=== PATIENT | female | born 1940 | race American Indian/Alaskan Native ===

== ENCOUNTER 2018-03-29 11:04 | Emergency (ER) | payer OTHER, MEDICARE ==
--- OUTSIDE RECORDS SUMMARY | 2018-03-29 11:06 | XMS REPORT | Clinical Summary ---
:1940 Author Organization [facility] Address [address] [place] [address] Care Team Providers Name Role Phone Bret Blackwell MD Primary Care Provider Allergies Active Allergy Reactions Severity Noted Date Comments Penicillins Rash Low 08/14/2016 Current Medications Prescription Sig. Disp. Refills Start Date End Date Status ascorbate Vitamin C Active Dx-erlhgjcz-ffy (VITAMIN C) 1,000 mg powder effervescent in packet VIT B COMPLEX 100 vitamin B Active NO.2/HERBS (VITAMIN complex B COMPLEX 100 2-HERBS ORAL) ahrrqep-xacloxyzx-d Take 1 tablet Active inc tablet by mouth. pantoprazole Take 40 mg by 10/26/2017 Active (PROTONIX) 40 MG EC mouth daily. tablet levothyroxine Take 50 mcg by Active (SYNTHROID, mouth every LEVOXYL) 50 mcg morning. tablet losartan (COZAAR) Take 100 mg by Active 100 MG tablet mouth nightly. metFORMIN Take 1,000 mg Active (GLUCOPHAGE) 1,000 by mouth 2 mg tablet (two) times a day with meals. aspirin (ECOTRIN) Take 81 mg by Active 81 MG enteric mouth daily. coated tablet clopidogrel Take 75 mg by Active (PLAVIX) 75 mg mouth daily. tablet carvedilol (COREG) Take 12.5 mg by Active 12.5 MG tablet mouth 2 (two) times a day with meals. amLODIPine Take 5 mg by Active (NORVASC) 5 mg mouth 2 (two) tablet times a day. atorvastatin Take 40 mg by Active (LIPITOR) 40 MG mouth daily. tablet coenzyme Q10 10 mg Take 10 mg by Active capsule mouth daily. docusate sodium Take 100 mg by Active (COLACE) 100 MG mouth 2 (two) capsule times a day. cyanocobalamin, Place 2,500 mcg Active vitamin B-12, 5,000 under the mcg tablet, tongue daily. sublingual folic acid 0.8 mg Take 0.8 mg by Active capsule mouth daily. omega-3 fatty Take by mouth Active acids-fish oil daily. (FISH OIL) 340-1,000 mg capsule memantine (NAMENDA Take by mouth Active XR) 28 mg daily. capsule,sprinkle,ER 24hr galantamine Take 12 mg by Active (RAZADYNE) 12 MG mouth 2 (two) tablet times a day. insulin GLARGINE Inject 20-25 Active (LANTUS) 100 Units under the unit/mL injection skin nightly. (vial) insulin lispro Inject 2-15 Active (HumaLOG) 100 Units under the unit/mL injection skin 3 (three) times a day before meals. nitrofurantoin Take 100 mg by Active (MACRODANTIN) 100 mouth daily. MG capsule brinzolamide-brimon Apply 1 drop to Active idine (SIMBRINZA) eye 2 (two) 1-0.2 % times a day. drops,suspension propylene glycol Apply 1 drop to Active (SYSTANE BALANCE) eye 3 (three) 0.6 % drops times a day. carvedilol (COREG) Take 1 tablet 180 tablet 3 09/19/2016 12.5 MG (12.5 mg total) 7 tabletIndications: by mouth 2 Essential (two) times a hypertension day. amLODIPine Take 1 tab by 180 tablet 3 11/28/2016 Discontinued (NORVASC) 5 mg mouth twice 8 tabletIndications: daily. Essential hypertension metFORMIN 12/29/2016 Discontinued (GLUCOPHAGE) 1,000 8 mg tablet NAMENDA XR 28 mg 01/19/2017 Discontinued capsule,sprinkle,ER 8 24hr levothyroxine 12/08/2016 Discontinued (SYNTHROID, 8 LEVOXYL) 50 mcg tablet clopidogrel 01/25/2017 Discontinued (PLAVIX) 75 mg 8 tablet atorvastatin 12/15/2016 Discontinued (LIPITOR) 40 MG 8 tablet LANTUS SOLOSTAR 100 01/24/2017 Discontinued unit/mL injection 8 (pen) irbesartan (AVAPRO) 11/15/2016 Discontinued 300 MG tablet 7 repaglinide 12/15/2016 Discontinued (PRANDIN) 0.5 MG 8 tablet losartan (COZAAR) 12/15/2016 Discontinued 100 MG tablet 8 carvedilol (COREG) carvedilol 12.5 Discontinued 12.5 MG tablet mg tablet 7 coenzyme Q10 10 mg Take 10 mg by Discontinued capsule mouth. 8 b complex vitamins Take by mouth. Discontinued capsule 8 niacin 500 MG Take by mouth. Discontinued tablet 7 folic acid Take 400 mcg by Discontinued (FOLVITE) 400 MCG mouth. 8 tablet aspirin (ECOTRIN) Take 81 mg by Discontinued 81 MG enteric mouth daily. 8 coated tablet carvedilol (COREG) carvedilol 12.5 Discontinued 12.5 MG tablet mg tablet 8 docosahexanoic Fish Oil Discontinued acid/epa (FISH OIL 8 ORAL) galantamine 11/30/2017 Discontinued (RAZADYNE) 12 MG 8 tablet galantamine Take 12 mg by Discontinued (RAZADYNE) 4 MG mouth 2 (two) 8 tablet times a day. Active Problems Problem Noted Date Coronary artery disease involving [place] heart with angina pectoris 03/25/2018 Chest pain 02/02/2018 History of coronary artery bypass graft 02/02/2018 Coronary artery disease of [place] artery of [place] heart with stable 2016 angina pectoris Syncope 02/27/2017 Carotid artery disease 02/03/2017 Coronary artery disease with angina pectoris 02/03/2017 Stenosis of carotid artery 07/18/2016 Chronic coronary artery disease 07/18/2016 Essential hypertension 07/18/2016 Hyperlipidemia 07/18/2016 Temporary cerebral vascular dysfunction 07/18/2016 Transient ischemia 07/18/2016 Encounters Date Type Specialty Care Team Description 03/26/2018 Procedure Pass Procedural Cardiology 03/26/2018 Surgery Procedural [facility] PCI STENT [[id number] Cardiology MD Jorge L (CPT)] 03/25/2018 - Hospital Cardiology Wil Luis Coronary artery disease involving [place] coronary artery of [place] heart with angina pectoris (Primary Dx); 03/27/2018 Encounter MD Jorge L Coronary artery disease involving [place] heart with angina pectoris, unspecified vessel or lesion type 03/25/2018 Procedure Pass Procedural Cardiology 03/25/2018 Surgery Procedural Wil Luis Cv left internal Cardiology MD Jorge L mammary graft 03/15/2018 Lab Lab Wil Luis Atherosclerosis of MD Jorge L [place] coronary artery with angina pectoris, unspecified whether [place] or transplanted heart (Primary Dx) 03/11/2018 Orders Only Cardiology Radha, Coronary artery disease DEVIKA Johnson involving [place] heart with angina pectoris, unspecified vessel or lesion type (Primary Dx) 02/26/2018 Hospital Procedural Wil Luis Coronary artery disease Encounter Cardiology MD Jorge L involving [place] coronary artery of [place] heart without angina pectoris 02/19/2018 Telephone Cardiology Zachary Cruz MA Scheduling (cta coronary) 02/19/2018 Orders Only Cardiology Zachary Cruz MA Coronary artery disease involving [place] coronary artery of [place] heart without angina pectoris (Primary Dx) 02/02/2018 Office Visit Cardiology Wil Luis Chest pain, unspecified type (Primary Dx); MD Jorge L Coronary artery disease of [place] artery of [place] heart with stable angina pectoris; Bilateral carotid artery disease; History of coronary artery bypass graft 08/04/2017 Office Visit Cardiology Wil Luis CAD in [place] artery ( Primary Dx); MD Jorge L Bilateral carotid artery disease 04/03/2017 Office Visit Cardiology Wil Luis Essential hypertension ( Primary Dx); MD Jorge L Syncope, unspecified syncope type; Stenosis of carotid artery, unspecified laterality; Chronic coronary artery disease after 03/28/2017 Social History Tobacco Use Types Packs/Day Years Used Date Never Smoker Smokeless Tobacco: Never Used Sex Assigned at Date Recorded Not on file Last Filed Vital Signs Vital Sign Reading Time Taken Blood Pressure 105/55 03/27/2018 8:26 AM CDT Pulse 64 03/27/2018 8:26 AM CDT Temperature 37.3 C (99.1 F) 03/27/2018 8:26 AM CDT Respiratory Rate 16 03/27/2018 8:26 AM CDT Oxygen Saturation 92% 03/27/2018 8:26 AM CDT Inhaled Oxygen Concentration - - Weight 78.2 kg (172 lb 8 oz) 03/26/2018 4:39 AM CDT Height 160 cm (5' 3") 03/25/2018 7:22 AM CDT Body Mass Index 30.56 03/26/2018 4:39 AM CDT Plan of Treatment Date Type Specialty Care Team Description 04/13/2018 Office Visit Cardiology Wil Luis MD [address] [place] [address] [phone] 08/03/2018 Office Visit Cardiology Wil Luis MD [address] [place], [place] [id number] Health Maintenance Due Date Last Done Comments SHINGRIX VACCINE (#1) 1991 ZOSTER VACCINE 2001 PNEUMOCOCCAL POLYSACCHARIDE VACCINE AGE 65 AND OVER 2006 PNEUMOCOCCAL-13 2006 INFLUENZA VACCINE 05/12/2018 Implants Implanted Type Area Bilingual Administrative Assistant Device Expiration Model / Identifier Date Serial / Lot Catheter Cardiac 7f Mach 1 Fr4 Sh - [id number] Cardiovascular N/A: [facility] [id number] / Implanted: 03/26/2018 (Quantity not on file) Implants N/A INTERVENTIONAL / CARDIOLOGY Microcatheter Miley Corsair 6f X 135 Cm - [id number] Cardiovascular N/A: [facility] [id number] / Implanted: 03/26/2018 (Quantity not on file) Implants N/A / Stent Cornorary Syst Synergy (Mr) 2.50mm X 20mm - [id number] Coronary Stents N/A: [facility] 11/16/2018 [id number] / Implanted: 03/25/2018 (Quantity not on file) N/A INTERVENTIONAL / CARDIOLOGY [id number] Stent Cornorary Syst Synergy (Mr) 2.50mm X 16mm - [id number] Coronary Stents N/A: [facility] 12/29/2018 [id number] / Implanted: 03/26/2018 (Quantity not on file) N/A INTERVENTIONAL / CARDIOLOGY [id number] System Clsr Sut Meditd 6fr Perclose Proglide - [id number] Surgical N/A: [facility] 01/10/2020 [id number] / Implanted: 03/25/2018 (Quantity not on file) Implants; N/A DEVICES / Expanders; [id number] Extenders; Surgical Wires System Clsr Sut Meditd 6fr Perclose Proglide - [id number] Surgical N/A: [facility] 01/10/2020 [id number] / Implanted: 03/26/2018 (Quantity not on file) Implants; N/A DEVICES / Expanders; [id number] Extenders; Surgical Wires Procedures Procedure Name Priority Date/Time Associated Diagnosis Comments POC GLUCOSE Routine 03/27/2018 12:34 Results for this PM CDT procedure are in the results section. POC GLUCOSE Routine 03/27/2018 9:42 Results for this AM CDT procedure are in the results section. ESTIMATED GFR Routine 03/27/2018 4:30 Results for this AM CDT procedure are in the results section. LIPID PANEL Routine 03/27/2018 4:30 Results for this AM CDT procedure are in the results section. HC COMPLETE BLD COUNT Routine 03/27/2018 4:30 Results for this W/AUTO DIFF AM CDT procedure are in the results section. BASIC METABOLIC PANEL Routine 03/27/2018 4:30 Results for this AM CDT procedure are in the results section. POC GLUCOSE Routine 03/26/2018 9:07 Results for this PM CDT procedure are in the results section. ECG PRE/POST OP STAT 03/26/2018 7:40 Results for this PM CDT procedure are in the results section. POC GLUCOSE Routine 03/26/2018 5:40 Results for this PM CDT procedure are in the results section. CV INTRACORONARY Routine 03/26/2018 3:23 Results for this STENT PLACEMENT W PM CDT procedure are in ANGIOPLASTY SINGLE the results MAJOR ARTERY OR section. BRANCH ACTIVATED CLOTTING Routine 03/26/2018 3:14 Results for this TIME PM CDT procedure are in the results section. ACTIVATED CLOTTING Routine 03/26/2018 2:35 Results for this TIME PM CDT procedure are in the results section. ACTIVATED CLOTTING Routine 03/26/2018 2:25 Results for this TIME PM CDT procedure are in the results section. ACTIVATED CLOTTING Routine 03/26/2018 1:56 Results for this TIME PM CDT procedure are in the results section. POC GLUCOSE Routine 03/26/2018 12:22 Results for this PM CDT procedure are in the results section. POC GLUCOSE Routine 03/26/2018 7:18 Results for this AM CDT procedure are in the results section. ESTIMATED GFR Routine 03/26/2018 4:45 Results for this AM CDT procedure are in the results section. PHOSPHORUS LEVEL Routine 03/26/2018 4:45 Results for this AM CDT procedure are in the results section. MAGNESIUM LEVEL Routine 03/26/2018 4:45 Results for this AM CDT procedure are in the results section. HC COMPLETE BLD COUNT Routine 03/26/2018 4:45 Results for this W/AUTO DIFF AM CDT procedure are in the results section. BASIC METABOLIC PANEL Routine 03/26/2018 4:45 Results for this AM CDT procedure are in the results section. POC GLUCOSE Routine 03/25/2018 9:56 Results for this PM CDT procedure are in the results section. POC GLUCOSE Routine 03/25/2018 5:26 Results for this PM CDT procedure are in the results section. ECG PRE/POST OP Routine 03/25/2018 1:27 Results for this PM CDT procedure are in the results section. POC GLUCOSE Routine 03/25/2018 1:15 Results for this PM CDT procedure are in the results section. ECG PRE/POST OP Routine 03/25/2018 11:38 Results for this AM CDT procedure are in the results section. CONSULT CARDIAC REHAB Routine 03/25/2018 11:27 PHASE 1 AM CDT POC GLUCOSE Routine 03/25/2018 11:05 Results for this AM CDT procedure are in the results section. CV PCI Routine 03/25/2018 10:43 Results for this AM CDT procedure are in the results section. CV LEFT INTERNAL Routine 03/25/2018 10:43 Results for this MAMMARY GRAFT AM CDT procedure are in the results section. CV SELECTIVE CORONARY Routine 03/25/2018 10:43 Results for this ANGIOGRAPHY AM CDT procedure are in the results section. ACTIVATED CLOTTING Routine 03/25/2018 10:10 Results for this TIME AM CDT procedure are in the results section. ECG 12-LEAD STAT 03/25/2018 7:16 Results for this AM CDT procedure are in the results section. POC GLUCOSE Routine 03/25/2018 7:07 Results for this AM CDT procedure are in the results section. PROTHROMBIN TIME WITH Routine 03/15/2018 10:49 Atherosclerosis of Results for this INR AM CDT [place] coronary artery procedure are in with angina pectoris, the results unspecified whether section. [place] or transplanted heart ESTIMATED GFR Routine 03/15/2018 10:30 Results for this AM CDT procedure are in the results section. HC COMPLETE BLD COUNT Routine 03/15/2018 10:30 Atherosclerosis of Results for this W/AUTO DIFF AM CDT [place] coronary artery procedure are in with angina pectoris, the results unspecified whether section. [place] or transplanted heart COMPREHENSIVE Routine 03/15/2018 10:30 Atherosclerosis of Results for this METABOLIC PANEL AM CDT [place] coronary artery procedure are in with angina pectoris, the results unspecified whether section. [place] or transplanted heart CV CTA CORONARY Routine 02/26/2018 2:51 Coronary artery Results for this ARTERIES W CONTRAST PM CDT disease involving procedure are in [place] coronary artery the results of [place] heart section. without angina pectoris ESTIMATED GFR Routine 02/26/2018 1:22 Results for this PM CDT procedure are in the results section. POC CREATININE Routine 02/26/2018 1:22 Results for this PM CDT procedure are in the results section. XR CHEST 2 VW Routine 02/02/2018 12:15 Chest pain, Results for this PM CDT unspecified type procedure are in Coronary artery the results disease of [place] section. artery of [place] heart with stable angina pectoris Bilateral carotid artery disease US CAROTID DUPLEX Routine 01/28/2018 11:52 CAD in [place] artery Results for this BILATERAL AM CDT Bilateral carotid procedure are in artery disease the results section. US CAROTID DUPLEX Routine 07/21/2017 10:13 Carotid artery Results for this BILATERAL AM CDT disease, unspecified procedure are in laterality the results Coronary artery section. disease with angina pectoris, unspecified vessel or lesion type, unspecified whether [place] or transplanted heart Essential hypertension SOB (shortness of breath) ECG 12-LEAD Routine 04/03/2017 8:13 Essential hypertension Results for this AM CDT Syncope, unspecified procedure are in syncope type the results section. after 03/28/2017 Results POC glucose (03/27/2018 12:34 PM)Only the most recent of11 resultswithin the time period is included. POC glucose 308 (H) 65 - 99 mg/dL [facility] DEPARTMENT OF PATHOLOGY Comment: AND GENOMIC MEDICINE No Action Needed [facility] Notified RN Meter ID: [id number] Client Support Manager: Darron Irwin Performing Organization Address City/State/Zipcode Phone Number [facility] DEPARTMENT OF PATHOLOGY AND [address] [place] [address] GENOMIC MEDICINE Estimated GFR (03/27/2018 4:30 AM)Only the most recent of3 resultswithin the time period is included. GFR Non Af Amer 61 mL/min/1.73 m2 [facility] DEPARTMENT OF PATHOLOGY AND GENOMIC MEDICINE GFR Af Amer 74 mL/min/1.73 m2 [facility] DEPARTMENT OF Comment: PATHOLOGY AND GENOMIC Chronic kidney disease: <60 mL/min/1.73m2 MEDICINE Kidney failure: <15 mL/min/1.73m2 The estimated GFR is calculated from the IDMS-traceable Modification of Diet in Renal Disease Equation. The accuracy of the calculation is poor when the creatinine is normal. Calculated values >90 mL/min/1.73m2 are not reported. This equation has not been validated in children (<18 years), women, the elderly (>70 years), or ethnic groups other than Caucasians and Americans. Specimen Plasma specimen Performing Organization Address City/State/Zipcode Phone Number [facility] DEPARTMENT OF PATHOLOGY AND [address] [place] [address] [facility] CBC with platelet and differential (03/27/2018 4:30 AM)Only the most recent of3 resultswithin the time period is included. WBC 10.02 4.50 - 11.00 k/uL [facility] DEPARTMENT OF PATHOLOGY AND GENOMIC MEDICINE RBC 3.52 (L) 4.20 - 5.50 m/uL [facility] DEPARTMENT OF PATHOLOGY AND GENOMIC MEDICINE HGB 10.0 (L) 12.0 - 16.0 g/dL [facility] DEPARTMENT OF PATHOLOGY AND GENOMIC MEDICINE HCT 30.6 (L) 37.0 - 47.0 % [facility] DEPARTMENT OF PATHOLOGY AND GENOMIC MEDICINE MCV 86.9 82.0 - 100.0 fL [facility] DEPARTMENT OF PATHOLOGY AND GENOMIC MEDICINE MCH 28.4 27.0 - 34.0 pg [facility] DEPARTMENT OF PATHOLOGY AND GENOMIC MEDICINE MCHC 32.7 31.0 - 37.0 g/dL [facility] DEPARTMENT OF PATHOLOGY AND GENOMIC MEDICINE RDW - SD 49.2 37.0 - 55.0 fL [facility] DEPARTMENT OF PATHOLOGY AND GENOMIC MEDICINE MPV 12.7 8.8 - 13.2 fL [facility] DEPARTMENT OF PATHOLOGY AND GENOMIC MEDICINE Platelet count 206 150 - 400 k/uL [facility] DEPARTMENT OF PATHOLOGY AND GENOMIC MEDICINE Nucleated RBC 0.20 /100 WBC [facility] DEPARTMENT OF PATHOLOGY AND GENOMIC MEDICINE Neutrophils 66.2 39.0 - 69.0 % [facility] DEPARTMENT OF PATHOLOGY AND GENOMIC MEDICINE Lymphocytes 19.6 (L) 25.0 - 45.0 % [facility] DEPARTMENT OF PATHOLOGY AND GENOMIC MEDICINE Monocytes 12.7 (H) 0.0 - 10.0 % [facility] DEPARTMENT OF PATHOLOGY AND GENOMIC MEDICINE Eosinophils 1.0 0.0 - 5.0 % [facility] DEPARTMENT OF PATHOLOGY AND GENOMIC MEDICINE Basophils 0.3 0.0 - 1.0 % [facility] DEPARTMENT OF PATHOLOGY AND GENOMIC MEDICINE Immature granulocytes 0.2Comment: 0.0 - 1.0 % [facility] DEPARTMENT OF "Immature PATHOLOGY AND GENOMIC granulocytes" MEDICINE (promyelocytes, myelocytes, metamyelocytes) Specimen Blood Performing Organization Address City/[facility] Phone Number [facility] DEPARTMENT OF PATHOLOGY AND [address] [place] [phone] GENOMIC MEDICINE Lipid panel (03/27/2018 4:30 AM) Cholesterol 104 <200 mg/dL [facility] DEPARTMENT OF PATHOLOGY AND GENOMIC MEDICINE Triglycerides 80 <150 mg/dL [facility] DEPARTMENT OF PATHOLOGY AND GENOMIC MEDICINE HDL cholesterol 42 >40 mg/dL [facility] DEPARTMENT OF PATHOLOGY AND GENOMIC MEDICINE LDL cholesterol 54Comment: Result <100 mg/dL [facility] DEPARTMENT obtained by direct LDL PATHOLOGY AND GENOMIC measurement MEDICINE Lipid panel interpretation SeeBelow [facility] DEPARTMENT OF Comment: PATHOLOGY AND GENOMIC Total Cholesterol (mg/dL) MEDICINE <200 Desirable 288-644Crtdqnpvbe-egno >=240High Triglycerides (mg/dL) <150 Normal 485-175Jkvxydqxfl-sbfh 200-499High >=500Very high HDL Cholesterol (mg/dL) <40Low (male) <40Low (female) LDL Cholesterol (mg/dL) <100 Optimal 100-129Near or above optimal 179-077Qatwzwcpid-gokt 160-189High >=190Very high Risk Catergories that modify LDL goals. Risk CatergoriesLDL goal (mg/dL) CHD and CHD risk equivalent<100 (10-year risk >20%) Multiple (2+) risk factors <130 (10-year risk=<20%) 0-1 risk factors <160 (<10-year risk) Defining levels of lipids in metabolic syndrome Triglycerides>=150 mg/dL HDL Cholesterol Men<40 mg/dL Women<40 mg/dL Non-HDL cholesterol is a second target for therapy in persons with high triglycerides (>=200 mg/dL) Specimen Plasma specimen Performing Organization Address City/State/[facility] Phone Number [facility] DEPARTMENT OF PATHOLOGY AND [address] [place] [address] [facility] MEDICINE Basic metabolic panel (03/27/2018 4:30 AM)Only the most recent of2 resultswithin the time period is included. Sodium 136 135 - 148 mEq/L [facility] DEPARTMENT OF PATHOLOGY AND GENOMIC MEDICINE Potassium 4.2 3.5 - 5.0 mEq/L [facility] DEPARTMENT OF PATHOLOGY AND GENOMIC MEDICINE Chloride 99 98 - 112 mEq/L [facility] DEPARTMENT OF PATHOLOGY AND GENOMIC MEDICINE CO2 23 (L) 24 - 31 mEq/L [facility] DEPARTMENT OF PATHOLOGY AND GENOMIC MEDICINE Anion gap 14@ANIO 7 - 15 mEq/L [facility] DEPARTMENT OF PATHOLOGY AND GENOMIC MEDICINE BUN 20 8 - 23 mg/dL [facility] DEPARTMENT OF PATHOLOGY AND GENOMIC MEDICINE Creatinine 0.9 0.5 - 0.9 mg/dL [facility] DEPARTMENT OF PATHOLOGY AND GENOMIC MEDICINE Glucose 277 (H) 65 - 99 mg/dL [facility] DEPARTMENT OF PATHOLOGY AND GENOMIC MEDICINE Calcium 9.2 8.8 - 10.2 mg/dL [facility] DEPARTMENT OF PATHOLOGY AND GENOMIC MEDICINE Specimen Plasma specimen Performing Organization Address [facility] Phone Number [facility] DEPARTMENT PATHOLOGY AND [address] [place] [address] [facility] ECG Pre/Post Op (STAT) (03/26/2018 7:40 PM)Only the most recent of3 resultswithin the time period is included. Ventricular rate 84 HM MUSE Atrial rate 84 [facility] MUSE AK interval 242 HM MUSE QRSD interval 114 HM MUSE QT interval 416 HM MUSE QTC interval 491 [facility] MUSE P axis 1 74 HM MUSE QRS axis 1 -18 HM MUSE T wave axis 122 [facility] MUSE EKG impression Sinus rhythm with 1st degree AV block-Incomplete left bundle branch block-ST elevation, consider inferior injury or acute infarct-Prolonged QT-^^ ^^ ACUTE [place] / STEMI ^^ ^^-Consider right ventricular inv [facility] MUSE olvement in acute inferior infarct-Abnormal ECG-In automated comparison with ECG of 25-MAR-2018 13:27,-AK interval has increased -T wave inversion more evident in Lateral leads- Performing Organization Address City/[facility]/Zipcode Phone Number [facility] MUSE [address] [place] [phone] Cv laborer powerhouse procedure (03/26/2018 3:23 PM) Narrative Performed At PCI of proximal RCA with 2.5 x 16 mm BRENTON KETTY Performing Organization Address [facility] Phone Number [facility] [address] [place] [address] Activated clotting time (03/26/2018 3:14 PM)Only the most recent of5 resultswithin the time period is included. Activated clotting time 217 (H) 96 - 152 sec [facility] DEPARTMENT OF Comment: PATHOLOGY AND GENOMIC Meter ID: [id number] MEDICINE Client Support Manager: Peyton Mena Performing Organization Address [facility] Phone Number [facility] DEPARTMENT OF PATHOLOGY AND [address] [place] [address] GENOMIC [facility] Phosphorus level (03/26/2018 4:45 AM) Phosphorus 3.6 2.4 - 4.5 mg/dL [facility] DEPARTMENT OF PATHOLOGY AND GENOMIC MEDICINE Specimen Plasma specimen Performing Organization Address [facility] Phone Number [facility] DEPARTMENT OF PATHOLOGY AND [address] [place] [address] Magnesium level (03/26/2018 4:45 AM) Magnesium 1.8 1.6 - 2.4 mg/dL [facility] DEPARTMENT OF PATHOLOGY AND GENOMIC MEDICINE Specimen Plasma specimen Performing Organization Address [facility] Phone Number [facility] DEPARTMENT OF PATHOLOGY AND [address] [place] [address] GENOMIC [facility] Cv laborer powerhouse procedure (03/25/2018 10:43 AM) Narrative Performed At Please refer to the OpNote dictated by Surgeon(s) and Role: CUPID * Wil Luis MD - Primary * Daniel Aaron MD - Fellow * Hipolito Diaz MD - Fellow [id number] Performing Organization Address [facility] Phone Number [facility] [address] [place] [address] ECG 12 lead (03/25/2018 7:16 AM)Only the most recent of2 resultswithin the time period is included. Ventricular rate 77 [facility] Atrial rate 77 [facility] AK interval 174 [facility] QRSD interval 104 [facility] QT interval 416 [facility] QTC interval 470 [facility] P axis 1 38 [facility] QRS axis 1 -20 [facility] MUSE T wave axis 71 [facility] MUSE EKG impression Sinus rhythm with sinus arrhythmia with occasional premature ventricular complexes-Nonspecific ST and T wave abnormality-Left axis deviation- Abnormal ECG-In automated comparison with ECG of 03-APR-2017 08:13,-premature ventricular complexes are now [facility] MUSE present- : 19 PM Performing Organization Address City/[facility] Phone Number [facility] MUSE [address] [place] [address] Prothrombin time with INR (03/15/2018 10:49 AM) Prothrombin time 14.0 12.0 - 15.0 sec [facility] DEPARTMENT OF PATHOLOGY AND GENOMIC MEDICINE INR 1.1 [facility] DEPARTMENT OF Comment: PATHOLOGY AND GENOMIC The International Normalized Ratio (INR) is a therapeutic MEDICINE monitoring tool for patients who are stable on oral anticoagulant therapy. An INR of 2.0-3.0 is suggested for deep vein thrombosis/pulmonary embolism. Specimen Blood Performing Organization Address [facility] Phone Number [facility] DEPARTMENT OF PATHOLOGY AND [address] [place] [address] [employer] MEDICINE Comprehensive metabolic panel (03/15/2018 10:30 AM) Sodium 138 135 - 148 mEq/L [facility] DEPARTMENT OF PATHOLOGY AND GENOMIC MEDICINE Potassium 4.6 3.5 - 5.0 mEq/L [facility] DEPARTMENT OF PATHOLOGY AND GENOMIC MEDICINE Chloride 98 98 - 112 mEq/L [facility] DEPARTMENT OF PATHOLOGY AND GENOMIC MEDICINE CO2 26 24 - 31 mEq/L [facility] DEPARTMENT OF PATHOLOGY AND GENOMIC MEDICINE Anion gap 14@ANIO 7 - 15 mEq/L [facility] DEPARTMENT OF PATHOLOGY AND GENOMIC MEDICINE BUN 19 8 - 23 mg/dL [facility] DEPARTMENT OF PATHOLOGY AND GENOMIC MEDICINE Creatinine 0.9 0.5 - 0.9 mg/dL [facility] DEPARTMENT OF PATHOLOGY AND GENOMIC MEDICINE Glucose 87 65 - 99 mg/dL [facility] DEPARTMENT OF PATHOLOGY AND GENOMIC MEDICINE Calcium 9.8 8.8 - 10.2 mg/dL [facility] DEPARTMENT OF PATHOLOGY AND GENOMIC MEDICINE Protein 8.2 6.3 - 8.3 g/dL [facility] DEPARTMENT OF Comment: PATHOLOGY AND GENOMIC 4.6-7.0 g/dL MEDICINE 1 week 4.4-7.6 g/dL 7 months-1year5.1-7.3 g/dL 1-2 years5.6-7.5 g/dL >3 years6.0-8.0 g/dL 18-150 6.3-8.3 g/dL Albumin 3.9 3.5 - 5.0 g/dL [facility] DEPARTMENT OF PATHOLOGY AND GENOMIC MEDICINE A/G ratio 0.9 0.7 - 3.8 [facility] DEPARTMENT OF PATHOLOGY AND GENOMIC MEDICINE Alkaline phosphatase 52 35 - 104 U/L [facility] DEPARTMENT OF PATHOLOGY AND GENOMIC MEDICINE AST 22 10 - 35 U/L [facility] DEPARTMENT OF PATHOLOGY AND GENOMIC MEDICINE ALT 16 5 - 50 U/L [facility] DEPARTMENT OF PATHOLOGY AND GENOMIC MEDICINE Total bilirubin <0.2 0.0 - 1.2 mg/dL [facility] DEPARTMENT OF PATHOLOGY AND GENOMIC MEDICINE Specimen Plasma specimen Performing Organization Address City/State/Zipcode Phone Number [facility] DEPARTMENT OF PATHOLOGY AND [address] [place] [address] Cv cta coronary arteries w contrast (02/26/2018 2:51 PM) Narrative Performed At [facility] Nuclear Cardiology and Cardiac CT [address] [place] [address] CTA Coronary Arteries Report Pat.Name:DARRIN DUMONT Pat.ID:[id number] .Date: 02/26/2018 Refer.MD:WIL LUIS MD Exam Time: 1:34:00 PMStudy Type:CTA Coronary Arteries Height:63inWeight: 177lb BSA: 1.84 m2 DOBAge:1940,77Y Sex: FEMALEBP:145/67 HR:60 bpm Nuclear Tech:RT Bryan([place])(CT), [facility] Pat. Stat.:Outpatient CPT - 4: CCTA w Thoracic Aorta (NonCongenital) [id number] Nuclear Event ID:[id number] Order ID:[id number] Reason for Study:CAD, prior CABG Procedures:CTA Coronary Arteries SUMMARY: Technique: IV contrast was administered and sequential 0.[address] cuts were obtained through the chest using the Siemens Somatom Force CT scanner. Post-processing and 3D reconstruction were done using the [employer] workstation. Interactive image viewing and volumetric display and analysis were also performed. CTA RESULTS Left Main: A normal sized 3.5 artery which arises normally from the left sinus of Valsalva and divides into the left anterior descending, circumflex, and ramus coronary arteries. Moderate distal focal predominantly calcified atherosclerotic plaque is present with possibly 50% distal stenosis. Calcification prevents a more accurate assessment. Left anterior descending (LAD): A normal sized 3.0mm artery which wraps around the apex and gives off one diagonal branch. Moderatepredominantly calcified atherosclerotic plaque is present in the proximal segment but without significant stenosis.The mid segment cannot be assessed due to motion artifact and beam hardening/blooming artifacts from surgical clips. The first diagonal is a 1.5 mm artery which has mild predominantly calcified atherosclerotic plaque present but with no significant stenosis. Left circumflex: A normal sized 1.8 mm non-dominant artery which arises normally from the left main and gives off two major obtuse marginal arteries before terminating in the AV groove. Mild calcified and non-calcified atherosclerotic plaque is present in the proximal segment with but without significant stenosis. The first obtuse marginal is a 1.5 mm artery which has no significant atherosclerotic plaque present. The second obtuse marginal is a 1.4 mm artery which has moderate predominantly calcified atherosclerotic plaque present but no significant stenosis. Right coronary artery: A normal sized 2.7 mm dominant artery which arises normally from the right sinus of Valsalva and gives off several right ventricular branches, the posterior descending artery and the posterolateral artery. Severe calcified and non-calcified atherosclerotic plaque is present in the proximal, mid and distal segments with subtotal vs. total occlusion in the mid to distal segment. The posterior descending is a 1.6 mm artery which has no significant atherosclerotic plaquepresent but is incompletely visualized due to blooming artifacts from metallic surgical clips along the diaphragmatic surface. The posterolateral is a 1.7 mm artery which has moderate calcified and non-calcified atherosclerotic plaque present but with probably no significant stenosis. The proximal segment cannot be accurately assessed due to beam hardening artifacts. Ramus: A 2.3 mm bifurcating artery which has mild predominantly calcified atherosclerotic plaque present but with no significant stenosis. Stents: None. Bypass Grafts: Patent left internal mammary graft to the distal left anterior descending coronary artery which has a widely patent anastomosis and no significant stenosis beyond the graft insertion. Although there is probably no significant graft stenosis, multiple surgical clips prevent assessment ofseveral short segments. Occluded saphenous vein graft to probably the right coronary artery. Occluded saphenous vein to probably the first obuse marginal artery. Pulmonary Arteries: The main pulmonary artery is mildly dilated at 3.0cm but withno proximal thrombus identified. Left Atrial and Pulmonary Vein Dimensions: Left atrial size (A-P diameter) 3.9 cm. Variant PV anatomy Left superior PV11 mm. Left middle PV 6 mm. Left inferior PV11 mm. Right superior PV14 mm. Right middle PV 6 mm. Right inferior PV13 mm. There is no evidence of the left atrial appendage clot. Left Ventricular Valve Morphology/Function: Aortic valve is tri-leaflet and there is no evidence of stenosis. Mitral valve is normal without evidence of significant regurgitation. Thoracic Aortic Dimensions: No aortic aneurysm or dissection is seen. Aortic root3.3 cm. Sinotubular junction 2.6 cm. Mid ascending aorta 3.2 cm. Distal ascending aorta 2.7 cm. Aortic arch 2.2 cm.There is normal takeoff of the great vessels and no significant stenosis in the proximal visualized segments. Aortic Isthmus 1.9 cm. Descending thoracic aorta 1.9 cm. Pericardium: No pericardial effusion or pericardial thickening. Non-Cardiac Findings: Small to moderate hiatal hernia. There appears to be a port-a-cath in the superior vena cava. Multiple surgical clips which are numerous along the diaphragmatic surface of the heart and limiting assessment of the right coronary artery. CONCLUSION The coronary artery calcium score indicates a severe extent of coronary atherosclerosis. Coronary CTA shows possible significant stenosis of the distal left main and subtotal vs. total occlusion of the right coronary artery. Patent left internal mammary graft to the distal left anterior descending coronary artery which has a widely patent anastomosis and no significant stenosis beyond the graft insertion. Although there is probably no significant graft stenosis, multiple surgical clips prevent assessment ofseveral short segments. Occluded saphenous vein graft to probably the right coronary artery. Occluded saphenous vein to probably the first obuse marginal artery. VariantPV anatomy. There is no evidence of the left atrial appendage clot. STUDY QUALITY The study quality is fair due to motion artifacts and artifacts from numerous surgical clips. COMMENTS None. The above report was based on a dedicated Cardiovascular CTA Protocol and interpreted by a Substance Abuse Rn.Should a more comprehensive assessment of non-cardiovascular findings be desired, please consult a radiologist.These images are available in the [facility] [employer] PACS system. Signed 03/04/2018 01:59 PM Hipolito Nieves MD Procedure Note Interface, Radiology Results In - 03/04/2018 3:44 PM CDT Nuclear Cardiology and Cardiac CT [address] [place] [address] CTA Coronary Arteries Report Pat.Name: DARRIN DUMONT Pat.ID: [id number] .Date: 02/26/2018 Refer.MD: WLI LUIS MD Exam Time: 1:34:00 PM Study Type:CTA Coronary Arteries Height: 63in Weight: 177lb BSA: 1.84 m2 Age: 13 1940,77Y Sex: FEMALE BP: 145/67 HR: 60 bpm Nuclear Tech:Zane Redmond RT([place])(CT), [facility] Pat. Stat.:Outpatient CPT - 4: CCTA w Thoracic Aorta (NonCongenital) [id number] Nuclear Event ID:[id number] Order ID: [id number] Reason for Study:CAD, prior CABG Procedures:CTA Coronary Arteries SUMMARY: Technique: IV contrast was administered and sequential 0.[address] cuts were obtained through the chest using the Siemens Somatom Force CT scanner. Post-processing and 3D reconstruction were done using the [employer] workstation. Interactive image viewing and volumetric display and analysis were also performed. CTA RESULTS Left Main: A normal sized 3.5 artery which arises normally from the left sinus of Valsalva and divides into the left anterior descending, circumflex, and ramus coronary arteries. Moderate distal focal predominantly calcified atherosclerotic plaque is present with possibly 50% distal stenosis. Calcification prevents a more accurate assessment. Left anterior descending (LAD): A normal sized 3.0mm artery which wraps around the apex and gives off one diagonal branch. Moderate predominantly calcified atherosclerotic plaque is present in the proximal segment but without significant stenosis. The mid segment cannot be assessed due to motion artifact and beam hardening/blooming artifacts from surgical clips. The first diagonal is a 1.5 mm artery which has mild predominantly calcified atherosclerotic plaque present but with no significant stenosis. Left circumflex: A normal sized 1.8 mm non-dominant artery which arises normally from the left main and gives off two major obtuse marginal arteries before terminating in the AV groove. Mild calcified and non-calcified atherosclerotic plaque is present in the proximal segment with but without significant stenosis. The first obtuse marginal is a 1.5 mm artery which has no significant atherosclerotic plaque present. The second obtuse marginal is a 1.4 mm artery which has moderate predominantly calcified atherosclerotic plaque present but no significant stenosis. Right coronary artery: A normal sized 2.7 mm dominant artery which arises normally from the right sinus of Valsalva and gives off several right ventricular branches, the posterior descending artery and the posterolateral artery. Severe calcified and non-calcified atherosclerotic plaque is present in the proximal, mid and distal segments with subtotal vs. total occlusion in the mid to distal segment. The posterior descending is a 1.6 mm artery which has no significant atherosclerotic plaque present but is incompletely visualized due to blooming artifacts from metallic surgical clips along the diaphragmatic surface. The posterolateral is a 1.7 mm artery which has moderate calcified and non-calcified atherosclerotic plaque present but with probably no significant stenosis. The proximal segment cannot be accurately assessed due to beam hardening artifacts. Ramus: A 2.3 mm bifurcating artery which has mild predominantly calcified atherosclerotic plaque present but with no significant stenosis. Stents: None. Bypass Grafts: Patent left internal mammary graft to the distal left anterior descending coronary artery which has a widely patent anastomosis and no significant stenosis beyond the graft insertion. Although there is probably no significant graft stenosis, multiple surgical clips prevent assessment of several short segments. Occluded saphenous vein graft to probably the right coronary artery. Occluded saphenous vein to probably the first obuse marginal artery. Pulmonary Arteries: The main pulmonary artery is mildly dilated at 3.0cm but with no proximal thrombus identified. Left Atrial and Pulmonary Vein Dimensions: Left atrial size (A-P diameter) 3.9 cm. Variant PV anatomy Left superior PV11 mm. Left middle PV 6 mm. Left inferior PV11 mm. Right superior PV14 mm. Right middle PV 6 mm. Right inferior PV13 mm. There is no evidence of the left atrial appendage clot. Left Ventricular Valve Morphology/Function: Aortic valve is tri-leaflet and there is no evidence of stenosis. Mitral valve is normal without evidence of significant regurgitation. Thoracic Aortic Dimensions: No aortic aneurysm or dissection is seen. Aortic root 3.3 cm. Sinotubular junction 2.6 cm. Mid ascending aorta 3.2 cm. Distal ascending aorta 2.7 cm. Aortic arch 2.2 cm. There is normal takeoff of the great vessels and no significant stenosis in the proximal visualized segments. Aortic Isthmus 1.9 cm. Descending thoracic aorta 1.9 cm. Pericardium: No pericardial effusion or pericardial thickening. Non-Cardiac Findings: Small to moderate hiatal hernia. There appears to be a port-a-cath in the superior vena cava. Multiple surgical clips which are numerous along the diaphragmatic surface of the heart and limiting assessment of the right coronary artery. CONCLUSION The coronary artery calcium score indicates a severe extent of coronary atherosclerosis. Coronary CTA shows possible significant stenosis of the distal left main and subtotal vs. total occlusion of the right coronary artery. Patent left internal mammary graft to the distal left anterior descending coronary artery which has a widely patent anastomosis and no significant stenosis beyond the graft insertion. Although there is probably no significant graft stenosis, multiple surgical clips prevent assessment of several short segments. Occluded saphenous vein graft to probably the right coronary artery. Occluded saphenous vein to probably the first obuse marginal artery. Variant PV anatomy. There is no evidence of the left atrial appendage clot. STUDY QUALITY The study quality is fair due to motion artifacts and artifacts from numerous surgical clips. COMMENTS None. The above report was based on a dedicated Cardiovascular CTA Protocol and interpreted by a Substance Abuse Rn. Should a more comprehensive assessment of non-cardiovascular findings be desired, please consult a radiologist. These images are available in the [facility] [employer] PACS system. Signed 03/04/2018 01:59 PM Hipolito Nieves MD Performing Organization Address City/State/Zipcode Phone Number [facility] [address] [place] [address] Estimated GFR (02/26/2018 1:22 PM) GFR Non Af Amer 61 mL/min/1.73 m2 [facility] DEPARTMENT OF PATHOLOGY AND GENOMIC MEDICINE GFR Af Amer 74 mL/min/1.73 m2 [facility] DEPARTMENT OF Comment: PATHOLOGY AND GENOMIC Chronic kidney disease: <60 mL/min/1.73m2 MEDICINE Kidney failure: <15 mL/min/1.73m2 The estimated GFR is calculated from the IDMS-traceable Modification of Diet in Renal Disease Equation. The accuracy of the calculation is poor when the creatinine is normal. Calculated values >90 mL/min/1.73m2 are not reported. This equation has not been validated in children (<18 years), women, the elderly (>70 years), or ethnic groups other than Caucasians and Americans. Specimen Blood Performing Organization Address City/[facility]/Zipcode Phone Number [facility] DEPARTMENT OF PATHOLOGY AND [address] [place] [address] GENOMIC MEDICINE POC creatinine (02/26/2018 1:22 PM) POC creatinine 0.9 0.5 - 0.9 mg/dl [facility] DEPARTMENT OF PATHOLOGY Comment: AND GENOMIC MEDICINE Meter ID: [id number] Client Support Manager: Raman Pinon Specimen Blood Performing Organization Address [facility] Phone Number [facility] DEPARTMENT OF PATHOLOGY AND [address] [place] [address] [facility] MEDICINE XR Chest 2 Vw (02/02/2018 12:15 PM) Narrative Performed At EXAMINATION:XR CHEST 2 VW RADIANT CLINICAL HISTORY:R07.9 Chest painunspecified, I25.118 Atherosclerotic heart disease of [place] coronary artery with other forms of angina pectoris, Chest Pain, chest pain IMPRESSION: Status post sternotomy. 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 Heart size is normal. Lungs are clear. There are surgical clips in the upper abdomen. No change from October 11, 2014. [facility]-[id number] Procedure Note Hm Interface, Radiology Results Incoming - 02/02/2018 1:29 PM CDT EXAMINATION: XR CHEST 2 VW CLINICAL HISTORY: R07.9 Chest pain unspecified, I25.118 Atherosclerotic heart disease of [place] coronary artery with other forms of angina pectoris, Chest Pain, chest pain IMPRESSION: Status post sternotomy. 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 Heart size is normal. Lungs are clear. There are surgical clips in the upper abdomen. No change from October 11, 2014. [facility]-[id number] Performing Organization Address [facility]/Zipcode Phone Number [facility] [address] [place] [address] Pv carotid duplex (01/28/2018 11:52 AM)Only the most recent of2 resultswithin the time period is included. Narrative Performed At [facility] Carotid Artery Ultrasound Report Pat.Name:DARRIN DUMONT Pat.ID:[id number] .Date: 01/28/2018 Refer.MD:WIL LUIS MD Exam Time: 12:01:00 PM Study Type:Carotid Height:157cm DOBAge:1940,77Y Sex: FEMALE Sonogrphr: Livier Valdes, HOMER, RDCS, RVT Pat. Stat.:OutpatientRoom:[facility] 4: [id number] Echo Event ID:[id number] Order ID:[id number] Reason for Study:Bilateral carotid artery disease History / Clinical:Known carotid stenosis based on prior test Race:O SUMMARY: CAROTID ARTERY SCAN RIGHT:There is smooth intimal lining in the common carotid artery. There is hard plaque noted in the bulb extending into the proximal internal and external carotid artery.Colorflow is disturbed. LEFT: There is smooth intimal lining in the common carotid artery. There is hard and calcified plaque noted in the bulb extending into the proximal internal carotid artery.The external carotid artery is clear. PHYSICIAN INTERPRETATION 1. Atherosclerotic plaque is present in the bulb and proximal internal carotid artery bilaterally. 2.60-70% stenosis in the bulb and right internal carotid artery. 3.Mild <30% stenosis in the bulb and left internal carotid artery. Carotid Findings:RightLeft Verteb.Flw AntegradeAntegrade Subclavian TriphasicTriphasic MEASUREMENTS: DOPPLER Right SCA Prox SCA Prox PSV 126 cm/s Right CCA Dist CCA Dist PSV52 cm/sCCA Dist EDV8.11 cm/s Right CCA Mid CCA Mid PSV 53.8 cm/sCCA Mid EDV 7.18 cm/s Right CCA Prox CCA Prox PSV52.5 cm/sCCA Prox EDV7.18 cm/s Right Bulb Bulb PSV68.8 cm/sBulb EDV8.11 cm/s Right ECA Prox ECA Prox PSV 100 cm/sECA Prox EDV7.57 cm/s Right ICA Dist ICA Dist PSV 120 cm/[place] Dist EDV13.3 cm/s Right ICA Mid ICA Mid NJK547 cm/[place] Mid EDV 30 cm/s Right ICA Prox ICA Prox PSV 190 cm/[place] Prox EDV22.9 cm/s Right Vertebral Vertebral PSV 35.4 cm/sVertebral EDV 6.63 cm/s Left SCA Prox SCA Prox PSV 117 cm/s Left Subclavian Subclavian PSV 125 cm/s Left CCA Dist CCA Dist PSV63.7 cm/sCCA Dist EDV5.03 cm/s Left CCA Mid CCA Mid PSV 67.8 cm/sCCA Mid EDV 1.88 cm/s Left CCA Prox CCA Prox PSV75.2 cm/sCCA Prox EDV 4.7 cm/s Left Bulb Bulb PSV64.6 cm/sBulb EDV 3 cm/s Left ECA Prox ECA Prox PSV79.7 cm/sECA Prox EDV 0 cm/s Left ICA Dist ICA Dist PSV61 cm/[place] Dist EDV 8.4 cm/s Left ICA Mid ICA Mid PSV 62.5 cm/[place] Mid EDV 5.52 cm/s Left ICA Prox ICA Prox PSV64.3 cm/[place] Prox EDV10.5 cm/s Left Vertebral Vertebral PSV 55 cm/sVertebral EDV 5.68 cm/s Right ICA/CCA Ratio ICA/CCA PSV 3.53 Left ICA/CCA Ratio ICA/CCA PSV0.948 Signed 01/30/2018 05:19 PM Wil Luis MD Procedure Note Interface, Radiology Results In - 01/30/2018 5:19 PM CDT [facility] Carotid Artery Ultrasound Report Pat.Name: DARRIN DUMONT [place] Pat.ID: [id number] .Date: 01/28/2018 Refer.MD: WIL LUIS MD Exam Time: 12:01:00 PM Study Type:Carotid Height: 157cm Age: 13 1940,77Y Sex: FEMALE Sonogrphr: Livier Valdes RDMS, RDCS, RVT Pat. Stat.:Outpatient Room: [facility] 4: [id number] Echo Event ID:[id number] Order ID: [id number] Reason for Study:Bilateral carotid artery disease History / Clinical:Known carotid stenosis based on prior test Race: O SUMMARY: CAROTID ARTERY SCAN RIGHT: There is smooth intimal lining in the common carotid artery. There is hard plaque noted in the bulb extending into the proximal internal and external carotid artery. Colorflow is disturbed. LEFT: There is smooth intimal lining in the common carotid artery. There is hard and calcified plaque noted in the bulb extending into the proximal internal carotid artery. The external carotid artery is clear. PHYSICIAN INTERPRETATION 1. Atherosclerotic plaque is present in the bulb and proximal internal carotid artery bilaterally. 2. 60-70% stenosis in the bulb and right internal carotid artery. 3. Mild <30% stenosis in the bulb and left internal carotid artery. Carotid Findings: Right Left Verteb.Flw Antegrade Antegrade Subclavian Triphasic Triphasic MEASUREMENTS: DOPPLER Right SCA Prox SCA Prox PSV 126 cm/s Right CCA Dist CCA Dist PSV 52 cm/s CCA Dist EDV 8.11 cm/s Right CCA Mid CCA Mid PSV 53.8 cm/s CCA Mid EDV 7.18 cm/s Right CCA Prox CCA Prox PSV 52.5 cm/s CCA Prox EDV 7.18 cm/s Right Bulb Bulb PSV 68.8 cm/s Bulb EDV 8.11 cm/s Right ECA Prox ECA Prox PSV 100 cm/s ECA Prox EDV 7.57 cm/s Right ICA Dist ICA Dist PSV 120 cm/s ICA Dist EDV 13.3 cm/s Right ICA Mid ICA Mid PSV 209 cm/s ICA Mid EDV 30 cm/s Right ICA Prox ICA Prox PSV 190 cm/s ICA Prox EDV 22.9 cm/s Right Vertebral Vertebral PSV 35.4 cm/s Vertebral EDV 6.63 cm/s Left SCA Prox SCA Prox PSV 117 cm/s Left Subclavian Subclavian PSV 125 cm/s Left CCA Dist CCA Dist PSV 63.7 cm/s CCA Dist EDV 5.03 cm/s Left CCA Mid CCA Mid PSV 67.8 cm/s CCA Mid EDV 1.88 cm/s Left CCA Prox CCA Prox PSV 75.2 cm/s CCA Prox EDV 4.7 cm/s Left Bulb Bulb PSV 64.6 cm/s Bulb EDV 3 cm/s Left ECA Prox ECA Prox PSV 79.7 cm/s ECA Prox EDV 0 cm/s Left ICA Dist ICA Dist PSV 61 cm/s ICA Dist EDV 8.4 cm/s Left ICA Mid ICA Mid PSV 62.5 cm/s ICA Mid EDV 5.52 cm/s Left ICA Prox ICA Prox PSV 64.3 cm/s ICA Prox EDV 10.5 cm/s Left Vertebral Vertebral PSV 55 cm/s Vertebral EDV 5.68 cm/s Right ICA/CCA Ratio ICA/CCA PSV 3.53 Left ICA/CCA Ratio ICA/CCA PSV 0.948 Signed 01/30/2018 05:19 PM Wil Luis MD Performing Organization Address City/State/Zipcotn Phone Number [address] [phone] [place] [address] after 03/28/2017 Insurance Payer Benefit Plan / Group Subscriber ID Type Phone Address MEDICARE MEDICARE PART A AND B xxxxxxxxxx Medicare [place] AARP AARP SUPPLEMENT xxxxxxxxxxx Commercial
--- OUTSIDE RECORDS SUMMARY | 2018-03-29 11:07 | XMS REPORT ---
:1940 [facility] Address [address] [place] [address] [address] [place] [address] Care Team Providers Name Role Phone EVERARDO SINGH Unavailable Unavailable Problems This patient has no known problems. Allergies, Adverse Reactions, Alerts This patient has no known allergies or adverse reactions. Medications This patient has no known medications. Results Test Description Test Time Test Comments Text Results Atomic Results Result Comments POCT-GLUCOSE METER 2017-06-12 16:12:00 Test Item Value Reference Range Comments POC-GLUCOSE METER (BEAKER) (test 212 mg/dL 70-110 TESTED AT [address] dkmi=1943) [place] [id number] POCT-GLUCOSE [id number] 12:56:00 Test Item Value Reference Range Comments POC-GLUCOSE METER (BEAKER) 272 mg/dL 70-110 TESTED AT [address] (test mlgk=7615) [place] [address] HEMOGLOBIN [id number] 08:28:00 Test Item Value Reference Range Comments HEMOGLOBIN A1C (BEAKER) (test slbk=146) 8.0 % 4.3-6.1 POCT-GLUCOSE [id number] 07:33:00 Test Item Value Reference Range Comments POC-GLUCOSE METER (BEAKER) 199 mg/dL 70-110 TESTED AT [address] (test engf=6207) [place] [address] CBC W/PLT COUNT & AUTO [id number] 06:29:00 Test Item Value Reference Range Comments WHITE BLOOD CELL COUNT (BEAKER) (test yuws=744) 15.0 K/ L 3.5-10.5 RED BLOOD CELL COUNT (BEAKER) (test fzew=504) 3.88 M/ L 3.93-5.22 HEMOGLOBIN (BEAKER) (test ueun=471) 11.1 GM/DL 11.2-15.7 HEMATOCRIT (BEAKER) (test trvm=511) 34.1 % 34.1-44.9 MEAN CORPUSCULAR VOLUME (BEAKER) (test ygfx=649) 87.9 fL 79.4-94.8 MEAN CORPUSCULAR HEMOGLOBIN (BEAKER) (test 28.6 pg 25.6-32.2 vcie=903) MEAN CORPUSCULAR HEMOGLOBIN CONC (BEAKER) (test 32.6 GM/DL 32.2-35.5 vcxw=724) RED CELL DISTRIBUTION WIDTH (BEAKER) (test 15.2 % 11.7-14.4 aqwd=420) PLATELET COUNT (BEAKER) (test mdqo=881) 255 K/CU MM 150-450 MEAN PLATELET VOLUME (BEAKER) (test ltwz=112) 12.6 fL 9.4-12.3 NUCLEATED RED BLOOD CELLS (BEAKER) (test 0 /100 WBC 0-0 mbpk=545) NEUTROPHILS RELATIVE PERCENT (BEAKER) (test 68 % onzr=775) LYMPHOCYTES RELATIVE PERCENT (BEAKER) (test 19 % ythi=831) MONOCYTES RELATIVE PERCENT (BEAKER) (test 9 % tbyd=829) EOSINOPHILS RELATIVE PERCENT (BEAKER) (test 3 % gwtv=072) BASOPHILS RELATIVE PERCENT (BEAKER) (test 0 % xrua=591) NEUTROPHILS ABSOLUTE COUNT (BEAKER) (test 10.21 K/ L 1.56-6.13 yxnp=200) LYMPHOCYTES ABSOLUTE COUNT (BEAKER) (test 2.82 K/ L 1.18-3.74 auzb=109) MONOCYTES ABSOLUTE COUNT (BEAKER) (test 1.30 K/ L 0.24-0.36 fcrw=656) EOSINOPHILS ABSOLUTE COUNT (BEAKER) (test 0.47 K/ L 0.04-0.36 iqcj=211) BASOPHILS ABSOLUTE COUNT (BEAKER) (test 0.05 K/ L 0.01-0.08 cqkw=757) IMMATURE GRANULOCYTES-RELATIVE PERCENT (BEAKER) 1 % 0-1 (test ucyc=9842) COMPREHENSIVE METABOLIC [id number] 06:04:00 Test Item Value Reference Range Comments TOTAL PROTEIN (BEAKER) 6.0 gm/dL 6.0-8.3 (test pjig=603) ALBUMIN (BEAKER) (test 2.9 g/dL 3.5-5.0 rtjt=8102) ALKALINE PHOSPHATASE 42 U/L 40-150 (BEAKER) (test utxu=312) BILIRUBIN TOTAL (BEAKER) 0.3 mg/dL 0.2-1.2 (test wcdh=615) SODIUM (BEAKER) (test 142 meq/L 136-145 njmk=033) POTASSIUM (BEAKER) (test 3.8 meq/L 3.5-5.1 hsfe=929) CHLORIDE (BEAKER) (test 109 meq/L 98-107 phge=676) CO2 (BEAKER) (test 25 meq/L 22-29 qoal=384) BLOOD UREA NITROGEN 27 mg/dL 7-21 (BEAKER) (test yjra=598) CREATININE (BEAKER) (test 0.86 mg/dL 0.57-1.25 fmko=104) GLUCOSE RANDOM (BEAKER) 159 mg/dL 70-105 (test cmbl=064) CALCIUM (BEAKER) (test 8.5 mg/dL 8.4-10.2 qtaw=246) AST (SGOT) (BEAKER) (test 26 U/L 5-34 wwjn=555) ALT (SGPT) (BEAKER) (test 44 U/L 6-55 ewsg=325) EGFR (BEAKER) (test 64 mL/min/1.73 sq m ESTIMATED GFR IS NOT wson=2850) ACCURATE CREATININE CLEARANCE IN PREDICTING GLOMERULAR FILTRATION RATE. ESTIMATED GFR IS NOT APPLICABLE FOR DIALYSIS PATIENTS. POCT-GLUCOSE [id number] 21:22:00 Test Item Value Reference Range Comments POC-GLUCOSE METER (BEAKER) 152 mg/dL 70-[address] [facility] [address] [facility] (test hyle=4688) [facility] [address] POCT-GLUCOSE [id number] 18:12:00 Test Item Value Reference Range Comments POC-GLUCOSE METER (BEAKER) 202 mg/dL 70-[address] [facility] [address] [facility] (test pvik=2043) [facility] [address] HEMOGLOBIN AND [id number] 18:02:00 Test Item Value Reference Range Comments HEMOGLOBIN (BEAKER) (test rvmn=557) 11.1 GM/DL 11.2-15.7 HEMATOCRIT (BEAKER) (test uiao=200) 35.6 % 34.1-44.9 TISSUE [id number] 17:12:00Surgical Pathology Report Case: [id number] Authorizing Provider: Jian Cabrera MD Collected: 06/11/2017 0839 Ordering Location: [address] Received: 06/11/2017 1126 Service Pathologist: Juany Ochoa MD Specimen: Stomach, random stomach biopsy A. STOMACH, RANDOM, BIOPSIES: - FRAGMENTS OF ANTRAL MUCOSA WITH CHRONIC INACTIVE GASTRITIS (SEE MICROSCOPIC DESCRIPTION) - FRAGMENTS OF OXYNTIC MUCOSA WITH NO SIGNIFICANT DIAGNOSTIC ALTERATION - WARTHIN-STARRY STAIN NEGATIVE FOR HELICOBACTER PYLORI ORGANISMS - NO EVIDENCE OF INTESTINAL METAPLASIA OR DYSPLASIA OR MALIGNANCY IDENTIFIED Signing Pathologist Direct Phone Line: [phone] signed by Juany Ochoa MD on 06/11/2017 at 5:12 [id number] bleedRandom stomach biopsyThe specimen is received in a formalin-filled container and labeled with the patient's information and labeled "randomstomach biopsy" and consists of five fragments of palomino tissue ranging from 0.1 to 0.3 cm, Submitted A1. CG/pl Section shows antral, junctional and oxyntic mucosa. The antral mucosa shows mild increase in the lymphoplasmacytic infiltrate and mild edema in the lamina propria with capillary congestion. The oxyntic and junctional mucosa are largely unremarkable. No significant inflammation is noted. Warthin stain for Helicobacter pylori is negative. There is no intestinal metaplasia, dysplasia or carcinoma.HEMOGLOBIN AND [id number] 15:17:00 Test Item Value Reference Range Comments HEMOGLOBIN (BEAKER) (test gevl=497) 11.3 GM/DL 11.2-15.7 HEMATOCRIT (BEAKER) (test fvza=111) 34.1 % 34.1-44.9 POCT-GLUCOSE [id number] 13:13:00 Test Item Value Reference Range Comments POC-GLUCOSE METER (BEAKER) 229 mg/dL 70-[address] [facility] [address] [facility] (test xawz=3956) [facility] [address] HEMOGLOBIN AND [id number] 11:52:00 Test Item Value Reference Range Comments HEMOGLOBIN (BEAKER) (test bxpj=710) 11.8 GM/DL 11.2-15.7 HEMATOCRIT (BEAKER) (test ywfm=250) 37.0 % 34.1-44.9 URINE [id number] 10:51:00 Test Item Value Reference Range Comments CULTURE (BEAKER) (test aywv=1492) No growth [id number] 08:11:00 Test Item Value Reference Range Comments PROTIME (BEAKER) (test zggu=360) 15.1 seconds 11.7-14.7 INR (BEAKER) (test rgci=178) 1.2 <=5.9 PARTIAL THROMBOPLASTIN TIME (BEAKER) (test 29.8 seconds 22.5-36.0 igox=604) RECOMMENDED COUMADIN/WARFARIN INR THERAPY RANGESSTANDARD DOSE: 2.0 - 3.0 Includes: PROPHYLAXIS forvenous thrombosis, systemic embolization; TREATMENT for venous thrombosis and/or pulmonary embolus.HIGH RISK: Target INR is 2.5-3.5 for patients with mechanical heart valves.POCT-GLUCOSE [id number] 07:13:00 Test Item Value Reference Range Comments POC-GLUCOSE METER (BEAKER) 126 mg/dL 70-110 TESTED AT [address] (test eqzz=2226) [place] [address] BLOOD [id number] 06:00:00 Test Item Value Reference Range Comments CULTURE (BEAKER) (test vjao=5350) No growth in 5 days BLOOD [id number] 06:00:00 Test Item Value Reference Range Comments CULTURE (BEAKER) (test gobw=2920) No growth in 5 days HEMOGLOBIN AND [id number] 05:48:00 Test Item Value Reference Range Comments HEMOGLOBIN (BEAKER) (test wbuo=812) 10.9 GM/DL 11.2-15.7 HEMATOCRIT (BEAKER) (test durp=975) 32.8 % 34.1-44.9 POCT-GLUCOSE [id number] 22:12:00 Test Item Value Reference Range Comments POC-GLUCOSE METER (BEAKER) 279 mg/dL 70-110 TESTED AT [address] (test codf=7197) [place] [address] POCT-GLUCOSE [id number] 20:16:00 Test Item Value Reference Range Comments POC-GLUCOSE METER (BEAKER) 283 mg/dL 70-110 TESTED AT [address] (test zasf=2601) [place] [address] HEMOGLOBIN AND [id number] 17:41:00 Test Item Value Reference Range Comments HEMOGLOBIN (BEAKER) (test kapw=021) 8.2 GM/DL 11.2-15.7 HEMATOCRIT (BEAKER) (test efcr=988) 24.3 % 34.1-44.9 POCT-GLUCOSE [id number] 17:34:00 Test Item Value Reference Range Comments POC-GLUCOSE METER (BEAKER) 327 mg/dL 70-110 TESTED AT [address] (test crku=4394) [facility] [address] POCT-GLUCOSE [id number] 15:48:00 Test Item Value Reference Range Comments POC-GLUCOSE METER (BEAKER) 401 mg/dL 70-110 TESTED AT [address] (test riet=6938) [place] [id number] POCT-GLUCOSE [id number] 13:29:00 Test Item Value Reference Range Comments POC-GLUCOSE METER (BEAKER) 429 mg/dL 70-110 TESTED AT [address] (test dxio=5688) [facility] [address] HEMOGLOBIN AND [id number] 09:34:00 Test Item Value Reference Range Comments HEMOGLOBIN (BEAKER) (test bxpl=286) 9.7 GM/DL 11.2-15.7 HEMATOCRIT (BEAKER) (test lugb=519) 28.9 % 34.1-44.9 POCT-GLUCOSE [id number] 07:33:00 Test Item Value Reference Range Comments POC-GLUCOSE METER (BEAKER) 396 mg/dL 70-110 TESTED AT [address] (test omip=3421) [facility] [address] CBC W/PLT COUNT & AUTO [id number] 03:48:00 Test Item Value Reference Range Comments WHITE BLOOD CELL COUNT (BEAKER) (test lbuo=937) 13.9 K/ L 3.5-10.5 RED BLOOD CELL COUNT (BEAKER) (test ivly=191) 3.50 M/ L 3.93-5.22 HEMOGLOBIN (BEAKER) (test cala=578) 10.4 GM/DL 11.2-15.7 HEMATOCRIT (BEAKER) (test hqru=982) 30.9 % 34.1-44.9 MEAN CORPUSCULAR VOLUME (BEAKER) (test xbed=710) 88.3 fL 79.4-94.8 MEAN CORPUSCULAR HEMOGLOBIN (BEAKER) (test 29.7 pg 25.6-32.2 ssbt=602) MEAN CORPUSCULAR HEMOGLOBIN CONC (BEAKER) (test 33.7 GM/DL 32.2-35.5 xanu=586) RED CELL DISTRIBUTION WIDTH (BEAKER) (test 13.9 % 11.7-14.4 rogs=260) PLATELET COUNT (BEAKER) (test ebzg=279) 253 K/CU MM 150-450 MEAN PLATELET VOLUME (BEAKER) (test moxe=425) 12.1 fL 9.4-12.3 NUCLEATED RED BLOOD CELLS (BEAKER) (test 0 /100 WBC 0-0 enfs=439) NEUTROPHILS RELATIVE PERCENT (BEAKER) (test 73 % hzeu=400) LYMPHOCYTES RELATIVE PERCENT (BEAKER) (test 16 % fuhg=184) MONOCYTES RELATIVE PERCENT (BEAKER) (test 9 % kuff=077) EOSINOPHILS RELATIVE PERCENT (BEAKER) (test 1 % ozui=783) BASOPHILS RELATIVE PERCENT (BEAKER) (test 0 % qjpw=955) NEUTROPHILS ABSOLUTE COUNT (BEAKER) (test 10.11 K/ L 1.56-6.13 bhbh=682) LYMPHOCYTES ABSOLUTE COUNT (BEAKER) (test 2.21 K/ L 1.18-3.74 cqyx=687) MONOCYTES ABSOLUTE COUNT (BEAKER) (test 1.29 K/ L 0.24-0.36 vmvj=545) EOSINOPHILS ABSOLUTE COUNT (BEAKER) (test 0.15 K/ L 0.04-0.36 wala=684) BASOPHILS ABSOLUTE COUNT (BEAKER) (test 0.06 K/ L 0.01-0.08 qwul=109) IMMATURE GRANULOCYTES-RELATIVE PERCENT (BEAKER) 1 % 0-1 (test cesf=7506) BASIC METABOLIC [id number] 03:41:00 Test Item Value Reference Range Comments SODIUM (BEAKER) (test 135 meq/L 136-145 khnw=653) POTASSIUM (BEAKER) (test 4.4 meq/L 3.5-5.1 myrh=400) CHLORIDE (BEAKER) (test 104 meq/L 98-107 eipn=668) CO2 (BEAKER) (test 22 meq/L 22-29 flzz=481) BLOOD UREA NITROGEN 52 mg/dL 7-21 (BEAKER) (test uyhx=404) CREATININE (BEAKER) (test 1.04 mg/dL 0.57-1.25 appn=801) GLUCOSE RANDOM (BEAKER) 354 mg/dL 70-105 (test cmdy=058) CALCIUM (BEAKER) (test 8.7 mg/dL 8.4-10.2 pekl=194) EGFR (BEAKER) (test 52 mL/min/1.73 sq m ESTIMATED GFR IS NOT zbpd=2212) ACCURATE CREATININE CLEARANCE IN PREDICTING GLOMERULAR FILTRATION RATE. ESTIMATED GFR IS NOT APPLICABLE FOR DIALYSIS PATIENTS. POCT-GLUCOSE [id number] 22:56:00 Test Item Value Reference Range Comments POC-GLUCOSE METER (BEAKER) 275 mg/dL 70-[address] [facility] [address] [facility] (test uatk=4667) [facility] [address] URINE [id number] 18:15:00 Test Item Value Reference Range Comments CULTURE (BEAKER) (test fttl=6177) <10,000 col/mL skin abdon URINALYSIS W/ [id number] 15:32:00 Test Item Value Reference Range Comments COLOR (BEAKER) (test yjkk=134) Yellow CLARITY (BEAKER) (test hbks=694) Clear SPECIFIC GRAVITY UA (BEAKER) (test 1.011 1.001-1.035 luqc=298) PH UA (BEAKER) (test pvrs=807) 6.5 5.0-8.0 PROTEIN UA (BEAKER) (test lxzf=273) 20 mg/dL Negative GLUCOSE UA (BEAKER) (test sled=435) >1000 mg/dL Negative KETONES UA (BEAKER) (test rvzs=207) Negative Negative BILIRUBIN UA (BEAKER) (test Negative Negative nnwa=946) BLOOD UA (BEAKER) (test vnke=727) Negative Negative NITRITE UA (BEAKER) (test hxbd=426) Negative Negative LEUKOCYTE ESTERASE UA (BEAKER) Negative Negative (test ndna=709) UROBILINOGEN UA (BEAKER) (test 0.2 mg/dL 0.2-1.0 orig=231) RBC UA (BEAKER) (test wnhl=151) < /HPF WBC UA (BEAKER) (test tnme=992) 2 /HPF SOURCE(BEAKER) (test hgrs=9438) Urine, Straight Catheter POCT-GLUCOSE [id number] 11:43:00 Test Item Value Reference Range Comments POC-GLUCOSE METER (BEAKER) 340 mg/dL 70-110 TESTED AT [address] (test cmpu=8659) [facility] [address] POCT-GLUCOSE [id number] 07:26:00 Test Item Value Reference Range Comments POC-GLUCOSE METER (BEAKER) 178 mg/dL 70-110 TESTED AT [address] (test lvbm=2172) [facility] [address] POCT-GLUCOSE [id number] 23:39:00 Test Item Value Reference Range Comments POC-GLUCOSE METER (BEAKER) 183 mg/dL 70-110 TESTED AT [address] (test lsbp=7749) [place] [id number] POCT-GLUCOSE [id number] 22:25:00 Test Item Value Reference Range Comments POC-GLUCOSE METER (BEAKER) 208 mg/dL 70-110 TESTED AT [address] (test uyjs=3956) [place] [id number] POCT-GLUCOSE [id number] 20:12:00 Test Item Value Reference Range Comments POC-GLUCOSE METER (BEAKER) 194 mg/dL 70-110 TESTED AT [address] (test aeto=6039) [facility] [address] POCT-GLUCOSE [id number] 16:11:00 Test Item Value Reference Range Comments POC-GLUCOSE METER (BEAKER) 266 mg/dL 70-110 TESTED AT [address] (test rrot=9455) [facility] [address] POCT-GLUCOSE [id number] 11:17:00 Test Item Value Reference Range Comments POC-GLUCOSE METER (BEAKER) 288 mg/dL 70-110 TESTED AT [address] (test muhf=1907) [facility] [address] POCT-GLUCOSE [id number] 08:57:00 Test Item Value Reference Range Comments POC-GLUCOSE METER (BEAKER) 202 mg/dL 70-110 TESTED AT [address] (test rspe=8070) [facility] [address] BASIC METABOLIC [id number] 07:38:00 Test Item Value Reference Range Comments SODIUM (BEAKER) (test 137 meq/L 136-145 kajw=807) POTASSIUM (BEAKER) (test 3.7 meq/L 3.5-5.1 jppq=646) CHLORIDE (BEAKER) (test 103 meq/L 98-107 xvyh=874) CO2 (BEAKER) (test 25 meq/L 22-29 aehj=024) BLOOD UREA NITROGEN 28 mg/dL 7-21 (BEAKER) (test ghvo=162) CREATININE (BEAKER) (test 1.13 mg/dL 0.57-1.25 mvym=804) GLUCOSE RANDOM (BEAKER) 194 mg/dL 70-105 (test ldmc=942) CALCIUM (BEAKER) (test 9.0 mg/dL 8.4-10.2 xaat=985) EGFR (BEAKER) (test 47 mL/min/1.73 sq m ESTIMATED GFR IS NOT hvol=6449) ACCURATE CREATININE CLEARANCE IN PREDICTING GLOMERULAR FILTRATION RATE. ESTIMATED GFR IS NOT APPLICABLE FOR DIALYSIS PATIENTS. CBC W/PLT COUNT & AUTO [id number] 05:53:00 Test Item Value Reference Range Comments WHITE BLOOD CELL COUNT (BEAKER) (test spqo=597) 11.7 K/ L 3.5-10.5 RED BLOOD CELL COUNT (BEAKER) (test xmlv=282) 4.34 M/ L 3.93-5.22 HEMOGLOBIN (BEAKER) (test vtke=232) 12.6 GM/DL 11.2-15.7 HEMATOCRIT (BEAKER) (test rhnr=158) 38.1 % 34.1-44.9 MEAN CORPUSCULAR VOLUME (BEAKER) (test uvjz=416) 87.8 fL 79.4-94.8 MEAN CORPUSCULAR HEMOGLOBIN (BEAKER) (test 29.0 pg 25.6-32.2 vopv=980) MEAN CORPUSCULAR HEMOGLOBIN CONC (BEAKER) (test 33.1 GM/DL 32.2-35.5 mbcn=531) RED CELL DISTRIBUTION WIDTH (BEAKER) (test 14.0 % 11.7-14.4 oyrg=177) PLATELET COUNT (BEAKER) (test lepp=289) 201 K/CU MM 150-450 MEAN PLATELET VOLUME (BEAKER) (test bbqt=736) 12.4 fL 9.4-12.3 NUCLEATED RED BLOOD CELLS (BEAKER) (test 0 /100 WBC 0-0 dgpn=961) NEUTROPHILS RELATIVE PERCENT (BEAKER) (test 64 % umay=675) LYMPHOCYTES RELATIVE PERCENT (BEAKER) (test 17 % vzwy=319) MONOCYTES RELATIVE PERCENT (BEAKER) (test 15 % jdoi=030) EOSINOPHILS RELATIVE PERCENT (BEAKER) (test 2 % novj=976) BASOPHILS RELATIVE PERCENT (BEAKER) (test 1 % gjgm=769) NEUTROPHILS ABSOLUTE COUNT (BEAKER) (test 7.52 K/ L 1.56-6.13 xgaf=157) LYMPHOCYTES ABSOLUTE COUNT (BEAKER) (test 1.98 K/ L 1.18-3.74 njnh=688) MONOCYTES ABSOLUTE COUNT (BEAKER) (test 1.78 K/ L 0.24-0.36 jzlj=429) EOSINOPHILS ABSOLUTE COUNT (BEAKER) (test 0.27 K/ L 0.04-0.36 zooa=643) BASOPHILS ABSOLUTE COUNT (BEAKER) (test 0.07 K/ L 0.01-0.08 mfri=316) IMMATURE GRANULOCYTES-RELATIVE PERCENT (BEAKER) 0 % 0-1 (test cbpr=3400) POCT-GLUCOSE [id number] 20:12:00 Test Item Value Reference Range Comments POC-GLUCOSE METER (BEAKER) 333 mg/dL 70-110 TESTED AT [address] (test uhzn=5552) [place] [id number] POCT-GLUCOSE [id number] 11:45:00 Test Item Value Reference Range Comments POC-GLUCOSE METER (BEAKER) 355 mg/dL 70-110 TESTED AT [address] (test cajh=4864) [facility] [address] POCT-GLUCOSE [id number] 08:17:00 Test Item Value Reference Range Comments POC-GLUCOSE METER (BEAKER) 303 mg/dL 70-110 TESTED AT [address] (test nfod=9642) [facility] [address] POCT-GLUCOSE [id number] 00:00:00 Test Item Value Reference Range Comments POC-GLUCOSE METER (BEAKER) 340 mg/dL 70-110 TESTED AT [address] (test zyyi=0857) [facility] [address] POCT-GLUCOSE [id number] 20:42:00 Test Item Value Reference Range Comments POC-GLUCOSE METER (BEAKER) 309 mg/dL 70-110 TESTED AT [address] (test icbc=9125) [place] [address] POCT-GLUCOSE [id number] 17:09:00 Test Item Value Reference Range Comments POC-GLUCOSE METER (BEAKER) 351 mg/dL 70-[address] [facility] [address] [facility] (test ckov=6848) [facility] [address] POCT-GLUCOSE [id number] 11:28:00 Test Item Value Reference Range Comments POC-GLUCOSE METER (BEAKER) 327 mg/dL 70-110 TESTED AT [address] (test wivi=3878) [facility] [address] POCT-GLUCOSE [id number] 07:37:00 Test Item Value Reference Range Comments POC-GLUCOSE METER (BEAKER) 247 mg/dL 70-110 TESTED AT [address] (test sbqj=0480) [facility] [address] BASIC METABOLIC [id number] 03:12:00 Test Item Value Reference Range Comments SODIUM (BEAKER) (test 130 meq/L 136-145 lfcs=907) POTASSIUM (BEAKER) (test 4.6 meq/L 3.5-5.1 huhz=094) CHLORIDE (BEAKER) (test 101 meq/L 98-107 kikz=852) CO2 (BEAKER) (test 19 meq/L 22-29 gmtn=331) BLOOD UREA NITROGEN 41 mg/dL 7-21 (BEAKER) (test eiyq=310) CREATININE (BEAKER) (test 1.89 mg/dL 0.57-1.25 axdi=392) GLUCOSE RANDOM (BEAKER) 277 mg/dL 70-105 (test twex=710) CALCIUM (BEAKER) (test 8.3 mg/dL 8.4-10.2 lghy=613) EGFR (BEAKER) (test 26 mL/min/1.73 sq m ESTIMATED GFR IS NOT sbif=6537) ACCURATE CREATININE CLEARANCE IN PREDICTING GLOMERULAR FILTRATION RATE. ESTIMATED GFR IS NOT APPLICABLE FOR DIALYSIS PATIENTS. CBC W/PLT COUNT & AUTO [id number] 03:01:00 Test Item Value Reference Range Comments WHITE BLOOD CELL COUNT (BEAKER) (test tovt=377) 17.2 K/ L 3.5-10.5 RED BLOOD CELL COUNT (BEAKER) (test htmh=222) 3.90 M/ L 3.93-5.22 HEMOGLOBIN (BEAKER) (test cejj=510) 11.7 GM/DL 11.2-15.7 HEMATOCRIT (BEAKER) (test pkni=440) 36.3 % 34.1-44.9 MEAN CORPUSCULAR VOLUME (BEAKER) (test fdoq=953) 93.1 fL 79.4-94.8 MEAN CORPUSCULAR HEMOGLOBIN (BEAKER) (test 30.0 pg 25.6-32.2 jups=047) MEAN CORPUSCULAR HEMOGLOBIN CONC (BEAKER) (test 32.2 GM/DL 32.2-35.5 umvi=116) RED CELL DISTRIBUTION WIDTH (BEAKER) (test 14.4 % 11.7-14.4 lcri=330) PLATELET COUNT (BEAKER) (test klbp=816) 153 K/CU MM 150-450 MEAN PLATELET VOLUME (BEAKER) (test mlzr=199) 12.5 fL 9.4-12.3 NUCLEATED RED BLOOD CELLS (BEAKER) (test 0 /100 WBC 0-0 ngti=940) NEUTROPHILS RELATIVE PERCENT (BEAKER) (test 76 % xusg=253) LYMPHOCYTES RELATIVE PERCENT (BEAKER) (test 13 % qosj=691) MONOCYTES RELATIVE PERCENT (BEAKER) (test 10 % wdip=939) EOSINOPHILS RELATIVE PERCENT (BEAKER) (test 0 % cilb=074) BASOPHILS RELATIVE PERCENT (BEAKER) (test 0 % xbmc=968) NEUTROPHILS ABSOLUTE COUNT (BEAKER) (test 13.01 K/ L 1.56-6.13 zcvz=537) LYMPHOCYTES ABSOLUTE COUNT (BEAKER) (test 2.28 K/ L 1.18-3.74 jqei=996) MONOCYTES ABSOLUTE COUNT (BEAKER) (test 1.74 K/ L 0.24-0.36 ufum=005) EOSINOPHILS ABSOLUTE COUNT (BEAKER) (test 0.00 K/ L 0.04-0.36 kvfi=787) BASOPHILS ABSOLUTE COUNT (BEAKER) (test 0.04 K/ L 0.01-0.08 pcxd=232) IMMATURE GRANULOCYTES-RELATIVE PERCENT (BEAKER) 1 % 0-1 (test cfit=0085)
--- OUTSIDE RECORDS SUMMARY | 2018-03-29 11:07 | XMS REPORT | Clinical Summary ---
:1940 Author Organization [facility] Address [address] [place] [address] Phone Care Team Providers Name Role Phone Unavailable Primary Care Provider Unavailable Allergies Active Allergy Reactions Severity Noted Date Comments Penicillins Rash Medium 06/06/2017 Current Medications Prescription Sig. Disp. Refills Start End Date Status Date repaglinide Take 2 mg by mouth Active (PRANDIN) 2 MG 3 (three) times tabletIndications: daily before type 2 diabetes meals. mellitus levothyroxine Take 50 mcg by Active (SYNTHROID, mouth Every LEVOTHROID) 50 MCG morning on an tabletIndications: empty stomach. hypothyroidism irbesartan (AVAPRO) Take 300 mg by Active 300 MG mouth nightly. 7 tabletIndications: hypertension metFORMIN Take 1,000 mg by Active (GLUCOPHAGE) 1000 mouth 2 (two) MG times daily with tabletIndications: breakfast and type 2 diabetes dinner. mellitus aspirin 81 MG EC Take 81 mg by Active tablet mouth daily. carvedilol (COREG) Take 12.5 mg by Active 12.5 MG tablet mouth 2 (two) times daily with breakfast and dinner. amLODIPine Take 5 mg by mouth Active (NORVASC) 5 MG 2 (two) times 7 tabletIndications: daily. hypertension atorvastatin Take 40 mg by Active (LIPITOR) 40 MG mouth daily. tablet galantamine Take 12 mg by Active (RAZADYNE) 12 MG mouth 2 (two) tablet times daily. coenzyme Q10 100 mg Take 100 mg by Active capsule mouth daily. docusate sodium Take 100 mg by Active (COLACE) 100 MG mouth 2 (two) capsule times daily. cyanocobalamin Take 1,000 mcg by Active (VITAMIN B-12) 1000 mouth daily. MCG tablet ascorbic acid, Take 1,000 mg by Active vitamin C, (VITAMIN mouth daily. C) 1000 MG tablet folic acid Take 800 mcg by Active (FOLVITE) 800 MCG mouth daily. tablet b complex vitamins Take 1 capsule by Active capsule mouth daily. memantine (NAMENDA Take 28 mg by Active XR) 28 mg CSpX mouth daily. insulin lispro Inject 12 Units 10 mL 0 06/12/20 Active (HUMALOG) 100 subcutaneously 3 7 18 unit/mL injection (three) times daily before meals. aspirin 81 MG EC Take 1 tablet (81 30 tablet 0 06/16/20 Active tablet mg total) by mouth 7 18 daily. clopidogrel Take 75 mg by 06/12/20 Discontinued (PLAVIX) 75 mg mouth daily. 17 tablet niacin 500 MG Take 500 mg by 06/12/20 Discontinued tablet mouth daily with 17 breakfast. memantine (NAMENDA) Take 10 mg by 06/12/20 Discontinued 10 MG tablet mouth 2 (two) 17 times daily. pantoprazole Take 1 tablet (40 60 tablet 0 07/12/20 (PROTONIX) 40 MG mg total) by mouth 7 17 tablet 2 (two) times daily with breakfast and dinner for 30 days. insulin detemir Inject 15 Units 9 mL 0 07/12/20 (LEVEMIR) 100 subcutaneously 2 7 17 unit/mL injection (two) times daily for 30 days. clopidogrel Take 1 tablet (75 30 tablet 0 07/16/20 (PLAVIX) 75 mg mg total) by mouth 7 17 tablet daily for 30 days. Active Problems Problem Noted Date Acute upper GI bleed 06/11/2017 Acute blood loss anemia 06/11/2017 Urinary tract infection 06/06/2017 Encounters Date Type Specialty Care Team Description 06/11/2017 Anesthesia Event Gastroenterology Juan M Solorzano MD 06/11/2017 Procedure Pass Gastroenterology 06/11/2017 Surgery Gastroenterology GOOD Cabrera MD ENDOSCOPY,BIOPSY 06/05/2017 [facility] Internal Anurag, Urinary tract - Encounter Medicine MD [place] infection without 06/12/2017 Darnell Anthony, hematuria, site MD unspecified (Primary Delores, Dx);Acute cystitis Mansi Palomino MD without hematuria;Physical deconditioning;Essen tial hypertension;Hyperli pidemia, unspecified hyperlipidemia type;Hypoxemia;Melan otic stools;Acute upper GI bleed;Acute blood loss anemia;Type 2 diabetes mellitus with insulin therapy (HCC) after 03/28/2017 Family History Medical History Relation Name Comments Diabetes Brother Diabetes Father Diabetes Mother Diabetes Son Relation Name Status Comments Brother Father Mother Son Social History Tobacco Use Types Packs/Day Years Used Date Never Smoker Smokeless Tobacco: Never Used Alcohol Use Drinks/Week oz/Week Comments No Sex Assigned at Date Recorded Not on file Last Filed Vital Signs Vital Sign Reading Time Taken Blood Pressure 124/61 06/12/2017 3:17 PM CDT Pulse 81 06/12/2017 3:17 PM CDT Temperature 36.1 C (96.9 F) 06/12/2017 3:17 PM CDT Respiratory Rate 18 06/12/2017 3:17 PM CDT Oxygen Saturation 95% 06/12/2017 3:17 PM CDT Inhaled Oxygen Concentration - - Weight 78.3 kg (172 lb 9.6 oz) 06/06/2017 12:00 AM CDT Height 162.6 cm (5' 4") 06/06/2017 9:00 AM CDT Body Mass Index 29.63 06/06/2017 12:00 AM CDT Plan of Treatment Not on file Procedures Procedure Name Priority Date/Time Associated Diagnosis Comments UPPER ENDOSCOPY,BIOPSY 06/11/2017 8:00 AM CDT GI BLEED after 03/28/2017 Results TRANSFUSION SERVICE REPORT - SCAN (06/13/2017 5:42 PM)Only the most recent of3 resultswithin the time period is included.Prepare Leuko-Red RBC (06/12/2017 11: 54 PM) Component Value Ref Range CROSSMATCH COMPATIBLE Unit ABO B Pos UNIT NUMBER [id number] Status TRANSFUSED Blood Bank Product RED BLOOD CELLS PRODUCT CODE J7215I27 CROSSMATCH COMPATIBLE Unit ABO B Pos UNIT NUMBER [id number] Status TRANSFUSED Blood Bank Product RED BLOOD CELLS PRODUCT CODE [id number] Specimen Performing Laboratory Other [place] POC-Glucose meter (06/12/2017 4:06 PM)Only the most recent of30 resultswithin the time period is included. Component Value Ref Range POC-Glucose Meter 212 (H)Comment: TESTED AT [address] 70 - 110 mg/[place] [address] Specimen Performing Laboratory Blood [address] [address] CBC with platelet count + automated diff (06/12/2017 4:15 AM)Only the most recent of4 resultswithin the time period is included. Component Value Ref Range WBC 15.0 (H) 3.5 - 10.5 K/L RBC 3.88 (L) 3.93 - 5.22 M/L Hemoglobin 11.1 (L) 11.2 - 15.7 GM/DL Hematocrit 34.1 34.1 - 44.9 % MCV 87.9 79.4 - 94.8 fL MCH 28.6 25.6 - 32.2 pg MCHC 32.6 32.2 - 35.5 GM/DL RDW 15.2 (H) 11.7 - 14.4 % Platelets 255 150 - 450 K/CU MM MPV 12.6 (H) 9.4 - 12.3 fL nRBC 0 0 - 0 /100 WBC % Neutros 68 % % Lymphs 19 % % Monos 9 % % Eos 3 % % Baso 0 % # Neutros 10.21 (H) 1.56 - 6.13 K/L # Lymphs 2.82 1.18 - 3.74 K/L # Monos 1.30 (H) 0.24 - 0.36 K/L # Eos 0.47 (H) 0.04 - 0.36 K/L # Baso 0.05 0.01 - 0.08 K/L Immature Granulocytes-Relative 1 0 - 1 % Specimen Performing Laboratory Blood - Arm, Right [address] [address] CBC with platelet count + automated diff (06/12/2017 4:15 AM)Only the most recent of4 resultswithin the time period is included. Specimen Performing Laboratory Blood Narrative The following orders were created for panel order CBC with platelet count + automated diff. Procedure Abnormality Status --------- ------ CBC with platelet count ...[[id number]]AbnormalFinal result Please view results for these tests on the individual orders. Comprehensive metabolic panel (06/12/2017 4:15 AM) Component Value Ref Range Protein, Total 6.0 6.0 - 8.3 gm/dL Albumin 2.9 (L) 3.5 - 5.0 g/dL Alkaline Phosphatase 42 40 - 150 U/L Total Bilirubin 0.3 0.2 - 1.2 mg/dL Sodium 142 136 - 145 meq/L Potassium 3.8 3.5 - 5.1 meq/L Chloride 109 (H) 98 - 107 meq/L CO2 25 22 - 29 meq/L BUN 27 (H) 7 - 21 mg/dL Creatinine 0.86 0.57 - 1.25 mg/dL Glucose 159 (H) 70 - 105 mg/dL Calcium 8.5 8.4 - 10.2 mg/dL AST 26 5 - 34 U/L ALT 44 6 - 55 U/L EGFR 64Comment: ESTIMATED GFR IS NOT ACCURATE mL/min/1.73 sq m CREATININE CLEARANCE IN PREDICTING GLOMERULAR FILTRATION RATE. ESTIMATED GFR IS NOT APPLICABLE FOR DIALYSIS PATIENTS. Specimen Performing Laboratory Blood - Arm, [address] [address] Hemoglobin and hematocrit (06/11/2017 5:53 PM)Only the most recent of6 resultswithin the time period is included. Component Value Ref Range Hemoglobin 11.1 (L) 11.2 - 15.7 GM/DL Hematocrit 35.6 34.1 - 44.9 % Specimen Performing Laboratory Blood [address] [address] Hemoglobin A1c (06/11/2017 3:05 PM) Component Value Ref Range Hemoglobin A1C 8.0 (H) 4.3 - 6.1 % Specimen Performing Laboratory [address] [address] REPORT OF PROCEDURE - ENDOSCOPY URL (06/11/2017 8:45 AM)Tissue Exam (2016 8:39 AM) Component Value Ref Range Case Report Surgical Pathology Report Case: [id number] Authorizing Provider:Jian Cabrera MD Collected: 06/11/2017 0839 Ordering Location: [address] Received: 06/11/2017 1126 Service Pathologist: Juany Ochoa MD Specimen:Stomach, random stomach biopsy DIAGNOSIS A. STOMACH, RANDOM, BIOPSIES: - FRAGMENTS OF ANTRAL MUCOSA WITH CHRONIC INACTIVE GASTRITIS (SEE MICROSCOPIC DESCRIPTION) - FRAGMENTS OF OXYNTIC MUCOSA WITH NO SIGNIFICANT DIAGNOSTIC ALTERATION - WARTHIN-STARRY STAIN NEGATIVE FOR HELICOBACTER PYLORI ORGANISMS - NO EVIDENCE OF INTESTINAL METAPLASIA OR DYSPLASIA OR MALIGNANCY IDENTIFIED Signing Pathologist Direct Phone Line: [phone] CPT Code(s) 08187 [id number] CLINICAL HISTORY GI bleed SPECIMEN SOURCE Random stomach biopsy GROSS DESCRIPTION The specimen is received in a formalin-filled container and labeled with the patient's information and labeled "random stomach biopsy" and consists of five fragments of palomino tissue ranging from 0.1 to 0.3 cm, Submitted A1. CG/pl MICROSCOPIC DESCRIPTION Section shows antral, junctional and oxyntic mucosa. The antral mucosa shows mild increase in the lymphoplasmacytic infiltrate and mild edema in the lamina propria with capillary congestion. The oxyntic and junctional mucosa are largely unremarkable. No significant inflammation is noted. Warthin stain for Helicobacter pylori is negative. There is no intestinal metaplasia, dysplasia or carcinoma. Specimen Performing Laboratory Tissue - Stomach [address] [address] PT/aPTT (06/11/2017 7:45 AM) Component Value Ref Range Protime 15.1 (H) 11.7 - 14.7 seconds INR 1.2 <=5.9 PTT 29.8 22.5 - 36.0 seconds Specimen Performing Laboratory Blood [address] [address] Narrative RECOMMENDED COUMADIN/WARFARIN INR THERAPY RANGES STANDARD DOSE: 2.0 - 3.0 Includes: PROPHYLAXIS for venous thrombosis, systemic embolization; TREATMENT for venous thrombosis and/or pulmonary embolus. HIGH RISK: Target INR is 2.5-3.5 for patients with mechanical heart valves. Transfuse Leuko-Red RBC (06/11/2017 3:03 AM)Only the most recent of3 resultswithin the time period is included.Type and screen, automated (2016 9:27 AM) Component Value Ref Range ABO/RH AUTOMATED (BEAKER) B POSITIVE Ab Scrn NEGATIVE Specimen Performing Laboratory Blood [address] [address] Basic Metabolic Panel (06/10/2017 3:14 AM)Only the most recent of3 resultswithin the time period is included. Component Value Ref Range Sodium 135 (L) 136 - 145 meq/L Potassium 4.4 3.5 - 5.1 meq/L Chloride 104 98 - 107 meq/L CO2 22 22 - 29 meq/L BUN 52 (H) 7 - 21 mg/dL Creatinine 1.04 0.57 - 1.25 mg/dL Glucose 354 (H) 70 - 105 mg/dL Calcium 8.7 8.4 - 10.2 mg/dL EGFR 52Comment: ESTIMATED GFR IS NOT ACCURATE mL/min/1.73 sq m CREATININE CLEARANCE IN PREDICTING GLOMERULAR FILTRATION RATE. ESTIMATED GFR IS NOT APPLICABLE FOR DIALYSIS PATIENTS. Specimen Performing Laboratory Blood - Arm, Right [address] [address] Urinalysis w/Microscopic (06/09/2017 2:55 PM) Component Value Ref Range Color, UA Yellow Clarity, UA Clear Specific [place], UA 1.011 1.001 - 1.035 pH, UA 6.5 5.0 - 8.0 Protein, UA 20 mg/dL (A) Negative Glucose, UA >1000 mg/dL (A) Negative Ketones, UA Negative Negative Bilirubin, UA Negative Negative Blood, UA Negative Negative Nitrite, UA Negative Negative Leukocytes, UA Negative Negative Urobilinogen, UA 0.2 0.2 - 1.0 mg/dL RBC, UA <1 /HPF WBC, UA 2 /HPF Specimen Source Urine, Straight Catheter Specimen Performing Laboratory Urine - Urine, Straight Catheter [address] [address] Urine culture (06/09/2017 2:55 PM)Only the most recent of2 resultswithin the time period is included. Component Value Ref Range Result No growth Specimen Performing Laboratory Urine - Urine, Straight Catheter [address] [address] XR chest 1 view portable / bedside (06/08/2017 9:29 AM) Specimen Performing Laboratory GE RIS Narrative FINAL REPORT TECHNIQUE: Frontal view of the chest. INDICATION: 76-year-old woman with atelectasis. COMPARISON: None. FINDINGS: LINES/TUBES: None. LUNGS: Low lung volumes, which accentuate the pulmonary vasculature and cardiomediastinal silhouette. No evidence of pneumonia or pulmonary edema. PLEURA: No pneumothorax or significant pleural effusion. HEART AND MEDIASTINUM: The cardiomediastinal silhouette appears mildly enlarged. Prior coronary artery bypass. Atherosclerotic calcifications in the thoracic aorta. SOFT TISSUES AND BONES: Intact median sternotomy wires. Multiple clips project over the lower thorax/upper abdomen. IMPRESSION: No acute cardiopulmonary abnormalities. Signed: Dm Davis MD Report Verified Date/Time:06/08/2017 09:55:48 Reading Location: [facility] Mammo Reading Room Procedure Note Interface, External Ris In - 06/08/2017 10:01 AM CDT FINAL REPORT TECHNIQUE: Frontal view of the chest. INDICATION: 76-year-old woman with atelectasis. COMPARISON: None. FINDINGS: LINES/TUBES: None. LUNGS: Low lung volumes, which accentuate the pulmonary vasculature and cardiomediastinal silhouette. No evidence of pneumonia or pulmonary edema. PLEURA: No pneumothorax or significant pleural effusion. HEART AND MEDIASTINUM: The cardiomediastinal silhouette appears mildly enlarged. Prior coronary artery bypass. Atherosclerotic calcifications in the thoracic aorta. SOFT TISSUES AND BONES: Intact median sternotomy wires. Multiple clips project over the lower thorax/upper abdomen. IMPRESSION: No acute cardiopulmonary abnormalities. Signed: Dm Davis MD Report Verified Date/Time: 06/08/2017 09:55:48 Reading Location: [facility] Mammo Reading Room Blood culture (06/06/2017 2:41 AM)Only the most recent of2 resultswithin the time period is included. Component Value Ref Range Result No growth in 5 days Specimen Performing Laboratory Blood - Arm, Right [address] [address] after 03/28/2017
[2018-03-29] MEDS ORDERED: ATROPINE SULF 1 MG/10 ML SYR IV ONE ×2 (11:23→11:35)
[2018-03-29] MEDS ORDERED: HEPARIN/D5W 25,000 UNIT/500 ML BAG IV ONE (11:25)
[2018-03-29] MEDS ORDERED: HEPARIN 5000 UNIT/ML 1 ML VIAL ONE (11:25)
[2018-03-29] MEDS ORDERED: NA CHLORIDE 0.9% 1,000 ML ONE (11:26)
[2018-03-29] MEDS ORDERED: DOPAMINE/D5W 400 MG/250 ML BAG IV ONE ×2 (11:28→11:29)
[2018-03-29 11:34] LABS: Arterial Blood Carboxyhemoglob 0.7 % (0-1.5); Blood Gas Oxyhemoglobin 95.8 % (94-97); Blood O2 Saturation 98.6 % (92-98.5)
[2018-03-29] MEDS ORDERED: ONDANSETRON 4 MG/2 ML VIAL ONE ×2 (11:45→12:09)
[2018-03-29 11:49] LABS: Absolute Lymphocytes (CBC) 2.3 K/uL (0.7-4.9); Absolute Monocytes 1.6 K/uL (0.1-1.3); Absolute Neutrophil 8.6 K/uL (1.8-8.0); Basophils % 0.6 % (0-1.3); Eosinophils % 1.8 % (0-4.4); Hematocrit 30.2 % (36.0-45.0); Lymphocytes % 17.8 % (15.3-44.8); MCH 28.7 pg (27.0-35.0); MCV 85.9 fL (80-100); Monocytes % 12.8 % (3.3-12.3); RBC Red Blood Cell Count 3.52 M/uL (3.86-4.86)
[2018-03-29 11:53] LABS: Protime INR 1.23
--- NOTE | 2018-03-29 12:05 | EDPHYS ---
Physician Documentation [facility] Name: Ace Almendarez Age: 77 yrs Sex: Female : 1940 Arrival Date: 03/29/2018 Time: 11:07 Bed 4 Private MD: ED Physician Rangel Baig HPI: 03/29 11:58 This 77 yrs old Other Female presents to ER via EMS with complaints of Chest Pain. usman 11:58 The patient or guardian reports chest pain that is located primarily in the substernal usman area. Onset: just prior to arrival, this morning. The pain does not radiate. Associated signs and symptoms: Pertinent positives: dizziness, lightheadedness, nausea, near-syncope, palpitations. The chest pain is described as causing indigestion, a pressure. Modifying factors: The symptoms are alleviated by nothing. the symptoms are aggravated by activity, cough, deep breath, exertion, movement, walking. Severity of pain: At its worst the pain was mild. The patient has not experienced similar symptoms in the past. Historical: - Allergies: 11:10 PENICILLINS; aa5 - PMHx: 11:10 chronic uti; Dementia; Diabetes - NIDDM; Hyperlipidemia; Hypertension; Hypothyroidism; aa5 - PSHx: 11:10 cardiac bypass; Hysterectomy; Heart stents; aa5 - Immunization history:: Adult Immunizations unknown. - Social history:: Smoking status: unknown. - Family history:: not pertinent. - Ebola Screening: : No symptoms or risks identified at this time. ROS: 11:58 Constitutional: Negative for fever, chills, and weight loss, Eyes: Negative for injury, usman pain, redness, and discharge, ENT: Negative for injury, pain, and discharge, Neck: Negative for injury, pain, and swelling, Respiratory: Negative for shortness of breath, cough, wheezing, and pleuritic chest pain, Back: Negative for injury and pain, : Negative for injury, bleeding, discharge, and swelling, MS/Extremity: Negative for injury and deformity, Skin: Negative for injury, rash, and discoloration, Psych: Negative for depression, anxiety, suicide ideation, homicidal ideation, and hallucinations, Allergy/Immunology: Negative for hives, rash, and allergies, Endocrine: Negative for neck swelling, polydipsia, polyuria, polyphagia, and marked weight changes. 11:58 Cardiovascular: Positive for chest pain, palpitations. 11:58 Respiratory: Positive for dyspnea on exertion, shortness of breath. 11:58 Back: Negative for injury or acute deformity, decreased range of motion. 11:58 MS/extremity: Negative for acute changes. Exam: 11:58 Head/Face: Normocephalic, atraumatic. Eyes: Pupils equal round and reactive to light, usman extra-ocular motions intact. Lids and lashes normal. Conjunctiva and sclera are non-icteric and not injected. Cornea within normal limits. Periorbital areas with no swelling, redness, or edema. ENT: Nares patent. No nasal discharge, no septal abnormalities noted. Tympanic membranes are normal and external auditory canals are clear. Oropharynx with no redness, swelling, or masses, exudates, or evidence of obstruction, uvula midline. Mucous membranes moist. Neck: Trachea midline, no thyromegaly or masses palpated, and no cervical lymphadenopathy. Supple, full range of motion without nuchal rigidity, or vertebral point tenderness. No Meningismus. Chest/axilla: Normal chest wall appearance and motion. Nontender with no deformity. No lesions are appreciated. Abdomen/GI: Soft, non-tender, with normal bowel sounds. No distension or tympany. No guarding or rebound. No evidence of tenderness throughout. Back: No spinal tenderness. No costovertebral tenderness. Full range of motion. Psych: Awake, alert, with orientation to person, place and time. Behavior, mood, and affect are within normal limits. 11:58 Cardiovascular: Rate: bradycardic, actual rate is 30 bpm, Rhythm: irregularly irregular, Pulses: Pulses are 2+ in bilateral radial, brachial, femoral, popliteal, posterior tibial and and dorsalis pedis arteries.. Heart sounds: normal, Edema: is not appreciated, JVD: is not appreciated. 11:58 Neuro: Orientation: appropriate for stated age, no acute changes, Mentation: slow to respond, Motor: moves all fours, Sensation: no obvious gross deficits, appropriate no acute changes, Gait: not tested. Babinski testing is normal, seizure activity, is not displayed by the patient. Vital Signs: 11:10 BP 112 / 47; Pulse 36; Resp 17 S; Pulse Ox 100% on 100% Non-rebreather mask; aa5 11:10 Temp 98.5(TE); aa5 11:15 BP 106 / 40; Pulse 35; Resp 18 S; Pulse Ox 100% on 100% Non-rebreather mask; aa5 11:20 Weight 80 kg (R); aa5 11:20 BP 102 / 44; Pulse 50; Resp 16 S; Pulse Ox 100% on 100% Non-rebreather mask; aa5 11:35 BP 91 / 36; Pulse 43; Resp 20 S; Pulse Ox 100% on 100% Non-rebreather mask; aa5 11:40 BP 122 / 40; Pulse 32; Resp 16 S; Pulse Ox 100% on 100% Non-rebreather mask; aa5 11:45 BP 108 / 67; Pulse 43; Resp 16 S; Pulse Ox 100% on 100% Non-rebreather mask; aa5 11:50 BP 117 / 52; Pulse 47; Resp 16 S; Pulse Ox 100% on 100% Non-rebreather mask; aa5 11:55 BP 122 / 51; Pulse 37; Resp 16 S; Pulse Ox 100% on 100% Non-rebreather mask; aa5 12:05 BP 145 / 42; Pulse 46; Resp 20 S; Pulse Ox 100% on 100% Non-rebreather mask; aa5 12:15 BP 134 / 76; Pulse 45; Resp 16 S; Pulse Ox 99% on 100% Non-rebreather mask; aa5 12:25 BP 114 / 70; Pulse 48; Resp 18 S; Pulse Ox 100% on 100% Non-rebreather mask; aa5 Procedures: 12:10 Central Line: the site was prepped with Betadine, in sterile fashion, a triple lumen usman catheter was inserted, in the right femoral vein, in 2 attempts. placement was verified, by blood return, the site was dressed with using sterile technique, the patient tolerated the procedure, well. MDM: 11:09 Patient medically screened. [facility] 11:58 Data reviewed: vital signs, nurses notes, lab test result(s), EKG, radiologic studies, usman plain films. 03/29 11:08 Order name: Basic Metabolic Panel; Complete Time: 12:30 iw 03/29 11:08 Order name: BNP; Complete Time: 12:30 03/29 11:08 Order name: CBC with Diff; Complete Time: 12:30 03/29 11:08 Order name: Ckmb; Complete Time: 12:30 03/29 11:08 Order name: CPK; Complete Time: 12:30 03/29 11:08 Order name: LFT's; Complete Time: 12:30 03/29 11:08 Order name: Magnesium; Complete Time: 12:30 03/29 11:08 Order name: PT-INR; Complete Time: 12:43 03/29 11:08 Order name: Ptt, Activated; Complete Time: 12:43 03/29 11:08 Order name: Troponin (emerg Dept Use Only); Complete Time: 12:30 03/29 11:11 Order name: Lipase [facility] 03/29 11:11 Order name: TSH [facility] 03/29 11:11 Order name: ABG; Complete Time: 11:56 [facility] 03/29 11:11 Order name: Type And Screen [facility] 03/29 11:08 Order name: XRAY Chest (1 view); Complete Time: 12:30 03/29 11:08 Order name: EKG; Complete Time: 11:08 03/29 11:47 Order name: EKG Electrocardiogram; Complete Time: 12:02 [facility] 03/29 12:37 Order name: Urine Dipstick--Ancillary (enter results) 03/29 11:08 Order name: Cardiac monitoring; Complete Time: 12:03 03/29 11:08 Order name: EKG - Nurse/Tech; Complete Time: 12:03 03/29 11:08 Order name: IV Saline Lock; Complete Time: 12:03 03/29 11:08 Order name: Labs collected and sent; Complete Time: 12:03 03/29 11:08 Order name: O2 Per Protocol; Complete Time: 12:03 03/29 11:08 Order name: O2 Sat Monitoring; Complete Time: 12:03 03/29 11:08 Order name: Urine Dipstick-Ancillary (obtain specimen); Complete Time: 12:03 03/29 11:11 Order name: IV Saline Lock - Large Bore; Complete Time: 12:02 [facility] 03/29 11:11 Order name: Karimi; Complete Time: 12:02 [facility] 03/29 11:13 Order name: Blood Glucose Level; Complete Time: 11:15 [facility] 03/29 11:47 Order name: EKG Electrocardiogram; Complete Time: 12:02 [facility] 03/29 11:47 Order name: EKG Electrocardiogram; Complete Time: 12:02 [facility] 03/29 11:47 Order name: EKG Electrocardiogram; Complete Time: 12: [facility] 03/29 11:55 Order name: Central Line Kit; Complete Time: 11:57 usman Administered Medications: 11:24 Drug: Atropine 1 mg Route: IVP; Site: left antecubital; iw 11:28 Follow up: Response: No adverse reaction aa5 11:25 Drug: Heparin (IL-Bolus No thrombolytic) - HEParin 60 units/kg {Co-Signature: jl7 aa5 (Gaetano Harris RN).} Route: IVP; Site: left antecubital; 11:28 Follow up: Response: No adverse reaction aa5 11:25 Drug: Heparin ([place] Drip) 12 units/kg/hr - (HEParin 59068 units, D5W 500 ml) aa5 {Co-Signature: jl7 (Gaetano Harris RN).} Route: IV; Rate: calculated rate; Site: left antecubital; 11:28 Follow up: Infusion paused for Dopamine to infuse aa5 11:50 Follow up: Infusion continued to right femoral aa5 12:35 Follow up: Response: No adverse reaction; IV Status: Infusion continued upon transfer aa5 11:28 Drug: Dopamine drip 5 mcg/kg/min - (DOPamine 400 mg, D5W 250 ml) Route: IV; Rate: aa5 calculated rate; Site: left antecubital; 11:33 Follow up: Infusion increased to 10mcg/kg/min per Dr. Baig aa5 11:50 Follow up: Infusion continued to right femoral aa5 12:35 Follow up: IV Status: Infusion continued upon transfer aa5 11:41 Drug: Zofran 4 mg Route: IVP; Site: left antecubital; aa5 11:50 Follow up: Response: No adverse reaction; Nausea is decreased aa5 11:50 Drug: NS 0.9% 1000 ml Route: IV; Rate: 125 ml/hr; Site: right femoral; aa5 12:02 CANCELLED (Physician Discretion): Aspirin Chewable Tablet 162 mg PO once aa5 12:08 Drug: Zofran 4 mg Route: IVP; Site: left antecubital; aa5 12:15 Follow up: Response: No adverse reaction; Nausea is decreased aa5 12:10 Drug: Reglan 10 mg Route: IVP; Site: left antecubital; aa5 12:15 Follow up: Response: No adverse reaction; Nausea is decreased aa5 12:13 Drug: NS 0.9% 500 ml Route: IV; Rate: bolus; Site: right femoral; aa5 12:35 Follow up: IV Status: Completed infusion aa5 12:13 CANCELLED (Duplicate Order): NS 0.9% 1000 ml IV at 125 ml/hr continuous aa5 Point of Care Testing: Blood Glucose: 11:17 Blood Glucose: 258 mg/dL; Ranges: Critical Glucose Levels:Adult <50 mg/dl or >400 mg/dl <40 mg/dl or >180 mg/dl Disposition: 03/29/18 12:05 Transfer ordered to [facility]. 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 - Reason for transfer: Higher level of care. - Accepting physician is to cath at [facility]. - Condition is Critical. - Problem is new. - Symptoms have improved. Signatures: Dispatcher [employer] [facility] Rangel Baig MD MD cha Williams, Irene, RN RN Maryann Weiss, RN RN aa5 Gaetano Harris RN jl7 Corrections: (The following items were deleted from the chart) 11:45 11:11 EC Echo Doppler W/Color Flow+ECHO.RAD.BRZ ordered. [facility] 12:02 11:11 Aspirin Chewable Tablet 162 mg PO once ordered. [facility] aa5 12:13 12:08 NS 0.9% 1000 ml IV at 125 ml/hr continuous ordered. usman aa5 12:18 12:05 03/29/2018 12:05 Transfer ordered to [facility]. 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 Reason for transfer: Higher level of care. Accepting physician is to cath at [facility]. Condition is Critical. Problem is new. Symptoms have improved. usman 12:46 12:18 03/29/2018 12:05 Transfer ordered to [facility]. 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 Reason for transfer: Higher level of care. Accepting physician is to cath at [facility]. Condition is Critical. Problem is new. Symptoms have improved. usman
--- NOTE | 2018-03-29 12:05 | ER ---
Nurse's Notes [facility] Name: Ace Almendarez Age: 77 yrs Sex: Female : 1940 Arrival Date: 03/29/2018 Time: 11:07 Bed 4 Private MD: Diagnosis: Other specified heart block-3rd degree;Chest pain, unspecified;Bradycardia, unspecified-3rd block;Type 2 diabetes mellitus;Unspecified kidney failure Presentation: 03/29 11:07 Presenting complaint: EMS states: chest pain today. Pt had heart stents placed aa5 approximately 3-4 days ago. EMS reports pt vomited upon scene arrival. 11:07 Transition of care: patient was not received from another setting of care. Onset of aa5 symptoms was March 29, 2018. Risk Assessment: Do you want to hurt yourself or someone else? Other: unable to assess. Care prior to arrival: Pacing at 70 bpm Medication(s) given: ASA, 81 mg, x 4, zofran 4 mg, Versed 2.5 mg IV initiated. 20 GA, in the left antecubital area, Glucose check: 322 Oxygen administered. via a non-rebreather mask. 11:07 Method Of Arrival: EMS: [facility] aa5 11:07 Acuity: PARVIN 1 aa5 11:10 Initial Sepsis Screen: Does the patient meet any 2 criteria? No. Patient's initial aa5 sepsis screen is negative. Does the patient have a suspected source of infection? No. Patient's initial sepsis screen is negative. Historical: - Allergies: 11:10 PENICILLINS; aa5 - PMHx: 11:10 chronic uti; Dementia; Diabetes - NIDDM; Hyperlipidemia; Hypertension; Hypothyroidism; aa5 - PSHx: 11:10 cardiac bypass; Hysterectomy; Heart stents; aa5 - Immunization history:: Adult Immunizations unknown. - Social history:: Smoking status: unknown. - Family history:: not pertinent. - Ebola Screening: : No symptoms or risks identified at this time. Screenin:58 Abuse screen: Denies threats or abuse. Denies injuries from another. Nutritional iw screening: No deficits noted. Tuberculosis screening: No symptoms or risk factors identified. Fall Risk IV access (20 points). Assessment: 11:07 Reassessment: Transcutaneous pacing stopped per Dr. Baig . aa5 11:10 General: Appears uncomfortable, Behavior is cooperative. Pain: Denies pain. Neuro: aa5 Level of Consciousness is awake, alert, obeys commands, Oriented to person, place, time, situation, Golf Teacher are weak bilaterally Moves all extremities. Speech is normal, Facial symmetry appears normal, Pupils are PERRLA. Cardiovascular: Heart tones S1 S2 present Pulses are 2+ in right radial artery and left radial artery Edema is absent. Rhythm is 3 rd degree block. Respiratory: Airway is patent Respiratory effort is even, unlabored, Respiratory pattern is regular, symmetrical, Breath sounds are clear bilaterally. GI: Abdomen is round non-distended, Bowel sounds present X 4 quads. Abd is non tender X 4 quads Reports nausea, vomiting. : No signs and/or symptoms were reported regarding the genitourinary system. EENT: No signs and/or symptoms were reported regarding the EENT system. Derm: Skin is dry, Skin is pale, Skin temperature is warm. Musculoskeletal: Range of motion: intact in all extremities. 11:41 Reassessment: Pt c/o nausea, Zofran administered (see MAR). aa5 11:46 Reassessment: Pt reports nausea has improved. Dr. Baig at bedside attempting aa5 central line. Pt A \T\ O X 4, skin is normal/warm/dry. Respirations even and unlabored. . 11:56 Reassessment: Reassessment: central line placement complete, at bedside, iw updated on POC, pt will be transferred to [facility] via [facility]. 12:08 Reassessment: Pt vomiting, Dr. Baig notified . aa5 12:15 Reassessment: Pt denies chest pain, reports nausea has improved. A\T\O x 4, skin is aa5 normal/warm/dry. . 12:15 Respiratory: Airway is patent Respiratory effort is even, unlabored, Respiratory aa5 pattern is regular, symmetrical. Vital Signs: 11:10 BP 112 / 47; Pulse 36; Resp 17 S; Pulse Ox 100% on 100% Non-rebreather mask; aa5 11:10 Temp 98.5(TE); aa5 11:15 BP 106 / 40; Pulse 35; Resp 18 S; Pulse Ox 100% on 100% Non-rebreather mask; aa5 11:20 Weight 80 kg (R); aa5 11:20 BP 102 / 44; Pulse 50; Resp 16 S; Pulse Ox 100% on 100% Non-rebreather mask; aa5 11:35 BP 91 / 36; Pulse 43; Resp 20 S; Pulse Ox 100% on 100% Non-rebreather mask; aa5 11:40 BP 122 / 40; Pulse 32; Resp 16 S; Pulse Ox 100% on 100% Non-rebreather mask; aa5 11:45 BP 108 / 67; Pulse 43; Resp 16 S; Pulse Ox 100% on 100% Non-rebreather mask; aa5 11:50 BP 117 / 52; Pulse 47; Resp 16 S; Pulse Ox 100% on 100% Non-rebreather mask; aa5 11:55 BP 122 / 51; Pulse 37; Resp 16 S; Pulse Ox 100% on 100% Non-rebreather mask; aa5 12:05 BP 145 / 42; Pulse 46; Resp 20 S; Pulse Ox 100% on 100% Non-rebreather mask; aa5 12:15 BP 134 / 76; Pulse 45; Resp 16 S; Pulse Ox 99% on 100% Non-rebreather mask; aa5 12:25 BP 114 / 70; Pulse 48; Resp 18 S; Pulse Ox 100% on 100% Non-rebreather mask; aa5 ED Course: 11:07 Patient arrived in ED. aa5 11:07 Arm band placed on. aa5 11:07 Patient has correct armband on for positive identification. Placed in gown. Bed in low aa5 position. Call light in reach. Side rails up X2. 11:07 groundwater monitoring technician on. Pulse ox on. NIBP on. aa5 11:09 Rangel Baig MD is Attending Physician. usman 11:10 Maintain EMS IV. Dressing intact. Good blood return noted. Site clean \T\ dry. Gauge \T\ iw site: 20 LAC. 11:10 Oxygen administration via non-rebreather mask \T\ 15L/min. aa5 11:13 Triage completed. aa5 11:14 Maryann Andersen, SOCORRO is Primary Nurse. aa5 11:20 Missed attempt(s): 20 gauge in right hand. jl7 11:41 EKG done, by cutter grind tool technician. reviewed by Rangel Baig MD times 5. at1 11:50 Assisted provider with central line placement. Set up central line tray. Triple lumen aa5 line placed in right femoral. Line placed by Rangel Baig MD Placement verified by blood return, Dressed with Tape, Tegaderm, Patient tolerated poorly. Central line placement started at 1125 and completed at 1150 During the procedure, did the Practitioner(s) maintain a sterile field? Yes. Was blood aspirated from each lumen? Yes. After the procedure, did the Practitioner(s) clean the site and apply a sterile dressing? Yes. 11:55 Karimi cath inserted, using sterile technique, 16 Fr., by hi, balloon inflated, to aa5 gravity drainage, urine specimen collected. returned damaris urine. Patient tolerated well. 12:17 X-ray completed. Portable x-ray completed in exam room. Patient tolerated procedure mh1 well. 12:18 XRAY Chest (1 view) In Process Unspecified. EDMS 12:18 Notified ED physician of a critical lab result(s). Trop=7.54. iw 12:35 Patient transferred, IV remains in place. aa5 Administered Medications: 11:24 Drug: Atropine 1 mg Route: IVP; Site: left antecubital; iw 11:28 Follow up: Response: No adverse reaction aa5 11:25 Drug: Heparin (SD-Bolus No thrombolytic) - HEParin 60 units/kg {Co-Signature: jl7 saad (Gaetano Harris RN).} Route: IVP; Site: left antecubital; 28 Follow up: Response: No adverse reaction aa5 11:25 Drug: Heparin (SD Drip) 12 units/kg/hr - (HEParin 39814 units, D5W 500 ml) aa5 {Co-Signature: jl7 (Gaetano Harris RN).} Route: IV; Rate: calculated rate; Site: left antecubital; :28 Follow up: Infusion paused for Dopamine to infuse aa5 11:50 Follow up: Infusion continued to right femoral aa5 12:35 Follow up: Response: No adverse reaction; IV Status: Infusion continued upon transfer aa5 11:28 Drug: Dopamine drip 5 mcg/kg/min - (DOPamine 400 mg, D5W 250 ml) Route: IV; Rate: aa5 calculated rate; Site: left antecubital; 11:33 Follow up: Infusion increased to 10mcg/kg/min per Dr. Baig aa5 11:50 Follow up: Infusion continued to right femoral aa5 12:35 Follow up: IV Status: Infusion continued upon transfer aa5 11:41 Drug: Zofran 4 mg Route: IVP; Site: left antecubital; aa5 11:50 Follow up: Response: No adverse reaction; Nausea is decreased aa5 11:50 Drug: NS 0.9% 1000 ml Route: IV; Rate: 125 ml/hr; Site: right femoral; aa5 12:02 CANCELLED (Physician Discretion): Aspirin Chewable Tablet 162 mg PO once aa5 12:08 Drug: Zofran 4 mg Route: IVP; Site: left antecubital; aa5 12:15 Follow up: Response: No adverse reaction; Nausea is decreased aa5 12:10 Drug: Reglan 10 mg Route: IVP; Site: left antecubital; aa5 12:15 Follow up: Response: No adverse reaction; Nausea is decreased aa5 12:13 Drug: NS 0.9% 500 ml Route: IV; Rate: bolus; Site: right femoral; aa5 12:35 Follow up: IV Status: Completed infusion aa5 12:13 CANCELLED (Duplicate Order): NS 0.9% 1000 ml IV at 125 ml/hr continuous aa5 Point of Care Testing: Blood Glucose: 11:17 Blood Glucose: 258 mg/dL; iw Ranges: Intake: Outcome: 12:05 ER care complete, transfer ordered by . usman 12:35 Transferred by helicopter to [facility], Transfer form completed. X-rays aa5 sent w/ patient. Note: Report given to [facility] Nurse 12:35 Condition: stable 12:35 Discharge instructions given to patient, family, Instructed on the need for transfer, Demonstrated understanding of instructions. 12:46 Patient left the ED. aa5 Signatures: Dispatcher [employer] EDRangel Rae MD MD cha Harvey, Martha mh1 Anne Woodruff RN RN iw Maryann Andersen RN RN aa5 Enriqueta hernández, logger driving horses EKG [facility] Gaetano Harris RN RN jl7 Gaetano Harris RN jl7 Corrections: (The following items were deleted from the chart) 11:58 11:56 Reassessment: iw iw
[2018-03-29] MEDS ORDERED: METOCLOPRAMIDE 10 MG/2mL INJ ONE (12:09)
--- NOTE | 2018-03-29 12:09 | EKG ---
Test Date: 2018-03-29 Test Time: 11:19:00 House Principal: KAYLI MEASUREMENT RESULTS: Intervals: Rate: 86 MT: QRSD: 52 QT: 240 QTc: 287 [place]: P: MT: QRS: 45 T: 254 INTERPRETIVE STATEMENTS: sinus rhythm with complete heart block, junctional escape rhythm Right bundle branch block Abnormal ECG Compared to ECG 03/29/2018 11:15:17 no significant change from previous ECG although the junctional rate has decreased Electronically Signed On 03-29-18 12:09:20 CDT by Ayaz Patel
--- NOTE | 2018-03-29 12:11 | EKG ---
Test Date: 2018-03-29 Test Time: 11:15:17 Chute Greaser: KAYLI MEASUREMENT RESULTS: Intervals: Rate: 32 MA: QRSD: 118 QT: 566 QTc: 413 [place]: P: 61 MA: QRS: 1 T: 31 INTERPRETIVE STATEMENTS: sinus rhythm with complete heart block, junctional escape rhythm Right bundle branch block Abnormal ECG Compared to ECG 03/29/2018 11:06:07 no significant change from previous ECG Electronically Signed On 03-29-18 12:10:31 CDT by Ayaz Patel
--- NOTE | 2018-03-29 12:12 | EKG ---
Test Date: 2018-03-29 Test Time: 11:06:07 Radio Communications Mechanician: KAYLI MEASUREMENT RESULTS: Intervals: Rate: 33 NM: 464 QRSD: 94 QT: 528 QTc: 390 [place]: P: 61 NM: 464 QRS: -31 T: 60 INTERPRETIVE STATEMENTS: Sinus rhythm with complete heart block and juncitonal escape rhythm Inferior ischemia Abnormal ECG Compared to ECG 03/29/2018 11:04:44 no significant change from previous ECG Electronically Signed On 03-29-18 12:11:52 CDT by Ayaz Patel
--- NOTE | 2018-03-29 12:14 | EKG ---
Test Date: 2018-03-29 Test Time: 11:04:44 Liquified Natural Gas Specialist: KAYLI MEASUREMENT RESULTS: Intervals: Rate: 39 [place]: 520 QRSD: 118 QT: 528 QTc: 425 [place]: P: 57 [place]: 520 QRS: -24 T: 76 INTERPRETIVE STATEMENTS: Sinus rhythm with complete heart block, junctional escape rhyrhm ST and T abnormality inferior ischemia Abnormal ECG Compared to ECG 03/29/2018 11:04:19 no significant change from previous ECG Electronically Signed On 03-29-18 12:13:37 CDT by Ayaz Patel
--- NOTE | 2018-03-29 12:15 | EKG ---
Test Date: 2018-03-29 Test Time: 11:04:19 Automation Qa Tester: KAYLI MEASUREMENT RESULTS: Intervals: Rate: 33 AL: QRSD: 116 QT: 552 QTc: 408 [place]: P: 57 AL: QRS: -25 T: 40 INTERPRETIVE STATEMENTS: Sinus rhythm with complete heart block and junctional escape rhythm ST and T wave abnormality, consider inferior ischemia Abnormal ECG Compared to ECG 06/04/2017 22:54:55 T-wave abnormality now present complete heart block is now present Electronically Signed On 03-29-18 12:14:55 CDT by Ayaz Patel
[2018-03-29 12:16] LABS: Albumin 3.6 g/dL (3.2-5.5); Bilirubin Direct 0.1 mg/dL (0-0.2); Bilirubin Total 0.6 mg/dL (0.3-1.2); Magnesium 1.9 mg/dL (1.8-2.5)
[2018-03-29 12:18] LABS: CKMB Creatine Kinase MB 7.8 ng/ml (0.3-4.0)
--- NOTE | 2018-03-29 12:25 | RAD REPORT ---
EXAM DESCRIPTION: RAD - Chest Single View - 03/29/2018 12:20 pm CLINICAL HISTORY: Coronary artery disease Chest pain. COMPARISON: Chest Single View dated 06/04/2017; Chest Single View dated 04/24/2017; Chest Single View dated 04/23/2017; Chest Single View dated 02/17/2017 FINDINGS: Portable technique limits examination quality. Mild interstitial pulmonary edema suspected. Postsurgical changes of a CABG noted. No displaced fract ures. IMPRESSION: Mild interstitial pulmonary edema.
[2018-03-29 12:47] LABS: Thyroid Stimulating Hormone 2.77 uIU/mL (0.34-5.60)
[2018-03-29 13:00] VITALS: TEMP 98.5
[2018-03-29 13:12] VITALS: BP 134/76; O2SAT 99
[2018-03-29 13:35] LABS: Urine Blood NEGATIVE (NEG); Urine Glucose NEGATIVE (NEG); Urine Protein 2+ (NEG); Urine Specific Gravity 1.025 (1.005-1.030); Urine pH 5.5 (5.0-7.0)
--- NOTE | 2018-03-29 20:38 | EKG ---
Test Date: 2018-03-29 Test Time: 12:01:54 [employer]: KAYLI MEASUREMENT RESULTS: Intervals: Rate: 36 MO: QRSD: 140 QT: 548 QTc: 423 Dixon: P: MO: QRS: -56 T: -11 INTERPRETIVE STATEMENTS: sinus rhythm with complete heart block Junctional escape rhythm Left axis deviation Nonspecific intraventricular block Inferior injury Abnormal ECG Compared to ECG 03/29/2018 11:19:00 Inferior injury is now present Electronically Signed On 03-29-18 20:37:54 CDT by Ayaz Patel
== END 2018-03-29 12:46 | disposition short-term general hospital (02) ==
LOC: ER 11:04
PROC: 06HM33Z Insertion of Infusion Device into Right Femoral Vein, Percutaneous Approach (ICD-10-PCS; principal; 2018-03-29)
DX: I45.5 Other specified heart block (principal); R00.1 Bradycardia, unspecified; E11.9 Type 2 diabetes mellitus without complications; N19 Unspecified kidney failure; Z88.0 Allergy status to penicillin; Z95.818 Presence of other cardiac implants and grafts
CPT/HCPCS: 36415; 36556; 51702; 71045; 80048; 80076; 81003; 82550; 82553; 82805; 83690; 83735; 83880; 84443; 84484; 85025; 85610; 85730; 86850; 86900; 86901; 93005 ×6; 96365; 96375; 99291; J1265; J1644; J2405 ×2; J2765; J7030; 82962; 96361

== ENCOUNTER 2019-01-24 21:17 | Emergency (ER) | payer OTHER, MEDICARE ==
--- OUTSIDE RECORDS SUMMARY | 2019-01-24 21:20 | XMS REPORT | Clinical Summary ---
:1940 Author Organization [facility] Address [address] [place] [address] Care Team Providers Name Role Phone Bret Blackwell MD Primary Care Provider Allergies Active Allergy Reactions Severity Noted Date Comments Penicillins Rash Low 08/14/2016 Medications Medication Sig Dispensed Refills Start End Status Date Date ascorbate Vitamin C 0 Active Sq-abrmusma-pms (VITAMIN C) 1,000 mg powder effervescent in packet VIT B COMPLEX 100 vitamin B 0 Active NO.2/HERBS (VITAMIN B complex COMPLEX 100 2-HERBS ORAL) rgravpo-lndikxfgh-kycj Take 1 tablet 0 Active tablet by mouth. pantoprazole (PROTONIX) Take 40 mg by 0 Active 40 MG EC tablet mouth daily. 8 levothyroxine Take 50 mcg by 0 Active (SYNTHROID, LEVOXYL) 50 mouth every mcg tablet morning. losartan (COZAAR) 100 Take 100 mg by 0 Active MG tablet mouth nightly. metFORMIN (GLUCOPHAGE) Take 1,000 mg 0 Active 1,000 mg tablet by mouth 2 (two) times a day with meals. aspirin (ECOTRIN) 81 MG Take 81 mg by 0 Active enteric coated tablet mouth daily. clopidogrel (PLAVIX) 75 Take 75 mg by 0 Active mg tablet mouth daily. amLODIPine (NORVASC) 5 Take 5 mg by 0 Active mg tablet mouth 2 (two) times a day. atorvastatin (LIPITOR) Take 40 mg by 0 Active 40 MG tablet mouth daily. coenzyme Q10 10 mg Take 10 mg by 0 Active capsule mouth daily. docusate sodium Take 100 mg by 0 Active (COLACE) 100 MG capsule mouth 2 (two) times a day. cyanocobalamin, vitamin Place 2,500 0 Active B-12, 5,000 mcg tablet, mcg under the sublingual tongue daily. folic acid 0.8 mg Take 0.8 mg by 0 Active capsule mouth daily. omega-3 fatty Take by mouth 0 Active acids-fish oil (FISH daily. OIL) 340-1,000 mg capsule memantine (NAMENDA XR) Take by mouth 0 Active 28 mg daily. capsule,sprinkle,ER 24hr galantamine (RAZADYNE) Take 12 mg by 0 Active 12 MG tablet mouth 2 (two) times a day. insulin GLARGINE Inject 20-25 0 Active (LANTUS) 100 unit/mL Units under injection (vial) the skin nightly. insulin lispro Inject 2-15 0 Active (HumaLOG) 100 unit/mL Units under injection the skin 3 (three) times a day before meals. nitrofurantoin Take 100 mg by 0 Active (MACRODANTIN) 100 MG mouth daily. capsule brinzolamide-brimonidin Apply 1 drop 0 Active e (SIMBRINZA) 1-0.2 % to eye 2 (two) drops,suspension times a day. propylene glycol Apply 1 drop 0 Active (SYSTANE BALANCE) 0.6 % to eye 3 drops (three) times a day. hydroCHLOROthiazide Take 1 capsule 90 capsule 3 Active (MICROZIDE) 12.5 mg (12.5 mg 8 019 capsule total) by mouth daily. diclofenac (CATAFLAM) Take 50 mg by 0 Active 50 MG tablet mouth. 8 carvedilol (COREG) 25 Take 1 tablet 180 tablet 0 Active MG tablet (25 mg total) 9 by mouth 2 (two) times a day with meals. amLODIPine (NORVASC) 5 Take 1 tab by 180 tablet 3 Discontinued mg tabletIndications: mouth twice 7 018 Essential hypertension daily. metFORMIN (GLUCOPHAGE) 0 Discontinued 1,000 mg tablet 7 018 NAMENDA XR 28 mg 0 Discontinued capsule,sprinkle,ER 7 018 24hr levothyroxine 0 Discontinued (SYNTHROID, LEVOXYL) 50 7 018 mcg tablet clopidogrel (PLAVIX) 75 0 Discontinued mg tablet 7 018 atorvastatin (LIPITOR) 0 Discontinued 40 MG tablet 7 018 LANTUS SOLOSTAR 100 0 Discontinued unit/mL injection (pen) 7 018 repaglinide (PRANDIN) 0 Discontinued 0.5 MG tablet 7 018 losartan (COZAAR) 100 0 Discontinued MG tablet 7 018 coenzyme Q10 10 mg Take 10 mg by 0 Discontinued capsule mouth. 018 b complex vitamins Take by mouth. 0 Discontinued capsule 018 folic acid (FOLVITE) Take 400 mcg 0 Discontinued 400 MCG tablet by mouth. 018 aspirin (ECOTRIN) 81 MG Take 81 mg by 0 Discontinued enteric coated tablet mouth daily. 018 carvedilol (COREG) 12.5 carvedilol 0 Discontinued MG tablet 12.5 mg tablet 018 docosahexanoic acid/epa Fish Oil 0 Discontinued (FISH OIL ORAL) 018 galantamine (RAZADYNE) 0 Discontinued 12 MG tablet 8 018 carvedilol (COREG) 12.5 Take 12.5 mg 0 Discontinued MG tablet by mouth 2 018 (two) times a day with meals. galantamine (RAZADYNE) Take 12 mg by 0 Discontinued 4 MG tablet mouth 2 (two) 018 times a day. carvedilol (COREG) 25 Take 1 tablet 60 tablet 0 Discontinued MG tablet (25 mg total) 8 018 by mouth 2 (two) times a day with meals. carvedilol (COREG) 25 TAKE 1 TABLET 60 tablet 0 Discontinued MG tablet BY MOUTH TWICE 8 018 DAILY WITH MEALS carvedilol (COREG) 25 TAKE 1 TABLET 60 tablet 0 Discontinued MG tablet BY MOUTH TWICE 8 018 DAILY WITH MEALS carvedilol (COREG) 25 TAKE 1 TABLET 180 tablet 0 Discontinued MG tablet BY MOUTH TWICE 8 019 DAILY WITH MEALS Active Problems Problem Noted Date History of cardiac pacemaker in situ 06/22/2018 Fluid overload 03/31/2018 Coronary artery disease 03/29/2018 Coronary artery disease involving [place] heart with angina pectoris 03/25/2018 Chest pain 02/02/2018 History of coronary artery bypass graft 02/02/2018 CAD in [place] artery 08/04/2017 Syncope 02/27/2017 Carotid artery disease 02/03/2017 Coronary artery disease with angina pectoris 02/03/2017 Stenosis of carotid artery 07/18/2016 Chronic coronary artery disease 07/18/2016 Essential hypertension 07/18/2016 Hyperlipidemia 07/18/2016 Temporary cerebral vascular dysfunction 07/18/2016 Transient ischemia 07/18/2016 Encounters Date Type Specialty Care Team Description 11/26/2018 Refill Cardiology Radha Med Refill DEVIKA Johnson 11/01/2018 Office Visit Cardiology Wil Luis Chest pain, unspecified type (Primary Dx); MD Jorge L History of cardiac pacemaker in situ; History of coronary artery bypass graft 10/26/2018 Lab Lab Schrex, Other chest pain (Primary Dx); Adan Elizabeth Palpitations 10/26/2018 Office Visit Cardiology Jessica, Palpitations (Primary Adan Elizabeth Dx) 10/26/2018 Orders Only Cardiology Florentino, Other chest pain (Primary Dx); SHANEL Kimball Palpitations II 09/11/2018 Refill Cardiology Wil Luis Med Refill R.MD 08/08/2018 Refill Cardiology Wil Luis Med Refill R.MD 07/10/2018 Refill Cardiology Wil Luis Med Refill R.MD 07/05/2018 Telephone Cardiology Manuel Joseph, Results DEVIKA 07/01/2018 Telephone Cardiology Henny Ricardo (carotid Marcelle, MA doppler ) 06/28/2018 Hospital Procedural Jessica, AV block, 3rd degree Encounter Cardiology Adan Elizabeth MD 06/22/2018 Office Visit Cardiology Wil Luis Bilateral carotid artery disease (Primary Dx); MD Jorge L CAD in [place] artery; Bilateral carotid bruits; History of coronary artery bypass graft; History of cardiac pacemaker in situ 05/26/2018 Orders Only Cardiology Zachary Cruz MA 05/26/2018 Telephone Cardiology Zachary Cruz MA patient concerns (hypertension) 05/11/2018 Refill Cardiology Radha Med Refill DEVIKA Johnson 05/10/2018 Refill Cardiology Fish Seymour Refill SOCORRO Del Rio 04/20/2018 Office Visit Cardiology Jessica Coronary artery disease Adan Elizabeth, involving [place] MD coronary artery of [place] heart without angina pectoris (Primary Dx) 04/20/2018 Orders Only Cardiology Adan Lopez MD 04/13/2018 Office Visit Cardiology Wil Luis Coronary artery disease involving [place] coronary artery of [place] heart without angina pectoris ( Primary Dx); MD Jorge L Stenosis of left carotid artery 04/08/2018 Office Visit Cardiology Syncope, unspecified syncope type (Primary Dx) 04/08/2018 Orders Only Cardiology Adan Lopez MD 03/29/2018 - Hospital Cardiology Wil Luis Coronary artery 04/02/2018 Encounter RMD Finn disease, angina presence unspecified, unspecified vessel or lesion type, unspecified whether [place] or transplanted heart 03/29/2018 Emergency Emergency Medicine 03/29/2018 Surgery Procedural Wil Luis Cv selective coronary Cardiology MD Jorge L angiography [[id number] (CPT)] 03/29/2018 Orders Only Cardiology Wil Luis MD 03/29/2018 Hospital Cardiology Wil Luis Encounter MD Jorge L 03/26/2018 Surgery Procedural Wil Luis PCI STENT [[id number] Cardiology MD Jorge L (CPT)] 03/25/2018 Surgery Procedural Wil Luis Cv left internal Cardiology MD Jorge L mammary graft 03/25/2018 - [facility] Cardiology Wil Luis Coronary artery disease involving [place] coronary artery of [place] heart with angina pectoris (Primary Dx); 03/27/2018 Encounter MD Jorge L Coronary artery disease involving [place] heart with angina pectoris, unspecified vessel or lesion type 03/15/2018 Lab Lab Wil Luis Atherosclerosis of MD Jorge L [place] coronary artery with angina pectoris, unspecified whether [place] or transplanted heart (Primary Dx) 03/11/2018 Orders Only Cardiology Radha, Coronary artery disease DEVIKA Johnson involving [place] heart with angina pectoris, unspecified vessel or lesion type (Primary Dx) 02/26/2018 Hospital Procedural Wil Luis Coronary artery disease Encounter Cardiology MD Jorge L involving [place] coronary artery of [place] heart without angina pectoris 02/19/2018 Telephone Cardiology Zachary Cruz MA Scheduling (cta coronary) 02/19/2018 Orders Only Cardiology Zachary Cruz MA Coronary artery disease involving [place] coronary artery of [place] heart without angina pectoris (Primary Dx) 02/02/2018 Office Visit Cardiology Wil Luis Chest pain, unspecified type (Primary Dx); MD Jorge L Coronary artery disease of [place] artery of [place] heart with stable angina pectoris; Bilateral carotid artery disease; History of coronary artery bypass graft after 01/23/2018 Immunizations Name Dates Previously Given Next Due Pneumococcal Conjugate 13-Valent 03/31/2018 Social History Tobacco Use Types Packs/Day Years Used Date Never Smoker Smokeless Tobacco: Never Used Sex Assigned at Date Recorded Not on file Job Start Date Occupation Industry Not on file Not on file Not on file Travel History Travel Start Travel End No recent travel history available. Last Filed Vital Signs Vital Sign Reading Time Taken Blood Pressure 135/64 11/01/2018 3:59 PM [employer] Pulse 85 11/01/2018 3:59 PM [employer] Temperature 36.3 C (97.4 F) 04/02/2018 3:33 PM CDT Respiratory Rate 18 04/02/2018 5:01 AM CDT Oxygen Saturation 93% 04/02/2018 3:33 PM CDT Inhaled Oxygen Concentration - - Weight 75.8 kg (167 lb) 11/01/2018 3:59 PM [employer] Height 167.6 cm (5' 6") 11/01/2018 3:59 PM [employer] Body Mass Index 26.95 11/01/2018 3:59 PM [employer] Plan of Treatment Date Type Specialty Care Team Description 01/25/2019 Office Visit Cardiology Adan Lopez MD [address] [facility] [address] [place] [address] [phone] 05/03/2019 Office Visit Cardiology Wil Luis MD [address] [phone] Health Maintenance Due Date Last Done Comments SHINGLES VACCINES (#1) 1991 PNEUMOCOCCAL POLYSACCHARIDE VACCINE AGE 65 AND OVER 2006 65+ PNEUMOCOCCAL VACCINE (2 of 2 - PPSV23) 03/31/2019 03/31/2018 INFLUENZA VACCINE 05/12/2019 Implants Implanted Type Area Field Cashier Device Shelf Model / Identifier Expiration Serial / Date Lot Hemanta Quad Crtp Mri - [id number] Cardiac N/A: [employer] CRM [id number] / Implanted: Qty: 1 on 03/29/2018 by Wil Luis MD Pacemaker N/A [employer] / Generators Lead, Pacemaker Bipolar Fix Forming Atrial And Ventricular Steroid Eluting 52 Centimeter Capsure Fix Novus - [id number] - [id number] Cardiac Pacing N/A: [employer] [facility] 01/16/2020 [id number] / Implanted: Qty: 1 on 03/29/2018 by Wil Luis MD Leads or N/A [employer] [id number] / Electrodes or [id number] Accessories Lead [id number] Attain Performa - [id number] - [id number] Cardiac Pacing N/A: [facility] 01/29/2020 [id number] / Implanted: Qty: 1 on 03/29/2018 by Wil Luis MD Leads or N/A [employer] [id number] / Electrodes or [id number] Accessories Lead, Bipolar Active Fixation Atrial Steroid Eluting 45 Cm Capsure Fix Novus System - [id number] - [id number] Cardiac Pacing N/A: [facility] 2019 [id number] 45 / Implanted: Qty: 1 on 03/29/2018 by Wil Luis MD Leads or N/[employer] [id number] / Electrodes or [id number] Accessories Catheter Cardiac 7f Mach 1 Fr4 Sh - [id number] Cardiovascular N/A: [facility] [id number] / Implanted: 03/26/2018 (Quantity not on file) Implants N/A INTERVENTIONAL / CARDIOLOGY Microcatheter Miley Corsair 6f X 135 Cm - [id number] Cardiovascular N/A: [facility] [id number] / Implanted: 03/26/2018 (Quantity not on file) Implants N/A / Stent Cornorary Syst Synergy (Mr) 2.50mm X 20mm - [id number] Coronary Stents N/A: [facility] 11/16/2018 [id number] / Implanted: Qty: 1 on 03/25/2018 by Wil Luis MD N/A INTERVENTIONAL / CARDIOLOGY [id number] Stent Cornorary Syst Synergy (Mr) 2.50mm X 16mm - [id number] Coronary Stents N/A: [facility] 12/29/2018 [id number] / Implanted: Qty: 1 on 03/26/2018 by Wil Luis MD N/A INTERVENTIONAL / CARDIOLOGY [id number] System Clsr Sut Meditd 6fr Perclose Proglide - [id number] Surgical N/A: [facility] 01/10/2020 [id number] / Implanted: 03/25/2018 (Quantity not on file) Implants; N/A DEVICES / Expanders; [id number] Extenders; Surgical Wires System Clsr Sut Meditd 6fr Perclose Proglide - [id number] Surgical N/A: [facility] 01/10/2020 [id number] / Implanted: 03/26/2018 (Quantity not on file) Implants; N/A DEVICES / Expanders; [id number] Extenders; Surgical Wires Procedures Procedure Name Priority Date/Time Associated Diagnosis Comments US CAROTID DUPLEX Routine 12/21/2018 12:00 Stenosis of carotid Results for this BILATERAL PM CDT artery, unspecified procedure are in laterality the results section. ECG 12-LEAD Routine 11/01/2018 3:54 Chest pain, Results for this PM [employer] unspecified type procedure are in the results section. ESTIMATED GFR Routine 10/26/2018 12:12 Results for this PM [employer] procedure are in the results section. TROPONIN Routine 10/26/2018 12:12 Other chest pain Results for this PM [employer] Palpitations procedure are in the results section. BASIC METABOLIC PANEL Routine 10/26/2018 12:12 Other chest pain Results for this PM [employer] Palpitations procedure are in the results section. B NATRIURETIC PEPTIDE Routine 10/26/2018 12:12 Other chest pain Results for this PM [employer] Palpitations procedure are in the results section. HC COMPLETE BLD COUNT Routine 10/26/2018 12:12 Other chest pain Results for this W/AUTO DIFF PM [employer] Palpitations procedure are in the results section. ECG 12-LEAD Routine 10/26/2018 10:56 Palpitations Results for this AM [employer] procedure are in the results section. CV PACEMAKER DEFIB ILR Routine 10/26/2018 INTERROGATION CV PACEMAKER DEFIB Routine 08/09/2018 11:06 AV block, 3rd degree REMOTE TECH SERVICE AM CDT [facility] US CAROTID DUPLEX Routine 06/22/2018 12:56 CAD in [place] artery Results for this BILATERAL PM CDT Bilateral carotid procedure are in bruits the results Bilateral carotid section. artery disease ECG 12-LEAD Routine 04/20/2018 11:29 Coronary artery Results for this AM CDT disease involving procedure are in [place] coronary artery the results of [place] heart section. without angina pectoris CV PACEMAKER DEFIB ILR Routine 04/20/2018 INTERROGATION ECG 12-LEAD Routine 04/08/2018 10:48 Syncope, unspecified Results for this AM CDT syncope type procedure are in the results section. CV PACEMAKER DEFIB ILR Routine 04/08/2018 INTERROGATION POC GLUCOSE Routine 04/02/2018 11:41 Results for this AM CDT procedure are in the results section. POC GLUCOSE Routine 04/02/2018 7:21 Results for this AM CDT procedure are in the results section. HC COMPLETE BLD COUNT Routine 04/02/2018 4:46 Results for this W/AUTO DIFF AM CDT procedure are in the results section. ZZESTIMATED GFR Routine 04/02/2018 4:00 Results for this AM CDT procedure are in the results section. BASIC METABOLIC PANEL Routine 04/02/2018 4:00 Results for this AM CDT procedure are in the results section. POC GLUCOSE Routine 04/01/2018 9:17 Results for this PM CDT procedure are in the results section. POC GLUCOSE Routine 04/01/2018 4:52 Results for this PM CDT procedure are in the results section. POC GLUCOSE Routine 04/01/2018 11:39 Results for this AM CDT procedure are in the results section. POC GLUCOSE Routine 04/01/2018 7:31 Results for this AM CDT procedure are in the results section. POC GLUCOSE Routine 03/31/2018 9:25 Results for this PM CDT procedure are in the results section. POC GLUCOSE Routine 03/31/2018 4:52 Results for this PM CDT procedure are in the results section. POC GLUCOSE Routine 03/31/2018 12:13 Results for this PM CDT procedure are in the results section. TROPONIN STAT 03/31/2018 11:06 Results for this AM CDT procedure are in the results section. ECG 12-LEAD Routine 03/31/2018 10:22 Results for this AM CDT procedure are in the results section. POC GLUCOSE Routine 03/31/2018 7:38 Results for this AM CDT procedure are in the results section. ZZESTIMATED GFR Routine 03/31/2018 3:50 Results for this AM CDT procedure are in the results section. BASIC METABOLIC PANEL Routine 03/31/2018 3:50 Results for this AM CDT procedure are in the results section. HC COMPLETE BLD COUNT Routine 03/31/2018 3:50 Results for this W/AUTO DIFF AM CDT procedure are in the results section. POC GLUCOSE Routine 03/30/2018 9:44 Results for this PM CDT procedure are in the results section. POC GLUCOSE Routine 03/30/2018 5:53 Results for this PM CDT procedure are in the results section. POC GLUCOSE Routine 03/30/2018 11:34 Results for this AM CDT procedure are in the results section. POC GLUCOSE Routine 03/30/2018 7:56 Results for this AM CDT procedure are in the results section. ZZESTIMATED GFR Routine 03/30/2018 4:30 Results for this AM CDT procedure are in the results section. BASIC METABOLIC PANEL Routine 03/30/2018 4:30 Results for this AM CDT procedure are in the results section. HC COMPLETE BLD COUNT Routine 03/30/2018 4:30 Results for this W/AUTO DIFF AM CDT procedure are in the results section. PROTHROMBIN TIME WITH Routine 03/30/2018 4:30 Results for this INR AM CDT procedure are in the results section. XR CHEST 1 VW PORTABLE Routine 03/30/2018 1:04 Results for this AM CDT procedure are in the results section. POC GLUCOSE Routine 03/29/2018 9:09 Results for this PM CDT procedure are in the results section. TROPONIN STAT 03/29/2018 5:43 Results for this PM CDT procedure are in the results section. POC GLUCOSE Routine 03/29/2018 5:34 Results for this PM CDT procedure are in the results section. CV SELECTIVE CORONARY Routine 03/29/2018 4:51 Coronary artery Results for this ANGIOGRAPHY PM CDT disease, angina procedure are in presence unspecified, the results unspecified vessel or section. lesion type, unspecified whether [place] or transplanted heart CV LEFT HEART CATH LV Routine 03/29/2018 4:51 Coronary artery Results for this GRAM WITH CORS PM CDT disease, angina procedure are in presence unspecified, the results unspecified vessel or section. lesion type, unspecified whether [place] or transplanted heart EP INSERTION PACEMAKER Routine 03/29/2018 4:51 Coronary artery Results for this PULSE GENERATOR PM CDT disease, angina procedure are in presence unspecified, the results unspecified vessel or section. lesion type, unspecified whether [place] or transplanted heart ECHOCARDIOGRAM 2D Routine 03/29/2018 2:32 Results for this LIMITED PM CDT procedure are in the results section. ACTIVATED CLOTTING Routine 03/29/2018 2:16 Results for this TIME PM CDT procedure are in the results section. POC GLUCOSE Routine 03/27/2018 12:34 Results for this PM CDT procedure are in the results section. POC GLUCOSE Routine 03/27/2018 9:42 Results for this AM CDT procedure are in the results section. ZZESTIMATED GFR Routine 03/27/2018 4:30 Results for this [...] are in the results section. CV PCI STENT Routine 03/26/2018 3:23 Results for this PM CDT procedure are in the results section. ACTIVATED CLOTTING Routine 03/26/2018 3:14 Results for [...] CDT procedure are in the results section. ZZESTIMATED GFR Routine 03/26/2018 4:45 Results for this [...] are in the results section. CV PCI PERCUTANEOUS Routine 03/25/2018 10:43 Results for this CARDIAC ANGIOPLASTY AM CDT procedure are in the results [...] of Results for this INR AM CDT [place] coronary artery procedure are in with angina pectoris, the results unspecified whether section. [place] or transplanted heart ZZESTIMATED GFR Routine 03/15/2018 10:30 Results for this AM CDT procedure are in the results section. HC COMPLETE BLD COUNT Routine 03/15/2018 10:30 Atherosclerosis of Results for this W/AUTO DIFF AM CDT [place] coronary artery procedure are in with angina pectoris, the results unspecified whether section. [place] or transplanted heart COMPREHENSIVE Routine 03/15/2018 10:30 Atherosclerosis of Results for this METABOLIC PANEL AM CDT [place] coronary artery procedure are in with angina pectoris, the results unspecified whether section. [place] or transplanted heart CTA CORONARY ARTERIES Routine 02/26/2018 2:51 Coronary artery Results for this W CONTRAST PM CDT disease involving procedure are in [place] coronary artery the results of [place] heart section. without angina pectoris ESTIMATED GFR Routine 02/26/2018 1:22 Results for this PM CDT procedure are in the results section. POC CREATININE Routine 02/26/2018 1:22 Results for this PM CDT procedure are in the results section. XR CHEST 2 VW Routine 02/02/2018 12:15 Chest pain, Results for this PM CDT unspecified type procedure are in Coronary artery the results disease of [place] section. artery of [place] heart with stable angina pectoris Bilateral carotid artery disease US CAROTID DUPLEX Routine 01/28/2018 11:52 CAD in [place] artery Results for this BILATERAL AM CDT Bilateral carotid procedure are in artery disease the results section. after 01/23/2018 Results Us carotid duplex (12/21/2018 12:00 PM CDT)Only the most recent of3 resultswithin the time period is included. Narrative Performed At [facility] Carotid Artery Ultrasound Report Pat.Name:DARRIN ALMENDAREZ Pat.ID:[id number] St.Date: 12/21/2018 Refer.MD:WIL LUIS MD Exam Time: 11:14:00 AM Study Type:Carotid Height:157cm DOBAge:1940,78Y Sex: FEMALESonogrphr: Aidee Isaac RVT Pat. Stat.:OutpatientRoom:Niota TapeVol: SD, CPT - 4: 09067 Echo Event ID:[id number] Order ID:[id number] Reason for Study:Follow up study, Known right carotid artery moderate stenosis. History / Clinical:Known carotid stenosis based on prior test Procedures:Colorflow, Grayscale/2D, Pulsed wave Doppler Race:Other SUMMARY: PHYSICAL ASSESSMENT BloodPulsesCarotid Pressure Carotid TemporalBruit Right 130/62 ++0 Left 136/66 ++0 CAROTID ARTERY SCAN RIGHT:There is smooth intimal lining in the common carotid artery. There is hard and softplaque noted in the bulb extending into the internal and external carotid artery. Color flow is disturbed with elevated velocities noted in the internal carotid artery.There is antegrade flow in the vertebral artery. There is calcified plaque at the origin of the subclavian artery. LEFT: There is smooth intimal lining in the common carotid artery. There is hard and calcified plaque noted in the bulb extending into the proximal internal carotid artery.The external carotid artery is clear. Colorflow is normal. There is antegrade flow in the vertebral artery. PRELIMINARY FINDINGS 1. 60-70% stenosis in the right bulb/internal carotid artery(no change from previous study done on 06/22/18). 2. <50% stenosis in the left bulb/internal carotid artery. 3. There is antegrade flow in the vertebral artery, bilaterally. 4. 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 PHYSICIAN INTERPRETATION Bilateral carotid duplex exam demonstrates atherosclerotic soft and hard plaque in the right internal carotid artery with 60-70% stenosis. There is hard and calcified plaque in the left bulb/internal carotid artery with <50% stenosis. 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 There is antegrade flow in the vertebral artery, bilaterally. Carotid Findings:RightLeft Flw AntegradeAntegrade Subclavian TriphasicTriphasic MEASUREMENTS: DOPPLER Right CCA Dist CCA Dist PSV55.8 cm/sCCA Dist EDV5.47 cm/s Right CCA Mid CCA Mid PSV 53.6 cm/sCCA Mid EDV 7.66 cm/s Right CCA Prox CCA Prox PSV67.8 cm/sCCA Prox EDV4.37 cm/s Right Bulb Bulb PSV55.8 cm/sBulb EDV8.75 cm/s Right ECA Prox ECA Prox PSV 161 cm/sECA Prox EDV 0 cm/s Right ECA ECA NDQ294 cm/sECA EDV0 cm/s Right ICA Dist ICA Dist PSV74.6 cm/Salena Dist EDV13.1 cm/s Right ICA Mid ICA Mid PKD347 cm/Salena Mid EDV 26.3 cm/s Right ICA Prox ICA Prox PSV 232 cm/Salena Prox EDV31.1 cm/s Right Vertebral Vertebral PSV 39.4 cm/sVertebral EDV 8.75 cm/s Left CCA Dist CCA Dist PSV74.3 cm/sCCA Dist EDV9.28 cm/s Left CCA Mid CCA Mid PSV 65 cm/sCCA Mid EDV 11.1 cm/s Left CCA Prox CCA Prox PSV75.2 cm/sCCA Prox EDV 4.8 cm/s Left Bulb Bulb PSV69.6 cm/sBulb EDV9.28 cm/s Left ECA Prox ECA Prox PSV91.3 cm/sECA Prox EDV 0 cm/s Left ICA Dist ICA Dist PSV81 cm/Salena Dist EDV16.4 cm/s Left ICA Mid ICA Mid PSV 84.4 cm/Salena Mid EDV 12.4 cm/s Left ICA Prox ICA Prox PSV99 cm/Salena Prox EDV15.5 cm/s Left Vertebral Vertebral PSV 65 cm/sVertebral EDV 13.9 cm/s Left SCA Prox SCA Prox PSV 182 cm/sSCA Prox EDV 0 cm/s Right ICA/CCA Ratio ICA/CCA PSV 4.33 Left ICA/CCA Ratio ICA/CCA PSV 1.52 Right SCA Prox SCA Prox PSV 237 cm/s Signed 12/24/2018 07:21 PM Wil Luis MD Procedure Note Interface, Radiology Results In - 12/24/2018 7:22 PM CDT [facility] Carotid Artery Ultrasound Report Pat.Name: DARRIN ALMENDAREZ Pat.ID: [id number] St.Date: 12/21/2018 Refer.MD: LUIS, WIL, MD Exam Time: 11:14:00 AM Study Type:Carotid Height: 157cm Age: 12 1940,78Y Sex: FEMALE Sonogrphr: JAYCE Eldridge. Stat.:Outpatient Room: [facility] Vol: SD, CPT - 4: 06155 Echo Event ID:[id number] Order ID: [id number] Reason for Study:Follow up study, Known right carotid artery moderate stenosis. History / Clinical:Known carotid stenosis based on prior test Procedures:Colorflow, Grayscale/2D, Pulsed wave Doppler Race: Other SUMMARY: PHYSICAL ASSESSMENT Blood Pulses Carotid Pressure Carotid Temporal Bruit Right 130/62 + + 0 Left 136/66 + + 0 CAROTID ARTERY SCAN RIGHT: There is smooth intimal lining in the common carotid artery. There is hard and softplaque noted in the bulb extending into the internal and external carotid artery. Color flow is disturbed with elevated velocities noted in the internal carotid artery. There is antegrade flow in the vertebral artery. There is calcified plaque at the origin of the subclavian artery. LEFT: There is smooth intimal lining in the common carotid artery. There is hard and calcified plaque noted in the bulb extending into the proximal internal carotid artery.The external carotid artery is clear. Colorflow is normal. There is antegrade flow in the vertebral artery. PRELIMINARY FINDINGS 1. 60-70% stenosis in the right bulb/internal carotid artery(no change from previous study done on 06/22/18). 2. <50% stenosis in the left bulb/internal carotid artery. 3. There is antegrade flow in the vertebral artery, bilaterally. 4. 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 PHYSICIAN INTERPRETATION Bilateral carotid duplex exam demonstrates atherosclerotic soft and hard plaque in the right internal carotid artery with 60-70% stenosis. There is hard and calcified plaque in the left bulb/internal carotid artery with <50% stenosis. 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 There is antegrade flow in the vertebral artery, bilaterally. Carotid Findings: Right Left Verteb.Flw Antegrade Antegrade Subclavian Triphasic Triphasic MEASUREMENTS: DOPPLER Right CCA Dist CCA Dist PSV 55.8 cm/s CCA Dist EDV 5.47 cm/s Right CCA Mid CCA Mid PSV 53.6 cm/s CCA Mid EDV 7.66 cm/s Right CCA Prox CCA Prox PSV 67.8 cm/s CCA Prox EDV 4.37 cm/s Right Bulb Bulb PSV 55.8 cm/s Bulb EDV 8.75 cm/s Right ECA Prox ECA Prox PSV 161 cm/s ECA Prox EDV 0 cm/s Right ECA ECA PSV 157 cm/s ECA EDV 0 cm/s Right ICA Dist ICA Dist PSV 74.6 cm/s ICA Dist EDV 13.1 cm/s Right ICA Mid ICA Mid PSV 225 cm/s ICA Mid EDV 26.3 cm/s Right ICA Prox ICA Prox PSV 232 cm/s ICA Prox EDV 31.1 cm/s Right Vertebral Vertebral PSV 39.4 cm/s Vertebral EDV 8.75 cm/s Left CCA Dist CCA Dist PSV 74.3 cm/s CCA Dist EDV 9.28 cm/s Left CCA Mid CCA Mid PSV 65 cm/s CCA Mid EDV 11.1 cm/s Left CCA Prox CCA Prox PSV 75.2 cm/s CCA Prox EDV 4.8 cm/s Left Bulb Bulb PSV 69.6 cm/s Bulb EDV 9.28 cm/s Left ECA Prox ECA Prox PSV 91.3 cm/s ECA Prox EDV 0 cm/s Left ICA Dist ICA Dist PSV 81 cm/s ICA Dist EDV 16.4 cm/s Left ICA Mid ICA Mid PSV 84.4 cm/s ICA Mid EDV 12.4 cm/s Left ICA Prox ICA Prox PSV 99 cm/s ICA Prox EDV 15.5 cm/s Left Vertebral Vertebral PSV 65 cm/s Vertebral EDV 13.9 cm/s Left SCA Prox SCA Prox PSV 182 cm/s SCA Prox EDV 0 cm/s Right ICA/CCA Ratio ICA/CCA PSV 4.33 Left ICA/CCA Ratio ICA/CCA PSV 1.52 Right SCA Prox SCA Prox PSV 237 cm/s Signed 12/24/2018 07:21 PM Wil Luis MD Performing Organization Address [facility]/Zipcode Phone Number [facility] [address] [place] [address] ECG 12 lead (11/01/2018 3:54 PM TICKET SALES SUPERVISOR)Only the most recent of6 resultswithin the time period is included. Ventricular rate 72 [facility]USE Atrial rate 72 [facility] MUSE SD interval 184 [facility] QRSD interval 106 [facility] QT interval 428 [facility] QTC interval 468 [facility] MUSE P axis 1 62 [facility] MUSE QRS axis 1 -33 [facility] MUSE T wave axis -88 [facility] MUSE EKG impression ^^^ Poor data quality, interpretation may be adversely affected -In automated comparison with ECG of 26-OCT-2018 10:56,-Poor data quality in current ECG precludes serial comparison-Recommend repeat ECG;- [facility] MUSE Narrative Performed At Performing Organization Address [facility] Phone Number [facility] MUSE [address] [place] [address] Estimated GFR (10/26/2018 12:12 PM TICKET SALES SUPERVISOR)Only the most recent of2 resultswithin the time period is included. Estimated GFR 46 (A) mL/min/1.73 m2 [facility] Comment: HOSPITAL CatergoryUnitsInterpretation G1 >=90 Normal or high G2 60-89Mildly decreased [id number] to moderately decreased [id number] to severely decreased G4 15-29Severely decreased G5 <15Kidney failure The eGFR was calculated using the Chronic Kidney Disease Epidemiology Collaboration (CKD-EPI) equation. Interpretation is based on recommendations of the National Kidney Foundation-Kidney Disease Outcomes Quality Initiative (NKF-KDOQI) published in 2014. Specimen Plasma specimen Performing Organization Address [facility] Phone Number [facility] DEPARTMENT OF PATHOLOGY AND [address] [place] [address] [facility] [address] [place] [address] Troponin (10/26/2018 12:12 PM TICKET SALES SUPERVISOR)Only the most recent of3 resultswithin the time period is included. Troponin <0.30 0.00 - 0.30 ng/mL [facility] Comment: 0.30 - 1.49 ng/mlMay indicate increased risk of acute coronary syndrome. >=1.5 ng/mlConsistent with acute myocardial infarction. The diagnostic value of a single normal or non-diagnostic result is questionable.Serial samples at 2-6 hour intervals are required to rule out acute myocardial injury. Specimen Plasma specimen Performing Organization Address City/State/Zipcode Phone Number [facility] DEPARTMENT OF PATHOLOGY AND [address] [place] [address] CBC with platelet and differential (10/26/2018 12:12 PM TICKET SALES SUPERVISOR)Only the most recent of7 resultswithin the time period is included. WBC 11.86 (H) 4.50 - 11.00 k/uL [facility] RBC 3.88 (L) 4.20 - 5.50 m/uL [facility] HGB 10.0 (L) 12.0 - 16.0 g/dL [facility] HCT 31.7 (L) 37.0 - 47.0 % [facility] MCV 81.7 (L) 82.0 - 100.0 fL [facility] MCH 25.8 (L) 27.0 - 34.0 pg [facility] MCHC 31.5 31.0 - 37.0 g/dL [facility] RDW - SD 49.4 37.0 - 55.0 fL [facility] MPV 11.5 8.8 - 13.2 fL [facility] Platelet count 279 150 - 400 k/uL [facility] Nucleated RBC 0.00 /100 WBC [facility] Neutrophils 68.0 39.0 - 69.0 % [facility] Lymphocytes 20.6 (L) 25.0 - 45.0 % [facility] Monocytes 8.9 0.0 - 10.0 % [facility] Eosinophils 1.7 0.0 - 5.0 % [facility] Basophils 0.5 0.0 - 1.0 % [facility] Immature granulocytes 0.3Comment: "Immature 0.0 - 1.0 % [facility] granulocytes" [facility] (promyelocytes, myelocytes, metamyelocytes) Specimen Blood Performing Organization Address City/[facility]/Zipcode Phone Number [facility] DEPARTMENT OF PATHOLOGY AND [address] [place] [address] [address] B natriuretic peptide (10/26/2018 12:12 PM TICKET SALES SUPERVISOR) BNP 120 (H) 0 - 100 pg/mL [facility] Specimen Blood Performing Organization Address [facility] Phone Number [facility] DEPARTMENT OF PATHOLOGY AND [address] [place] [address] [place] [phone] Basic metabolic panel (10/26/2018 12:12 PM TICKET SALES SUPERVISOR)Only the most recent of6 resultswithin the time period is included. Sodium 131 (L) 135 - 148 mEq/L [facility] Potassium 4.3 3.5 - 5.0 mEq/L [facility] Chloride 93 (L) 98 - 112 mEq/L [facility] CO2 27 24 - 31 mEq/L [facility] Anion gap 11@ANIO 7 - 15 mEq/L [facility] BUN 23 8 - 23 mg/dL [facility] Creatinine 1.14 (H) 0.50 - 0.90 mg/dL [facility] Glucose 136 (H) 65 - 99 mg/dL [facility] Calcium 9.9 8.8 - 10.2 mg/dL [facility] Specimen Plasma specimen Performing Organization Address City/[facility] Phone Number [facility] DEPARTMENT OF PATHOLOGY AND [address] [place] [address] [address] CV pacemaker defib or ilr interrogation (10/26/2018) Narrative Performed At Cv pacemaker defib or ilr interrogation (08/09/2018 11:06 AM CDT) Narrative Performed At Performing Organization Address City/[facility]/Zipcode Phone Number [facility] [address] [place] [address] CV pacemaker defib or ilr interrogation (04/20/2018) Narrative Performed At CV pacemaker defib or ilr interrogation (04/08/2018) Narrative Performed At POC glucose (04/02/2018 11:41 AM CDT)Only the most recent of27 resultswithin the time period is included. POC glucose 226 (H) 65 - 99 mg/dL [facility] DEPARTMENT OF PATHOLOGY AND Comment: GENOMIC MEDICINE [facility] Notified RN Meter ID: [id number] [employer] Train Operator: De Lopez Performing Organization Address City/[facility]ode Phone Number [facility] DEPARTMENT OF PATHOLOGY AND [address] [place], [place] [id number] [facility] Estimated GFR (04/02/2018 4:00 AM CDT)Only the most recent of6 resultswithin the time period is included. GFR Non Af Amer 48 (A) mL/min/1.73 m2 [facility] DEPARTMENT OF PATHOLOGY AND GENOMIC MEDICINE GFR Af Amer 58 (A) mL/min/1.73 m2 [facility] DEPARTMENT OF Comment: PATHOLOGY AND GENOMIC Chronic [...] specimen Performing Organization Address City/State/Zipcode Phone Number [facility] DEPARTMENT OF PATHOLOGY AND [address] [place] [phone] [facility] Prothrombin time with INR (03/30/2018 4:30 AM CDT)Only the most recent of2 resultswithin the time period is included. Prothrombin time 15.6 (H) 12.0 - 15.0 sec [facility] DEPARTMENT OF PATHOLOGY AND GENOMIC MEDICINE INR 1.2 [facility] DEPARTMENT OF Comment: PATHOLOGY AND GENOMIC The International Normalized Ratio (INR) is a therapeutic MEDICINE monitoring tool for patients who are stable on oral anticoagulant therapy. An INR of 2.0-3.0 is suggested for deep vein thrombosis/pulmonary embolism. Specimen Blood Performing Organization Address City/[facility]/Zipcode Phone Number [facility] DEPARTMENT OF PATHOLOGY AND [address] [place] [address] GENOMIC MEDICINE XR Chest 1 Vw Portable (03/30/2018 1:04 AM CDT) Narrative Performed At XR CHEST 1 VW PORTABLE RADIANT CLINICAL INDICATION:Pneumothorax COMPARISON:02/02/2018. IMPRESSION: There are median sternotomy wires, mediastinal surgical clips, and a left-sided cardiac device. The cardiac silhouette is large, similar compared to the prior exam. There is pulmonary vascular congestion and mild interstitial edema. There is no pleural effusion or pneumothorax. There are no acute osseous abnormalities. [facility]-[id number] Procedure Note Interface, Radiology Results Incoming - 03/30/2018 1:11 AM CDT XR CHEST 1 VW PORTABLE CLINICAL INDICATION: Pneumothorax COMPARISON: 02/02/2018. IMPRESSION: There are median sternotomy wires, mediastinal surgical clips, and a left- sided cardiac device. The cardiac silhouette is large, similar compared to the prior exam. There is pulmonary vascular congestion and mild interstitial edema. There is no pleural effusion or pneumothorax. There are no acute osseous abnormalities. [facility]-[id number] Performing Organization Address City/[facility]/Zipcode Phone Number [facility] [address] [place] [address] Cv electrophysiology procedure (03/29/2018 4:51 PM CDT) Narrative Performed At ELECTROPHYSIOLOGY SERVICE OPERATIVE REPORT CUPID PROCEDURE: OPERATION PERFORMED: Implantation LUMBER STICKER-P Patient had moderate sedation administered in the form of Versed and Fentanyl. I was present during the induction and completion of anesthesia. A total of 90 minutes of sedation time ATTENDING SURGEON: Adan Lopez MD CCEP FELLOW: None ANESTHESIA: Versed, lidocaine and fentanyl ESTIMATED BLOOD LOSS: < 20 cc COMPLICATIONS: None. TIME OUT: Time out was completed with verification of the correct patient identity, procedure to be performed, procedure site and implanted equipment. INDICATION FOR PROCEDURE:Briefly, the patient is a 77 year old female with CAD s/p PCI who presented in [facility], CHF exacerbation NYHA class III low normal LV function ( LVEF 50 -55%) without any reversible etiology.The patient was seen and examined by an electrophysiology staff physician and deemed appropriate for implantation of a permanent pacemaker. Due to symptoms of HF, 100% likely of RV pacing and mild depress LV function it was felt best candidate for LUMBER STICKER PROCEDURE AND FINDINGS:The patient was brought to the electrophysiology laboratory at the [facility].Informed consent was given by the patient prior to the procedure and confirmed.Intravenous prophylactic antibiotics were administered prior to the procedure.After the site of implantation was prepped and drapped in the usual sterile fashion and after adequate anesthesia was given, the skin was infiltrated with 1% lidocaine and 1% bupivicaine 50/50 mixture.The skin was incised with a #10 scalpel.Blunt and electrosurgical dissection was carried out to the level of the prepectoral fascia with careful attention paid to hemostasis.A pocket to house the pulse generator was formed between the prepectoral fascia and subcutaneous fat with blunt and electrosurgical dissection.The pocket was copiously irrigated with antibiotic containing normal saline and subsequently observed.Once adequate hemostasis was confirmed within the pocket, venous access was obtained.The Axilary vein was accessed via seldinger technique.J tip 0.035 inch guide wires were introduced and their course throught the venous system was confirmed by their presence under fluoroscopy in the inferior vena. RIGHT VENTRICULAR LEAD: A7 Guyanese peel away sheath was brought to the field and placed into the venous system via over the wire technique.The right ventricular lead was placed via this sheath into the right ventricular apical location. Adequate sensing and threshold parameters were obtained.The lead was attached via active fixation.There was no evidence of diaphragmatic stimulation at 10 V output.The peel away sheath was removed and the lead collar was advanced to the pectoral muscle and sutured with ethabond suture.Tug testing of this lead confirmed stability of the lead and the length of the lead's slack was assesed as optimal with fluoroscopy. RIGHT ATRIAL LEAD: A 7 Guyanese peel away sheath was brought to the field and placed into the venous system via over the wire technique.The right atrial lead was placed via this sheath into the right atrial lateral location.Adequate sensing and threshold parameters were obtained.The lead was attached via activation fixation.There was no evidence of diaphragmatic stimulation at 10 V output.The peel away sheath was removed and the lead collar was advanced to the pectoral muscle and sutured with ethabond suture.Tug testing of this lead confirmed stability of the lead and the length of the lead's slack was assesed as optimal with fluoroscopy. LV LEAD: A 9 Guyanese peel away sheath was brought to the field and placed into the venous system via over the wire technique.Next the coronary sinus was cannulated with CS cannulation technique.Coronary venous angiography performed CS identified the PLtarget branch vein.This target vein was cannulated via seldinger technique.The left ventricular lead was placed to the target vein.Adequate sensing and threshold parameters were obtained.There was no evidence of diaphragmatic stimulation at 10 V output.The peel away sheath was removed and the lead collar was advanced to the pectoral muscle and sutured with ethabond suture.Tug testing of this lead confirmed stability of the lead and the length of the lead's slack was assesed as optimal with fluoroscopy. The lead tips for all leads were cleaned and dried thoroughly.The leads were attached to the appropriate ports on the pulse generator.Tug testing was perfomed on all connections.The device and leads were placed within the pocket such that the coiled redundant leads were posterior to the pulse generator. The pulse generator was then sutured to the fascia in a medial location within the pocket using Vycril suture.The pocket was closed with 3 layers of continuous suture using 2 Vicryl, 3 Vicryl and Dermabond. Sterile dressing were applied to the wound followed by a pressure dressing. Implant Name Type Inv. Item Serial No. Field Cashier Lot No. LRB No. Used Action LEAD, PACEMAKER BIPOLAR FIX FORMING ATRIAL AND VENTRICULAR STEROID ELUTING 52 [employer]ENT[employer] CAPSURE FIX NOVUS - [id number] Cardiac Pacing Leads or Electrodes or Accessories LEAD, PACEMAKER BIPOLAR FIX FORMING ATRIAL AND VENTRICULAR STEROID ELUTING 52 CENTIMETER CAPSURE FIX NOVUS [id number] [employer] [id number] N/A 1 Implanted LEAD [id number] ATTAIN PERFORMA - [id number] Cardiac Pacing Leads or Electrodes or Accessories LEAD [id number] ATTAIN PERFORMA [id number] [employer] [id number] N/A 1 Implanted LEAD, BIPOLAR ACTIVE FIXATION ATRIAL STEROID ELUTING 45 CM CAPSURE FIX NOVUS SYSTEM - [id number] Cardiac Pacing Leads or Electrodes or Accessories LEAD, BIPOLAR ACTIVE FIXATION ATRIAL STEROID ELUTING 45 CM CAPSURE FIX NOVUS SYSTEM [id number] [employer] [id number] N/A 1 Implanted MEASURED DEVICE DATA: Atrial lead sensin mV impedance: 623 Ohms Threshold: 1 Volts at 0.4 ms RV lead sensin mV pacing impedance:558 Ohms Threshold: 0.5 Volts at 0.4 ms LV lead sensin mV impedance: 556 Ohms Threshold: 0.5 Volts at 0.4 ms PROGRAMMED PARAMETERS: Mode:DDDR CONCLUSION:Succesful implantation of permanent pacemaker system. RECOMMENDATION: 1. CXR 2. ANTIBIOTICS 3. Wound Check in one week at the [facility]. 4. Compression bandage to be removed in AM by our service.Patient to be instructed not to touch the wound or get wound wet for the period of one week.Patient instructed not to flex, extend, or abduct the shoulder joint ipsilateral to implantation more than 90 degrees for a period of 6 weeks.Movement of the shoulder below this threshold is encouraged. Performing Organization Address City/State/[facility] Phone Number [facility] [address] [place] [address] Cv phlebotomy lab assistant procedure (03/29/2018 4:51 PM CDT) Narrative Performed At ELECTROPHYSIOLOGY SERVICE OPERATIVE REPORT [facility] PROCEDURE: OPERATION PERFORMED: Implantation LUMBER STICKER-P Patient had moderate sedation administered in the form of Versed and Fentanyl. I was present during the induction and completion of anesthesia. A total of 90 minutes of sedation time ATTENDING SURGEON: Adan Lopez MD CCEP FELLOW: None ANESTHESIA: Versed, lidocaine and fentanyl ESTIMATED BLOOD LOSS: < 20 cc COMPLICATIONS: None. TIME OUT: Time out was completed with verification of the correct patient identity, procedure to be performed, procedure site and implanted equipment. INDICATION FOR PROCEDURE:Briefly, the patient is a 77 year old female with CAD s/p PCI who presented in [facility], CHF exacerbation NYHA class III low normal LV function ( LVEF 50 -55%) without any reversible etiology.The patient was seen and examined by an electrophysiology staff physician and deemed appropriate for implantation of a permanent pacemaker. Due to symptoms of HF, 100% likely of RV pacing and mild depress LV function it was felt best candidate for LUMBER STICKER PROCEDURE AND FINDINGS:The patient was brought to the electrophysiology laboratory at the [facility].Informed consent was given by the patient prior to the procedure and confirmed.Intravenous prophylactic antibiotics were administered prior to the procedure.After the site of implantation was prepped and drapped in the usual sterile fashion and after adequate anesthesia was given, the skin was infiltrated with 1% lidocaine and 1% bupivicaine 50/50 mixture.The skin was incised with a #10 scalpel.Blunt and electrosurgical dissection was carried out to the level of the prepectoral fascia with careful attention paid to hemostasis.A pocket to house the pulse generator was formed between the prepectoral fascia and subcutaneous fat with blunt and electrosurgical dissection.The pocket was copiously irrigated with antibiotic containing normal saline and subsequently observed.Once adequate hemostasis was confirmed within the pocket, venous access was obtained.The Axilary vein was accessed via seldinger technique.J tip 0.035 inch guide wires were introduced and their course throught the venous system was confirmed by their presence under fluoroscopy in the inferior vena. RIGHT VENTRICULAR LEAD: A7 Guyanese peel away sheath was brought to the field and placed into the venous system via over the wire technique.The right ventricular lead was placed via this sheath into the right ventricular apical location. Adequate sensing and threshold parameters were obtained.The lead was attached via active fixation.There was no evidence of diaphragmatic stimulation at 10 V output.The peel away sheath was removed and the lead collar was advanced to the pectoral muscle and sutured with ethabond suture.Tug testing of this lead confirmed stability of the lead and the length of the lead's slack was assesed as optimal with fluoroscopy. RIGHT ATRIAL LEAD: A 7 Guyanese peel away sheath was brought to the field and placed into the venous system via over the wire technique.The right atrial lead was placed via this sheath into the right atrial lateral location.Adequate sensing and threshold parameters were obtained.The lead was attached via activation fixation.There was no evidence of diaphragmatic stimulation at 10 V output.The peel away sheath was removed and the lead collar was advanced to the pectoral muscle and sutured with ethabond suture.Tug testing of this lead confirmed stability of the lead and the length of the lead's slack was assesed as optimal with fluoroscopy. LV LEAD: A 9 Guyanese peel away sheath was brought to the field and placed into the venous system via over the wire technique.Next the coronary sinus was cannulated with CS cannulation technique.Coronary venous angiography performed CS identified the PLtarget branch vein.This target vein was cannulated via seldinger technique.The left ventricular lead was placed to the target vein.Adequate sensing and threshold parameters were obtained.There was no evidence of diaphragmatic stimulation at 10 V output.The peel away sheath was removed and the lead collar was advanced to the pectoral muscle and sutured with ethabond suture.Tug testing of this lead confirmed stability of the lead and the length of the lead's slack was assesed as optimal with fluoroscopy. The lead tips for all leads were cleaned and dried thoroughly.The leads were attached to the appropriate ports on the pulse generator.Tug testing was perfomed on all connections.The device and leads were placed within the pocket such that the coiled redundant leads were posterior to the pulse generator. The pulse generator was then sutured to the fascia in a medial location within the pocket using Vycril suture.The pocket was closed with 3 layers of continuous suture using 2 Vicryl, 3 Vicryl and Dermabond. Sterile dressing were applied to the wound followed by a pressure dressing. Implant Name Type Inv. Item Serial No. Field Cashier Lot No. LRB No. Used Action LEAD, PACEMAKER BIPOLAR FIX FORMING ATRIAL AND VENTRICULAR STEROID ELUTING 52 CENTIMETER CAPSURE FIX NOVUS - [id number] Cardiac Pacing Leads or Electrodes or Accessories LEAD, PACEMAKER BIPOLAR FIX FORMING ATRIAL AND VENTRICULAR STEROID ELUTING 52 CENTIMETER CAPSURE FIX NOVUS [id number] [employer] [id number] N/A 1 Implanted LEAD [id number] ATTAIN PERFORMA - [id number] Cardiac Pacing Leads or Electrodes or Accessories LEAD [id number] ATTAIN PERFORMA [id number] [employer] [id number] N/A 1 Implanted LEAD, BIPOLAR ACTIVE FIXATION ATRIAL STEROID ELUTING 45 CM CAPSURE FIX NOVUS SYSTEM - [id number] Cardiac Pacing Leads or Electrodes or Accessories LEAD, BIPOLAR ACTIVE FIXATION ATRIAL STEROID ELUTING 45 CM CAPSURE FIX NOVUS SYSTEM [id number] [employer] [id number] N/A 1 Implanted MEASURED DEVICE DATA: Atrial lead sensin mV impedance: 623 Ohms Threshold: 1 Volts at 0.4 ms RV lead sensin mV pacing impedance:558 Ohms Threshold: 0.5 Volts at 0.4 ms LV lead sensin mV impedance: 556 Ohms Threshold: 0.5 Volts at 0.4 ms PROGRAMMED PARAMETERS: Mode:DDDR CONCLUSION:Succesful implantation of permanent pacemaker system. RECOMMENDATION: 1. CXR 2. ANTIBIOTICS 3. Wound Check in one week at the [facility]. 4. Compression bandage to be removed in AM by our service.Patient to be instructed not to touch the wound or get wound wet for the period of one week.Patient instructed not to flex, extend, or abduct the shoulder joint ipsilateral to implantation more than 90 degrees for a period of 6 weeks.Movement of the shoulder below this threshold is encouraged. Performing Organization Address City/State/Zipcode Phone Number [facility] [address] [place] [address] Echocardiogram 2d limited (03/29/2018 2:32 PM CDT) Narrative Performed At [facility] Echocardiography Report [address] [address] Pat.Name:DARRIN ALMENDAREZ Pat.ID:[id number] .Date: 03/29/2018 Refer.MD:WIL LUIS MD Exam Time: 1:54:00 PMStudy Type:Routine Echo Height:63inWeight: 172lb BSA: 1.82 m2 DOBAge:1940,77Y Sex: FEMALEBP:140/62 HR:80 bpmSonogrphr: ALLEN Beltran Pat. Stat.:Inpatient Room:Cathlab room 3 Study Status:Final Echo Event ID:[id number] Order ID:[id number] Reason for Study:Chest pain, suspected cardiac etiology, Pericardial conditions, suspected Procedures:2D Echo,Colorflow Doppler Limited Race:O SUMMARY: No pericardial effusion. FINDINGS: LV: LV size is normal. Concentric left ventricular remodeling. LVEF is normal. Difficult to assess regional wall motion; howeverit appears grossly normal. Estimated EF is 55-59%. RV: RV size is normal. RV systolic function is normal. LA: LA volume is normal. RA: RA volume is normal. AO: Aortic root diameter is not well visualized. BALDEV: No pericardial effusion. AV: No structural AV abnormalities noted. MV: Mild mitral annular calcification. PV: Pulmonic valve not well seen. TV: Tricuspid valve not well seen. MEASUREMENTS: 2D Parasternal Long Robert Lee LVIDd4.2 cmIndex2.3 cm/m LA Ds3.3 cm LVIDs2.6 cmAo Rtd 2.5 cm Index1.4 cm/m LV%fs 38.1 % LV Jtmv562 g(87-129) IVSd 1 cmLVM Index 80.8 g/m2 LVPWd1.1 cmRWT0.5 LA Sng Plane LA Area 16.5 cm2(8.8-23.4) LA Vol44.8 ml Index24.6 ml/m LA LngAx 5.1 cm RA Sng Plane RA Area 11.4 cm2(8.3-19.5) RA Vol22 ml Index12.1 ml/m RA LngAx 4.8 cm Signed 03/30/2018 11:00 AM Ross Fisher M.D. Procedure Note Interface, Radiology Results In - 03/30/2018 11:00 AM CDT Echocardiography Report [address] [place] [address] Pat.Name: DARRIN ALMENDAREZ Pat.ID: [id number] .Date: 03/29/2018 Refer.MD: WIL LUIS MD Exam Time: 1:54:00 PM Study Type:Routine Echo Height: 63in Weight: 172lb BSA: 1.82 m2 Age: 13 1940,77Y Sex: FEMALE BP: 140/62 HR: 80 bpm Sonogrphr: ALLEN Beltran Pat. Stat.:Inpatient Room: Cathlab room 3 Study Status:Final Echo Event ID:[id number] Order ID: [id number] Reason for Study:Chest pain, suspected cardiac etiology, Pericardial conditions, suspected Procedures:2D Echo,Colorflow Doppler Limited Race: O SUMMARY: No pericardial effusion. FINDINGS: LV: LV size is normal. Concentric left ventricular remodeling. LV EF is normal. Difficult to assess regional wall motion; however it appears grossly normal. Estimated EF is 55-59%. RV: RV size is normal. RV systolic function is normal. LA: LA volume is normal. RA: RA volume is normal. AO: Aortic root diameter is not well visualized. BALDEV: No pericardial effusion. AV: No structural AV abnormalities noted. MV: Mild mitral annular calcification. PV: Pulmonic valve not well seen. TV: Tricuspid valve not well seen. MEASUREMENTS: 2D Parasternal Long Robert Lee LVIDd 4.2 cm Index 2.3 cm/m LA Ds 3.3 cm LVIDs 2.6 cm Ao Rtd 2.5 cm Index 1.4 cm/m LV%fs 38.1 % LV Mass 147 g (87-129) IVSd 1 cm LVM Index 80.8 g/m2 LVPWd 1.1 cm RWT 0.5 LA Sng Plane LA Area 16.5 cm2 (8.8-23.4) LA Vol 44.8 ml Index 24.6 ml/m LA LngAx 5.1 cm RA Sng Plane RA Area 11.4 cm2 (8.3-19.5) RA Vol 22 ml Index 12.1 ml/m RA LngAx 4.8 cm Signed 03/30/2018 11:00 AM Ross Fisher M.D. Performing Organization Address City/[facility]/Zipcode Phone Number [facility] [address] [place] [address] Activated clotting time (03/29/2018 2:16 PM CDT)Only the most recent of6 resultswithin the time period is included. Activated clotting time 132 96 - 152 sec [facility] DEPARTMENT OF Comment: PATHOLOGY AND GENOMIC Meter ID: [id number] MEDICINE Light Rail Train Operator: Sanna Mulligan Performing Organization Address [facility]/Zipcode Phone Number [facility] DEPARTMENT OF PATHOLOGY AND [address] [place] [address] GENOMIC MEDICINE Lipid panel (03/27/2018 4:30 AM CDT) Cholesterol 104 <200 mg/dL [facility] DEPARTMENT OF PATHOLOGY AND GENOMIC MEDICINE Triglycerides 80 <150 mg/dL [facility] DEPARTMENT OF PATHOLOGY AND GENOMIC MEDICINE HDL cholesterol 42 >40 mg/dL [facility] DEPARTMENT OF PATHOLOGY AND GENOMIC MEDICINE LDL cholesterol 54Comment: Result <100 mg/dL [facility] DEPARTMENT OF obtained by direct LDL PATHOLOGY AND GENOMIC measurement MEDICINE Lipid panel interpretation SeeBelow [facility] DEPARTMENT OF Comment: PATHOLOGY AND GENOMIC Total Cholesterol (mg/dL) MEDICINE <200 Desirable 381-492Qbeahatjly-vwwp >=240High Triglycerides (mg/dL) <150 Normal 749-067Wxdcxymbbd-znnm 200-499High >=500Very high HDL Cholesterol (mg/dL) <40Low (male) <40Low (female) LDL Cholesterol (mg/dL) <100 Optimal 100-129Near or above optimal [phone]-bjxh 160-189High >=190Very high Risk Catergories that modify [...] mg/dL) Specimen Plasma specimen Performing Organization Address [facility] Phone Number [facility] DEPARTMENT OF PATHOLOGY AND [address] [place] [id number] GENOMIC MEDICINE ECG Pre/Post Op (STAT) (03/26/2018 7:40 PM CDT)Only the most recent of3 resultswithin the time period is included. Ventricular rate 84 [facility] MUSE Atrial rate 84 [facility] MUSE SD interval 242 [facility] MUSE QRSD interval 114 H MUSE QT interval 416 [facility] MUSE QTC interval 491 [facility] MUSE P axis 1 74 [facility] MUSE QRS axis 1 -18 [facility] MUSE T wave axis 122 [facility] MUSE EKG impression Sinus rhythm with 1st degree AV block-Incomplete left bundle branch block-ST elevation, consider inferior injury or acute infarct-Prolonged QT-^^ ^^ ACUTE TX / STEMI ^^ ^^-Consider right ventricular inv [facility] MUSE olvement in acute inferior infarct-Abnormal ECG-In automated comparison with ECG of 25-MAR-2018 13:27,-SD interval has increased -T wave inversion more evident in Lateral leads- Performing Organization Address [facility] Centercode Phone Number [facility] MUSE [address] [place] [address] Cv phlebotomy lab assistant procedure (03/26/2018 3:23 PM CDT) Narrative Performed At PCI of proximal RCA with 2.5 x 16 mm [facility] Performing Organization Address [facility] Phone Number [facility] [address] [place] [address] Phosphorus level (03/26/2018 4:45 AM CDT) Phosphorus 3.6 2.4 - 4.5 mg/dL [facility] DEPARTMENT OF PATHOLOGY AND GENOMIC MEDICINE Specimen Plasma specimen Performing Organization Address [facility] Centercode Phone Number [facility] DEPARTMENT OF PATHOLOGY AND [address] [place] [address] GENOMIC MEDICINE Magnesium level (03/26/2018 4:45 AM CDT) Magnesium 1.8 1.6 - 2.4 mg/dL [facility] DEPARTMENT OF PATHOLOGY AND GENOMIC MEDICINE Specimen Plasma specimen Performing Organization Address [facility]/State/Zipcode Phone Number [facility] DEPARTMENT OF PATHOLOGY AND [address] [place] [address] [facility] Cv phlebotomy lab assistant procedure (03/25/2018 10:43 AM CDT) Narrative Performed At Please refer to the OpNote dictated by Surgeon(s) and Role: CUPID * Wil Luis MD - Primary * Daniel Aaron MD - Fellow * Hipolito Diaz MD - Fellow [id number] Performing Organization Address City/[facility]/Zipcode Phone Number [facility] [address] [place] [address] Comprehensive metabolic panel (03/15/2018 10:30 AM CDT) Sodium 138 135 - 148 mEq/L [facility] DEPARTMENT OF PATHOLOGY AND GENOMIC MEDICINE Potassium 4.6 3.5 - 5.0 mEq/L [facility] DEPARTMENT OF PATHOLOGY AND GENOMIC MEDICINE Chloride 98 98 - 112 mEq/L [facility] DEPARTMENT OF PATHOLOGY AND GENOMIC MEDICINE CO2 26 24 - 31 mEq/L [facility] DEPARTMENT OF PATHOLOGY AND GENOMIC MEDICINE Anion gap 14@ANIO 7 - 15 mEq/L [facility] DEPARTMENT OF PATHOLOGY AND GENOMIC MEDICINE BUN 19 8 - 23 mg/dL [facility] DEPARTMENT OF PATHOLOGY AND GENOMIC MEDICINE Creatinine 0.9 0.5 - 0.9 mg/dL [facility] DEPARTMENT OF PATHOLOGY AND GENOMIC MEDICINE Glucose 87 65 - 99 mg/dL [facility] DEPARTMENT OF PATHOLOGY AND GENOMIC MEDICINE Calcium 9.8 8.8 - 10.2 mg/dL [facility] DEPARTMENT OF PATHOLOGY AND GENOMIC MEDICINE Protein 8.2 6.3 - 8.3 g/dL [facility] DEPARTMENT OF Comment: PATHOLOGY AND GENOMIC 4.6-7.0 g/dL MEDICINE 1 week 4.4-7.6 g/dL 7 months-1year5.1-7.3 g/dL 1-2 years5.6-7.5 g/dL >3 years6.0-8.0 g/dL 18-150 6.3-8.3 g/dL Albumin 3.9 3.5 - 5.0 g/dL [facility] DEPARTMENT OF PATHOLOGY AND GENOMIC MEDICINE A/G ratio 0.9 0.7 - 3.8 [facility] DEPARTMENT OF PATHOLOGY AND GENOMIC MEDICINE Alkaline phosphatase 52 35 - 104 U/L [facility] DEPARTMENT OF PATHOLOGY AND GENOMIC MEDICINE AST 22 10 - 35 U/L [facility] DEPARTMENT OF PATHOLOGY AND GENOMIC MEDICINE ALT 16 5 - 50 U/L [facility] DEPARTMENT OF PATHOLOGY AND GENOMIC MEDICINE Total bilirubin <0.2 0.0 - 1.2 mg/dL [facility] DEPARTMENT OF PATHOLOGY AND GENOMIC MEDICINE Specimen Plasma specimen Performing Organization Address City/State/Zipcode Phone Number [facility] DEPARTMENT OF PATHOLOGY AND [address] [place] [address] [employer] MEDICINE Cv cta coronary arteries w contrast (02/26/2018 2:51 PM CDT) Narrative Performed At [facility] Nuclear Cardiology and Cardiac CT [address] [place] [address] CTA Coronary Arteries Report Pat.Name:DARRIN ALMENDAREZ Pat.ID:[id number] St.Date: 02/26/2018 Refer.MD:WIL LUIS MD Exam Time: 1:34:00 PMStudy Type:CTA Coronary Arteries Height:63inWeight: 177lb BSA: 1.84 m2 DOBAge:1940,77Y Sex: FEMALEBP:145/67 HR:60 bpm Nuclear Tech:Zane Redmond, RT([place])(CT), [facility] Pat. Stat.:Outpatient CPT - 4: CCTA w Thoracic Aorta (NonCongenital) [id number] Nuclear Event ID:[id number] Order ID:[id number] Reason for Study:CAD, prior CABG Procedures:CTA Coronary Arteries SUMMARY: Technique: IV contrast was administered and sequential 0.[address] cuts were obtained through the chest using the Siemens Somatom Force CT scanner. Post-processing and 3D reconstruction were done using the Sionex workstation. Interactive image viewing and volumetric display [...] Cardiovascular CTA Protocol and interpreted by a Pre Fabricator.Should a more comprehensive assessment of non-cardiovascular findings be desired, please consult a radiologist.These images are available in the [facility] [employer] PACS system. Signed 03/04/2018 01:59 PM Hipolito Nieves MD Procedure Note Interface, Radiology Results In - 03/04/2018 3:44 PM CDT Nuclear Cardiology and Cardiac CT [address] [place] [address] CTA Coronary Arteries Report Pat.Name: HI ALMENDAREZBLAYNE Rose Pat.ID: [id number] .Date: 02/26/2018 Refer.MD: WIL LUIS MD Exam Time: 1:34:00 PM Study Type:CTA Coronary Arteries Height: 63in Weight: 177lb BSA: 1.84 m2 Age: 13 1940,77Y Sex: FEMALE BP: 145/67 HR: 60 bpm Nuclear Tech:Zane Redmond RT([place])(CT), [facility] Pat. Stat.:Outpatient CPT - 4: CCTA w Thoracic Aorta (NonCongenital) [id number] Nuclear Event ID:[id number] Order ID: [id number] Reason for Study:CAD, prior CABG Procedures:CTA Coronary Arteries SUMMARY: Technique: IV contrast was administered and sequential 0.[address] cuts were obtained through the chest using the Siemens [employer] CT scanner. Post-processing and 3D reconstruction were done using the S[employer] workstation. Interactive image viewing and volumetric display [...] Cardiovascular CTA Protocol and interpreted by a Pre Fabricator. Should a more comprehensive assessment of non-cardiovascular findings be desired, please consult a radiologist. These images are available in the [facility] [employer] PACS system. Signed 03/04/2018 01:59 PM Hipolito Nieves MD Performing Organization Address City/[facility]/Zipcode Phone Number [facility] [address] [place] [address] POC creatinine (02/26/2018 1:22 PM CDT) POC creatinine 0.9 0.5 - 0.9 mg/dl [facility] DEPARTMENT OF PATHOLOGY Comment: AND GENOMIC MEDICINE Meter ID: [id number] Light Rail Train Operator: Raman Pinon Specimen Blood Performing Organization Address City/[facility]/Zipcode Phone Number [facility] DEPARTMENT OF PATHOLOGY AND [address] [place] [address] GENOMIC MEDICINE XR Chest 2 Vw (02/02/2018 12:15 PM CDT) Narrative Performed At EXAMINATION:XR CHEST 2 VW [facility] CLINICAL HISTORY:R07.9 Chest painunspecified, 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 Heart size is normal. Lungs are clear. There are surgical clips in the upper abdomen. No change from October 11, 2014. 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 Heart size is normal. Lungs are clear. There are surgical clips in the upper abdomen. No change from October 11, 2014. [facility]-[id number] Performing Organization Address City/State/Zipcode Phone Number [facility] [address] [place] [address] after 01/23/2018 Insurance Payer Benefit Plan / Group Subscriber ID Type Phone Address MEDICARE MEDICARE PART A AND B xxxxxxxxxxx Medicare [place], [place] A[place] AARP SUPPLEMENT xxxxxxxxxxx Commercial MEET[place] ([place]) [address] [address] Advance Directives Patient has advance care planning documents on file. For more information, please contact:[place] [id number] [place] [address]
--- OUTSIDE RECORDS SUMMARY | 2019-01-24 21:21 | XMS REPORT ---
:1940 [facility] Address [address] [place] [address] [address]. [address] [place] [address] Care Team Providers Name Role Phone EVERARDO [...] (BEAKER) (test 212 mg/dL 70-110 TESTED AT [address] nvlu=2492) [place] [address] POCT-GLUCOSE [id number] 12:56:00 Test Item Value Reference Range Comments POC-GLUCOSE METER (BEAKER) 272 mg/dL 70-110 TESTED AT [address] (test zegv=7121) [place] [address] HEMOGLOBIN [id number] 08:28:00 Test Item Value Reference Range Comments HEMOGLOBIN A1C (BEAKER) (test xdyn=886) 8.0 % 4.3-6.1 POCT-GLUCOSE [id number] 07:33:00 Test Item Value Reference Range Comments POC-GLUCOSE METER (BEAKER) 199 mg/dL 70-110 TESTED AT [address] (test bpnt=4433) [place] [address] CBC W/PLT COUNT & AUTO [id number] 06:29:00 Test Item Value Reference Range Comments WHITE BLOOD CELL COUNT (BEAKER) (test xwoj=023) 15.0 K/ L 3.5-10.5 RED BLOOD CELL COUNT (BEAKER) (test ywkr=967) 3.88 M/ L 3.93-5.22 HEMOGLOBIN (BEAKER) (test lxqb=990) 11.1 GM/DL 11.2-15.7 HEMATOCRIT (BEAKER) (test rtoc=547) 34.1 % 34.1-44.9 MEAN CORPUSCULAR VOLUME (BEAKER) (test bgbu=671) 87.9 fL 79.4-94.8 MEAN CORPUSCULAR HEMOGLOBIN (BEAKER) (test 28.6 pg 25.6-32.2 jubp=522) MEAN CORPUSCULAR HEMOGLOBIN CONC (BEAKER) (test 32.6 GM/DL 32.2-35.5 gxej=993) RED CELL DISTRIBUTION WIDTH (BEAKER) (test 15.2 % 11.7-14.4 sxyz=487) PLATELET COUNT (BEAKER) (test mclx=899) 255 K/CU MM 150-450 MEAN PLATELET VOLUME (BEAKER) (test vxew=798) 12.6 fL 9.4-12.3 NUCLEATED RED BLOOD CELLS (BEAKER) (test 0 /100 WBC 0-0 hzfa=238) NEUTROPHILS RELATIVE PERCENT (BEAKER) (test 68 % evat=513) LYMPHOCYTES RELATIVE PERCENT (BEAKER) (test 19 % zylq=738) MONOCYTES RELATIVE PERCENT (BEAKER) (test 9 % pdae=951) EOSINOPHILS RELATIVE PERCENT (BEAKER) (test 3 % unpr=365) BASOPHILS RELATIVE PERCENT (BEAKER) (test 0 % cjip=024) NEUTROPHILS ABSOLUTE COUNT (BEAKER) (test 10.21 K/ L 1.56-6.13 jhkx=712) LYMPHOCYTES ABSOLUTE COUNT (BEAKER) (test 2.82 K/ L 1.18-3.74 xxxy=585) MONOCYTES ABSOLUTE COUNT (BEAKER) (test 1.30 K/ L 0.24-0.36 njmb=230) EOSINOPHILS ABSOLUTE COUNT (BEAKER) (test 0.47 K/ L 0.04-0.36 vgcv=517) BASOPHILS ABSOLUTE COUNT (BEAKER) (test 0.05 K/ L 0.01-0.08 uuga=419) IMMATURE GRANULOCYTES-RELATIVE PERCENT (BEAKER) 1 % 0-1 (test sikw=6552) COMPREHENSIVE METABOLIC [id number] 06:04:00 Test Item Value Reference Range Comments TOTAL PROTEIN (BEAKER) 6.0 gm/dL 6.0-8.3 (test qgbv=704) ALBUMIN (BEAKER) (test 2.9 g/dL 3.5-5.0 nfzg=5147) ALKALINE PHOSPHATASE 42 U/L 40-150 (BEAKER) (test sizp=753) BILIRUBIN TOTAL (BEAKER) 0.3 mg/dL 0.2-1.2 (test nuhc=161) SODIUM (BEAKER) (test 142 meq/L 136-145 dyye=399) POTASSIUM (BEAKER) (test 3.8 meq/L 3.5-5.1 mhjh=325) CHLORIDE (BEAKER) (test 109 meq/L 98-107 qnqv=689) CO2 (BEAKER) (test 25 meq/L 22-29 ipnm=087) BLOOD UREA NITROGEN 27 mg/dL 7-21 (BEAKER) (test kzav=762) CREATININE (BEAKER) (test 0.86 mg/dL 0.57-1.25 pskv=609) GLUCOSE RANDOM (BEAKER) 159 mg/dL 70-105 (test owxf=426) CALCIUM (BEAKER) (test 8.5 mg/dL 8.4-10.2 rllm=622) AST (SGOT) (BEAKER) (test 26 U/L 5-34 oxvv=282) ALT (SGPT) (BEAKER) (test 44 U/L 6-55 zdzo=570) EGFR (BEAKER) (test 64 mL/min/1.73 sq m ESTIMATED GFR IS NOT ttuf=1095) ACCURATE CREATININE CLEARANCE IN PREDICTING GLOMERULAR FILTRATION RATE. ESTIMATED GFR IS NOT APPLICABLE FOR DIALYSIS PATIENTS. POCT-GLUCOSE [id number] 21:22:00 Test Item Value Reference Range Comments POC-GLUCOSE METER (BEAKER) 152 mg/dL 70-110 TESTED AT [facility] [address] (test evmr=7643) [facility] [address] POCT-GLUCOSE [id number] 18:12:00 Test Item Value Reference Range Comments POC-GLUCOSE METER (BEAKER) 202 mg/dL 70-110 TESTED AT [facility] [address] (test scua=1785) [facility] [address] HEMOGLOBIN AND [id number] 18:02:00 Test Item Value Reference Range Comments HEMOGLOBIN (BEAKER) (test escq=877) 11.1 GM/DL 11.2-15.7 HEMATOCRIT (BEAKER) (test qzen=237) 35.6 % 34.1-44.9 TISSUE [id number] 17:12:00Surgical Pathology Report Case: [id number] Authorizing Provider: Jian Cabrera MD Collected: 06/11/2017 0839 Ordering Location: [address] Received: 06/11/2017 1126 Service Pathologist: Juany [...] MALIGNANCY IDENTIFIED Signing Pathologist Direct Phone Line: [phone] signed by Juany Ochoa MD on 06/11/2017 at 5:12 [id number] bleedRandom stomach biopsyThe specimen is received in [...] no intestinal metaplasia, dysplasia or carcinoma.HEMOGLOBIN AND [id number] 15:17:00 Test Item Value Reference Range Comments HEMOGLOBIN (BEAKER) (test hptg=028) 11.3 GM/DL 11.2-15.7 HEMATOCRIT (BEAKER) (test kxjn=018) 34.1 % 34.1-44.9 POCT-GLUCOSE [id number] 13:13:00 Test Item Value Reference Range Comments POC-GLUCOSE METER (BEAKER) 229 mg/dL 70-110 TESTED AT [facility] [address] (test kruh=9565) [facility] [address] HEMOGLOBIN AND [id number] 11:52:00 Test Item Value Reference Range Comments HEMOGLOBIN (BEAKER) (test lgpp=665) 11.8 GM/DL 11.2-15.7 HEMATOCRIT (BEAKER) (test tgbc=295) 37.0 % 34.1-44.9 URINE [id number] 10:51:00 Test Item Value Reference Range Comments CULTURE (BEAKER) (test xoau=4282) No growth [id number] 08:11:00 Test Item Value Reference Range Comments PROTIME (BEAKER) (test izrt=408) 15.1 seconds 11.7-14.7 INR (BEAKER) (test rojy=574) 1.2 <=5.9 PARTIAL THROMBOPLASTIN TIME (BEAKER) (test 29.8 seconds 22.5-36.0 ppdj=036) RECOMMENDED COUMADIN/WARFARIN INR THERAPY RANGESSTANDARD DOSE: 2.0 - 3.0 Includes: PROPHYLAXIS forvenous thrombosis, systemic embolization; TREATMENT for venous thrombosis and/or pulmonary embolus.HIGH RISK: Target INR is 2.5-3.5 for patients with mechanical heart valves.POCT-GLUCOSE [id number] 07:13:00 Test Item Value Reference Range Comments POC-GLUCOSE METER (BEAKER) 126 mg/dL 70-110 TESTED AT [address] (test kqva=2496) [place] [address] BLOOD [id number] 06:00:00 Test Item Value Reference Range Comments CULTURE (BEAKER) (test hduo=9527) No growth in 5 days BLOOD [id number] 06:00:00 Test Item Value Reference Range Comments CULTURE (BEAKER) (test svgl=1975) No growth in 5 days HEMOGLOBIN AND [id number] 05:48:00 Test Item Value Reference Range Comments HEMOGLOBIN (BEAKER) (test fzea=246) 10.9 GM/DL 11.2-15.7 HEMATOCRIT (BEAKER) (test wamm=531) 32.8 % 34.1-44.9 POCT-GLUCOSE [id number] 22:12:00 Test Item Value Reference Range Comments POC-GLUCOSE METER (BEAKER) 279 mg/dL 70-110 TESTED AT [address] (test ohxw=5573) [place] [address] POCT-GLUCOSE [id number] 20:16:00 Test Item Value Reference Range Comments POC-GLUCOSE METER (BEAKER) 283 mg/dL 70-110 TESTED AT [address] (test tpmv=5347) [place] [address] HEMOGLOBIN AND [id number] 17:41:00 Test Item Value Reference Range Comments HEMOGLOBIN (BEAKER) (test keli=004) 8.2 GM/DL 11.2-15.7 HEMATOCRIT (BEAKER) (test kkmz=105) 24.3 % 34.1-44.9 POCT-GLUCOSE [id number] 17:34:00 Test Item Value Reference Range Comments POC-GLUCOSE METER (BEAKER) 327 mg/dL 70-110 TESTED AT [address] (test qlxd=1531) [facility] [address] POCT-GLUCOSE [id number] 15:48:00 Test Item Value Reference Range Comments POC-GLUCOSE METER (BEAKER) 401 mg/dL 70-110 TESTED AT [address] (test wzfn=0700) [facility] [address] POCT-GLUCOSE [id number] 13:29:00 Test Item Value Reference Range Comments POC-GLUCOSE METER (BEAKER) 429 mg/dL 70-110 TESTED AT [address] (test ynct=7650) [facility] [address] HEMOGLOBIN AND [id number] 09:34:00 Test Item Value Reference Range Comments HEMOGLOBIN (BEAKER) (test fvtn=338) 9.7 GM/DL 11.2-15.7 HEMATOCRIT (BEAKER) (test vsqu=377) 28.9 % 34.1-44.9 POCT-GLUCOSE [id number] 07:33:00 Test Item Value Reference Range Comments POC-GLUCOSE METER (BEAKER) 396 mg/dL 70-110 TESTED AT [address] (test roka=4748) [facility] [address] CBC W/PLT COUNT & AUTO [id number] 03:48:00 Test Item Value Reference Range Comments WHITE BLOOD CELL COUNT (BEAKER) (test aulq=789) 13.9 K/ L 3.5-10.5 RED BLOOD CELL COUNT (BEAKER) (test xdna=328) 3.50 M/ L 3.93-5.22 HEMOGLOBIN (BEAKER) (test ycvb=154) 10.4 GM/DL 11.2-15.7 HEMATOCRIT (BEAKER) (test vefu=299) 30.9 % 34.1-44.9 MEAN CORPUSCULAR VOLUME (BEAKER) (test nzls=882) 88.3 fL 79.4-94.8 MEAN CORPUSCULAR HEMOGLOBIN (BEAKER) (test 29.7 pg 25.6-32.2 cjxx=676) MEAN CORPUSCULAR HEMOGLOBIN CONC (BEAKER) (test 33.7 GM/DL 32.2-35.5 wsnq=741) RED CELL DISTRIBUTION WIDTH (BEAKER) (test 13.9 % 11.7-14.4 yach=601) PLATELET COUNT (BEAKER) (test yace=894) 253 K/CU MM 150-450 MEAN PLATELET VOLUME (BEAKER) (test ucyr=639) 12.1 fL 9.4-12.3 NUCLEATED RED BLOOD CELLS (BEAKER) (test 0 /100 WBC 0-0 blbh=123) NEUTROPHILS RELATIVE PERCENT (BEAKER) (test 73 % agvm=192) LYMPHOCYTES RELATIVE PERCENT (BEAKER) (test 16 % aocy=249) MONOCYTES RELATIVE PERCENT (BEAKER) (test 9 % nwta=784) EOSINOPHILS RELATIVE PERCENT (BEAKER) (test 1 % mbdn=175) BASOPHILS RELATIVE PERCENT (BEAKER) (test 0 % bhlx=636) NEUTROPHILS ABSOLUTE COUNT (BEAKER) (test 10.11 K/ L 1.56-6.13 dazn=407) LYMPHOCYTES ABSOLUTE COUNT (BEAKER) (test 2.21 K/ L 1.18-3.74 veez=115) MONOCYTES ABSOLUTE COUNT (BEAKER) (test 1.29 K/ L 0.24-0.36 ruho=516) EOSINOPHILS ABSOLUTE COUNT (BEAKER) (test 0.15 K/ L 0.04-0.36 ovbp=236) BASOPHILS ABSOLUTE COUNT (BEAKER) (test 0.06 K/ L 0.01-0.08 gpoz=689) IMMATURE GRANULOCYTES-RELATIVE PERCENT (BEAKER) 1 % 0-1 (test cuav=0154) BASIC METABOLIC [id number] 03:41:00 Test Item Value Reference Range Comments SODIUM (BEAKER) (test 135 meq/L 136-145 nzya=346) POTASSIUM (BEAKER) (test 4.4 meq/L 3.5-5.1 pzsb=039) CHLORIDE (BEAKER) (test 104 meq/L 98-107 hiov=786) CO2 (BEAKER) (test 22 meq/L 22-29 nwdx=093) BLOOD UREA NITROGEN 52 mg/dL 7-21 (BEAKER) (test usov=481) CREATININE (BEAKER) (test 1.04 mg/dL 0.57-1.25 njpw=775) GLUCOSE RANDOM (BEAKER) 354 mg/dL 70-105 (test epho=202) CALCIUM (BEAKER) (test 8.7 mg/dL 8.4-10.2 hopt=935) EGFR (BEAKER) (test 52 mL/min/1.73 sq m ESTIMATED GFR IS NOT xsty=2152) ACCURATE CREATININE CLEARANCE IN PREDICTING GLOMERULAR FILTRATION RATE. ESTIMATED GFR IS NOT APPLICABLE FOR DIALYSIS PATIENTS. POCT-GLUCOSE [id number] 22:56:00 Test Item Value Reference Range Comments POC-GLUCOSE METER (BEAKER) 275 mg/dL 70-110 TESTED AT [facility] [address] (test glve=9800) [facility] [address] URINE [id number] 18:15:00 Test Item Value Reference Range Comments CULTURE (BEAKER) (test uhau=5477) <10,000 col/mL skin abdon URINALYSIS W/ [id number] 15:32:00 Test Item Value Reference Range Comments COLOR (BEAKER) (test tzke=920) Yellow CLARITY (BEAKER) (test dbww=932) Clear SPECIFIC GRAVITY UA (BEAKER) (test 1.011 1.001-1.035 ygwt=153) PH UA (BEAKER) (test eags=686) 6.5 5.0-8.0 PROTEIN UA (BEAKER) (test tjuw=695) 20 mg/dL Negative GLUCOSE UA (BEAKER) (test ezsk=069) >1000 mg/dL Negative KETONES UA (BEAKER) (test jveh=603) Negative Negative BILIRUBIN UA (BEAKER) (test Negative Negative atay=457) BLOOD UA (BEAKER) (test rvwj=604) Negative Negative NITRITE UA (BEAKER) (test avya=751) Negative Negative LEUKOCYTE ESTERASE UA (BEAKER) Negative Negative (test rcgu=444) UROBILINOGEN UA (BEAKER) (test 0.2 mg/dL 0.2-1.0 eqcz=442) RBC UA (BEAKER) (test qmkk=385) < /HPF WBC UA (BEAKER) (test kygz=291) 2 /HPF SOURCE(BEAKER) (test rrvq=2864) Urine, Straight Catheter POCT-GLUCOSE [id number] 11:43:00 Test Item Value Reference Range Comments POC-GLUCOSE METER (BEAKER) 340 mg/dL 70-110 TESTED AT [address] (test yhdk=9134) [facility] [address] POCT-GLUCOSE [id number] 07:26:00 Test Item Value Reference Range Comments POC-GLUCOSE METER (BEAKER) 178 mg/dL 70-110 TESTED AT [address] (test fqkf=9866) [place] [address] POCT-GLUCOSE [id number] 23:39:00 Test Item Value Reference Range Comments POC-GLUCOSE METER (BEAKER) 183 mg/dL 70-110 TESTED AT [address] (test kthh=0952) [place] [address] POCT-GLUCOSE [id number] 22:25:00 Test Item Value Reference Range Comments POC-GLUCOSE METER (BEAKER) 208 mg/dL 70-110 TESTED AT [address] (test ypom=1782) [place] [address] POCT-GLUCOSE [id number] 20:12:00 Test Item Value Reference Range Comments POC-GLUCOSE METER (BEAKER) 194 mg/dL 70-110 TESTED AT [address] (test mcqi=6535) [place] [address] POCT-GLUCOSE [id number] 16:11:00 Test Item Value Reference Range Comments POC-GLUCOSE METER (BEAKER) 266 mg/dL 70-110 TESTED AT [address] (test zkhg=3735) [place] [address] POCT-GLUCOSE [id number] 11:17:00 Test Item Value Reference Range Comments POC-GLUCOSE METER (BEAKER) 288 mg/dL 70-110 TESTED AT [address] (test swlg=6140) [place] [address] POCT-GLUCOSE [id number] 08:57:00 Test Item Value Reference Range Comments POC-GLUCOSE METER (BEAKER) 202 mg/dL 70-110 TESTED AT [address] (test gbha=1659) [place] [address] BASIC METABOLIC [id number] 07:38:00 Test Item Value Reference Range Comments SODIUM (BEAKER) (test 137 meq/L 136-145 xbkd=354) POTASSIUM (BEAKER) (test 3.7 meq/L 3.5-5.1 ygno=049) CHLORIDE (BEAKER) (test 103 meq/L 98-107 tpyh=721) CO2 (BEAKER) (test 25 meq/L 22-29 dodb=484) BLOOD UREA NITROGEN 28 mg/dL 7-21 (BEAKER) (test uzby=505) CREATININE (BEAKER) (test 1.13 mg/dL 0.57-1.25 wgca=603) GLUCOSE RANDOM (BEAKER) 194 mg/dL 70-105 (test nkgn=151) CALCIUM (BEAKER) (test 9.0 mg/dL 8.4-10.2 crgy=011) EGFR (BEAKER) (test 47 mL/min/1.73 sq m ESTIMATED GFR IS NOT zybj=2049) ACCURATE CREATININE CLEARANCE IN PREDICTING GLOMERULAR FILTRATION RATE. ESTIMATED GFR IS NOT APPLICABLE FOR DIALYSIS PATIENTS. CBC W/PLT COUNT & AUTO [id number] 05:53:00 Test Item Value Reference Range Comments WHITE BLOOD CELL COUNT (BEAKER) (test orqe=009) 11.7 K/ L 3.5-10.5 RED BLOOD CELL COUNT (BEAKER) (test pgly=481) 4.34 M/ L 3.93-5.22 HEMOGLOBIN (BEAKER) (test juuj=839) 12.6 GM/DL 11.2-15.7 HEMATOCRIT (BEAKER) (test owve=000) 38.1 % 34.1-44.9 MEAN CORPUSCULAR VOLUME (BEAKER) (test dcyy=162) 87.8 fL 79.4-94.8 MEAN CORPUSCULAR HEMOGLOBIN (BEAKER) (test 29.0 pg 25.6-32.2 rlqy=053) MEAN CORPUSCULAR HEMOGLOBIN CONC (BEAKER) (test 33.1 GM/DL 32.2-35.5 fjek=685) RED CELL DISTRIBUTION WIDTH (BEAKER) (test 14.0 % 11.7-14.4 rrew=862) PLATELET COUNT (BEAKER) (test zfgf=193) 201 K/CU MM 150-450 MEAN PLATELET VOLUME (BEAKER) (test uukg=700) 12.4 fL 9.4-12.3 NUCLEATED RED BLOOD CELLS (BEAKER) (test 0 /100 WBC 0-0 thqz=422) NEUTROPHILS RELATIVE PERCENT (BEAKER) (test 64 % mkxc=359) LYMPHOCYTES RELATIVE PERCENT (BEAKER) (test 17 % aoev=297) MONOCYTES RELATIVE PERCENT (BEAKER) (test 15 % pshh=652) EOSINOPHILS RELATIVE PERCENT (BEAKER) (test 2 % qkvl=844) BASOPHILS RELATIVE PERCENT (BEAKER) (test 1 % fcfn=916) NEUTROPHILS ABSOLUTE COUNT (BEAKER) (test 7.52 K/ L 1.56-6.13 ujwj=816) LYMPHOCYTES ABSOLUTE COUNT (BEAKER) (test 1.98 K/ L 1.18-3.74 vswi=928) MONOCYTES ABSOLUTE COUNT (BEAKER) (test 1.78 K/ L 0.24-0.36 ezur=599) EOSINOPHILS ABSOLUTE COUNT (BEAKER) (test 0.27 K/ L 0.04-0.36 wnjc=566) BASOPHILS ABSOLUTE COUNT (BEAKER) (test 0.07 K/ L 0.01-0.08 nbcd=954) IMMATURE GRANULOCYTES-RELATIVE PERCENT (BEAKER) 0 % 0-1 (test xtre=7451) POCT-GLUCOSE [id number] 20:12:00 Test Item Value Reference Range Comments POC-GLUCOSE METER (BEAKER) 333 mg/dL 70-110 TESTED AT [address] (test pfwg=7551) [facility] [address] POCT-GLUCOSE [id number] 11:45:00 Test Item Value Reference Range Comments POC-GLUCOSE METER (BEAKER) 355 mg/dL 70-110 TESTED AT [address] (test rktd=6860) [facility] [address] POCT-GLUCOSE [id number] 08:17:00 Test Item Value Reference Range Comments POC-GLUCOSE METER (BEAKER) 303 mg/dL 70-110 TESTED AT [address] (test kziv=1315) [facility] [address] POCT-GLUCOSE [id number] 00:00:00 Test Item Value Reference Range Comments POC-GLUCOSE METER (BEAKER) 340 mg/dL 70-110 TESTED AT [address] (test ukkv=5758) [facility] [address] POCT-GLUCOSE [id number] 20:42:00 Test Item Value Reference Range Comments POC-GLUCOSE METER (BEAKER) 309 mg/dL 70-110 TESTED AT [address] (test inpl=3285) [facility] [address] POCT-GLUCOSE [id number] 17:09:00 Test Item Value Reference Range Comments POC-GLUCOSE METER (BEAKER) 351 mg/dL 70-110 TESTED AT [facility] [address] (test idzy=6747) [facility] [address] POCT-GLUCOSE [id number] 11:28:00 Test Item Value Reference Range Comments POC-GLUCOSE METER (BEAKER) 327 mg/dL 70-110 TESTED AT [address] (test zkdo=6304) [facility] [address] POCT-GLUCOSE [id number] 07:37:00 Test Item Value Reference Range Comments POC-GLUCOSE METER (BEAKER) 247 mg/dL 70-110 TESTED AT [address] (test juil=2313) [facility] [address] BASIC METABOLIC [id number] 03:12:00 Test Item Value Reference Range Comments SODIUM (BEAKER) (test 130 meq/L 136-145 ywre=770) POTASSIUM (BEAKER) (test 4.6 meq/L 3.5-5.1 psqb=645) CHLORIDE (BEAKER) (test 101 meq/L 98-107 uhfm=738) CO2 (BEAKER) (test 19 meq/L 22-29 muac=062) BLOOD UREA NITROGEN 41 mg/dL 7-21 (BEAKER) (test jfyy=917) CREATININE (BEAKER) (test 1.89 mg/dL 0.57-1.25 yeyh=745) GLUCOSE RANDOM (BEAKER) 277 mg/dL 70-105 (test crcu=042) CALCIUM (BEAKER) (test 8.3 mg/dL 8.4-10.2 eqvi=983) EGFR (BEAKER) (test 26 mL/min/1.73 sq m ESTIMATED GFR IS NOT itux=7739) ACCURATE CREATININE CLEARANCE IN PREDICTING GLOMERULAR FILTRATION RATE. ESTIMATED GFR IS NOT APPLICABLE FOR DIALYSIS PATIENTS. CBC W/PLT COUNT & AUTO [id number] 03:01:00 Test Item Value Reference Range Comments WHITE BLOOD CELL COUNT (BEAKER) (test eewu=082) 17.2 K/ L 3.5-10.5 RED BLOOD CELL COUNT (BEAKER) (test ttku=209) 3.90 M/ L 3.93-5.22 HEMOGLOBIN (BEAKER) (test mgsd=858) 11.7 GM/DL 11.2-15.7 HEMATOCRIT (BEAKER) (test vbfd=617) 36.3 % 34.1-44.9 MEAN CORPUSCULAR VOLUME (BEAKER) (test ummo=805) 93.1 fL 79.4-94.8 MEAN CORPUSCULAR HEMOGLOBIN (BEAKER) (test 30.0 pg 25.6-32.2 ounz=553) MEAN CORPUSCULAR HEMOGLOBIN CONC (BEAKER) (test 32.2 GM/DL 32.2-35.5 eqrd=851) RED CELL DISTRIBUTION WIDTH (BEAKER) (test 14.4 % 11.7-14.4 uqbc=410) PLATELET COUNT (BEAKER) (test ndqq=975) 153 K/CU MM 150-450 MEAN PLATELET VOLUME (BEAKER) (test znss=473) 12.5 fL 9.4-12.3 NUCLEATED RED BLOOD CELLS (BEAKER) (test 0 /100 WBC 0-0 crwz=839) NEUTROPHILS RELATIVE PERCENT (BEAKER) (test 76 % cvha=818) LYMPHOCYTES RELATIVE PERCENT (BEAKER) (test 13 % obax=758) MONOCYTES RELATIVE PERCENT (BEAKER) (test 10 % ebqv=365) EOSINOPHILS RELATIVE PERCENT (BEAKER) (test 0 % cylf=194) BASOPHILS RELATIVE PERCENT (BEAKER) (test 0 % qizi=517) NEUTROPHILS ABSOLUTE COUNT (BEAKER) (test 13.01 K/ L 1.56-6.13 zbkm=142) LYMPHOCYTES ABSOLUTE COUNT (BEAKER) (test 2.28 K/ L 1.18-3.74 ootb=507) MONOCYTES ABSOLUTE COUNT (BEAKER) (test 1.74 K/ L 0.24-0.36 mupc=447) EOSINOPHILS ABSOLUTE COUNT (BEAKER) (test 0.00 K/ L 0.04-0.36 xoem=343) BASOPHILS ABSOLUTE COUNT (BEAKER) (test 0.04 K/ L 0.01-0.08 gzri=983) IMMATURE GRANULOCYTES-RELATIVE PERCENT (BEAKER) 1 % 0-1 (test wlro=5733)
--- OUTSIDE RECORDS SUMMARY | 2019-01-24 21:21 | XMS REPORT | Clinical Summary ---
:1940 Author Organization [facility] Address [address] [place] [address] Care Team Providers Name Role Phone Unavailable Primary Care Provider Unavailable Allergies Active Allergy Reactions Severity Noted Date Comments Penicillins Rash Medium 06/06/2017 Medications Medication Sig Dispensed Refills Start Date End Date Status repaglinide Take 2 mg by mouth 3 0 Active (PRANDIN) 2 MG (three) times daily tabletIndications: before meals. type 2 diabetes mellitus levothyroxine Take 50 mcg by mouth 0 Active (SYNTHROID, Every morning on an LEVOTHROID) 50 MCG empty stomach. tabletIndications: hypothyroidism irbesartan (AVAPRO) Take 300 mg by mouth 0 03/01/2017 Active 300 MG nightly. tabletIndications: hypertension metFORMIN Take 1,000 mg by 0 Active (GLUCOPHAGE) 1000 MG mouth 2 (two) times tabletIndications: daily with breakfast type 2 diabetes and dinner. mellitus aspirin 81 MG EC Take 81 mg by mouth 0 Active tablet daily. carvedilol (COREG) Take 12.5 mg by 0 Active 12.5 MG tablet mouth 2 (two) times daily with breakfast and dinner. amLODIPine (NORVASC) Take 5 mg by mouth 2 0 03/20/2017 Active 5 MG (two) times daily. tabletIndications: hypertension atorvastatin Take 40 mg by mouth 0 Active (LIPITOR) 40 MG daily. tablet galantamine Take 12 mg by mouth 0 Active (RAZADYNE) 12 MG 2 (two) times daily. tablet coenzyme Q10 100 mg Take 100 mg by mouth 0 Active capsule daily. docusate sodium Take 100 mg by mouth 0 Active (COLACE) 100 MG 2 (two) times daily. capsule cyanocobalamin Take 1,000 mcg by 0 Active (VITAMIN B-12) 1000 mouth daily. MCG tablet ascorbic acid, Take 1,000 mg by 0 Active vitamin C, (VITAMIN mouth daily. C) 1000 MG tablet folic acid (FOLVITE) Take 800 mcg by 0 Active 800 MCG tablet mouth daily. b complex vitamins Take 1 capsule by 0 Active capsule mouth daily. memantine (NAMENDA Take 28 mg by mouth 0 Active XR) 28 mg CSpX daily. insulin lispro Inject 12 Units 10 mL 0 06/12/2017 (HUMALOG) 100 subcutaneously 3 8 unit/mL injection (three) times daily before meals. aspirin 81 MG EC Take 1 tablet (81 mg 30 tablet 0 06/16/2017 tablet total) by mouth 8 daily. Active Problems Problem Noted Date Acute upper GI bleed 06/11/2017 Acute blood loss anemia 06/11/2017 Urinary tract infection 06/06/2017 Family History Medical History Relation Name Comments [...] travel history available. Last Filed Vital Signs Not on file Plan of Treatment Not on file Results Not on fileafter 01/23/2018 Insurance Payer Benefit Plan / Group Subscriber ID Type Phone Address MEDICARE MEDICARE A B xxxxxxxxxx Medicare MCR SUPPLEMENT/INDIVIDUAL [employer]/[facility] xxxxxxxxxxx [facility] ([place] [place] [address] Advance Directives For more information, please contact:[address] [phone] Code Status Date Activated Date Inactivated Comments Full Code 06/06/2017 12:50 AM 06/12/2017 6:34 PM This code status was determined by: Patient
--- NOTE | 2019-01-25 00:05 | ER ---
Nurse's Notes [facility] Name: Ace Almendarez Age: 78 yrs Sex: Female : 1940 Arrival Date: 01/24/2019 Time: 21:18 Bed 18 Private MD: Diagnosis: Pain/ Tearing Left Eye. S/P Injection Left Eye Presentation: 01/24 21:44 Presenting complaint: states: Seen at Dr. Spivey's office today and given lp1 injection to left eye for retinopathy; Has been complaining of pain to left eye since, continues to have tearing up to left eye; Denies any vision disturbances. Transition of care: patient was not received from another setting of care. The patient denies any loss of vision. Risk Assessment: Do you want to hurt yourself or someone else? Patient reports no desire to harm self or others. Initial Sepsis Screen: Does the patient meet any 2 criteria? No. Patient's initial sepsis screen is negative. Does the patient have a suspected source of infection? No. Patient's initial sepsis screen is negative. Care prior to arrival: None. 21:44 Method Of Arrival: Ambulatory lp1 21:44 Acuity: PARVIN 3 lp1 Historical: - Allergies: 21:47 PENICILLINS; lp1 - Home Meds: 22:21 Synthroid 50 mcg Oral tab 1 tab once daily [Active]; losartan 100 mg oral tab 1 tab lp1 once daily [Active]; metformin 1,000 mg Oral tab 1 tab 2 times per day [Active]; aspirin 81 mg Oral TbEC 1 tab once daily [Active]; Plavix 75 mg Oral tab 1 tab once daily [Active]; carvedilol 25 mg oral tab 1 tab 2 times per day [Active]; amlodipine 5 mg tab twice a day [Active]; atorvastatin 40 mg oral tab 1 tab once daily [Active]; galantamine 12 mg oral tab 1 tab 2 times per day [Active]; coenzyme Q10 100 mg oral cap daily [Active]; docusate sodium 100 mg Oral cap 1 cap 2 times per day [Active]; hydrochlorothiazide 12.5 mg Oral cap 1 cap once daily [Active]; Namenda XR 28 mg oral CSpX 1 cap once daily [Active]; pantoprazole 40 mg oral TbEC 1 tab once daily [Active]; Lantus 100 unit/mL Sub-Q soln [Active]; Humalog 100 unit/mL Sub-Q soln [Active]; - PMHx: 21:47 chronic uti; Dementia; Diabetes - NIDDM; Hyperlipidemia; Hypertension; Hypothyroidism; lp1 - PSHx: 21:47 Pacemaker; Heart stents; Hysterectomy; lp1 - Immunization history:: Adult Immunizations up to date. - Social history:: Smoking status: Patient/guardian denies using tobacco. - Ebola Screening: : No symptoms or risks identified at this time. Screenin:45 Abuse screen: Denies threats or abuse. Denies injuries from another. Nutritional ed1 screening: No deficits noted. Tuberculosis screening: No symptoms or risk factors identified. Fall Risk None identified. Assessment: 22:45 General: Appears uncomfortable, Behavior is calm, cooperative. Pain: Complains of pain ed1 in left eye Pain currently is 8 out of 10 on a pain scale. Quality of pain is described as throbbing, Pain began 3 hours ago. Is continuous. Neuro: Level of Consciousness is awake, alert, obeys commands, Oriented to person, place, time, situation. Cardiovascular: Denies chest pain, Heart tones S1 S2 present. Respiratory: Airway is patent Respiratory effort is even, unlabored, Respiratory pattern is regular, symmetrical, Breath sounds are clear bilaterally. GI: No signs and/or symptoms were reported involving the gastrointestinal system. : No signs and/or symptoms were reported regarding the genitourinary system. EENT: Eyes are tearing on left eye Sclera/Cornea are reddened in left eye Reports pain in left eye. Derm: Skin is intact, is healthy with good turgor, Skin is dry, Skin is normal, Skin temperature is warm. Musculoskeletal: Circulation, motion, and sensation intact. Capillary refill < 3 seconds, in bilateral fingers. Range of motion: intact in all extremities. 01/25 00:23 Reassessment: Patient appears in no apparent distress at this time. Patient and/or ed1 family updated on plan of care and expected duration. Pain level reassessed. Patient is alert, oriented x 3, equal unlabored respirations, skin warm/dry/pink. Patient states feeling better. Patient states symptoms have improved. Vital Signs: 01/24 21:46 BP 117 / 54; Pulse 69; Resp 18; Temp 98.4(O); Pulse Ox 95% on R/A; Weight 83.91 kg (R); lp1 Pain 9/10; 22:45 BP 125 / 66; Pulse 71; Resp 19; Pulse Ox 98% on R/A; Pain 8/10; ed1 Visual Acuity: 23:59 Left Eye Visual acuity 20/50, ; Right Eye Visual acuity 20/50, ; Both Eyes Visual ed1 acuity 20/30; Without Lenses; ED Course: 21:18 Patient arrived in ED. ds1 21:46 Triage completed. lp1 21:46 Arm band placed on left wrist. lp1 22:45 Patient has correct armband on for positive identification. Bed in low position. Call ed1 light in reach. Adult w/ patient. 23:05 Lexie Jara, RN is Primary Nurse. ed1 23:21 Marcelo Vazquez MD is Attending Physician. pkl [id number] 00:03 Car Spivey MD is Referral Physician. pkl 00:23 No provider procedures requiring assistance completed. Patient did not have IV access ed1 during this emergency room visit. Administered Medications: 00:03 Drug: [place] (7.5 mg-325 mg) 1 tabs Route: PO; ed1 00:19 Follow up: Response: No adverse reaction; Pain is decreased ed1 00:20 Drug: [place] (7.5 mg-325 mg) 1 tabs Route: PO; ed1 00:20 Follow up: Response: Medication administered at discharge. ed1 Outcome: 00:04 Discharge ordered by . pkl 00:23 Discharged to home ambulatory, with significant other. ed1 00:23 Condition: good 00:23 Discharge instructions given to patient, significant other, Instructed on discharge instructions, follow up and referral plans. Demonstrated understanding of instructions, follow-up care. 00:25 Patient left the ED. ed1 Signatures: Marcelo Vazquez MD MD pkl Ban Wolfe ds1 Lexie Jara, SOCORRO QUINTANILLA ed1 Cecilia Barbosa RN RN lp1
--- NOTE | 2019-01-25 00:05 | EDPHYS ---
Physician Documentation [facility] Name: Ace Almendarez Age: 78 yrs Sex: Female : 1940 Arrival Date: 01/24/2019 Time: 21:18 Bed 18 Private MD: ED Physician Marcelo Vazquez HPI: 01/24 23:52 This 78 yrs old Other Female presents to ER via Ambulatory with complaints of Eye Pain, pkl Drainage From Eye. 23:52 Patient had injection in her left eye earlier today for her diabetic retinopathy at Dr. barbra Spivey office. Complained of pain and tearing left eye after the injection.. Associated signs and symptoms: Pertinent negatives: None. Historical: - Allergies: 21:47 PENICILLINS; lp1 - Home Meds: 22:21 Synthroid 50 mcg Oral tab 1 tab once daily [Active]; losartan 100 mg oral tab 1 tab lp1 once daily [Active]; metformin 1,000 mg Oral tab 1 tab 2 times per day [Active]; aspirin 81 mg Oral TbEC 1 tab once daily [Active]; Plavix 75 mg Oral tab 1 tab once daily [Active]; carvedilol 25 mg oral tab 1 tab 2 times per day [Active]; amlodipine 5 mg tab twice a day [Active]; atorvastatin 40 mg oral tab 1 tab once daily [Active]; galantamine 12 mg oral tab 1 tab 2 times per day [Active]; coenzyme Q10 100 mg oral cap daily [Active]; docusate sodium 100 mg Oral cap 1 cap 2 times per day [Active]; hydrochlorothiazide 12.5 mg Oral cap 1 cap once daily [Active]; Namenda XR 28 mg oral CSpX 1 cap once daily [Active]; pantoprazole 40 mg oral TbEC 1 tab once daily [Active]; Lantus 100 unit/mL Sub-Q soln [Active]; Humalog 100 unit/mL Sub-Q soln [Active]; - PMHx: 21:47 chronic uti; Dementia; Diabetes - NIDDM; Hyperlipidemia; Hypertension; Hypothyroidism; lp1 - PSHx: 21:47 Pacemaker; Heart stents; Hysterectomy; lp1 - Immunization history:: Adult Immunizations up to date. - Social history:: Smoking status: Patient/guardian denies using tobacco. - Ebola Screening: : No symptoms or risks identified at this time. ROS: 23:52 ENT: Negative for injury, pain, and discharge, Neck: Negative for injury, pain, and pkl swelling. 23:52 Eyes: Positive for pain, tearing left eye. 23:52 Neck: Negative for stiffness. 23:52 Cardiovascular: Negative for chest pain. 23:52 Respiratory: Negative for cough, shortness of breath. 23:52 Abdomen/GI: Negative for abdominal pain, nausea, vomiting, and diarrhea. 23:52 Back: Negative for acute changes. 23:52 : Negative for urinary symptoms. 23:52 MS/extremity: Negative for acute changes. 23:52 Skin: Negative for rash. 23:52 Neuro: Negative for altered mental status. Exam: 23:52 Visual Acuity: I have reviewed the nursing documentation. pkl 23:52 Head/Face: Normocephalic, atraumatic. 23:52 Eyes: Conjunctiva: injected, in the left eye, tearing noted, in left eye. 23:52 ENT: Exam is negative for acute changes. 23:52 Neck: Exam negative for nuchal rigidity. 23:52 Chest/axilla: Exam negative for acute changes. 23:52 Cardiovascular: Rate: normal, Rhythm: regular. 23:52 Respiratory: the patient does not display signs of respiratory distress, Respirations: normal, Breath sounds: are clear throughout. 23:52 Abdomen/GI: Bowel sounds: normal, Palpation: abdomen is soft and non-tender. 23:52 Back: Exam negative for acute changes. 23:52 : Exam negative for acute changes. 23:52 Musculoskeletal/extremity: Exam is negative for acute changes. 23:52 Skin: Exam negative for rash. 23:52 Neuro: Orientation: is normal, Mentation: is normal, Cranial nerves: grossly normal, Motor: is normal. Vital Signs: 21:46 BP 117 / 54; Pulse 69; Resp 18; Temp 98.4(O); Pulse Ox 95% on R/A; Weight 83.91 kg (R); lp1 Pain 9/10; 22:45 BP 125 / 66; Pulse 71; Resp 19; Pulse Ox 98% on R/A; Pain 8/10; ed1 Visual Acuity: 23:59 Left Eye Visual acuity 20/50, ; Right Eye Visual acuity 20/50, ; Both Eyes Visual ed1 acuity 20/30; Without Lenses; MDM: 23:22 Patient medically screened. pkl 23:52 Data reviewed: vital signs, nurses notes. ED course: Talked to Dr. Wally Spivey, will see pkl patient in his office at 10 AM in the morning.. Administered Medications: 01/25 00:03 Drug: [place] (7.5 mg-325 mg) 1 tabs Route: PO; ed1 00:19 Follow up: Response: No adverse reaction; Pain is decreased ed1 00:20 Drug: [place] (7.5 mg-325 mg) 1 tabs Route: PO; ed1 00:20 Follow up: Response: Medication administered at discharge. ed1 Disposition: 01/25/19 00:04 Discharged to Home. Impression: Pain/ Tearing Left Eye. S/P Injection Left Eye. - Condition is Stable. - Medication Reconciliation Form, Thank You Letter, Antibiotic Education, Prescription Opioid Use form. - Follow up: Car Spivey MD; When: Tomorrow; Reason: Re-evaluation by your physician. - Problem is new. - Symptoms are unchanged. Signatures: Marcelo Vazquez MD MD pkl Lexie Jara RN RN ed1 Cecilia Barbosa RN RN lp1 Corrections: (The following items were deleted from the chart) 00:25 00:04 01/25/2019 00:04 Discharged to Home. Impression: Pain/ Tearing Left Eye. S/P ed1 Injection Left Eye. Condition is Stable. Forms are Medication Reconciliation Form, Thank You Letter, Antibiotic Education, Prescription Opioid Use. Follow up: Car Spivey; When: Tomorrow; Reason: Re-evaluation by your physician. Problem is new. Symptoms are unchanged. pkl
[2019-01-25] MEDS ORDERED: HYDROCODONE/APAP 7.5/325 MG TAB ONE ×2 (00:14→00:30)
[2019-01-25 01:09] VITALS: TEMP 98.4
[2019-01-25 01:10] VITALS: BP 125/66; O2SAT 98
== END 2019-01-25 00:25 | disposition home or self-care (01) ==
LOC: ER 21:17
DX: H57.12 Ocular pain, left eye (principal); Z98.890 Other specified postprocedural states; I10 Essential (primary) hypertension; E11.9 Type 2 diabetes mellitus without complications; E03.9 Hypothyroidism, unspecified; E78.5 Hyperlipidemia, unspecified; F03.90 Unspecified dementia, unspecified severity, without behavioral disturbance, psychotic disturbance, mood disturbance, and anxiety; Z79.4 Long term (current) use of insulin; Z79.01 Long term (current) use of anticoagulants; Z79.82 Long term (current) use of aspirin; Z95.0 Presence of cardiac pacemaker; Z95.818 Presence of other cardiac implants and grafts; Z88.0 Allergy status to penicillin
CPT/HCPCS: 99283

== ENCOUNTER 2019-11-06 09:51 | Inpatient (IN) | payer OTHER, MEDICARE ==
--- OUTSIDE RECORDS SUMMARY | 2019-11-06 09:54 | XMS REPORT | Summary of Care ---
:1940 Author Organization [facility] [place] [address] Care Team Providers Name Role Phone Sunday Muñoz MD Primary Care Provider Reason for Visit Reason Comments Follow-up Visit - Diabetes Encounter Details Date Type Department Care Team Description 06/02/2019 Office Visit [facility] Donta Marcelo MD Follow-up Visit - Medicine [address] [facility] Diabetes Endocrinology [address] [facility] [place] [address] 8th Floor; [address] [phone] [place] [address] Allergies Active Allergy Reactions Severity Noted Date Comments Penicillins Rash Medium 08/14/2016 documented as of this encounter (statuses as of 06/06/2019) Medications Medication Sig Dispensed Refills Start Date End Date Status pantoprazole Take 40 mg by 0 Active (PROTONIX) 40 MG mouth two times tabletIndications: daily. Type 2 diabetes mellitus treated with insulin, Hypothyroidism, unspecified type aspirin 81 MG Take 81 mg by 0 Active tabletIndications: mouth daily. Type 2 diabetes mellitus treated with insulin, Hypothyroidism, unspecified type Memantine HCl ER Take by mouth 0 Active (NAMENDA XR) 28 MG daily. [id number]: Type 2 diabetes mellitus treated with insulin, Hypothyroidism, unspecified type amlodipine (NORVASC) Take 5 mg by 0 Active 5 MG mouth two times tabletIndications: daily. Type 2 diabetes mellitus treated with insulin, Hypothyroidism, unspecified type atorvastatin Take 40 mg by 0 Active (LIPITOR) 40 MG mouth daily. tabletIndications: Type 2 diabetes mellitus treated with insulin, Hypothyroidism, unspecified type B Complex Vitamins Take 1 capsule 0 Active CAPSIndications: by mouth daily. Type 2 diabetes mellitus treated with insulin, Hypothyroidism, unspecified type clopidogrel (PLAVIX) Take 75 mg by 0 Active 75 MG mouth daily. tabletIndications: Type 2 diabetes mellitus treated with insulin, Hypothyroidism, unspecified type Coenzyme Q10 (CO Q Take 100 mg by 0 Active 10) 100 MG mouth daily. CAPSIndications: Type 2 diabetes mellitus treated with insulin, Hypothyroidism, unspecified type docusate sodium Take 100 mg by 0 Active (COLACE) 100 MG mouth two times capsuleIndications: daily. Type 2 diabetes mellitus treated with insulin, Hypothyroidism, unspecified type folic acid 800 MCG Take 800 mcg by 0 Active TABSIndications: mouth daily. Type 2 diabetes mellitus treated with insulin, Hypothyroidism, unspecified type galantamine 12 MG Take 12 mg by 0 Active TABSIndications: mouth two times Type 2 diabetes daily. mellitus treated with insulin, Hypothyroidism, unspecified type levothyroxine Take 50 mcg by 0 Active (SYNTHROID) 50 MCG mouth every tabletIndications: morning. Type 2 diabetes mellitus treated with insulin, Hypothyroidism, unspecified type metformin Take 1,000 mg 0 Active (GLUCOPHAGE) 1000 MG by mouth 2 tabletIndications: times daily Type 2 diabetes (with meals). mellitus treated with insulin, Hypothyroidism, unspecified type Cyanocobalamin Take 1,000 mcg 0 Active (VITAMIN B-12) 1000 by mouth daily. MCG TABSIndications: Type 2 diabetes mellitus treated with insulin, Hypothyroidism, unspecified type Ascorbic Acid Take 1,000 mg 0 Active (VITAMIN C) 1000 MG by mouth daily. TABSIndications: Type 2 diabetes mellitus treated with insulin, Hypothyroidism, unspecified type Insulin Lispro Inject 10 Units 10 Pen 3 06/19/2017 Active (HUMALOG KWIKPEN) into the skin 3 100 UNIT/ML times daily SOPNIndications: (with meals). Type 2 diabetes mellitus treated with insulin, Hypothyroidism, unspecified type Blood Glucose Check glucose 4 1 Kit 0 07/15/2017 Active Monitoring Suppl times daily. Dx ([employer]) code:E11.65 W/DEVICE KIT [employer] DELICA Check glucose 4 400 Each 5 07/15/2017 Active LANCETS 33G MISC times daily. Dx code:E11.65 Alcohol Swabs Use as directed 400 Each 4 07/15/2017 Active (ALCOHOL PADS) 70 % 4 times daily PADS nitrofurantoin, Take 50 mg by 0 09/07/2017 Active macrocrystal-monohyd mouth daily. rate, (MACROBID) 100 MG capsuleIndications: Type 2 diabetes mellitus treated with insulin losartan (COZAAR) Take 100 mg by 0 08/19/2017 Active 100 MG mouth daily. tabletIndications: Type 2 diabetes mellitus treated with insulin Brinzolamide-Brimoni Apply 1 Drop to 0 Active dine 1-0.2 % eye two times ophthalmic daily. suspension carvedilol (COREG) Take 25 mg by 0 05/26/2018 Active 25 MG mouth two times tabletIndications: daily. Type 2 diabetes mellitus with complication, with long-term current use of insulin Glucose Blood Strips USE ONE STRIP 400 Strip 7 09/15/2018 Active (ONETOUCH VERIO) TO CHECK GLUCOSE 4 TIMES DAILY; Dx E11.8 Insulin Pen Needle USE DIRECTED 400 Each 3 11/10/2018 Active (BD PEN NEEDLE ZOLTAN FOUR TIMES A U/F) 32G X 4 MM MISC DAY. DX E11.9 Insulin Dependent Insulin Glargine Inject 20 Units 45 mL 3 06/02/2019 Active (BASAGLAR KWIKPEN) into the skin 100 UNIT/ML SOPN two times daily. Insulin Glargine Inject 20 Units 45 mL 1 05/24/2019 Discontinued (LANTUS SOLOSTAR) into the skin 9 100 UNIT/ML two times SOPNIndications: daily. Type 2 diabetes mellitus treated with insulin, Hypothyroidism, unspecified type documented as of this encounter (statuses as of 06/06/2019) Active Problems Problem Noted Date Type 2 diabetes mellitus treated with insulin 06/19/2017 Hypothyroidism 06/19/2017 documented as of this encounter (statuses as of 06/06/2019) Social History Tobacco Use Types Packs/Day Years Used Date Never Smoker Smokeless Tobacco: Never Used Alcohol Use Drinks/Week oz/Week Comments No Sex Assigned at Date Recorded Not on file Job Start Date Occupation Industry Not on file Not on file Not on file Travel History Travel Start Travel End No recent travel history available. documented as of this encounter Last Filed Vital Signs Vital Sign Reading Time Taken Comments Blood Pressure 126/80 06/02/2019 3:43 PM CDT Pulse 84 06/02/2019 3:43 PM CDT Temperature - - Respiratory Rate - - Oxygen Saturation - - Inhaled Oxygen Concentration - - Weight 83.5 kg (184 lb) 06/02/2019 3:43 PM CDT Height 162.6 cm (5' 4") 06/02/2019 3:43 PM CDT Body Mass Index 31.58 06/02/2019 3:43 PM CDT documented in this encounter Progress Notes Donta Marcelo MD - 06/02/2019 4:00 PM CDTTeaching Physician Attestation I was present in the room with the resident during the history and exam and I agree with the assessment and plan as document by the resident . Noah Lindquist MD - 06/02 4:00 PM CDT Patient: Ace Dumont Age: 78 y.o. Sex: female Clinic: [facility] endocrine clinic 06/02/2019 5:29 PM Chief Complaint: HPI: Ace Dumont is a 78 y.o. with past medical history of HTN, HLD, DM is here for FU: 06/12/2017 with a past medical history of HTN, HLD, DM who is been followed since been seen after inpatient stay. Pt was admitted to [facility] for treatment of UTI. She was having increased frequency of falls and fatigue. She was diagnosed with UTI, treated with iv rocephin. She was then noted to have 2 large peptic ulcers after having melanotic stools. Pt was since then followed with clinic. Previous History: 07/09/2017- Pt's contacted the clinic for elevated blood sugars warranting a quick return visit. 11/2017 - pt reports that she has been doing well. No acute issues since last visit. Pt is hoping to come off insulin 03/2018- Pt had two angiograms with 2 stent placement. Following this, pt had a syncopal episode. Cadence has a pacemaker 07/2018 - doing well overall. Had hypoglycemia the night before previous clinic visit to the 40's. Probably in the setting of having a smaller dinner. 10/2018: patient doing well, lowest BG 80s at lunch time, probably her breakfast meal was smaller than usual, otherwise most of her fasting BG levels are between 90-120 and her meal time mostly at goal,with some spikes to 200s, 300s at dinner time Interval history (since 02/2019) - History elicited by patient doing well, lowest BG 80s in the AM typically, otherwise fasting BG usually 100s-120s ; avg BG 150s-160s by glucometer; occasionally high at lunch and dinner depending on content of food and if patient forgot what she ate (may eat same thing a second time given dementia); highest BS typically at dinner time, occasionally >300 but no more than 1x/week. Pt continues to be compliant with medications with assistance of . No hypoglycemia episodes. No heat/ cold intolerance. Diabetes Per patient DM2 was diagnosed when she was 31 years old. Currently patient is on: Lantus 20 u qam, 20 qhs Humalog 8-12 units based on BG atorv 40 qhs Metformin 1000mg bid LTF4 50 daily Checks BG 3 times per day before meals; runs in 120s-140s. Lowest in 80s, No hypoglycemia episodes (though notes that she will not report these symptoms given dementia) BG log will be scanned into chart. Hypoglycemic episodes: none Neuropathy: numbness, tingling in b/l fingers/toes present Eye exam: DM retinopathy, was planned for laser surgery, saw [facility] opthalmologist 01/2019; saw retinal specialist 1 month ago, s/p laser surgery 1 month ago, will get documents faxed here Nephropathy: urine microalbumin 02/2019=0.7 HLD: atorvastatin CAD: none DM foot: no ulcers Diet: [place] citizen diet, controlled Exercise: none Review of Systems: All other 10 POINT ROS negative except as per HPI Social hx: Social History Tobacco Use Smoking status: Never Smoker Smokeless tobacco: Never Used Substance Use Topics Alcohol use: No Drug use: No Past Medical History: Past Medical History: Diagnosis Date Carotid artery disease Cataracts, bilateral Diabetes Glaucoma Heart attack High blood pressure High cholesterol History of stomach ulcers Memory loss Stroke Past Surgical History: Procedure Laterality Date HX CORONARY ARTERY BYPASS HX HYSTERECTOMY Current Medications: Current Outpatient Medications Medication Sig Dispense Refill Alcohol Swabs (ALCOHOL PADS) 70 % PADS Use as directed 4 times daily 400 Each 4 amlodipine (NORVASC) 5 MG tablet Take 5 mg by mouth two times daily. Ascorbic Acid (VITAMIN C) 1000 MG TABS Take 1,000 mg by mouth daily. aspirin 81 MG tablet Take 81 mg by mouth daily. atorvastatin (LIPITOR) 40 MG tablet Take 40 mg by mouth daily. B Complex Vitamins CAPS Take 1 capsule by mouth daily. Blood Glucose Monitoring Suppl ([employer]) W/DEVICE KIT Check glucose 4 times daily. Dx code:E11.65 1 Kit 0 Brinzolamide-Brimonidine 1-0.2 % ophthalmic suspension Apply 1 Drop to eye two times daily. carvedilol (COREG) 25 MG tablet Take 25 mg by mouth two times daily. clopidogrel (PLAVIX) 75 MG tablet Take 75 mg by mouth daily. Coenzyme Q10 (CO Q 10) 100 MG CAPS Take 100 mg by mouth daily. Cyanocobalamin (VITAMIN B-12) 1000 MCG TABS Take 1,000 mcg by mouth daily. docusate sodium (COLACE) 100 MG capsule Take 100 mg by mouth two times daily. folic acid 800 MCG TABS Take 800 mcg by mouth daily. galantamine 12 MG TABS Take 12 mg by mouth two times daily. Glucose Blood Strips ([employer]) USE ONE STRIP TO CHECK GLUCOSE 4 TIMES DAILY; Dx E11.8 400Strip 7 Insulin Glargine (BASAGLAR KWIKPEN) 100 UNIT/ML SOPN Inject 20 Units into the skin two times daily. 45 mL 3 Insulin Lispro (HUMALOG KWIKPEN) 100 UNIT/ML SOPN Inject 10 Units into the skin 3 times daily (with meals). 10 Pen 3 Insulin Pen Needle (BD PEN NEEDLE ZOLTAN U/F) 32G X 4 MM MISC USE DIRECTED FOUR TIMES A DAY. DXE11.9 Insulin Dependent 400 Each 3 levothyroxine (SYNTHROID) 50 MCG tablet Take 50 mcg by mouth every morning. losartan (COZAAR) 100 MG tablet Take 100 mg by mouth daily. Memantine HCl ER (NAMENDA XR) 28 MG CP24 Take by mouth daily. metformin (GLUCOPHAGE) 1000 MG tablet Take 1,000 mg by mouth 2 times daily ( with meals). nitrofurantoin, macrocrystal-monohydrate, (MACROBID) 100 MG capsule Take 50 mg by mouth daily. ONETOUCH DELICA LANCETS 33G MISC Check glucose 4 times daily. Dx code: E11.65 400 Each 5 pantoprazole (PROTONIX) 40 MG tablet Take 40 mg by mouth two times daily. No current facility-administered medications for this visit. Family history: Family History Problem Relation Name Age of Onset Diabetes Mother Diabetes Brother Allergies: Allergies Allergen Reactions Penicillins Rash Physical Exam: Vitals: 06/02/19 1543 BP: 126/80 BP Location: right arm Patient Position: Sitting Cuff Size: regular Pulse: 84 Weight: 184 lb (83.5 kg) Height: 5' 4" (1.626 m) Body mass index is 31.58 kg/m. Appear: Alert, elderly female Eyes: KEVIN, sclerae anicteric HEENT: OP clear, MMM Neck: no JVD, no thyromegaly, no thyroid nodules palpated, no acanthosis CVS: regular rate and rhythm, S1, S2 normal, no murmur Lungs: normal WOB on room air, fair inspiratory effort, CTAB Abdo: soft, NT/ND, +BS, no masses, no palpable organomegaly Skin: no rashes BURR FILER: follows commands, moves all extremities, no focal deficits noted Diabetic foot exam (performed today) Diabetic Foot Exam Performed Inspection Left - No ulcers or lesions noted and Right - No ulcers or lesions noted Pulses Left Normal and Right Normal Monofilament Exam limited by mental status as patient reports that she can feel when filament is nottouching foot Results for ACE DUMONT ( ) as of 11/08/2018 13:34 Ref. Range 09/15/2017 07:50 11/23/2017 10:50 10/15/2018 08:32 GLUCOSE Latest Ref Range: 70 - 99 MG/DL 159 (H) 148 (H) 201 (H) BLOOD UREA NITROGEN Latest Ref Range: 8 - 23 MG/DL 23 23 28 (H) CREATININE Latest Ref Range: 0.60 - 1.30 MG/DL 0.92 0.94 1.14 BUN/CREAT RATIO Latest Ref Range: 6 - 28 RATIO 25 24 25 SODIUM Latest Ref Range: 133 - 146 MEQ/L 140 139 138 POTASSIUM Latest Ref Range: 3.5 - 5.4 MEQ/L 4.7 4.8 4.6 CHLORIDE Latest Ref Range: 95 - 107 MEQ/L 98 99 98 CO2 Latest Ref Range: 19 - 31 MEQ/L 30 26 23 CALCIUM Latest Ref Range: 8.5 - 10.5 MG/DL 10.2 10.1 9.4 PROTEIN TOTAL Latest Ref Range: 6.1 - 8.3 G/DL 8.1 7.9 7.7 ALBUMIN Latest Ref Range: 3.5 - 5.2 G/DL 4.6 4.5 4.4 GLOBULINS, SERUM, TOTAL Latest Ref Range: 1.9 - 3.7 G/DL 3.5 3.4 3.3 A/G RATIO Latest Ref Range: 1.0 - 2.6 RATIO 1.3 1.3 1.3 BILIRUBIN TOTAL Latest Ref Range: <=1.2 MG/DL 0.3 0.4 <0.2 ALKALINE PHOSPHATASE Latest Ref Range: 40 - 142 U/L 57 53 62 AST (SGOT) Latest Ref Range: 9 - 40 U/L 18 19 19 ALT (SGPT) Latest Ref Range: 5 - 40 U/L 21 18 15 Laboratory, Radiographic, Cytopathologic Data Assessment and plan: Ace Dumont is a 78 y.o. with the following below: 1.Type 2 DM on penitentiary insulin, acceptable a1c given her age. With microvascular complications-retinopathy and nephropathy Lab Results Component Value Date HGBA1C 7.6 (H) 05/26/2019 - A1c 7.7 02/2019 -> 7.6 (05/2019) - continue glargine 20 units qam and qpm; change lantus to basaglar per ' s request - continue Humalog 8-12 units w/ meals - Will continue Metformin 1gm bid for now, however monitor GFR; currently GFR= 41 -> 38 since lastvisit - Pt will get PCP to evaluate HCTZ, given concern for renal impairment - check BG before meals and at bedtime - healthy diet and exercise - Hypoglycemia precautions and management discussed Urine microalbumin 02/2019; though with 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 On atorvastatin 40 mg by OSH cardiology On aspirin 81 mg and Losartan 100 mg 2.Hypothyroidism biochemically euthyroid - continue with current dose of LTF4 - TFTs prior to next visit Orders Placed This Encounter Procedures Hemoglobin A1c Lipid Panel Comprehensive Metabolic Panel (CMP) RTC in ~6 months documented in this encounter Plan of Treatment Name Type Priority Associated Diagnoses Order Schedule HEMOGLOBIN A1C Lab Routine Type 2 diabetes Expected: 11/02/2019, mellitus treated with Expires: 06/02/2025 insulin LIPID PANEL Lab Routine Type 2 diabetes Expected: 11/02/2019, mellitus treated with Expires: 06/02/2025 insulin COMPREHENSIVE METABOLIC Lab Routine Type 2 diabetes Expected: 11/02/2019, PANEL mellitus treated with Expires: 06/02/2025 insulin Health Maintenance Due Date Last Done Comments MEDICARE AWV 1940 TETANUS SHOT (ADULT) 1956 ANNUAL DIABETIC RETINOPATHY 1959 SCREENING BMI FOLLOW UP PLAN 1959 FALL SCREEN 2006 OSTEOPOROSIS SCREENING 2006 PNEUMOVAX >=65 (PPSV23) 2006 FLU VACCINE > 6 MONTHS 05/12/2019 A1C TESTING EVERY 6 MONTHS 11/26/2019 05/26/2019, 02/11/2019, 10/15/2018, Additional history exists ANNUAL DIABETIC FOOT EXAM 06/02/2020 06/02/2019, 06/02/2019, 02/14/2019, Additional history exists PREVNAR >=65 (PCV13) Completed 03/31/2018 documented as of this encounter Results Not on filedocumented in this encounter Visit Diagnoses Diagnosis Type 2 diabetes mellitus treated with insulin - Primary documented in this encounter Insurance Payer Benefit Plan / Subscriber ID Effective Phone Address Type Group Dates MEDICARE MEDICARE PART A xxxxxxxxxxx 1994-Pres [address] - MEDICARE ent [id number] [place] [address] UNITED AARP MEDICARE xxxxxxxxxxx 2016-Prese [address] [address] Medicare HEALTHCARE [place] [address] (Home) [address] [place] [address] documented as of this encounter
--- OUTSIDE RECORDS SUMMARY | 2019-11-06 09:54 | XMS REPORT ---
:1940 [facility] Organization [facility] Address [address] [place] [address] [address] [place] [address] Care Team Providers Name Role Phone EVERARDO [...] (BEAKER) (test 212 mg/dL 70-110 TESTED AT [address] wcmy=3013) [place] [address] POCT-GLUCOSE [id number] 12:56:00 Test Item Value Reference Range Comments POC-GLUCOSE METER (BEAKER) 272 mg/dL 70-110 TESTED AT [address] (test dccj=0019) [place] [address] HEMOGLOBIN [id number] 08:28:00 Test Item Value Reference Range Comments HEMOGLOBIN A1C (BEAKER) (test qoth=719) 8.0 % 4.3-6.1 POCT-GLUCOSE [id number] 07:33:00 Test Item Value Reference Range Comments POC-GLUCOSE METER (BEAKER) 199 mg/dL 70-110 TESTED AT [address] (test zeve=5713) [place] [address] CBC W/PLT COUNT & AUTO [id number] 06:29:00 Test Item Value Reference Range Comments WHITE BLOOD CELL COUNT (BEAKER) (test cwdc=662) 15.0 K/ L 3.5-10.5 RED BLOOD CELL COUNT (BEAKER) (test flxb=741) 3.88 M/ L 3.93-5.22 HEMOGLOBIN (BEAKER) (test spvz=536) 11.1 GM/DL 11.2-15.7 HEMATOCRIT (BEAKER) (test szid=250) 34.1 % 34.1-44.9 MEAN CORPUSCULAR VOLUME (BEAKER) (test otks=034) 87.9 fL 79.4-94.8 MEAN CORPUSCULAR HEMOGLOBIN (BEAKER) (test 28.6 pg 25.6-32.2 qdhp=928) MEAN CORPUSCULAR HEMOGLOBIN CONC (BEAKER) (test 32.6 GM/DL 32.2-35.5 rcxc=551) RED CELL DISTRIBUTION WIDTH (BEAKER) (test 15.2 % 11.7-14.4 ieav=122) PLATELET COUNT (BEAKER) (test taqw=736) 255 K/CU MM 150-450 MEAN PLATELET VOLUME (BEAKER) (test urju=636) 12.6 fL 9.4-12.3 NUCLEATED RED BLOOD CELLS (BEAKER) (test 0 /100 WBC 0-0 akte=339) NEUTROPHILS RELATIVE PERCENT (BEAKER) (test 68 % jexu=755) LYMPHOCYTES RELATIVE PERCENT (BEAKER) (test 19 % nvas=604) MONOCYTES RELATIVE PERCENT (BEAKER) (test 9 % ridc=982) EOSINOPHILS RELATIVE PERCENT (BEAKER) (test 3 % hckk=073) BASOPHILS RELATIVE PERCENT (BEAKER) (test 0 % faun=349) NEUTROPHILS ABSOLUTE COUNT (BEAKER) (test 10.21 K/ L 1.56-6.13 xbuk=575) LYMPHOCYTES ABSOLUTE COUNT (BEAKER) (test 2.82 K/ L 1.18-3.74 zsxn=962) MONOCYTES ABSOLUTE COUNT (BEAKER) (test 1.30 K/ L 0.24-0.36 wydy=077) EOSINOPHILS ABSOLUTE COUNT (BEAKER) (test 0.47 K/ L 0.04-0.36 fdkx=127) BASOPHILS ABSOLUTE COUNT (BEAKER) (test 0.05 K/ L 0.01-0.08 lfsh=000) IMMATURE GRANULOCYTES-RELATIVE PERCENT (BEAKER) 1 % 0-1 (test cdpn=2514) COMPREHENSIVE METABOLIC [id number] 06:04:00 Test Item Value Reference Range Comments TOTAL PROTEIN (BEAKER) 6.0 gm/dL 6.0-8.3 (test ietp=397) ALBUMIN (BEAKER) (test 2.9 g/dL 3.5-5.0 psvd=0191) ALKALINE PHOSPHATASE 42 U/L 40-150 (BEAKER) (test zmsz=276) BILIRUBIN TOTAL (BEAKER) 0.3 mg/dL 0.2-1.2 (test chpz=366) SODIUM (BEAKER) (test 142 meq/L 136-145 norb=039) POTASSIUM (BEAKER) (test 3.8 meq/L 3.5-5.1 wfpi=288) CHLORIDE (BEAKER) (test 109 meq/L 98-107 cshz=652) CO2 (BEAKER) (test 25 meq/L 22-29 yprl=613) BLOOD UREA NITROGEN 27 mg/dL 7-21 (BEAKER) (test kyrk=968) CREATININE (BEAKER) (test 0.86 mg/dL 0.57-1.25 cngs=171) GLUCOSE RANDOM (BEAKER) 159 mg/dL 70-105 (test ltel=762) CALCIUM (BEAKER) (test 8.5 mg/dL 8.4-10.2 pcom=274) AST (SGOT) (BEAKER) (test 26 U/L 5-34 sjan=128) ALT (SGPT) (BEAKER) (test 44 U/L 6-55 auwy=406) EGFR (BEAKER) (test 64 mL/min/1.73 sq m ESTIMATED GFR IS NOT tpfl=4923) ACCURATE CREATININE CLEARANCE IN PREDICTING GLOMERULAR FILTRATION RATE. ESTIMATED GFR IS NOT APPLICABLE FOR DIALYSIS PATIENTS. POCT-GLUCOSE [id number] 21:22:00 Test Item Value Reference Range Comments POC-GLUCOSE METER (BEAKER) 152 mg/dL 70-110 TESTED AT [facility] [address] [facility] (test cvmu=0172) [facility] [address] POCT-GLUCOSE [id number] 18:12:00 Test Item Value Reference Range Comments POC-GLUCOSE METER (BEAKER) 202 mg/dL 70-110 TESTED AT [facility] [address] [facility] (test eqmh=7853) [facility] [address] HEMOGLOBIN AND [id number] 18:02:00 Test Item Value Reference Range Comments HEMOGLOBIN (BEAKER) (test rvgv=940) 11.1 GM/DL 11.2-15.7 HEMATOCRIT (BEAKER) (test ejir=315) 35.6 % 34.1-44.9 TISSUE [id number] 17:12:00Surgical Pathology Report Case: [id number] Authorizing Provider: Jian Cabrera MD Collected: 06/11/2017 0839 Ordering Location: [address] Received: 06/11/2017 1126 Service Pathologist: Juany [...] MALIGNANCY IDENTIFIED Signing Pathologist Direct Phone Line: [phone] signed by Juany Ochoa MD on 06/11/2017 at 5:12 [id number] bleedRandom stomach biopsyThe specimen is received in [...] no intestinal metaplasia, dysplasia or carcinoma.HEMOGLOBIN AND [id number] 15:17:00 Test Item Value Reference Range Comments HEMOGLOBIN (BEAKER) (test bppr=151) 11.3 GM/DL 11.2-15.7 HEMATOCRIT (BEAKER) (test doer=019) 34.1 % 34.1-44.9 POCT-GLUCOSE [id number] 13:13:00 Test Item Value Reference Range Comments POC-GLUCOSE METER (BEAKER) 229 mg/dL 70-110 TESTED AT [facility] [address] (test upvp=3832) [facility] [address] HEMOGLOBIN AND [id number] 11:52:00 Test Item Value Reference Range Comments HEMOGLOBIN (BEAKER) (test kqtd=468) 11.8 GM/DL 11.2-15.7 HEMATOCRIT (BEAKER) (test anpt=645) 37.0 % 34.1-44.9 URINE [id number] 10:51:00 Test Item Value Reference Range Comments CULTURE (BEAKER) (test rmjf=1728) No growth [id number] 08:11:00 Test Item Value Reference Range Comments PROTIME (BEAKER) (test wlzs=330) 15.1 seconds 11.7-14.7 INR (BEAKER) (test vsky=946) 1.2 <=5.9 PARTIAL THROMBOPLASTIN TIME (BEAKER) (test 29.8 seconds 22.5-36.0 btwf=717) RECOMMENDED COUMADIN/WARFARIN INR THERAPY RANGESSTANDARD DOSE: 2.0 - 3.0 Includes: PROPHYLAXIS forvenous thrombosis, systemic embolization; TREATMENT for venous thrombosis and/or pulmonary embolus.HIGH RISK: Target INR is 2.5-3.5 for patients with mechanical heart valves.POCT-GLUCOSE [id number] 07:13:00 Test Item Value Reference Range Comments POC-GLUCOSE METER (BEAKER) 126 mg/dL 70-110 TESTED AT [address] (test fyvf=6247) [place] [address] BLOOD [id number] 06:00:00 Test Item Value Reference Range Comments CULTURE (BEAKER) (test citq=8421) No growth in 5 days BLOOD [id number] 06:00:00 Test Item Value Reference Range Comments CULTURE (BEAKER) (test hgql=4633) No growth in 5 days HEMOGLOBIN AND [id number] 05:48:00 Test Item Value Reference Range Comments HEMOGLOBIN (BEAKER) (test ghie=235) 10.9 GM/DL 11.2-15.7 HEMATOCRIT (BEAKER) (test smsl=105) 32.8 % 34.1-44.9 POCT-GLUCOSE [id number] 22:12:00 Test Item Value Reference Range Comments POC-GLUCOSE METER (BEAKER) 279 mg/dL 70-110 TESTED AT [address] (test daet=5941) [place] [id number] POCT-GLUCOSE [id number] 20:16:00 Test Item Value Reference Range Comments POC-GLUCOSE METER (BEAKER) 283 mg/dL 70-110 TESTED AT [address] (test illo=8858) [place] [address] HEMOGLOBIN AND [id number] 17:41:00 Test Item Value Reference Range Comments HEMOGLOBIN (BEAKER) (test stwe=137) 8.2 GM/DL 11.2-15.7 HEMATOCRIT (BEAKER) (test cslx=922) 24.3 % 34.1-44.9 POCT-GLUCOSE [id number] 17:34:00 Test Item Value Reference Range Comments POC-GLUCOSE METER (BEAKER) 327 mg/dL 70-110 TESTED AT [address] (test odek=5775) [facility] [address] POCT-GLUCOSE [id number] 15:48:00 Test Item Value Reference Range Comments POC-GLUCOSE METER (BEAKER) 401 mg/dL 70-110 TESTED AT [address] (test vyls=0701) [facility] [address] POCT-GLUCOSE [id number] 13:29:00 Test Item Value Reference Range Comments POC-GLUCOSE METER (BEAKER) 429 mg/dL 70-110 TESTED AT [address] (test uikp=1390) [facility] [address] HEMOGLOBIN AND [id number] 09:34:00 Test Item Value Reference Range Comments HEMOGLOBIN (BEAKER) (test lqen=478) 9.7 GM/DL 11.2-15.7 HEMATOCRIT (BEAKER) (test cbyj=392) 28.9 % 34.1-44.9 POCT-GLUCOSE [id number] 07:33:00 Test Item Value Reference Range Comments POC-GLUCOSE METER (BEAKER) 396 mg/dL 70-110 TESTED AT [address] (test sboe=7849) [facility] [address] CBC W/PLT COUNT & AUTO [id number] 03:48:00 Test Item Value Reference Range Comments WHITE BLOOD CELL COUNT (BEAKER) (test jbub=658) 13.9 K/ L 3.5-10.5 RED BLOOD CELL COUNT (BEAKER) (test ngzk=736) 3.50 M/ L 3.93-5.22 HEMOGLOBIN (BEAKER) (test npcj=689) 10.4 GM/DL 11.2-15.7 HEMATOCRIT (BEAKER) (test fsyh=315) 30.9 % 34.1-44.9 MEAN CORPUSCULAR VOLUME (BEAKER) (test xfaj=065) 88.3 fL 79.4-94.8 MEAN CORPUSCULAR HEMOGLOBIN (BEAKER) (test 29.7 pg 25.6-32.2 fzfe=359) MEAN CORPUSCULAR HEMOGLOBIN CONC (BEAKER) (test 33.7 GM/DL 32.2-35.5 hyln=140) RED CELL DISTRIBUTION WIDTH (BEAKER) (test 13.9 % 11.7-14.4 stgx=634) PLATELET COUNT (BEAKER) (test zefj=569) 253 K/CU MM 150-450 MEAN PLATELET VOLUME (BEAKER) (test tymn=972) 12.1 fL 9.4-12.3 NUCLEATED RED BLOOD CELLS (BEAKER) (test 0 /100 WBC 0-0 cqsf=068) NEUTROPHILS RELATIVE PERCENT (BEAKER) (test 73 % wdln=412) LYMPHOCYTES RELATIVE PERCENT (BEAKER) (test 16 % gwdh=100) MONOCYTES RELATIVE PERCENT (BEAKER) (test 9 % wwyj=797) EOSINOPHILS RELATIVE PERCENT (BEAKER) (test 1 % wdyo=127) BASOPHILS RELATIVE PERCENT (BEAKER) (test 0 % jwer=413) NEUTROPHILS ABSOLUTE COUNT (BEAKER) (test 10.11 K/ L 1.56-6.13 wupa=939) LYMPHOCYTES ABSOLUTE COUNT (BEAKER) (test 2.21 K/ L 1.18-3.74 bzav=242) MONOCYTES ABSOLUTE COUNT (BEAKER) (test 1.29 K/ L 0.24-0.36 ytuv=110) EOSINOPHILS ABSOLUTE COUNT (BEAKER) (test 0.15 K/ L 0.04-0.36 mwvz=848) BASOPHILS ABSOLUTE COUNT (BEAKER) (test 0.06 K/ L 0.01-0.08 yhhz=690) IMMATURE GRANULOCYTES-RELATIVE PERCENT (BEAKER) 1 % 0-1 (test xyne=5219) BASIC METABOLIC [id number] 03:41:00 Test Item Value Reference Range Comments SODIUM (BEAKER) (test 135 meq/L 136-145 cuth=971) POTASSIUM (BEAKER) (test 4.4 meq/L 3.5-5.1 nkbs=848) CHLORIDE (BEAKER) (test 104 meq/L 98-107 dqvg=127) CO2 (BEAKER) (test 22 meq/L 22-29 loty=150) BLOOD UREA NITROGEN 52 mg/dL 7-21 (BEAKER) (test trne=454) CREATININE (BEAKER) (test 1.04 mg/dL 0.57-1.25 tubb=656) GLUCOSE RANDOM (BEAKER) 354 mg/dL 70-105 (test thbk=146) CALCIUM (BEAKER) (test 8.7 mg/dL 8.4-10.2 ynyo=727) EGFR (BEAKER) (test 52 mL/min/1.73 sq m ESTIMATED GFR IS NOT bmwk=4599) ACCURATE CREATININE CLEARANCE IN PREDICTING GLOMERULAR FILTRATION RATE. ESTIMATED GFR IS NOT APPLICABLE FOR DIALYSIS PATIENTS. POCT-GLUCOSE [id number] 22:56:00 Test Item Value Reference Range Comments POC-GLUCOSE METER (BEAKER) 275 mg/dL 70-110 TESTED AT [facility] [address] [facility] (test buka=4659) [facility] [address] URINE [id number] 18:15:00 Test Item Value Reference Range Comments CULTURE (BEAKER) (test hrwk=8446) <10,000 col/mL skin abdon URINALYSIS W/ [id number] 15:32:00 Test Item Value Reference Range Comments COLOR (BEAKER) (test niyf=896) Yellow CLARITY (BEAKER) (test rdtu=784) Clear SPECIFIC GRAVITY UA (BEAKER) (test 1.011 1.001-1.035 yuza=088) PH UA (BEAKER) (test ribi=229) 6.5 5.0-8.0 PROTEIN UA (BEAKER) (test uchu=623) 20 mg/dL Negative GLUCOSE UA (BEAKER) (test fodv=827) >1000 mg/dL Negative KETONES UA (BEAKER) (test xvzh=604) Negative Negative BILIRUBIN UA (BEAKER) (test Negative Negative twpt=964) BLOOD UA (BEAKER) (test pnpu=960) Negative Negative NITRITE UA (BEAKER) (test nwgv=921) Negative Negative LEUKOCYTE ESTERASE UA (BEAKER) Negative Negative (test ndwj=660) UROBILINOGEN UA (BEAKER) (test 0.2 mg/dL 0.2-1.0 zfxf=862) RBC UA (BEAKER) (test zjma=521) < /HPF WBC UA (BEAKER) (test ryrf=031) 2 /HPF SOURCE(BEAKER) (test lehc=0984) Urine, Straight Catheter POCT-GLUCOSE [id number] 11:43:00 Test Item Value Reference Range Comments POC-GLUCOSE METER (BEAKER) 340 mg/dL 70-110 TESTED AT [address] (test iweh=9213) [facility] [address] POCT-GLUCOSE [id number] 07:26:00 Test Item Value Reference Range Comments POC-GLUCOSE METER (BEAKER) 178 mg/dL 70-110 TESTED AT [address] (test khii=3184) [place] [address] POCT-GLUCOSE [id number] 23:39:00 Test Item Value Reference Range Comments POC-GLUCOSE METER (BEAKER) 183 mg/dL 70-110 TESTED AT [address] (test gnge=4103) [place] [address] POCT-GLUCOSE [id number] 22:25:00 Test Item Value Reference Range Comments POC-GLUCOSE METER (BEAKER) 208 mg/dL 70-110 TESTED AT [address] (test ocac=7816) [place] [address] POCT-GLUCOSE [id number] 20:12:00 Test Item Value Reference Range Comments POC-GLUCOSE METER (BEAKER) 194 mg/dL 70-110 TESTED AT [address] (test xbqs=6843) [place] [address] POCT-GLUCOSE [id number] 16:11:00 Test Item Value Reference Range Comments POC-GLUCOSE METER (BEAKER) 266 mg/dL 70-110 TESTED AT [address] (test dppk=1117) [place] [address] POCT-GLUCOSE [id number] 11:17:00 Test Item Value Reference Range Comments POC-GLUCOSE METER (BEAKER) 288 mg/dL 70-110 TESTED AT [address] (test vkdb=0750) [place] [address] POCT-GLUCOSE [id number] 08:57:00 Test Item Value Reference Range Comments POC-GLUCOSE METER (BEAKER) 202 mg/dL 70-110 TESTED AT [address] (test ddzu=4351) [place] [address] BASIC METABOLIC [id number] 07:38:00 Test Item Value Reference Range Comments SODIUM (BEAKER) (test 137 meq/L 136-145 nnct=537) POTASSIUM (BEAKER) (test 3.7 meq/L 3.5-5.1 pwke=004) CHLORIDE (BEAKER) (test 103 meq/L 98-107 hpqt=591) CO2 (BEAKER) (test 25 meq/L 22-29 dvvn=001) BLOOD UREA NITROGEN 28 mg/dL 7-21 (BEAKER) (test wldw=676) CREATININE (BEAKER) (test 1.13 mg/dL 0.57-1.25 frww=062) GLUCOSE RANDOM (BEAKER) 194 mg/dL 70-105 (test ndjt=710) CALCIUM (BEAKER) (test 9.0 mg/dL 8.4-10.2 bywo=128) EGFR (BEAKER) (test 47 mL/min/1.73 sq m ESTIMATED GFR IS NOT bbyt=7013) ACCURATE CREATININE CLEARANCE IN PREDICTING GLOMERULAR FILTRATION RATE. ESTIMATED GFR IS NOT APPLICABLE FOR DIALYSIS PATIENTS. CBC W/PLT COUNT & AUTO [id number] 05:53:00 Test Item Value Reference Range Comments WHITE BLOOD CELL COUNT (BEAKER) (test oenp=650) 11.7 K/ L 3.5-10.5 RED BLOOD CELL COUNT (BEAKER) (test egbf=063) 4.34 M/ L 3.93-5.22 HEMOGLOBIN (BEAKER) (test heqo=758) 12.6 GM/DL 11.2-15.7 HEMATOCRIT (BEAKER) (test zpcw=850) 38.1 % 34.1-44.9 MEAN CORPUSCULAR VOLUME (BEAKER) (test kkqv=031) 87.8 fL 79.4-94.8 MEAN CORPUSCULAR HEMOGLOBIN (BEAKER) (test 29.0 pg 25.6-32.2 nnkt=244) MEAN CORPUSCULAR HEMOGLOBIN CONC (BEAKER) (test 33.1 GM/DL 32.2-35.5 epul=744) RED CELL DISTRIBUTION WIDTH (BEAKER) (test 14.0 % 11.7-14.4 mnus=670) PLATELET COUNT (BEAKER) (test bxnc=609) 201 K/CU MM 150-450 MEAN PLATELET VOLUME (BEAKER) (test hiyo=611) 12.4 fL 9.4-12.3 NUCLEATED RED BLOOD CELLS (BEAKER) (test 0 /100 WBC 0-0 hyxg=612) NEUTROPHILS RELATIVE PERCENT (BEAKER) (test 64 % yxum=692) LYMPHOCYTES RELATIVE PERCENT (BEAKER) (test 17 % yhiy=933) MONOCYTES RELATIVE PERCENT (BEAKER) (test 15 % qqpx=702) EOSINOPHILS RELATIVE PERCENT (BEAKER) (test 2 % ddut=797) BASOPHILS RELATIVE PERCENT (BEAKER) (test 1 % yxwg=930) NEUTROPHILS ABSOLUTE COUNT (BEAKER) (test 7.52 K/ L 1.56-6.13 dcss=489) LYMPHOCYTES ABSOLUTE COUNT (BEAKER) (test 1.98 K/ L 1.18-3.74 ytod=136) MONOCYTES ABSOLUTE COUNT (BEAKER) (test 1.78 K/ L 0.24-0.36 xoox=536) EOSINOPHILS ABSOLUTE COUNT (BEAKER) (test 0.27 K/ L 0.04-0.36 sszh=685) BASOPHILS ABSOLUTE COUNT (BEAKER) (test 0.07 K/ L 0.01-0.08 ahys=603) IMMATURE GRANULOCYTES-RELATIVE PERCENT (BEAKER) 0 % 0-1 (test vqyx=1334) POCT-GLUCOSE [id number] 20:12:00 Test Item Value Reference Range Comments POC-GLUCOSE METER (BEAKER) 333 mg/dL 70-110 TESTED AT [address] (test ryod=5092) [facility] [address] POCT-GLUCOSE [id number] 11:45:00 Test Item Value Reference Range Comments POC-GLUCOSE METER (BEAKER) 355 mg/dL 70-110 TESTED AT [address] (test bnoe=8890) [facility] [address] POCT-GLUCOSE [id number] 08:17:00 Test Item Value Reference Range Comments POC-GLUCOSE METER (BEAKER) 303 mg/dL 70-110 TESTED AT [address] (test rrfv=5807) [facility] [address] POCT-GLUCOSE [id number] 00:00:00 Test Item Value Reference Range Comments POC-GLUCOSE METER (BEAKER) 340 mg/dL 70-110 TESTED AT [address] (test hvqy=8957) [facility] [address] POCT-GLUCOSE [id number] 20:42:00 Test Item Value Reference Range Comments POC-GLUCOSE METER (BEAKER) 309 mg/dL 70-110 TESTED AT [address] (test bedy=5194) [facility] [address] POCT-GLUCOSE [id number] 17:09:00 Test Item Value Reference Range Comments POC-GLUCOSE METER (BEAKER) 351 mg/dL 70-110 TESTED AT [facility] [address] [facility] (test xubh=0237) [facility] [address] POCT-GLUCOSE [id number] 11:28:00 Test Item Value Reference Range Comments POC-GLUCOSE METER (BEAKER) 327 mg/dL 70-110 TESTED AT [address] (test ywjg=9118) [facility] [address] POCT-GLUCOSE [id number] 07:37:00 Test Item Value Reference Range Comments POC-GLUCOSE METER (BEAKER) 247 mg/dL 70-110 TESTED AT [address] (test islc=9238) [facility] [address] BASIC METABOLIC [id number] 03:12:00 Test Item Value Reference Range Comments SODIUM (BEAKER) (test 130 meq/L 136-145 jauc=671) POTASSIUM (BEAKER) (test 4.6 meq/L 3.5-5.1 qwrt=765) CHLORIDE (BEAKER) (test 101 meq/L 98-107 rczu=145) CO2 (BEAKER) (test 19 meq/L 22-29 yunu=295) BLOOD UREA NITROGEN 41 mg/dL 7-21 (BEAKER) (test nyfn=639) CREATININE (BEAKER) (test 1.89 mg/dL 0.57-1.25 kifc=779) GLUCOSE RANDOM (BEAKER) 277 mg/dL 70-105 (test jcuc=813) CALCIUM (BEAKER) (test 8.3 mg/dL 8.4-10.2 pleb=349) EGFR (BEAKER) (test 26 mL/min/1.73 sq m ESTIMATED GFR IS NOT iggv=2176) ACCURATE CREATININE CLEARANCE IN PREDICTING GLOMERULAR FILTRATION RATE. ESTIMATED GFR IS NOT APPLICABLE FOR DIALYSIS PATIENTS. CBC W/PLT COUNT & AUTO [id number] 03:01:00 Test Item Value Reference Range Comments WHITE BLOOD CELL COUNT (BEAKER) (test idjq=476) 17.2 K/ L 3.5-10.5 RED BLOOD CELL COUNT (BEAKER) (test tnam=283) 3.90 M/ L 3.93-5.22 HEMOGLOBIN (BEAKER) (test quzo=157) 11.7 GM/DL 11.2-15.7 HEMATOCRIT (BEAKER) (test bkza=925) 36.3 % 34.1-44.9 MEAN CORPUSCULAR VOLUME (BEAKER) (test caxd=679) 93.1 fL 79.4-94.8 MEAN CORPUSCULAR HEMOGLOBIN (BEAKER) (test 30.0 pg 25.6-32.2 gfah=722) MEAN CORPUSCULAR HEMOGLOBIN CONC (BEAKER) (test 32.2 GM/DL 32.2-35.5 fysi=103) RED CELL DISTRIBUTION WIDTH (BEAKER) (test 14.4 % 11.7-14.4 uzyc=073) PLATELET COUNT (BEAKER) (test rgbt=678) 153 K/CU MM 150-450 MEAN PLATELET VOLUME (BEAKER) (test vtlq=897) 12.5 fL 9.4-12.3 NUCLEATED RED BLOOD CELLS (BEAKER) (test 0 /100 WBC 0-0 tqub=788) NEUTROPHILS RELATIVE PERCENT (BEAKER) (test 76 % pgjj=618) LYMPHOCYTES RELATIVE PERCENT (BEAKER) (test 13 % tleh=193) MONOCYTES RELATIVE PERCENT (BEAKER) (test 10 % bvzc=925) EOSINOPHILS RELATIVE PERCENT (BEAKER) (test 0 % zphs=948) BASOPHILS RELATIVE PERCENT (BEAKER) (test 0 % zmuv=662) NEUTROPHILS ABSOLUTE COUNT (BEAKER) (test 13.01 K/ L 1.56-6.13 ahix=292) LYMPHOCYTES ABSOLUTE COUNT (BEAKER) (test 2.28 K/ L 1.18-3.74 cnfc=607) MONOCYTES ABSOLUTE COUNT (BEAKER) (test 1.74 K/ L 0.24-0.36 ylsx=454) EOSINOPHILS ABSOLUTE COUNT (BEAKER) (test 0.00 K/ L 0.04-0.36 lmqh=889) BASOPHILS ABSOLUTE COUNT (BEAKER) (test 0.04 K/ L 0.01-0.08 qokr=241) IMMATURE GRANULOCYTES-RELATIVE PERCENT (BEAKER) 1 % 0-1 (test xvqa=[id number])
[2019-11-06] MEDS ORDERED: IPRATROPIUM BROM 0.5MG/2.5ML ONE (10:24)
[2019-11-06] MEDS ORDERED: ALBUTEROL 2.5 MG/3 ML NEB SOL ONE (10:24)
[2019-11-06 11:01] LABS: Absolute Lymphocytes (CBC) 1.5 K/uL (0.7-4.9); Basophils % 0.4 % (0-1.3); Hematocrit 32.2 % (36.0-45.0); Lymphocytes % 19.5 % (15.3-44.8); MPV 9.8 fL (7.6-11.3); RBC Red Blood Cell Count 4.16 M/uL (3.86-4.86)
[2019-11-06 11:03] LABS: Protime INR 1.11
--- NOTE | 2019-11-06 11:13 | RAD REPORT ---
EXAM DESCRIPTION: Amy Single View11/06/2019 10:53 am CLINICAL HISTORY: Chest pain COMPARISON: 2018 FINDINGS: The lungs appear clear of acute infiltrate. The heart is mildly enlarged. Postsurgical changes involve the chest. IMPRESSION: No acute abnormalities displayed
[2019-11-06 11:21] LABS: ALT/SGPT 37 U/L (12-78); AST/SGOT 36 U/L (15-37); Albumin 3.7 g/dL (3.4-5.0); Alkaline Phosphatase 55 U/L (45-117); BUN Blood Urea Nitrogen 36 mg/dL (7-18); Bicarbonate 25 mmol/L (21-32); Bilirubin Direct 0.1 mg/dL (0-0.2); Bilirubin Total 0.3 mg/dL (0.2-1.0); Glucose Level 241 mg/dL (74-106); NT PRO-BNP 1702 pg/mL (<450); Potassium 4.5 mmol/L (3.5-5.1); Sodium Level 141 mmol/L (136-145); Troponin (Emerg Dept Use Only) < 0.02 ng/mL (0.0-0.045)
--- NOTE | 2019-11-06 12:38 | ER ---
Nurse's Notes [facility] Name: Ace Almendarez Age: 79 yrs Sex: Female : 1940 Arrival Date: 11/06/2019 Time: 10:00 Bed 17 Private MD: Diagnosis: Unspecified systolic (congestive) heart failure;Bronchitis, not specified as acute or chronic;Hypoxia;Dyspnea Presentation: 11/06 10:01 Presenting complaint: EMS states: Pt from home, c/o difficulty breathing and cough, hx ph of advanced dementia which family reports has been worsening over the last 2 weeks, has had mild cough x 2-3 days which worsened last night, SpO2 89% RA, improved to 99% on NC \T\ 6L. Transition of care: patient was not received from another setting of care. Onset of symptoms was November 06, 2019. Risk Assessment: Do you want to hurt yourself or someone else? Patient reports no desire to harm self or others. Initial Sepsis Screen: Does the patient meet any 2 criteria? RR > 20 per min. No. Patient's initial sepsis screen is negative. Does the patient have a suspected source of infection? Yes: Productive cough/pneumonia. Care prior to arrival: None. 10:01 Method Of Arrival: EMS: [facility] ph 10:01 Acuity: PARVIN 3 ph Historical: - Allergies: 10:05 PENICILLINS; ph - Home Meds: 10:15 amlodipine 5 mg tab twice a day [Active]; aspirin 81 mg Oral TbEC 1 tab once daily ph [Active]; atorvastatin 40 mg Oral tab 1 tab once daily [Active]; carvedilol 25 mg Oral tab 1 tab 2 times per day [Active]; coenzyme Q10 100 mg Oral cap daily [Active]; galantamine 12 mg Oral tab 1 tab 2 times per day [Active]; Humalog 100 unit/mL Sub-Q soln [Active]; Lantus 100 unit/mL Sub-Q soln [Active]; losartan 100 mg Oral tab 1 tab once daily [Active]; hydrochlorothiazide 12.5 mg Oral cap 1 cap once daily [Active]; Namenda XR 28 mg Oral CSpX 1 cap once daily [Active]; pantoprazole 40 mg Oral TbEC 1 tab once daily [Active]; Synthroid 50 mcg Oral tab 1 tab once daily [Active]; Plavix 75 mg Oral tab 1 tab once daily [Active]; nitrofurantoin macrocrystal 50 mg Oral cap 1 cap once daily [Active]; Estring 2 mg vaginal ring 1 vaginal ring every 90 days [Active]; - PMHx: 10:15 chronic uti; Dementia; Diabetes - NIDDM; Hyperlipidemia; Hypertension; Hypothyroidism; ph - PSHx: 10:15 Pacemaker; Heart stents; Hysterectomy; ph - Immunization history:: Adult Immunizations up to date. - Coronavirus screen:: The patient has NOT traveled to [place], [employer], or [place] in the past 14 days. The patient has NOT had contact with known/suspected case of Coronavirus?. - Social history:: Smoking status: Patient denies any tobacco usage or history of. - Ebola Screening: : No symptoms or risks identified at this time. Screenin:07 Abuse screen: Denies threats or abuse. Denies injuries from another. Nutritional ph screening: No deficits noted. Tuberculosis screening: No symptoms or risk factors identified. Fall Risk None identified. Assessment: 11:05 General: Appears in no apparent distress. uncomfortable, well groomed, Behavior is ph calm, cooperative, appropriate for age. Pain: Denies pain. Neuro: Level of Consciousness is awake, alert, obeys commands, Oriented to person, place, Moves all extremities. Cardiovascular: Rhythm is Respiratory: Airway is patent Respiratory effort is labored, Respiratory pattern is tachypnea Breath sounds are diminished bilaterally. Parent/caregiver reports the patient having shortness of breath cough that is labored breathing. GI: Abdomen is round non-distended, Patient currently denies abdominal pain, nausea, vomiting. Derm: Skin is intact, Skin is pink, warm \T\ dry. Musculoskeletal: Circulation, motion, and sensation intact. Range of motion: intact in all extremities. 12:00 Reassessment: Patient appears in no apparent distress at this time. Patient and/or ph family updated on plan of care and expected duration. Pain level reassessed. 13:00 Reassessment: Patient appears in no apparent distress at this time. Patient and/or ph family updated on plan of care and expected duration. Pain level reassessed. 14:00 Reassessment: Patient appears in no apparent distress at this time. Patient and/or ph family updated on plan of care and expected duration. Pain level reassessed. Pt sitting up in bed, eating sandwich and chips, tolerating well, SO at bedside, awaiting room assignment. 15:00 Reassessment: Patient appears in no apparent distress at this time. No changes from ph previously documented assessment. Patient and/or family updated on plan of care and expected duration. Pain level reassessed. Vital Signs: 10:04 BP 152 / 60; Pulse 76; Resp 24; Temp 99.6(O); Pulse Ox 91% on R/A; ph 11:07 BP 123 / 63; Pulse 72; Resp 22; Pulse Ox 96% on 2 lpm NC; ph 12:11 BP 125 / 57; Pulse 78; Resp 18; Pulse Ox 95% on 2 lpm NC; ph 13:30 BP 127 / 68; Pulse 76; Resp 21; Pulse Ox 96% on 2 lpm NC; ph 14:48 BP 129 / 76; Pulse 77; Resp 18; Pulse Ox 94% on R/A; ph 15:22 BP 147 / 55; Pulse 74; Resp 18; Temp 98.2(O); Pulse Ox 94% on R/A; ph ED Course: 10:00 Patient arrived in ED. rb1 10:00 Nandini Pro, SOCORRO is Primary Nurse. ph 10:03 Triage completed. ph 10:06 Peter Raza NP is PHCP. pm1 10:06 Dony Rojas MD is Attending Physician. pm1 10:07 Patient has correct armband on for positive identification. Placed in gown. Bed in low ph position. Call light in reach. Side rails up X2. quality assurance monitor body on. Pulse ox on. NIBP on. Door closed. Noise minimized. Warm blanket given. Head of bed elevated. 10:16 EKG done, by ED staff, reviewed by Dony Rojas MD. mh5 10:28 Strep Sent. mh5 10:28 Flu Sent. mh5 10:28 Flu and/or RSV swab sent to lab. Strep swab sent to lab. mh5 10:40 First set of blood cultures drawn. Missed attempt(s): 22 gauge in right forearm. ph Bleeding controlled, band aid applied, catheter tip intact. 10:45 Initial lab(s) drawn, by il, sent to lab. Second set of blood cultures drawn. Inserted ph saline lock: 22 gauge in left antecubital area, using aseptic technique. Blood collected. 10:53 XRAY Chest (1 view) In Process Unspecified. EDMS 11:07 Arm band placed on Patient placed in an exam room, on a stretcher, on oxygen, on ph teletypesetter monitor, on pulse oximetry. 11:07 No provider procedures requiring assistance completed. Patient admitted, IV remains in ph place. 12:37 Bret Blackwell MD is Hospitalizing Provider. pm1 Administered Medications: 10:35 Drug: Albuterol - atroVENT (3:1) (2.5 mg - 0.5 mg) 3 ml Route: Nebulizer; ph 14:48 Follow up: Response: No adverse reaction ph 14:35 Drug: Rocephin 1 grams Route: IV; Rate: calculated rate; Site: left antecubital; ph 14:48 Follow up: Response: No adverse reaction; IV Status: Completed infusion ph 14:38 Drug: Lasix 20 mg Route: IVP; Site: left antecubital; ph 15:30 Follow up: Response: No adverse reaction ph Outcome: 12:37 Decision to Hospitalize by Provider. pm1 16:10 Admitted to Tele accompanied by tech, family with patient, via stretcher, with oxygen, ph with chart. 16:10 Condition: stable 16:10 Instructed on the need for admit. 16:14 Patient left the ED. ph Signatures: Dispatcher [employer] EDNandini Kumar RN RN ph Barber, Rebecca, RN RN [id number] Peter Raza NP CATERING CHEF pm1 Rossy Malloy 5 Corrections: (The following items were deleted from the chart) 10:06 10:04 BP 152 / 60; Pulse 76bpm; Resp 24bpm; Pulse Ox 91% RA; Temp 98.5F Temporal; ph ph 19:29 15:22 BP 147 / 55; Pulse 74bpm; Resp 18bpm; Pulse Ox 94% RA; ph ph
--- NOTE | 2019-11-06 12:38 | EDPHYS ---
Physician Documentation [facility] Name: Ace Almendarez Age: 79 yrs Sex: Female : 1940 Arrival Date: 11/06/2019 Time: 10:00 Bed 17 Private MD: ED Physician Dony Rojas HPI: 11/06 10:15 This 79 yrs old Other Female presents to ER via EMS with complaints of Shortness Of pm1 Breath. 10:15 The patient has shortness of breath at rest. Onset: The symptoms/episode began/occurred pm1 3 day(s) ago. Duration: The symptoms are continuous, and are steadily getting worse. The patient's shortness of breath is alleviated by application of supplemental oxygen, by EMS. Patient does not use home oxygen. Associated signs and symptoms: Pertinent positives: productive cough, Pertinent negatives: chest pain, fever, vomiting. Severity of symptoms: Pain is currently a 0 / 10. Historical: - Allergies: 10:05 PENICILLINS; ph - Home Meds: 10:15 amlodipine 5 mg tab twice a day [Active]; aspirin 81 mg Oral TbEC 1 tab once daily ph [Active]; atorvastatin 40 mg Oral tab 1 tab once daily [Active]; carvedilol 25 mg Oral tab 1 tab 2 times per day [Active]; coenzyme Q10 100 mg Oral cap daily [Active]; galantamine 12 mg Oral tab 1 tab 2 times per day [Active]; Humalog 100 unit/mL Sub-Q soln [Active]; Lantus 100 unit/mL Sub-Q soln [Active]; losartan 100 mg Oral tab 1 tab once daily [Active]; hydrochlorothiazide 12.5 mg Oral cap 1 cap once daily [Active]; Namenda XR 28 mg Oral CSpX 1 cap once daily [Active]; pantoprazole 40 mg Oral TbEC 1 tab once daily [Active]; Synthroid 50 mcg Oral tab 1 tab once daily [Active]; Plavix 75 mg Oral tab 1 tab once daily [Active]; nitrofurantoin macrocrystal 50 mg Oral cap 1 cap once daily [Active]; Estring 2 mg vaginal ring 1 vaginal ring every 90 days [Active]; - PMHx: 10:15 chronic uti; Dementia; Diabetes - NIDDM; Hyperlipidemia; Hypertension; Hypothyroidism; ph - PSHx: 10:15 Pacemaker; Heart stents; Hysterectomy; ph - Immunization history:: Adult Immunizations up to date. - Coronavirus screen:: The patient has NOT traveled to [place], [place], or [place] in the past 14 days. The patient has NOT had contact with known/suspected case of Coronavirus?. - Social history:: Smoking status: Patient denies any tobacco usage or history of. - Ebola Screening: : No symptoms or risks identified at this time. ROS: 10:15 Constitutional: Negative for fever, chills, and weight loss, ENT: Negative for injury, pm1 pain, and discharge, Neck: Negative for injury, pain, and swelling, Cardiovascular: Negative for chest pain, palpitations, and edema. 10:15 Abdomen/GI: Negative for abdominal pain, nausea, vomiting, diarrhea, and constipation, Back: Negative for injury and pain, MS/Extremity: Negative for injury and deformity, Skin: Negative for injury, rash, and discoloration, Neuro: Negative for headache, weakness, numbness, tingling, and seizure. 10:15 Respiratory: Positive for cough, with yellow sputum, shortness of breath. Exam: 10:15 Head/Face: Normocephalic, atraumatic. ENT: Nares patent. No nasal discharge, no pm1 septal abnormalities noted. Tympanic membranes are normal and external auditory canals are clear. Oropharynx with no redness, swelling, or masses, exudates, or evidence of obstruction, uvula midline. Mucous membranes moist. Neck: Trachea midline, no thyromegaly or masses palpated, and no cervical lymphadenopathy. Supple, full range of motion without nuchal rigidity, or vertebral point tenderness. No Meningismus. Chest/axilla: Normal chest wall appearance and motion. Nontender with no deformity. No lesions are appreciated. Cardiovascular: Regular rate and rhythm with a normal S1 and S2. No gallops, murmurs, or rubs. Normal PMI, no JVD. No pulse deficits. 10:15 Abdomen/GI: Soft, non-tender, with normal bowel sounds. No distension or tympany. No guarding or rebound. No evidence of tenderness throughout. Back: No spinal tenderness. No costovertebral tenderness. Full range of motion. Skin: Warm, dry with normal turgor. Normal color with no rashes, no lesions, and no evidence of cellulitis. MS/ Extremity: Pulses equal, no cyanosis. Neurovascular intact. Full, normal range of motion. 10:15 Constitutional: The patient appears in no acute distress, awake, comfortable, non-diaphoretic, non-toxic, well developed, well hydrated, well groomed, well nourished. 10:15 Respiratory: the patient does not display signs of respiratory distress, Breath sounds: decreased breath sounds, are located in both bases. Vital Signs: 10:04 BP 152 / 60; Pulse 76; Resp 24; Temp 99.6(O); Pulse Ox 91% on R/A; ph 11:07 BP 123 / 63; Pulse 72; Resp 22; Pulse Ox 96% on 2 lpm NC; ph 12:11 BP 125 / 57; Pulse 78; Resp 18; Pulse Ox 95% on 2 lpm NC; ph 13:30 BP 127 / 68; Pulse 76; Resp 21; Pulse Ox 96% on 2 lpm NC; ph 14:48 BP 129 / 76; Pulse 77; Resp 18; Pulse Ox 94% on R/A; ph 15:22 BP 147 / 55; Pulse 74; Resp 18; Temp 98.2(O); Pulse Ox 94% on R/A; ph MDM: 10:13 Patient medically screened. pm1 11:55 Data reviewed: vital signs. Data interpreted: Pulse oximetry: on 2L(s) per nasal pm1 canula, is 96 %. Interpretation: normal. 12:10 Counseling: I had a detailed discussion with the patient and/or guardian regarding: the pm1 historical points, exam findings, and any diagnostic results supporting the discharge/admit diagnosis, lab results, radiology results, the need for further work-up and treatment in the hospital. 13:29 Physician consultation: Bret Blackwell MD called at 1210 LM, [phone], and 1329. pm1 14:17 Physician consultation: Bret Blackwell MD was contacted at 14:17, regarding admission, pm1 patient's condition, and will see patient Wants Rocephin 1 gm IV every 24 hours, no steroids, Lasix 20 mg IV once. 11/06 10:15 Order name: Basic Metabolic Panel; Complete Time: 11:24 pm1 11/06 10:15 Order name: CBC with Diff; Complete Time: 11:15 pm1 11/06 10:15 Order name: LFT's; Complete Time: 11:24 pm11/06 10:15 Order name: Magnesium; Complete Time: 11:24 pm11/06 10:15 Order name: NT PRO-BNP; Complete Time: 11:24 pm11/06 10:15 Order name: PT-INR; Complete Time: 11:15 pm11/06 10:15 Order name: Troponin (emerg Dept Use Only); Complete Time: 11:24 pm11/06 10:15 Order name: Sputum Culture 11/06 10:15 Order name: Blood Culture Adult (2) 11/06 10:15 Order name: Procalcitonin; Complete Time: 11:55 pm11/06 10:15 Order name: Lactate; Complete Time: 11:24 pm11/06 10:16 Order name: Flu; Complete Time: 11:15 11/06 10:16 Order name: Strep; Complete Time: 11:15 pm11/06 10:40 Order name: Throat Culture [facility] 11/06 10:15 Order name: XRAY Chest (1 view); Complete Time: 11:15 11/06 10:15 Order name: EKG; Complete Time: 10:16 11/06 10:15 Order name: Cardiac monitoring; Complete Time: 10:18 11/06 10:15 Order name: EKG - Nurse/Tech; Complete Time: 10:17 11/06 10:15 Order name: IV Saline Lock; Complete Time: 11:04 11/06 10:15 Order name: Labs collected and sent; Complete Time: 11:04 11/06 10:15 Order name: O2 Per Protocol; Complete Time: 10:18 11/06 10:15 Order name: O2 Sat Monitoring; Complete Time: 11:04 pm Administered Medications: 10:35 Drug: Albuterol - atroVENT (3:1) (2.5 mg - 0.5 mg) 3 ml Route: Nebulizer; ph 14:48 Follow up: Response: No adverse reaction ph 14:35 Drug: Rocephin 1 grams Route: IV; Rate: calculated rate; Site: left antecubital; ph 14:48 Follow up: Response: No adverse reaction; IV Status: Completed infusion ph 14:38 Drug: Lasix 20 mg Route: IVP; Site: left antecubital; ph 15:30 Follow up: Response: No adverse reaction ph Disposition: 21:27 Co-signature as Attending Physician, Dony Rojas MD I agree with the assessment and kdr plan of care. Disposition: 11/06/19 12:37 Hospitalization ordered by Bret Blackwell for Observation. Preliminary diagnosis are Bronchitis, not specified as acute or chronic, Unspecified systolic (congestive) heart failure, Hypoxia, Dyspnea. - Bed requested for Telemetry/MedSurg (observation). - Status is Observation. ph - Condition is Stable. - Problem is new. - Symptoms have improved. UTI on Admission? No Signatures: Dispatcher [employer] EDMS Dony Rojas MD MD [facility] Nandini Pro RN RN Peter Raza, [employer] INSPECTOR pm1 Masoud Rey RN RN ja1 Corrections: (The following items were deleted from the chart) 14:30 12:37 Hospitalization Ordered by Bret Blackwell MD for Inpatient Admission. Preliminary pm1 diagnosis is Unspecified systolic (congestive) heart failure; Bronchitis, not specified as acute or chronic. Bed requested for Telemetry/MedSurg (Inpatient). Status is Inpatient Admission. Condition is Stable. Problem is new. Symptoms have improved. UTI on Admission? No. pm1 14:33 14:30 11/06/2019 12:37 Hospitalization Ordered by Bret Blackwell MD for Observation. pm1 Preliminary diagnosis is Unspecified systolic (congestive) heart failure; Bronchitis, not specified as acute or chronic. Bed requested for Telemetry/MedSurg (observation). Status is Observation. Condition is Stable. Problem is new. Symptoms have improved. UTI on Admission? No. pm1 14:33 14:33 11/06/2019 12:37 Hospitalization Ordered by Bret Blackwell MD for Observation. pm1 Preliminary diagnosis is Unspecified systolic (congestive) heart failure; Bronchitis, not specified as acute or chronic; Hypoxia; Dyspnea. Bed requested for Telemetry/MedSurg (observation). Status is Observation. Condition is Stable. Problem is new. Symptoms have improved. UTI on Admission? No. pm1 15:23 14:33 11/06/2019 12:37 Hospitalization Ordered by Bret Blackwell MD for Observation. ja1 Preliminary diagnosis is Bronchitis, not specified as acute or chronicUnspecified systolic (congestive) heart failure; Hypoxia; Dyspnea. Bed requested for Telemetry/MedSurg (observation). Status is Observation. Condition is Stable. Problem is new. Symptoms have improved. UTI on Admission? No. pm1 16:14 15:23 11/06/2019 12:37 Hospitalization Ordered by Bret Blackwell MD for Observation. ph Preliminary diagnosis is Bronchitis, not specified as acute or chronicUnspecified systolic (congestive) heart failure; Hypoxia; Dyspnea. Bed requested for Telemetry/MedSurg (observation). Status is Observation. Condition is Stable. Problem is new. Symptoms have improved. UTI on Admission? No. ja1
[2019-11-06] MEDS ORDERED: FUROSEMIDE 20 MG/ 2ML VIAL ONE (14:25)
[2019-11-06] MEDS ORDERED: CEFTRIAXONE/SWI 1gm 1 GM/10 ML SYR ONE (14:26)
[2019-11-06] MEDS ORDERED: GLUCAGON 1 MG/VIAL IM PRN (15:54)
[2019-11-06] MEDS ORDERED: D50W 25 GM/50 ML SYRINGE/VIAL IV PRN (15:54)
[2019-11-06] MEDS ORDERED: IPRATROPIUM BROM 0.5MG/2.5ML NEB PRN (15:54)
[2019-11-06] MEDS ORDERED: ALBUTEROL 2.5 MG/3 ML NEB SOL NEB PRN (15:54)
[2019-11-06 16:56] VITALS: BMI 32.3
[2019-11-06] MEDS: INSULIN -REGULAR HUMAN 50 UNIT/0.5 ML ML SQ SCH ×2 (16:59→20:39)
--- NOTE | 2019-11-06 17:45 | P.HP ---
Certification for Inpatient Patient admitted to: Observation With expected LOS: <2 Midnights Practitioner: I am a practitioner with admitting privileges, knowledge of patient current condition, hospital course, and medical plan of care. Services: Services provided to patient in accordance with Admission requirements found in Title 42 Section 412.3 of the Code of Federal Regulations Patient History Date of Service: 11/06/19 Reason for admission: COUGH, RESTLESS, DYSPNEA History of Present Illness: MRS. DUMONT HAS SEVERE ALZ. DISEASE AT BASELINE AND IS TAKEN CARE BY AT HOME. SHE HAS HAD RECURRENT UTI AND GOES TO UROLOGIST WHO GIVES HER MACRODANTIN. I HAVE TOLD THE THAT MACRODANTIN CAN GIVE RISE TO SUBACUTE , IDISYNCRATIC RESPIRATORY FAILURE. THEY DECIDED TO CONTINUE. SHE CAN'T TAKE FLU VACCINE. SHE COMES WITH 3 DAYS OF COUGH AND RESTLESSNESS. DID NOT MENTION DYSPNEA BUT SHE DOES HAVE MILD RESPIRATORY DISTRESS. SHE HERSELF IS NOT ABLE TO COMPLAIN WITH SEVERE DEMENTIA. ER NPP CALLED ME AND I ADVISED ROCEPHIN BUT NOT STEROIDS AT PRESENT UNLESS SHE GETS WORSE. HER GLUCOSE IS ALREADY HIGH AT 300. HER DM IS MANAG[place] BY ENDO [place]. Allergies Penicillins Allergy (Verified 11/14/15 07:30) Hives/Rash Home Medications: Aspirin [Aspirin EC 81 MG] 81 mg PO DAILY 09/04/15 Atorvastatin Calcium 40 mg PO BEDTIME 09/04/15 Clopidogrel Bisulfate [Clopidogrel] 75 mg PO DAILY 09/04/15 Levothyroxine Sodium 50 mcg PO DAILY 09/04/15 Metformin HCl 1,000 mg PO BID 09/04/15 [place]-3 Fatty Acids [Fish Oil] 1,000 mg PO NOON 09/04/15 Insulin Glargine,Hum.rec.anlog [Lantus Solostar] 20 units SQ AC 02/17/17 Ascorbic Acid [Vitamin C*] 1,000 mg PO DAILY 04/23/17 Calcium Carb/D3/Magnesium/Zinc [Amadou Mag Zinc-D Tablet] 1 tab PO DAILY 04/23/17 Memantine HCl [Namenda Xr] 28 mg PO DAILY 04/23/17 Ubidecarenone [Coenzyme Q10] 100 mg PO DAILY 04/23/17 Vitamin B Complex [Vitamin B Complex*] 1 cap PO DAILY 04/23/17 Galantamine HBr [Galantamine ER] 24 mg PO BID 06/05/17 Amlodipine Besylate [Norvasc] 5 mg PO BID 11/06/19 Brinzolamide/Brimonidine Tart [Simbrinza 1%-0.2% Eye Drops] 1 drop OP BID Carvedilol [Coreg] 25 mg PO BID 11/06/19 Cranberry Fruit Extract [Theracran Hp For Kids] 360 mg PO NOON 11/06/19 Cyanocobalamin (Vitamin B-12) [Vitamin B-12] 5,000 mcg PO DAILY 11/06/19 Estradiol [Estring] 1 each VG 11/06/19 Insulin Glargine Human [Lantus] 25 unit SQ BEDTIME 11/06/19 Insulin Lispro [Humalog Kwikpen U-100] 10 unit SQ AC 11/06/19 Losartan Potassium 100 mg PO BEDTIME 11/06/19 Nitrofurantoin Monohyd/M-Cryst [Macrobid 100 mg Capsule] 50 mg PO BEDTIME Pantoprazole Sodium 40 mg PO DAILY 11/06/19 Propylene Glycol [Systane Balance] 1 drop OP TID 11/06/19 hydroCHLOROthiazide [Hydrochlorothiazide*] 12.5 mg PO M,W,F 11/06/19 - Past Medical/Surgical History Has patient received pneumonia vaccine in the past: Yes Diabetic: Yes -: DMI -: hypothryroidism -: HTN -: hyperlipidemia -: dementia -: chronic UTI gets daily antibiotic -: 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 moist/pink, EOMI, Sclerae nonicteric Neck: Supple, 2+ carotid pulse no bruit, No LAD, Without JVD or thyroid abnormality Respiratory: Clear to auscultation bilaterally, Normal air movement Cardiovascular: Regular rate/rhythm, Normal S1 S2 Gastrointestinal: Normal bowel sounds, No tenderness Musculoskeletal: No tenderness Integumentary: No rashes Neurological: Abnormal speech (SLOW AND NOT MUCH RESPONSE.), Dementia (SEVERE, ALMOST NON VERBAL AND HAS NO COGNITIVE CAPABILITY AT PRESENT.) Lymphatics: No axilla or inguinal lymphadenopathy - Studies Laboratory Data (last 24 hrs) 11/06/19 10:45: PT 13.0 H, INR 1.11 11/06/19 10:45: WBC 7.9, Hgb 10.4 L, Hct 32.2 L, Plt Count 201 11/06/19 10:45: Sodium 141, Potassium 4.5, BUN 36 H, Creatinine 1.50 H, Glucose 241 H, Magnesium 2.0, Total Bilirubin 0.3, AST 36, ALT 37, Alkaline Phosphatase 55 Microbiology Data (last 24 hrs): 11/06/19 10:25 Nasopharnyx Influenza Type A Antigen Screen - Final 11/06/19 10:25 Nasopharnyx Influenza Type B Antigen Screen - Final 11/06/19 10:25 Throat Group A Streptococcus Rapid Screen - Final Assessment and Plan - Problems (Diagnosis) (1) Acute respiratory disease Current Visit: Yes Status: Acute Plan: THIS SEEMS MORE RESPIRATORY IN ORIGIN WITH COUGH, ACHES, MILD DYSPNEA AND SPUTUM OF YELLOW COLOR. WILL DO CT ANGIOGRAM WHEN SHE IS ABLE TO WITH LOWER CREATININE HIGH BNP DOES NOT ALWAYS MEAN CHF. SHE DOES NOT HAVE CLINICAL SIGNS OF CHF. NO JVD, NO RALES ETC. I WILL WATCH HER LUNGS. AVOID STEROIDS FOR NOW. COULD MACRODANTIN GIVE RISE TO THIS ADMISSION. IT SEEMS MORE LIKE ACUTE REPIRATORY INFECTION THAN IDIOSYNCRATIC REACTION TO MACRDONATIN BUT IT IS ALWAYS REMOTELY POSSIBLE. I CALLED TO DISCUSS. ECHO WITH DOPPLER FOR DYSPNEA. ADD ZITHROMAX TO ATYPICAL COVERAGE. (2) Diabetes Onset Date: 04/24/17 Current Visit: No Status: Chronic Plan: CHECK A1C, LDL AND URI ANISA. AC AND HS COVERAGE Qualifiers: Diabetes mellitus type: type 2 - Advance Directives Does patient have a Living Will: Yes Does patient have a Durable POA for Healthcare: Yes
[2019-11-06] MEDS: INSULIN GLARGINE 100 UNITS/ML SQ SCH (20:39)
[2019-11-06] MEDS: AMLODIPINE 5 MG TAB PO SCH (20:40)
[2019-11-06] MEDS: LOSARTAN POTASSIUM 50 MG TABLET PO SCH (20:40)
[2019-11-06] MEDS: carvediloL 25 MG TAB PO SCH (20:41)
[2019-11-06] MEDS: METFORMIN HCL 500 MG TAB PO SCH (20:42)
[2019-11-06] MEDS: ATORVASTATIN 40 MG TAB PO SCH (20:42)
[2019-11-06] MEDS: HOME MED 1 EA UNK (Galantamine Hbr [Galantamine Er] 24 MG) PO SCH (20:47)
[2019-11-06] MEDS ORDERED: BRINZOLAMIDE OP SCH (21:00)
[2019-11-06] MEDS ORDERED: BRIMONIDINE TART OP SCH (21:00)
[2019-11-06] MEDS: POLYETHYL GLY 3350 17 GM/DOSE PO PRN (22:27)
[2019-11-07 04:53] LABS: Absolute Lymphocytes (CBC) 2.1 K/uL (0.7-4.9); Basophils % 0.4 % (0-1.3); Hematocrit 31.3 % (36.0-45.0); Lymphocytes % 21.6 % (15.3-44.8); MPV 10.1 fL (7.6-11.3); RBC Red Blood Cell Count 4.03 M/uL (3.86-4.86)
[2019-11-07] MEDS: LEVOTHYROXINE SOD 0.05 MG TABLET PO SCH (05:48)
[2019-11-07] MEDS: carvediloL 25 MG TAB PO SCH ×2 (05:48→17:17)
--- NOTE | 2019-11-07 06:58 | EKG ---
Test Date: 2019-11-06 Test Time: 10:08:25 Research Instructor: LEELA MEASUREMENT RESULTS: Intervals: Rate: 75 CA: 168 QRSD: 106 QT: 422 QTc: 471 Mustang: P: 59 CA: 168 QRS: -30 T: 75 INTERPRETIVE STATEMENTS: Normal sinus rhythm Possible Left atrial enlargement Left axis deviation Abnormal ECG Compared to ECG 03/29/2018 12:01:54 AV block, complete (third-degree) no longer present Junctional rhythm no longer present Myocardial infarct finding no longer present Electronically Signed On 11-07-19 06:58:09 HOUSE FATHER by Ayaz Patel
[2019-11-07] MEDS: INSULIN GLARGINE HUM REC ANLOG 20 UNIT SQ SCH ×3 (07:12→15:46)
[2019-11-07] MEDS: HOME MED 1 EA UNK (Galantamine Hbr [Galantamine Er] 24 MG) PO SCH ×2 (07:13→20:30)
[2019-11-07] MEDS: INSULIN -REGULAR HUMAN 50 UNIT/0.5 ML ML SQ SCH ×4 (07:30→20:30)
[2019-11-07] MEDS: ASPIRIN EC 81 MG TAB PO SCH (07:58)
[2019-11-07] MEDS: ASCORBIC ACID 500 MG TABLET PO SCH (07:58)
[2019-11-07] MEDS: METFORMIN HCL 500 MG TAB PO SCH ×2 (07:58→20:28)
[2019-11-07] MEDS: CEFTRIAXONE/SWI 1gm 1 GM/10 ML SYR IV SCH (07:59)
[2019-11-07] MEDS: CLOPIDOGREL 75 MG TABLET PO SCH (07:59)
[2019-11-07] MEDS: AMLODIPINE 5 MG TAB PO SCH ×2 (07:59→20:28)
[2019-11-07] MEDS: HOME MED 1 EA UNK (Memantine Hcl [Namenda Xr] 28 MG) PO SCH (08:00)
--- NOTE | 2019-11-07 08:06 | RAD REPORT ---
EXAM DESCRIPTION: NM - Vent Perfusion VQ Scan - 11/07/2019 6:59 am CLINICAL HISTORY: Chest pain/elevated D-dimer COMPARISON: November 06, 2019 TECHNIQUE: 13.3 Mci Xe133 was administered by inhalation. First breath, equilibrium, and washout images of the lungs obtained 7.2 millicuries Technetium-99 MAA was administered intravenously. Anterior, posterior, lateral and ob lique views of the lungs were taken. FINDINGS: The lungs demonstrate relatively homogeneous radiotracer activity on ventilation and perfu cruz sequences. No mismatched segmental or lobar perfusion defects are seen. IMPRESSION: No evidence of a pulmonary embolus
[2019-11-07] MEDS: INSULIN LISPRO 100 UNIT/1 ML SQ SCH ×3 (08:15→16:26)
[2019-11-07] MEDS ORDERED: NACHLORIDE 0.45% 1,000 ML IV SCH (09:00)
[2019-11-07] MEDS ORDERED: CYANOCOBALAMIN 5000 MCG PO SCH (09:00)
[2019-11-07] MEDS ORDERED: AZITHROMYCIN IV 500 MG in NA CHLORIDE 0.9% 250 ML IVPB SCH (09:00)
[2019-11-07 10:48] LABS: Urine Appearance CLEAR; Urine Bilirubin NEGATIVE (NEG); Urine Blood NEGATIVE (NEG); Urine Color YELLOW; Urine Glucose 1+ (NEG); Urine Protein 1+ (NEG); Urine Specific Gravity 1.015 (1.005-1.030); Urine Urobilinogen 0.2 mg/dL (0.2-1.0); Urine pH 5.5 (5.0-7.0)
[2019-11-07 10:57] LABS: Urine Microscopic Reflex ORDER UMIC
[2019-11-07 11:09] LABS: Urine Amorphous Sediment 1+ /HPF (NONE SEEN); Urine Bacteria NONE SEEN /HPF (<20); Urine Culture Reflex Order NOT NEEDED; Urine RBC <5 /HPF (NONE SEEN)
--- NOTE | 2019-11-07 11:18 | ECHO ---
HEIGHT: 5 ft 3 in WEIGHT: 182 lb 12.8 oz DATE OF STUDY: 11/07/[address]: Bret Blackwell MD 2-DIMENSIONAL: YES M.MODE: YES DOPPLER: YES COLOR FLOW: YES TDS: NO PORTABLE: NO DEFINITY: NO BUBBLE STUDY: NO DIAGNOSIS: EDEMA CARDIAC HISTORY: CATHERIZATION: NO SURGERY: NO PROSTHETIC VALVE: NO PACEMAKER: YES MEASUREMENTS (cm) DIASTOLIC (NORMALS) SYSTOLIC (NORMALS) IVSd 1.1 (0.6-1.2) LA Diam 3.3 (1.9-4.0) LVEF 62% LVIDd 3.6 (3.5-5.7) LVIDs 2.4 (2.0-3.5) %FS 32% LVPWd 1.2 (0.6-1.2) Ao Diam 2.5 (2.0-3.7) 2 DIMENSIONAL ASSESSMENT: RIGHT ATRIUM: NORMAL LEFT ATRIUM: NORMAL RIGHT VENTRICLE: PACEMAKER IN RIGHT VENTRICLE LEFT VENTRICLE: NORMAL TRICUSPID VALVE: NORMAL MITRAL VALVE: NORMAL PULMONIC VALVE: NORMAL AORTIC VALVE: NORMAL PERICARDIAL EFFUSION: NONE AORTIC ROOT: NORMAL LEFT VENTRICULAR WALL MOTION: NORMAL. DOPPLER/COLOR FLOW: NORMAL. COMMENTS: NORMAL LEFT VENTRICULAR EJECTION FRACTION. PACEMAKER IN RIGHT VENTRICLE OTHERWISE NORMAL 2D ECHO WITH DOPPLER. TECHNOLOGIST: MARCIA VILLA
[2019-11-07] MEDS ORDERED: CRANBERRY FRUIT EXTRACT PO SCH (12:00)
[2019-11-07] MEDS: ENOXAPARIN 30 MG/0.3 ML SQ SCH (16:28)
[2019-11-07] MEDS ORDERED: ENOXAPARIN 30 MG/0.3 ML SQ SCH (17:00)
[2019-11-07] MEDS: LOSARTAN POTASSIUM 50 MG TABLET PO SCH (20:27)
[2019-11-07] MEDS: ATORVASTATIN 40 MG TAB PO SCH (20:28)
[2019-11-07] MEDS: INSULIN GLARGINE 100 UNITS/ML SQ SCH (20:29)
[2019-11-07] MEDS ORDERED: RIVAROXABAN 15 MG TABLET PO SCH (22:00)
--- NOTE | 2019-11-07 23:50 | PN ---
Subjective: Ms. Almendarez is doing well. She is severely demented, and is not able to really complai n anything. Objective: Chest: Clear. Heart: Regular. Abdomen: No guarding, no rebound, no rigidity. Vital Signs: Blood pressure 127/62. Investigations: Creatinine is up to 1.74 after Lasix given by the ER PA. Echocardiogram, I asked fo r because of shortness of breath showed normal EF. Assessment And Plan: 1.Dyspnea and cough. Her chest x-ray and V/Q scan are negative. I do not see any signs of congesti ve heart failure. We will have to disregard this BNP of 1710, as I do not see any signs of congestive heart failure and with 1 dose of Lasix she became more dehydrated, so we had to give her some IV flu ids for 6-8 hours. At this point, I am going to saline lock the IV fluid and let her followup in the morning for the blood work. 2.Severe dementia. The patient's is taking care of her. He himself is not a healthy man, h e has bilateral lung transplantation. They are still not willing for long-term at this point. The patient is clinically stable, but overall care is poor prognosis and will be better off at the [facility]. RVD/MODL Voice ID: [id number] Report ID: [id number]
[2019-11-08] MEDS: carvediloL 25 MG TAB PO SCH ×2 (05:23→17:00)
[2019-11-08] MEDS: LEVOTHYROXINE SOD 0.05 MG TABLET PO SCH (05:24)
[2019-11-08] MEDS: INSULIN LISPRO 100 UNIT/1 ML SQ SCH ×3 (07:30→15:58)
[2019-11-08] MEDS: INSULIN -REGULAR HUMAN 50 UNIT/0.5 ML ML SQ SCH ×4 (07:30→20:53)
[2019-11-08] MEDS: INSULIN GLARGINE HUM REC ANLOG 20 UNIT SQ SCH ×2 (07:30→11:30)
[2019-11-08] MEDS: ASCORBIC ACID 500 MG TABLET PO SCH (08:39)
[2019-11-08] MEDS: CLOPIDOGREL 75 MG TABLET PO SCH (08:39)
[2019-11-08] MEDS: ASPIRIN EC 81 MG TAB PO SCH (08:39)
[2019-11-08] MEDS: AMLODIPINE 5 MG TAB PO SCH (08:40)
[2019-11-08] MEDS: METFORMIN HCL 500 MG TAB PO SCH (08:40)
[2019-11-08] MEDS: CEFTRIAXONE/SWI 1gm 1 GM/10 ML SYR IV SCH (08:40)
[2019-11-08] MEDS: HOME MED 1 EA UNK (Galantamine Hbr [Galantamine Er] 24 MG) PO SCH ×2 (08:40→20:04)
[2019-11-08] MEDS: HOME MED 1 EA UNK (Memantine Hcl [Namenda Xr] 28 MG) PO SCH (08:41)
[2019-11-08] MEDS: ALBUTEROL 2.5 MG/3 ML NEB SOL NEB PRN (15:20)
[2019-11-08] MEDS: IPRATROPIUM BROM 0.5MG/2.5ML NEB PRN (15:20)
[2019-11-08] MEDS: ENOXAPARIN 30 MG/0.3 ML SQ SCH (16:51)
[2019-11-08] MEDS ORDERED: METFORMIN HCL 500 MG TAB PO SCH (17:00)
[2019-11-08] MEDS ORDERED: GLUCAGON 1 MG/VIAL IM PRN (19:10)
[2019-11-08] MEDS ORDERED: D50W 25 GM/50 ML SYRINGE/VIAL IV PRN (19:10)
[2019-11-08] MEDS ORDERED: INSULIN GLARGINE 100 UNITS/ML SQ SCH (21:00)
[2019-11-08] MEDS: LOSARTAN POTASSIUM 50 MG TABLET PO SCH (21:20)
[2019-11-08] MEDS: ATORVASTATIN 40 MG TAB PO SCH (21:20)
[2019-11-08] MEDS: INSULIN GLARGINE 100 UNITS/ML SQ SCH (21:20)
--- NOTE | 2019-11-09 00:19 | PN ---
Subjective: Ms. Almendarez is clinically stable. She denies any chest pain, nausea or vomiting. She is not oriented to time, place, or person any longer. She is quite nonverbal. Physical Examination: Vital Signs: Blood pressure 110/51, pulse is 65, temperature is 97.2. HEENT/Neck: No JVD. No carotid bruits. Chest: Clear. Abdomen: Morbidly obese. Neurological: Severe dementia, total disorientation, not able to ambulate properly. She tends to fall. Laboratory Data: Tomorrow, we will be performing the lab work on her again. Assessment And Plan: 1. Severe dementia, resume meds.. 2. Hypoxia possibly from nitrofurantoin, related inflammatory disease of lung. I do not see any other reason for hypoxia. 3. Hypoglycemia. She is not eating properly, reduced insulin to avoid hypoglycemic episodes. ADIEL/MODEliana Voice ID: [id number] Report ID: [id number] MARIELLE
[2019-11-09] MEDS: LEVOTHYROXINE SOD 0.05 MG TABLET PO SCH (05:28)
[2019-11-09] MEDS: carvediloL 25 MG TAB PO SCH ×2 (05:28→18:30)
[2019-11-09 05:35] LABS: Absolute Lymphocytes (CBC) 2.5 K/uL (0.7-4.9); Basophils % 0.5 % (0-1.3); Lymphocytes % 26.8 % (15.3-44.8); MPV 9.7 fL (7.6-11.3); RBC Red Blood Cell Count 3.94 M/uL (3.86-4.86)
[2019-11-09 05:59] LABS: Potassium 3.9 mmol/L (3.5-5.1)
[2019-11-09] MEDS ORDERED: NACHLORIDE 0.45% 1,000 ML IV SCH (07:00)
[2019-11-09] MEDS: INSULIN -REGULAR HUMAN 50 UNIT/0.5 ML ML SQ SCH ×4 (07:30→20:57)
[2019-11-09] MEDS: HOME MED 1 EA UNK (Galantamine Hbr [Galantamine Er] 24 MG) PO SCH ×2 (09:00→20:52)
[2019-11-09] MEDS: HOME MED 1 EA UNK (Memantine Hcl [Namenda Xr] 28 MG) PO SCH (09:00)
[2019-11-09] MEDS: AMLODIPINE 5 MG TAB PO SCH (09:18)
[2019-11-09] MEDS: ASPIRIN EC 81 MG TAB PO SCH (09:18)
[2019-11-09] MEDS: CLOPIDOGREL 75 MG TABLET PO SCH (09:18)
[2019-11-09] MEDS: ASCORBIC ACID 500 MG TABLET PO SCH (09:24)
--- NOTE | 2019-11-09 12:33 | RAD REPORT ---
EXAM DESCRIPTION: CT - Thorax Wo Con - 11/09/2019 12:16 pm CLINICAL HISTORY: sob COMPARISON: November 06, 2019 x-ray TECHNIQUE: Computed axial tomography of the chest was obtained. Contrast was not requested. All CT scans are performed using dose optimization technique as appropriate and may include automated exposure control or mA/KV adjustment according to patient size. FINDINGS: The evaluation of mediastinum, ember and vessels is limited secondary to lack of IV contras t administration. Mild bilateral ground-glass opacities within the lungs No mediastinal or hilar lymphadenopathy is seen. A pleural effusion is not present. No pericardial effusion. Postsurgical changes involve the chest. Small hiatal hernia IMPRESSION: Mild bilateral alveolitis
[2019-11-09 14:05] LABS: Urine Protein/Creatinine Ratio 0.19 ratio (<0.15)
[2019-11-09] MEDS: ENOXAPARIN 30 MG/0.3 ML SQ SCH (18:26)
--- NOTE | 2019-11-09 19:04 | RAD REPORT ---
EXAM DESCRIPTION: US - Pelvis Complete - 11/09/2019 6:44 pm CLINICAL HISTORY: N Pelvic pain. COMPARISON: No comparisons FINDINGS: The patient is status post total hysterectomy. No pelvic mass is present. No significant pelvic ascites. IMPRESSION: Unremarkable study.
--- NOTE | 2019-11-09 19:08 | RAD REPORT ---
EXAM DESCRIPTION: US - Abdomen Exam Complete - 11/09/2019 6:44 pm CLINICAL HISTORY: Abdominal pain. renal/gyno COMPARISON: ABDOMINAL EXAM COMPLETE dated 12/13/2010; Thorax Wo Con dated 11/09/2019; Vent Perfusion VQ Scan dated 11/07/2019 FINDINGS: Liver assessment was limited by significant rib shadowing. Mildly heterogenous liver paren chymal pattern observed. The gallbladder demonstrates no gallstones, pericholecystic fluid or gallbladder wall thickening. Co mmon bile duct is normal in caliber measuring 3 mm. Both kidneys are normal in size, shape and echotexture. No hydronephrosis, focal lesion of concern or perinephric fluid. The spleen is normal in size measuring 8 centimeters. The pancreas and aorta are obscured by bowel gas. The visualized aspects of the IVC are grossly normal. IMPRESSION: Liver assessment was limited due to rib shadowing. Negative gallbladder/ biliary tree abnormality.
[2019-11-09] MEDS: ATORVASTATIN 40 MG TAB PO SCH (20:56)
[2019-11-09] MEDS: INSULIN GLARGINE 100 UNITS/ML SQ SCH (20:57)
--- NOTE | 2019-11-09 21:53 | CON ---
Date of Consultation: 11/09/2019 Reason For Consultation: Elevated BUN and creatinine. History Of The Present Illness: This is a pleasant 79-year-old female. All the information has been obtained from the as patient has advanced dementia. Patient is a 79-year-old female with si gnificant past medical history of Alzheimer; coronary artery disease, status post CABG, status post P TCA; hypothyroidism; diabetes, complicated with neuropathy and retinopathy; hyperlipidemia; congestiv e heart failure; recurrent UTI. The patient was in her regular state of health. Apparently, patient had recurrent UTI. For that reason, patient was placed on Macrobid for the last 3 years. Before at, she used to have UTI every other month. After she was placed on the Macrobid, patient had only 2 -3 episodes since then. The patient reported to Dr. Blackwell because of shortness of breath, with chest tightness and cough. Primary workup for her show interstitial infiltration of both the lungs. Macr obid (nitrofurantoin) has been discontinued, and the workup showed elevation in BUN and creatinine. For that reason, patient was admitted. According to the , the patient does not take any nonst eroidal. No recent IV contrast. Reviewing her home medication, patient apparently being on metformi n and again Macrobid. There is no mention of any MEHRAN inhibitor, but the patient placed on ARB and hy drochlorothiazide. In the last few days, patient had also poor intake. Upon presentation to the hospital, creatinine was 1.5, gradually rise to 3. Past Medical History: 1.Diabetes complicated with retinopathy and neuropathy. 2.Hypothyroidism. 3.Hypertension. 4.Dementia. 5.Recurrent UTI. 6.Coronary artery disease, status post CABG complicated with congestive heart failure, status post I CD. Past Surgical History: Include PTCA, ICD, CABG, hysterectomy. Family History: Positive for hypertension and diabetes. Social History: Denies smoking. Denies drinking. Denies drugs abuse. Home Medications: 1.Aspirin. 2.Atorvastatin. 3.Carvedilol. 4.Levothyroxine. 5.Metformin. 6.Insulin. 7.Vitamin C. 8.Calcium carbonate with magnesium. 9.Namenda. 10.B complex. 11.Amlodipine. 12.Carvedilol. 13.Losartan. 14.Cranberry extract. 15.Estradiol. 16.Nitrofurantoin. 17.Pantoprazole. 18.Hydrochlorothiazide. Review of Systems: Head and Neck: No red eye. No ear pain. GI: Decreased intake. : No polyuria. No dysuria. No hematuria or recurrent UTI. BULK FILLER: No vaginal discharge. Respiratory: Shortness of breath. Cardiovascular: Chest tightness. Endocrine: No polydipsia. Skin: No rash. Neuro: Alert, confused. Musculoskeletal: Low back pain. Physical Examination: Vital Signs: Blood pressure 126/57, pulse of 60. Chest: Faint rales. Heart: S1, S2. Systolic murmur. Abdomen: Soft, nontender. Extremities: No edema. Neuro: Alert, not oriented. No tremor. Laboratory Data: Sodium 143, potassium 3.9, bicarb 25, BUN 47, creatinine 3, GFR of 15, calcium 8.2. WBC 9.4, H and H of 10 and 31, platelets of 197. Upon admission, H and H 10.4 and . Upo n admission, eosinophil was 0, currently of 100. Her BUN is 36, creatinine 1.5. Urinalysis: Specific gravity of 1.015, PC ratio 0.1. Chest x-ray: Cardiomegaly with congestion. V/Q scan was negative. Assessment And Plan: 1.Acute kidney injury secondary to prerenal, secondary to dehydration, questionable of acute interst itial nephritis secondary to Macrobid/PPI, nonoliguric. No hyperkalemia. No acidosis. I am going t o go ahead and discontinue PPI and discontinue Macrobid. We will start the patient on gentle hydrati on, and we will send for the workup. Given the presentation of lung infiltrate, I am going to send f or serology to rule out acute interstitial nephritis, pulmonary-renal. 2.With the presence of worsening kidney function, we will discontinue metformin and losartan. 3.Hypertension, controlled. With the presence of acute kidney injury, discontinue losartan, and we will follow up the patient. 4.Chronic kidney disease secondary to diabetes nephropathy, baseline creatinine 1.3. GFR of 37 back in 2018 with acute kidney injury as above. 5.Diabetes with the presence of acute kidney injury. Discontinue metformin. 6.Interstitial lung disease. We will get CT of lung to better evaluate the fluid status. Discontin ue any diuresis. We will start the patient on gentle hydration. We will send for serology to rule o ut pulmonary-renal. We will consider pulmonary evaluation. DEVIKA/CINDY Voice ID: [id number] Report ID: [id number]
--- NOTE | 2019-11-09 23:53 | CON ---
Date of Consultation: 11/09/2019 Reason For Consultation: Possible vulvar lesion. History Of Present Illness: The patient is a 79-year-old female known to me for management of her va ginal atrophy and recurrent urinary tract infections, admitted to the hospital on November 06, for res piratory symptoms, dyspnea, and cough and she also has renal dysfunction at this time. She has been admitted on the floor on Internal Medicine service with Dr. Blackwell. For her gynecological illness, breanna lobo has been noticed to be scratching her vulvar area and the nurse taking care of her had noted the th ere was a lesion that could be consistent with an abscess. She has been getting Emmy-Care for the fl oor protocol. No other symptoms were noted. Her urinalysis was negative for any infection. She had a urinary catheter at the time that I just saw the patient. Denies any vaginal bleeding. No other vulvar symptoms. No vulvar pain. The patient mostly in the b ed. Past Medical History: Significant for diabetes, hypertension, history of coronary artery disease, an d arrhythmias now with a pacemaker, dementia, hyperlipidemia, hypothyroidism. Gynecologic History: Significant for prolapse repair, quadruple bypass. Social History: No smoking, alcohol or drug use. Family History: Mother and father with hypertension and diabetes. Allergies: TO PENICILLIN, HIVES AND RASH. Home Medications: I placed her on nitrofurantoin 50 mg daily and then estradiol Estring, which is ev rosemary 3 months for prevention of recurrent UTIs by treating the vulvovaginal atrophy. She is also on insulin, losartan, hydrochlorothiazide, pantoprazole, carvedilol, brinzolamide, amlodi pine, galantamine, Namenda, metformin, levothyroxine, clopidogrel, atorvastatin, 81 mg aspirin, and o ther supplements. Physical Examination: Vital Signs: 97.1, 126/57, pulse rate of 60, saturating 96% on room air. Review of Systems: Complaining of cough, some discomfort at the urinary area due to her Karimi catheter. Rest of the rev iew of systems negative. Does have some stool leakage, fecal incontinence. Does not complain of any urinary problems. Physical Examination: General: No acute distress. The patient awake, alert, sitting up in her bed, does have a wet cough. Head And Neck: Unremarkable. Lungs: With rhonchi and audible wheezing. Heart: Heart rhythm normal on palpation for polyps. Abdomen: Soft. No skin lesions. No masses or hepatosplenomegaly. On pelvic exam, labia, mons were all examined in medial aspect of the thighs and the perineum. No evidence of any lacerations, ulcer s, or masses. No evidence of any abscess. Urethra and periurethral glands, Bartholin's glands were all unremarkable. Genitourinary: On vaginal exam, vaginal clear discharge and vaginal ring present in its place. No e vidence of any prolapse. Extremities: No edema or calf tenderness. Her Karimi taped to her thigh and no edema in the lower ex tremities. Assessment And Plan: 1.Vulvar discomfort or vulvodynia, most likely from discomfort from the Karimi catheter. No evidence of any abscess or infection or ulcerations. Precautions for Emmy-Care were given to the nurse at th e bedside cleaning twice a day and using an emmollient for local skin care and prevention of breakdow n or ulcerations. No indication for any antibiotic ointment. If there are any new problems, to call me. 2.Karimi catheter in place. Her UA negative. The catheter then placed for monitoring her output due to her renal failure and respiratory problems. 3.Recommendation is to put her on a suppression antibiotic either trimethoprim. There is a potentia l question of relation of the respiratory problem to nitrofurantoin, very unlikely given the very sma ll dose that she has been getting. This has been effective in preventing her bladder infections, how ever, that would be discontinued at this time and recommendation for trimethoprim 100 mg daily. After communicating all the assessment and plan with Dr. Blackwell, I will sign off on this patient at th is time and will be available for consultation as needed. Her respiratory failures appears to be sta ble at this point. She was able to mentate and talk to me and her dementia appears to be stable and unchanged from the past as well. She will follow up with me in my office as per her prior appointmen t after discharge for change in her ring. No other changes are recommended at this time. JAVIER/ICNDY Voice ID: [id number] Report ID: [id number]
[2019-11-10] MEDS: NACHLORIDE 0.45% 1,000 ML IV SCH ×2 (00:10→16:28)
--- NOTE | 2019-11-10 01:27 | PN ---
Subjective: Ms. Almendarez is not really able to complain about anything because she has severe jay ia. She is totally disoriented to time, place, and person. She has a few words she can speak at thi s point. Physical Examination: Vital Signs: The patient's blood pressure is 127/73, pulse is 62, temperature 97.0. Sugar has come up from less than 60 up to 126 now. Chest: Clear. Heart: Regular. Abdomen: No guarding, no rebound, no rigidity. I had ordered ultrasound this morning because the patient has worsening of renal function and ultraso und shows no signs of any obstructive uropathy. Her renal function and creatinine jumped up to 2.07. Assessment And Plannin.Acute renal insufficiency. This could be prerenal azotemia. IV fluids have been restarted again at 100 mL/hour. I have consulted Dr. Chawla and the team to take care of her kidneys. Most likely , we will be able to reverse the renal function back to normal. I am stopping the losartan at this p oint to see if that improvement is possible. Discussed with patient's about her overall gene ral condition, which is poor. She is severely demented. is not able to take care of her any longer. She needs a long-term placement and I believe he is working on this issue with his famil y members, which is daughter and son and son-in-law, Dr. Muñoz. Patient is clinically stable and gorman s developed a small bedsore also in the sacral region, which is a stage I. We will be putting a DuoD erm on it and starting best of precautions, which is part of nursing care. Otherwise, she is clinica lly stable. 2.Respiratory distress, which is not obvious, but her hypoxia is about 93% on room air. This could be because of Macrodantin, which can cause respiratory distress and at times respiratory failure, so we will stop Macrodantin at this point. RVD/MODL Voice ID: [id number] Report ID: [id number]
[2019-11-10] MEDS: LEVOTHYROXINE SOD 0.05 MG TABLET PO SCH (05:08)
[2019-11-10] MEDS: carvediloL 25 MG TAB PO SCH ×2 (05:09→17:25)
[2019-11-10 05:13] LABS: Absolute Lymphocytes (CBC) 2.3 K/uL (0.7-4.9); Basophils % 0.4 % (0-1.3); Hematocrit 29.5 % (36.0-45.0); Lymphocytes % 25.4 % (15.3-44.8); MPV 9.5 fL (7.6-11.3); RBC Red Blood Cell Count 3.84 M/uL (3.86-4.86)
[2019-11-10 07:11] LABS: Albumin 3.3 g/dL (3.4-5.0); BUN Blood Urea Nitrogen 41 mg/dL (7-18); Bicarbonate 25 mmol/L (21-32); Creatine Phosphokinase 272 U/L (26-192); Ferritin 21.4 ng/mL (8-388); Glucose Level 129 mg/dL (74-106); Magnesium 2.1 mg/dL (1.8-2.4); Phosphorus 3.3 mg/dL (2.5-4.9); Potassium 3.9 mmol/L (3.5-5.1); Sodium Level 142 mmol/L (136-145); Transferrin 244 mg/dL (200-360); Uric Acid 7.4 mg/dL (2.6-6.0)
[2019-11-10] MEDS: INSULIN -REGULAR HUMAN 50 UNIT/0.5 ML ML SQ SCH ×4 (07:30→21:00)
[2019-11-10 08:37] LABS: Rheumatoid Factor NEG (NEG)
[2019-11-10] MEDS: HOME MED 1 EA UNK (Memantine Hcl [Namenda Xr] 28 MG) PO SCH (09:00)
[2019-11-10] MEDS: HOME MED 1 EA UNK (Galantamine Hbr [Galantamine Er] 24 MG) PO SCH ×2 (09:00→21:00)
[2019-11-10] MEDS: AMLODIPINE 5 MG TAB PO SCH (09:37)
[2019-11-10] MEDS: ASCORBIC ACID 500 MG TABLET PO SCH (09:37)
[2019-11-10] MEDS: ASPIRIN EC 81 MG TAB PO SCH (09:37)
[2019-11-10] MEDS: CLOPIDOGREL 75 MG TABLET PO SCH (09:38)
[2019-11-10 10:58] LABS: Folic Acid, (Folate) > 20.0 ng/mL (3.1-17.5)
[2019-11-10] MEDS: CALCITROL 0.25 MCG CAP PO SCH (11:00)
[2019-11-10] MEDS: SOD FERRIC GLUC COMPLX/SUCROSE 250 MG in NA CHLORIDE 0.9% 250 ML IV SCH (11:00)
[2019-11-10] MEDS: ENOXAPARIN 30 MG/0.3 ML SQ SCH (16:34)
[2019-11-10] MEDS ORDERED: INSULIN GLARGINE 100 UNITS/ML SQ SCH (21:00)
[2019-11-10] MEDS: ATORVASTATIN 40 MG TAB PO SCH (21:30)
--- NOTE | 2019-11-11 02:32 | PN ---
Subjective: Ms. Almendarez is doing a lot better, much more awake today. Denies chest pain, nausea, o r vomiting. Physical Examination: Vital Signs: Blood pressure 140/64, temperature 97.9. HEENT: No JVD. No carotid bruits. Chest: Clear. Heart: Regular. Abdomen: No guarding. No rebound. No rigidity. Neurological: She has significant dementia. Laboratory Data: BUN and creatinine came down to 41 and 2.4 after stopping losartan and nitrofuranto in and starting IV fluids yesterday. Assessment And Plan: Acute renal failure, reversing properly. Continue small doses of IV fluids. P ossible discharge tomorrow probably to an assisted living facility placement by family, which is very appropriate at this point. The patient has severe dementia and is not able to take care of her at home. He himself had lung transplantation for pulmonary fibrosis. Prognosis is guarded. RVD/MODL Voice ID: [id number] Report ID: [id number]
[2019-11-11 04:09] LABS: Basophils % 0.5 % (0-1.3); Hematocrit 29.1 % (36.0-45.0); Lymphocytes % 24.1 % (15.3-44.8); MPV 9.8 fL (7.6-11.3); RBC Red Blood Cell Count 3.76 M/uL (3.86-4.86)
[2019-11-11 04:26] LABS: Albumin 3.1 g/dL (3.4-5.0); Magnesium 1.9 mg/dL (1.8-2.4); Phosphorus 2.8 mg/dL (2.5-4.9); Potassium 3.9 mmol/L (3.5-5.1)
[2019-11-11] MEDS: carvediloL 25 MG TAB PO SCH ×2 (06:11→17:24)
[2019-11-11] MEDS: LEVOTHYROXINE SOD 0.05 MG TABLET PO SCH (06:11)
[2019-11-11] MEDS: INSULIN -REGULAR HUMAN 50 UNIT/0.5 ML ML SQ SCH ×4 (07:30→20:54)
[2019-11-11] MEDS: HOME MED 1 EA UNK (Galantamine Hbr [Galantamine Er] 24 MG) PO SCH ×2 (09:00→20:55)
[2019-11-11] MEDS: HOME MED 1 EA UNK (Memantine Hcl [Namenda Xr] 28 MG) PO SCH (09:00)
[2019-11-11] MEDS: CALCIUM CARBONATE CHEW 500MG TAB PO SCH ×3 (09:33→17:23)
[2019-11-11] MEDS: AMLODIPINE 5 MG TAB PO SCH (09:33)
[2019-11-11] MEDS: ASCORBIC ACID 500 MG TABLET PO SCH (09:33)
[2019-11-11] MEDS: CLOPIDOGREL 75 MG TABLET PO SCH (09:34)
[2019-11-11] MEDS: ASPIRIN EC 81 MG TAB PO SCH (09:34)
--- NOTE | 2019-11-11 10:00 | PN ---
Date of Progress Note: 11/10/2019 Subjective: Patient was admitted with acute kidney injury secondary to prerenal. Patient was started on . Patient is today overweight. Physical Examination: Vital Signs: Blood pressure 140/64, pulse of 55. Heart: S1, S2. Regular. Abdomen: Soft, nontender. Extremities: No edema. Laboratory Data: Sodium 142, potassium 3.9, bicarb 25, BUN 41, creatinine 2.4 , calcium 7.4, phosphorous 8.2, magnesium 3.3, TSAT of 16, ferritin of 21. BNP 272. Albumin 3.3. Vitamin D more than 2000, vitamin D is still pending. TSH of 2.5. PTH of 165. Urinalysis, PC ratio 0.1. CT showing alveolitis. Current Medications: The patient on include: 1. Normal saline. 2. Aspirin. 3. Breathing treatment. 4. Plavix. 5. Lovenox. 6. Amlodipine. 7. Carvedilol. 8. Atorvastatin. Assessment And Plan: 1. Acute kidney injury secondary to prerenal, giving the current improvement on IV fluid. Doubt to be pulmonary-renal. Anyhow, we will follow up the serology. Continue hydration for the patient. 2. Hypertension, controlled, optimal, stable. Continue current medication. 3. Interstitial lung disease alveolitis, mostly secondary to Macrobid use. We will follow up with the primary. 4. Hypertension given the acute kidney injury. We will hold any MEHRAN inhibitor or ARB. 5. Diabetes as by primary. 6. Secondary SHPT start the patient on Tums. 7. Iron-deficiency anemia. Patient is going to be started on IV iron. DEVIKA/CINDY Voice ID: [id number] Report ID: [id number] MARIELLE
[2019-11-11] MEDS: NACHLORIDE 0.45% 1,000 ML IV SCH (12:34)
--- NOTE | 2019-11-11 14:05 | P.PN ---
Subjective Date of Service: 11/11/19 Chief Complaint: COUGH, RESTLESS, DYSPNEA Subjective no overnight , uper respiratory tract wheezes, her chest is clear on exam will add mucomyst will cont IVF for now will rpt CXR by tomorrow will consider to remove johnson by tomorrow Physical exam General: AAOX1, NAD , obese, audible wheezing sounds Neck; Supple, No elevated JVD hear: RRR, normal S1,2 no murmur or rub Chest: CTAB, no rlaes or wheezes Abdomen: Soft , Nt Extremities No edema or ulcer A/p AGUSTIN cr improving Abd US: no hydro will cont gentle hydration COPD cont inhalers will add mucomyst SLADE cont IV iron hypocalcemia cont supplementation Advanced dementia cont supportive care Physical Examination - Vital Signs Temperature: 97.1 F Blood Pressure: 122/62 Pulse: 67 Respirations: 16 Pulse Ox (%): 95 - Studies Microbiology Data (last 24 hrs): 11/06/19 10:45 Blood - Blood Aerobic Blood Culture - Final No growth in 5 days. 11/06/19 10:45 Blood - Blood Anaerobic Blood Culture - Final No growth in 5 days. 11/06/19 10:40 Blood - Blood Aerobic Blood Culture - Final No growth in 5 days. 11/06/19 10:40 Blood - Blood Anaerobic Blood Culture - Final No growth in 5 days.
[2019-11-11] MEDS: ACETYLCYST 20% 4 ML VIAL IH SCH ×2 (15:00→19:50)
[2019-11-11] MEDS: ENOXAPARIN 30 MG/0.3 ML SQ SCH (17:24)
[2019-11-11] MEDS: IPRATROPIUM BROM 0.5MG/2.5ML NEB PRN (19:50)
[2019-11-11] MEDS: ATORVASTATIN 40 MG TAB PO SCH (20:53)
[2019-11-11] MEDS: INSULIN GLARGINE 100 UNITS/ML SQ SCH (20:54)
[2019-11-12] MEDS: ACETYLCYST 20% 4 ML VIAL IH SCH ×4 (01:55→20:20)
[2019-11-12] MEDS: IPRATROPIUM BROM 0.5MG/2.5ML NEB PRN ×4 (01:55→20:20)
--- NOTE | 2019-11-12 04:55 | PN ---
Subjective: Ms. Almendarez is doing a lot better. Denies chest pain, nausea, vomiting, diarrhea, or c oughing. Physical Examination: Vital Signs: Blood pressure 155/60. Chest: Clear. Heart: Regular. Abdomen: No guarding, no rebound. No rigidity. Neurological: She has severe dementia. Laboratory Data: BUN and creatinine down to 27 and 1.92. Assessment And Plannin.Acute on chronic renal insufficiency, improving gradually. Possible discharge tomorrow or Thursday. She has really not ambulated whole lot at home. Family is trying to get her to an assisted living or [facility] facilities. is working on it. He needs to prepare mentally for it. 2.Diabetes. I am raising the dose of insulin slowly overtime now as she is not hypoglycemic anymore . Prognosis overall guarded. RVD/MODL Voice ID: [id number] Report ID: [id number]
[2019-11-12] MEDS: carvediloL 25 MG TAB PO SCH ×2 (05:38→17:30)
[2019-11-12] MEDS: NACHLORIDE 0.45% 1,000 ML IV SCH ×2 (05:39→20:52)
[2019-11-12] MEDS: LEVOTHYROXINE SOD 0.05 MG TABLET PO SCH (05:39)
[2019-11-12 06:04] LABS: Absolute Lymphocytes (CBC) 2.1 K/uL (0.7-4.9); Basophils % 0.5 % (0-1.3); Hematocrit 30.5 % (36.0-45.0); Lymphocytes % 24.3 % (15.3-44.8); MPV 9.8 fL (7.6-11.3); RBC Red Blood Cell Count 3.92 M/uL (3.86-4.86)
[2019-11-12 06:26] LABS: Albumin 3.1 g/dL (3.4-5.0); Magnesium 1.6 mg/dL (1.8-2.4); Phosphorus 2.6 mg/dL (2.5-4.9); Potassium 3.6 mmol/L (3.5-5.1)
[2019-11-12] MEDS: INSULIN -REGULAR HUMAN 50 UNIT/0.5 ML ML SQ SCH ×4 (07:30→20:51)
[2019-11-12] MEDS: ALBUTEROL 2.5 MG/3 ML NEB SOL NEB PRN ×2 (08:10→13:05)
[2019-11-12] MEDS: ASPIRIN EC 81 MG TAB PO SCH (08:47)
[2019-11-12] MEDS: AMLODIPINE 5 MG TAB PO SCH ×2 (08:47→20:54)
[2019-11-12] MEDS: CALCIUM CARBONATE CHEW 500MG TAB PO SCH ×3 (08:48→17:08)
[2019-11-12] MEDS: HOME MED 1 EA UNK (Galantamine Hbr [Galantamine Er] 24 MG) PO SCH ×2 (08:48→20:53)
[2019-11-12] MEDS: ASCORBIC ACID 500 MG TABLET PO SCH (08:48)
[2019-11-12] MEDS: CLOPIDOGREL 75 MG TABLET PO SCH (08:48)
[2019-11-12] MEDS: HOME MED 1 EA UNK (Memantine Hcl [Namenda Xr] 28 MG) PO SCH (09:00)
--- NOTE | 2019-11-12 12:01 | RAD REPORT ---
EXAM DESCRIPTION: RAD - Chest Single View - 11/12/2019 9:05 am CLINICAL HISTORY: F/U for edema/CHF Chest pain. COMPARISON: Chest Single View dated 11/06/2019; Chest Single View dated 03/29/2018; Chest Single View dated 06/04/2017; Chest Single View dated 04/24/2017 FINDINGS: Portable technique limits examination quality. The lungs are grossly clear. The heart is mildly enlarged in size with changes of a prior CABG. No di splaced fractures. IMPRESSION: No acute intrathoracic process suspected.
[2019-11-12] MEDS: CALCITROL 0.25 MCG CAP PO SCH (12:25)
--- NOTE | 2019-11-12 16:19 | PN ---
Subjective: Ms. Almendarez is doing well. She is lying in the bed. She is significantly demented. D oes not do anything except for lying and eating at this point. She is a total care for who i s also crippled from arthritis . Physical Examination: Vital Signs: Blood pressure is 139/56. Chest: Clear. Heart: Regular. Abdomen: No guarding, no rebound, no rigidity. Laboratory Data: Creatinine is down to 1.54 from 2.05. Hemoglobin stable at 9.9, albumin is 3.1, ma gnesium 1.6. Assessment And Plan: 1.Renal failure, improving back to her baseline. Dr. Chawla is on the case. Patient will be disc harged possibly tomorrow. 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 3.Diabetes mellitus. I have raised the dose of insulin back to 20 units and sugars coming down to 1 44 now. 4.Pulmonary toxicity of nitrofurantoin. It looks like she is stabilized now and oxygen is improving up to 95%. Stopped Macrodantin that is also possible reason for renal insufficiency. 5.She has an area of erythematous changes in the perirectal region in which she was put on steroids be needing a barrier to protect the skin. Prognosis is guarded. Discussed with patient's . She will be hiring help and will get some home health for short time also. ADIEL/CINDY Voice ID: [id number] Report ID: [id number]
[2019-11-12] MEDS: ENOXAPARIN 30 MG/0.3 ML SQ SCH (17:09)
[2019-11-12] MEDS: PROMETHAZINE-DM 5 ML OSYR PO PRN (19:52)
[2019-11-12 20:52] LABS: Hepatitis C Virus RNA (PCR)log <1.18 log IU/mL
[2019-11-12] MEDS: INSULIN GLARGINE 100 UNITS/ML SQ SCH (20:52)
[2019-11-12] MEDS: ATORVASTATIN 40 MG TAB PO SCH (20:54)
[2019-11-12] MEDS ORDERED: MAGNESIUM SULFATE 1 gm IVPB 1 GM/100 ML BAG IV ONE (20:58)
[2019-11-12] MEDS ORDERED: CEPHALEXIN 250 MG CAP PO SCH (22:00)
[2019-11-12] MEDS: ZINC OXIDE 20% OINTMENT 60gm TOP PRN (22:14)
--- NOTE | 2019-11-13 01:26 | PN ---
Date of Progress Note: 11/12/2019 Subjective: Patient is doing very well, more awake today. Physical Examination: Vital Signs: Blood pressure 146/55, pulse of 79. Chest: Crackles bilateral. Heart: S1, S2. Regular. Abdomen: Soft, nontender. Extremities: No edema. Laboratory Data: WBC 8.8, H and H 9.1/30.5, platelets 221. Sodium 142, potassium 3.6, bicarb 25, BU N 19, creatinine 1.5, calcium 8.5, phosphorus 2.6, magnesium 1.6. Medications: Current medications the patient is on include: 1.Albuterol. 2.IV iron. 3.Lovenox. 4.Plavix. 5.Amlodipine. 6.Atorvastatin. 7.Carvedilol. 8.Levothyroxine. Assessment And Plan: 1.Acute kidney injury secondary to prerenal, recovered, resolved. 2.Hypertension, controlled, optimal. Continue current medication. 3.Hypomagnesemia. We will continue supplement. 4.Iron-deficiency anemia. Continue IV iron. 5.Interstitial lung disease secondary to Macrobid. We will DC Macrobid. Will follow up with the pr imary. 6.Recurrent urinary tract infection. We will start the patient on Keflex as suppression therapy and we will monitor the patient. MONALISA Voice ID: [id number] Report ID: [id number]
[2019-11-13] MEDS: ACETYLCYST 20% 4 ML VIAL IH SCH ×4 (02:46→19:50)
[2019-11-13] MEDS: ALBUTEROL 2.5 MG/3 ML NEB SOL NEB PRN ×3 (02:46→13:55)
[2019-11-13] MEDS: LEVOTHYROXINE SOD 0.05 MG TABLET PO SCH (05:38)
[2019-11-13] MEDS: carvediloL 25 MG TAB PO SCH ×2 (05:38→18:17)
[2019-11-13 05:49] LABS: Absolute Lymphocytes (CBC) 2.1 K/uL (0.7-4.9); Albumin 3.3 g/dL (3.4-5.0); Basophils % 0.6 % (0-1.3); Hematocrit 31.4 % (36.0-45.0); Lymphocytes % 18.2 % (15.3-44.8); MPV 9.9 fL (7.6-11.3); Magnesium 1.8 mg/dL (1.8-2.4); Phosphorus 2.8 mg/dL (2.5-4.9); Potassium 3.6 mmol/L (3.5-5.1); RBC Red Blood Cell Count 4.04 M/uL (3.86-4.86)
[2019-11-13] MEDS: INSULIN -REGULAR HUMAN 50 UNIT/0.5 ML ML SQ SCH ×4 (07:30→21:59)
[2019-11-13] MEDS: ASCORBIC ACID 500 MG TABLET PO SCH (08:14)
[2019-11-13] MEDS: AMLODIPINE 5 MG TAB PO SCH ×2 (08:14→21:59)
[2019-11-13] MEDS: CLOPIDOGREL 75 MG TABLET PO SCH (08:15)
[2019-11-13] MEDS: CALCIUM CARBONATE CHEW 500MG TAB PO SCH ×3 (08:15→16:43)
[2019-11-13] MEDS: PROMETHAZINE-DM 5 ML OSYR PO PRN ×2 (08:17→16:43)
[2019-11-13] MEDS: IPRATROPIUM BROM 0.5MG/2.5ML NEB PRN ×2 (08:18→19:50)
[2019-11-13] MEDS: HOME MED 1 EA UNK (Galantamine Hbr [Galantamine Er] 24 MG) PO SCH ×2 (08:20→21:00)
[2019-11-13] MEDS: HOME MED 1 EA UNK (Memantine Hcl [Namenda Xr] 28 MG) PO SCH (08:20)
[2019-11-13] MEDS: ASPIRIN EC 81 MG TAB PO SCH (08:41)
[2019-11-13] MEDS: NACHLORIDE 0.45% 1,000 ML IV SCH (09:00)
[2019-11-13 09:15] VITALS: O2SAT 96
--- NOTE | 2019-11-13 11:56 | RAD REPORT ---
EXAM DESCRIPTION: RAD - Chest Single View - 11/13/2019 11:35 am CLINICAL HISTORY: cough COMPARISON: Chest Single View dated 11/12/2019; Chest Single View dated 11/06/2019 TECHNIQUE: AP portable chest image was obtained 11/13/2019 11:35 am . FINDINGS: Lungs are significantly underinflated. This accentuates the interstitial pattern. No signi ficant interstitial edema or infiltrate. Failure not suspected. 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 Pace maker remains in place. Heart and vasculature are normal. No measurable pleural effusion and no pneum othorax. No acute bony abnormality seen. No acute aortic findings suspected. IMPRESSION: No acute cardiopulmonary process.
[2019-11-13] MEDS: SOD FERRIC GLUC COMPLX/SUCROSE 250 MG in NA CHLORIDE 0.9% 250 ML IV SCH (12:30)
--- NOTE | 2019-11-13 16:25 | PN ---
Subjective: Continues to cough for a few months now since has been on Macrodantin according to . Denies any new complaints. She is severely demented, cannot complaint a whole lot. Physical Examination: She is clinically stable. HEENT: No JVD. No carotid bruits. Chest: Clear. Heart: Regular. Abdomen: No guarding, no rebound. No rigidity. She has incontinence of stool and soils the balbir area every day. Assessment And Plan: 1. Chronic cough, possible Macrodantin reaction which could be permanent. We will do a chest x-ray, rule out infection. We will give Levaquin for five days. 2. Renal failure, improved, down to baseline with creatinine down to 1.41 now. 3. Diabetes. Prognosis is overall poor. will hire people to help him out on a daily basis. Discussed with patient's son-in-law, Dr. Luis Muñoz, and the . ADIEL/CINDY Voice ID: [id number] Report ID: [id number] MARIELLE
[2019-11-13] MEDS: ENOXAPARIN 30 MG/0.3 ML SQ SCH (16:43)
[2019-11-13] MEDS: levoFLOXacin 250 MG TAB PO SCH (18:17)
--- NOTE | 2019-11-13 19:31 | PN ---
Date of Progress Note: 11/13/2019 Subjective: Patient was admitted with UTI, altered mental status, acute kidney injury secondary to p rerenal. After hydration, kidney function has been improved. Physical Examination: Vital Signs: Blood pressure 156/71, pulse of 68. Patient had good urine output of 1500. Chest: Faint rales. Heart: S1, S2. Regular systolic murmur. Abdomen: Soft, nontender. Extremities: No edema. Laboratory Data: WBC 11.5, H and H 10.2/31.4, platelets 253. Sodium 143, potassium 3.6, bicarb 25, BUN 18, creatinine 1.4, GFR 36. Medications: Current medications the patient is on include: 1.Aspirin. 2.Levaquin 250 daily. 3.IV iron. 4.Plavix. 5.Lovenox. 6.Atorvastatin. 7.Carvedilol. 8.Insulin. Assessment And Plan: 1.Acute kidney injury secondary to prerenal, recovered, resolved. Doubt to be pulmonary, renal givi ng the improvement. I am going to go ahead and discontinue IV fluid. 2.Hypertension, controlled not optimal. Discontinue IV fluid. We will follow up lab. 3.Recurrent urinary tract infection. Used to be on suppression with Macrobid. Unfortunately has co mplication with interstitial lung disease. I agree with holding the Macrobid. For suppression, yoon ent received Keflex yesterday. Did not show any allergy even though that the patient is allergic to penicillin. Can be use Keflex as suppression as 500 daily. 4.Agree with current Levaquin, but as outpatient for discharge, for suppression, can be on Keflex. 5.Interstitial lung disease secondary to Macrobid. We will monitor. 6.Iron deficiency anemia. Continue current treatment. MA/MODL Voice ID: [id number] Report ID: [id number]
[2019-11-13] MEDS ORDERED: CEPHALEXIN 500 MG CAP PO SCH (21:00)
[2019-11-13] MEDS: ATORVASTATIN 40 MG TAB PO SCH (21:59)
[2019-11-13] MEDS: INSULIN GLARGINE 100 UNITS/ML SQ SCH (22:00)
[2019-11-13] MEDS: ZINC OXIDE 20% OINTMENT 60gm TOP PRN (22:00)
[2019-11-14] MEDS: ACETYLCYST 20% 4 ML VIAL IH SCH ×2 (03:15→08:00)
[2019-11-14] MEDS: IPRATROPIUM BROM 0.5MG/2.5ML NEB PRN (03:15)
[2019-11-14] MEDS: carvediloL 25 MG TAB PO SCH (05:40)
[2019-11-14] MEDS: LEVOTHYROXINE SOD 0.05 MG TABLET PO SCH (05:40)
[2019-11-14] MEDS: PROMETHAZINE-DM 5 ML OSYR PO PRN (05:40)
[2019-11-14 06:06] LABS: Absolute Lymphocytes (CBC) 1.8 K/uL (0.7-4.9); Basophils % 0.8 % (0-1.3); Hematocrit 32.6 % (36.0-45.0); Lymphocytes % 16.8 % (15.3-44.8); MPV 9.7 fL (7.6-11.3); RBC Red Blood Cell Count 4.18 M/uL (3.86-4.86)
[2019-11-14 06:19] LABS: Albumin 3.2 g/dL (3.4-5.0); Magnesium 1.6 mg/dL (1.8-2.4); Phosphorus 3.4 mg/dL (2.5-4.9); Potassium 3.4 mmol/L (3.5-5.1)
[2019-11-14] MEDS: POLYETHYL GLY 3350 17 GM/DOSE PO PRN (06:20)
[2019-11-14] MEDS: INSULIN -REGULAR HUMAN 50 UNIT/0.5 ML ML SQ SCH (07:30)
[2019-11-14] MEDS: HOME MED 1 EA UNK (Memantine Hcl [Namenda Xr] 28 MG) PO SCH (09:00)
[2019-11-14] MEDS: HOME MED 1 EA UNK (Galantamine Hbr [Galantamine Er] 24 MG) PO SCH (09:00)
[2019-11-14 09:39] VITALS: BP 138/62; TEMP 97.1
[2019-11-14] MEDS: AMLODIPINE 5 MG TAB PO SCH (10:17)
[2019-11-14] MEDS: ASCORBIC ACID 500 MG TABLET PO SCH (10:18)
[2019-11-14] MEDS: CALCIUM CARBONATE CHEW 500MG TAB PO SCH (10:18)
[2019-11-14] MEDS: CLOPIDOGREL 75 MG TABLET PO SCH (10:19)
[2019-11-14] MEDS: levoFLOXacin 250 MG TAB PO SCH (10:19)
[2019-11-14] MEDS: ASPIRIN EC 81 MG TAB PO SCH (10:19)
[2019-11-14] MEDS: CALCITROL 0.25 MCG CAP PO SCH (10:22)
[2019-11-14 21:34] LABS: Albumin, (SPE) 3.4 g/dL (3.8-4.8); Alpha-1-Globulins 0.3 g/dL (0.2-0.3); Alpha-2-Globulins 0.8 g/dL (0.5-0.9); Gamma Globulins 1.2 g/dL (0.8-1.7); INTERPRETATION REPORT
[2019-11-14 22:50] LABS: HBsAG Nonreactive (Nonreactive)
--- NOTE | 2019-11-15 03:37 | DS ---
Date of Discharge: 11/14/2019 Final Diagnosis: Acute renal failure from Macrodantin. Secondary Diagnoses: 1.Pulmonary toxicity of Macrodantin giving rise to cough and fever. 2.Severe dementia. 3.Hypertension. 4.Diabetes mellitus. Hospital Course: Patient is a 79-year-old lady with past medical history of above medical problems, comes in with mainly weakness, shortness of breath, hypoxia, but did not have pneumonia. She has respiratory findings from idiosyncratic reaction of Macrodantin which has been discontinued. She continues to cough. She has been on cough medications now. She had slightly high white count, so at the time of discharge I gave her Levaquin for about 5 days. In the hospital she developed acut e renal insufficiency, which was possibly because Macrodantin and on stopping Macrodantin and losarta n, the creatinine came down to her baseline function, which is down to 1.3. She is gradually getting worse in her dementia. She is a total burden for the at this point who is not able to take care of her. He is still refusing correction placement. He will be hiring people to take care of her at home. He will also get home health for followup on her. Prognosis remains overall guarded. Discharge Medications: We had to stop losartan. She is on amlodipine 5 mg p.o. b.i.d. now. Lantus, I have reduced to 30 units subcu daily instead of 60 or 80 units she was on before as she was gettin g hypoglycemic in the hospital. On her bedsore, which is actually not a bedsore, but is an excoriati on from the stool which is laying in the balbir area after incontinent related bowel movement. Unfortu nately, she is always soiled with stool and not much we can do to take care of it, except for I have explained to the that she needs to have a barrier, like a Desitin or zinc oxide in the region after every bowel movement. RVD/MODL Voice ID: [id number] Report ID: [id number]
[2019-11-15 10:07] LABS: Vitamin D 1,25-Dihydroxy Total 29 pg/mL (18-72); Vitamin D,1,25-OH2, D2 <8 pg/mL
== END 2019-11-14 11:40 | disposition home or self-care (01) | DRG 206 ==
LOC: ER 09:51 → ERHOLD 14:30 → 4TH 15:44 → OBSVTOIN 11-08 09:37
PROVIDERS: ADMIT Internal Medicine; ATTEND Internal Medicine
PROC: 0T9B70Z Drainage of Bladder with Drainage Device, Via Natural or Artificial Opening (ICD-10-PCS; principal; 2019-11-14)
DX: J70.2 Acute drug-induced interstitial lung disorders (principal); N17.9 Acute kidney failure, unspecified; N39.0 Urinary tract infection, site not specified; N25.81 Secondary hyperparathyroidism of renal origin; E11.649 Type 2 diabetes mellitus with hypoglycemia without coma; E83.42 Hypomagnesemia; R09.02 Hypoxemia; N94.818 Other vulvodynia; E86.0 Dehydration; G30.9 Alzheimer's disease, unspecified; F02.80 Dementia in other diseases classified elsewhere, unspecified severity, without behavioral disturbance, psychotic disturbance, mood disturbance, and anxiety; E03.9 Hypothyroidism, unspecified; E78.5 Hyperlipidemia, unspecified; E11.319 Type 2 diabetes mellitus with unspecified diabetic retinopathy without macular edema; E11.40 Type 2 diabetes mellitus with diabetic neuropathy, unspecified; I25.10 Atherosclerotic heart disease of native coronary artery without angina pectoris; E11.22 Type 2 diabetes mellitus with diabetic chronic kidney disease; I12.9 Hypertensive chronic kidney disease with stage 1 through stage 4 chronic kidney disease, or unspecified chronic kidney disease; N18.9 Chronic kidney disease, unspecified; D50.9 Iron deficiency anemia, unspecified; T37.8X5A Adverse effect of other specified systemic anti-infectives and antiparasitics, initial encounter; Z95.0 Presence of cardiac pacemaker
CPT/HCPCS: 36415; 71045; 71250; 76700; 76856; 78582; 80048; 80069; 80076; 81003; 81015; 82550; 82570; 82607; 82652; 82728; 82746; 82947; 83520; 83540; 83605; 83735; 83880; 83970; 84145; 84156; 84165; 84443; 84466; 84484; 84550; 85025; 85044; 85379; 85610; 86021; 86038; 86160; 86225; 86317; 86430; 86704; 86706; 87040; 87070; 87081; 87340; 87522; 87804; 88108; 93005; 93306; 94640; 94760; 96374; 96375; 97112; 97116; 97161; 97530; 99285; A9540; A9558; G0378; J0456; J0696; J1650; J1815; J1940; J2916; J3475; J7030

== ENCOUNTER 2020-01-04 11:50 | Inpatient (IN) | payer OTHER, MEDICARE ==
--- OUTSIDE RECORDS SUMMARY | 2020-01-04 11:53 | XMS REPORT ---
:1940 [facility] [place] [address] Care Team Providers Name Role Phone EVERARDO [...] (BEAKER) (test 212 mg/dL 70-110 TESTED AT [address] lyro=6137) [place] [address] POCT-GLUCOSE [id number] 12:56:00 Test Item Value Reference Range Comments POC-GLUCOSE METER (BEAKER) 272 mg/dL 70-110 TESTED AT [address] (test fkrn=4978) [place] [address] HEMOGLOBIN [id number] 08:28:00 Test Item Value Reference Range Comments HEMOGLOBIN A1C (BEAKER) (test ghxr=869) 8.0 % 4.3-6.1 POCT-GLUCOSE [id number] 07:33:00 Test Item Value Reference Range Comments POC-GLUCOSE METER (BEAKER) 199 mg/dL 70-110 TESTED AT [address] (test xnvi=0505) [place] [address] CBC W/PLT COUNT & AUTO [id number] 06:29:00 Test Item Value Reference Range Comments WHITE BLOOD CELL COUNT (BEAKER) (test xtea=685) 15.0 K/ L 3.5-10.5 RED BLOOD CELL COUNT (BEAKER) (test zzsh=412) 3.88 M/ L 3.93-5.22 HEMOGLOBIN (BEAKER) (test nxnp=318) 11.1 GM/DL 11.2-15.7 HEMATOCRIT (BEAKER) (test hjbr=836) 34.1 % 34.1-44.9 MEAN CORPUSCULAR VOLUME (BEAKER) (test kcnl=798) 87.9 fL 79.4-94.8 MEAN CORPUSCULAR HEMOGLOBIN (BEAKER) (test 28.6 pg 25.6-32.2 nuol=802) MEAN CORPUSCULAR HEMOGLOBIN CONC (BEAKER) (test 32.6 GM/DL 32.2-35.5 slqd=199) RED CELL DISTRIBUTION WIDTH (BEAKER) (test 15.2 % 11.7-14.4 ltbb=369) PLATELET COUNT (BEAKER) (test lhfl=449) 255 K/CU MM 150-450 MEAN PLATELET VOLUME (BEAKER) (test vqrd=168) 12.6 fL 9.4-12.3 NUCLEATED RED BLOOD CELLS (BEAKER) (test 0 /100 WBC 0-0 zamy=476) NEUTROPHILS RELATIVE PERCENT (BEAKER) (test 68 % uffw=464) LYMPHOCYTES RELATIVE PERCENT (BEAKER) (test 19 % cvkf=391) MONOCYTES RELATIVE PERCENT (BEAKER) (test 9 % hxui=664) EOSINOPHILS RELATIVE PERCENT (BEAKER) (test 3 % gxub=488) BASOPHILS RELATIVE PERCENT (BEAKER) (test 0 % stfy=492) NEUTROPHILS ABSOLUTE COUNT (BEAKER) (test 10.21 K/ L 1.56-6.13 byla=591) LYMPHOCYTES ABSOLUTE COUNT (BEAKER) (test 2.82 K/ L 1.18-3.74 wkma=578) MONOCYTES ABSOLUTE COUNT (BEAKER) (test 1.30 K/ L 0.24-0.36 tmxz=016) EOSINOPHILS ABSOLUTE COUNT (BEAKER) (test 0.47 K/ L 0.04-0.36 fqpd=741) BASOPHILS ABSOLUTE COUNT (BEAKER) (test 0.05 K/ L 0.01-0.08 swzs=239) IMMATURE GRANULOCYTES-RELATIVE PERCENT (BEAKER) 1 % 0-1 (test qlnv=8463) COMPREHENSIVE METABOLIC [id number] 06:04:00 Test Item Value Reference Range Comments TOTAL PROTEIN (BEAKER) 6.0 gm/dL 6.0-8.3 (test bbof=351) ALBUMIN (BEAKER) (test 2.9 g/dL 3.5-5.0 lkuy=9511) ALKALINE PHOSPHATASE 42 U/L 40-150 (BEAKER) (test kqmd=042) BILIRUBIN TOTAL (BEAKER) 0.3 mg/dL 0.2-1.2 (test ioes=311) SODIUM (BEAKER) (test 142 meq/L 136-145 mhcg=377) POTASSIUM (BEAKER) (test 3.8 meq/L 3.5-5.1 ezwo=313) CHLORIDE (BEAKER) (test 109 meq/L 98-107 soem=138) CO2 (BEAKER) (test 25 meq/L 22-29 eifx=482) BLOOD UREA NITROGEN 27 mg/dL 7-21 (BEAKER) (test vjou=391) CREATININE (BEAKER) (test 0.86 mg/dL 0.57-1.25 kfqh=829) GLUCOSE RANDOM (BEAKER) 159 mg/dL 70-105 (test rbxi=329) CALCIUM (BEAKER) (test 8.5 mg/dL 8.4-10.2 gdyz=060) AST (SGOT) (BEAKER) (test 26 U/L 5-34 urmu=374) ALT (SGPT) (BEAKER) (test 44 U/L 6-55 nrsz=053) EGFR (BEAKER) (test 64 mL/min/1.73 sq m ESTIMATED GFR IS NOT mymm=6852) ACCURATE CREATININE CLEARANCE IN PREDICTING GLOMERULAR FILTRATION RATE. ESTIMATED GFR IS NOT APPLICABLE FOR DIALYSIS PATIENTS. POCT-GLUCOSE [id number] 21:22:00 Test Item Value Reference Range Comments POC-GLUCOSE METER (BEAKER) 152 mg/dL 70-110 TESTED AT [facility] [address] [facility] (test npyz=9865) [place] [id number] POCT-GLUCOSE [id number] 18:12:00 Test Item Value Reference Range Comments POC-GLUCOSE METER (BEAKER) 202 mg/dL 70-110 TESTED AT [facility] [address] [facility] (test ffrp=6477) [facility] [address] HEMOGLOBIN AND [id number] 18:02:00 Test Item Value Reference Range Comments HEMOGLOBIN (BEAKER) (test jhia=072) 11.1 GM/DL 11.2-15.7 HEMATOCRIT (BEAKER) (test itmy=649) 35.6 % 34.1-44.9 TISSUE [id number] 17:12:00Surgical Pathology Report Case: [id number] Authorizing Provider: Jian Cabrera MD Collected: 06/11/2017 0839 Ordering Location: [address] Received: 06/11/2017 1126 Service Pathologist: Juany [...] MALIGNANCY IDENTIFIED Signing Pathologist Direct Phone Line: [phone] signed by Juany Ochoa MD on 06/11/2017 at 5:12 [id number] bleedRandom stomach biopsyThe specimen is received in [...] no intestinal metaplasia, dysplasia or carcinoma.HEMOGLOBIN AND [id number] 15:17:00 Test Item Value Reference Range Comments HEMOGLOBIN (BEAKER) (test ksvl=826) 11.3 GM/DL 11.2-15.7 HEMATOCRIT (BEAKER) (test zxeh=540) 34.1 % 34.1-44.9 POCT-GLUCOSE [id number] 13:13:00 Test Item Value Reference Range Comments POC-GLUCOSE METER (BEAKER) 229 mg/dL 70-110 TESTED AT [facility] [address] [facility] (test wuai=8118) [facility] [address] HEMOGLOBIN AND [id number] 11:52:00 Test Item Value Reference Range Comments HEMOGLOBIN (BEAKER) (test eqqu=134) 11.8 GM/DL 11.2-15.7 HEMATOCRIT (BEAKER) (test fxln=635) 37.0 % 34.1-44.9 URINE [id number] 10:51:00 Test Item Value Reference Range Comments CULTURE (BEAKER) (test xhkd=4720) No growth [id number] 08:11:00 Test Item Value Reference Range Comments PROTIME (BEAKER) (test ygub=169) 15.1 seconds 11.7-14.7 INR (BEAKER) (test cgxo=903) 1.2 <=5.9 PARTIAL THROMBOPLASTIN TIME (BEAKER) (test 29.8 seconds 22.5-36.0 qylm=524) RECOMMENDED COUMADIN/WARFARIN INR THERAPY RANGESSTANDARD DOSE: 2.0 - 3.0 Includes: PROPHYLAXIS forvenous thrombosis, systemic embolization; TREATMENT for venous thrombosis and/or pulmonary embolus.HIGH RISK: Target INR is 2.5-3.5 for patients with mechanical heart valves.POCT-GLUCOSE [id number] 07:13:00 Test Item Value Reference Range Comments POC-GLUCOSE METER (BEAKER) 126 mg/dL 70-110 TESTED AT [address] (test hnga=0253) [place] [address] BLOOD [id number] 06:00:00 Test Item Value Reference Range Comments CULTURE (BEAKER) (test opwb=2196) No growth in 5 days BLOOD [id number] 06:00:00 Test Item Value Reference Range Comments CULTURE (BEAKER) (test iysp=1602) No growth in 5 days HEMOGLOBIN AND [id number] 05:48:00 Test Item Value Reference Range Comments HEMOGLOBIN (BEAKER) (test wjer=055) 10.9 GM/DL 11.2-15.7 HEMATOCRIT (BEAKER) (test hdhr=526) 32.8 % 34.1-44.9 POCT-GLUCOSE [id number] 22:12:00 Test Item Value Reference Range Comments POC-GLUCOSE METER (BEAKER) 279 mg/dL 70-110 TESTED AT [address] (test dkje=0018) [place] [address] POCT-GLUCOSE [id number] 20:16:00 Test Item Value Reference Range Comments POC-GLUCOSE METER (BEAKER) 283 mg/dL 70-110 TESTED AT [address] (test bldl=1669) [place] [address] HEMOGLOBIN AND [id number] 17:41:00 Test Item Value Reference Range Comments HEMOGLOBIN (BEAKER) (test szss=681) 8.2 GM/DL 11.2-15.7 HEMATOCRIT (BEAKER) (test qovl=504) 24.3 % 34.1-44.9 POCT-GLUCOSE [id number] 17:34:00 Test Item Value Reference Range Comments POC-GLUCOSE METER (BEAKER) 327 mg/dL 70-110 TESTED AT [address] (test fgao=6394) [place] [id number] POCT-GLUCOSE [id number] 15:48:00 Test Item Value Reference Range Comments POC-GLUCOSE METER (BEAKER) 401 mg/dL 70-110 TESTED AT [address] (test mryp=6061) [place] [id number] POCT-GLUCOSE [id number] 13:29:00 Test Item Value Reference Range Comments POC-GLUCOSE METER (BEAKER) 429 mg/dL 70-110 TESTED AT [address] (test coki=8499) [place] [id number] HEMOGLOBIN AND [id number] 09:34:00 Test Item Value Reference Range Comments HEMOGLOBIN (BEAKER) (test zaqr=448) 9.7 GM/DL 11.2-15.7 HEMATOCRIT (BEAKER) (test ulnz=575) 28.9 % 34.1-44.9 POCT-GLUCOSE [id number] 07:33:00 Test Item Value Reference Range Comments POC-GLUCOSE METER (BEAKER) 396 mg/dL 70-110 TESTED AT [address] (test vnuq=5998) [place] [id number] CBC W/PLT COUNT & AUTO [id number] 03:48:00 Test Item Value Reference Range Comments WHITE BLOOD CELL COUNT (BEAKER) (test pvxd=999) 13.9 K/ L 3.5-10.5 RED BLOOD CELL COUNT (BEAKER) (test sqgm=025) 3.50 M/ L 3.93-5.22 HEMOGLOBIN (BEAKER) (test ozpo=818) 10.4 GM/DL 11.2-15.7 HEMATOCRIT (BEAKER) (test wkik=973) 30.9 % 34.1-44.9 MEAN CORPUSCULAR VOLUME (BEAKER) (test ptxo=884) 88.3 fL 79.4-94.8 MEAN CORPUSCULAR HEMOGLOBIN (BEAKER) (test 29.7 pg 25.6-32.2 loaz=229) MEAN CORPUSCULAR HEMOGLOBIN CONC (BEAKER) (test 33.7 GM/DL 32.2-35.5 zlqe=988) RED CELL DISTRIBUTION WIDTH (BEAKER) (test 13.9 % 11.7-14.4 bdgp=696) PLATELET COUNT (BEAKER) (test beld=171) 253 K/CU MM 150-450 MEAN PLATELET VOLUME (BEAKER) (test joeu=784) 12.1 fL 9.4-12.3 NUCLEATED RED BLOOD CELLS (BEAKER) (test 0 /100 WBC 0-0 vczy=578) NEUTROPHILS RELATIVE PERCENT (BEAKER) (test 73 % nfia=251) LYMPHOCYTES RELATIVE PERCENT (BEAKER) (test 16 % rcjb=256) MONOCYTES RELATIVE PERCENT (BEAKER) (test 9 % axvj=545) EOSINOPHILS RELATIVE PERCENT (BEAKER) (test 1 % ebbw=802) BASOPHILS RELATIVE PERCENT (BEAKER) (test 0 % vciy=441) NEUTROPHILS ABSOLUTE COUNT (BEAKER) (test 10.11 K/ L 1.56-6.13 zgcc=920) LYMPHOCYTES ABSOLUTE COUNT (BEAKER) (test 2.21 K/ L 1.18-3.74 rifh=844) MONOCYTES ABSOLUTE COUNT (BEAKER) (test 1.29 K/ L 0.24-0.36 kdhi=923) EOSINOPHILS ABSOLUTE COUNT (BEAKER) (test 0.15 K/ L 0.04-0.36 fwnj=712) BASOPHILS ABSOLUTE COUNT (BEAKER) (test 0.06 K/ L 0.01-0.08 expq=291) IMMATURE GRANULOCYTES-RELATIVE PERCENT (BEAKER) 1 % 0-1 (test iuhp=9739) BASIC METABOLIC [id number] 03:41:00 Test Item Value Reference Range Comments SODIUM (BEAKER) (test 135 meq/L 136-145 rcbw=005) POTASSIUM (BEAKER) (test 4.4 meq/L 3.5-5.1 twmo=416) CHLORIDE (BEAKER) (test 104 meq/L 98-107 ikzf=406) CO2 (BEAKER) (test 22 meq/L 22-29 clzm=571) BLOOD UREA NITROGEN 52 mg/dL 7-21 (BEAKER) (test qpds=332) CREATININE (BEAKER) (test 1.04 mg/dL 0.57-1.25 yqen=705) GLUCOSE RANDOM (BEAKER) 354 mg/dL 70-105 (test cmlx=692) CALCIUM (BEAKER) (test 8.7 mg/dL 8.4-10.2 ndsx=474) EGFR (BEAKER) (test 52 mL/min/1.73 sq m ESTIMATED GFR IS NOT zgnr=8334) ACCURATE CREATININE CLEARANCE IN PREDICTING GLOMERULAR FILTRATION RATE. ESTIMATED GFR IS NOT APPLICABLE FOR DIALYSIS PATIENTS. POCT-GLUCOSE [id number] 22:56:00 Test Item Value Reference Range Comments POC-GLUCOSE METER (BEAKER) 275 mg/dL 70-110 TESTED AT [facility] [address] [facility] (test dskv=7408) [facility] [address] URINE [id number] 18:15:00 Test Item Value Reference Range Comments CULTURE (BEAKER) (test ybgh=6708) <10,000 col/mL skin abdon URINALYSIS W/ [id number] 15:32:00 Test Item Value Reference Range Comments COLOR (BEAKER) (test fkwu=446) Yellow CLARITY (BEAKER) (test csum=527) Clear SPECIFIC GRAVITY UA (BEAKER) (test 1.011 1.001-1.035 ldld=946) PH UA (BEAKER) (test pdzq=356) 6.5 5.0-8.0 PROTEIN UA (BEAKER) (test ugkl=515) 20 mg/dL Negative GLUCOSE UA (BEAKER) (test zxpn=411) >1000 mg/dL Negative KETONES UA (BEAKER) (test tuni=974) Negative Negative BILIRUBIN UA (BEAKER) (test Negative Negative jlnk=017) BLOOD UA (BEAKER) (test qyeb=750) Negative Negative NITRITE UA (BEAKER) (test cocf=862) Negative Negative LEUKOCYTE ESTERASE UA (BEAKER) Negative Negative (test pahn=005) UROBILINOGEN UA (BEAKER) (test 0.2 mg/dL 0.2-1.0 rfoj=484) RBC UA (BEAKER) (test xnpd=585) < /HPF WBC UA (BEAKER) (test shgj=502) 2 /HPF SOURCE(BEAKER) (test mwgn=8941) Urine, Straight Catheter POCT-GLUCOSE [id number] 11:43:00 Test Item Value Reference Range Comments POC-GLUCOSE METER (BEAKER) 340 mg/dL 70-110 TESTED AT [address] (test txsk=7185) [facility] [address] POCT-GLUCOSE [id number] 07:26:00 Test Item Value Reference Range Comments POC-GLUCOSE METER (BEAKER) 178 mg/dL 70-110 TESTED AT [address] (test ivjb=4273) [facility] [address] POCT-GLUCOSE [id number] 23:39:00 Test Item Value Reference Range Comments POC-GLUCOSE METER (BEAKER) 183 mg/dL 70-110 TESTED AT [address] (test xuoa=3599) [facility] [address] POCT-GLUCOSE [id number] 22:25:00 Test Item Value Reference Range Comments POC-GLUCOSE METER (BEAKER) 208 mg/dL 70-110 TESTED AT [address] (test qblk=9190) [place] [id number] POCT-GLUCOSE [id number] 20:12:00 Test Item Value Reference Range Comments POC-GLUCOSE METER (BEAKER) 194 mg/dL 70-110 TESTED AT [address] (test xnfv=1748) [facility] [address] POCT-GLUCOSE [id number] 16:11:00 Test Item Value Reference Range Comments POC-GLUCOSE METER (BEAKER) 266 mg/dL 70-110 TESTED AT [address] (test noqy=1118) [facility] [address] POCT-GLUCOSE [id number] 11:17:00 Test Item Value Reference Range Comments POC-GLUCOSE METER (BEAKER) 288 mg/dL 70-110 TESTED AT [address] (test aauw=1069) [facility] [address] POCT-GLUCOSE [id number] 08:57:00 Test Item Value Reference Range Comments POC-GLUCOSE METER (BEAKER) 202 mg/dL 70-110 TESTED AT [address] (test qcow=6203) [facility] [address] BASIC METABOLIC [id number] 07:38:00 Test Item Value Reference Range Comments SODIUM (BEAKER) (test 137 meq/L 136-145 iybe=404) POTASSIUM (BEAKER) (test 3.7 meq/L 3.5-5.1 zkes=255) CHLORIDE (BEAKER) (test 103 meq/L 98-107 kvmh=573) CO2 (BEAKER) (test 25 meq/L 22-29 wrju=983) BLOOD UREA NITROGEN 28 mg/dL 7-21 (BEAKER) (test clib=825) CREATININE (BEAKER) (test 1.13 mg/dL 0.57-1.25 xovd=787) GLUCOSE RANDOM (BEAKER) 194 mg/dL 70-105 (test nqya=283) CALCIUM (BEAKER) (test 9.0 mg/dL 8.4-10.2 cfll=982) EGFR (BEAKER) (test 47 mL/min/1.73 sq m ESTIMATED GFR IS NOT rzxx=9200) ACCURATE CREATININE CLEARANCE IN PREDICTING GLOMERULAR FILTRATION RATE. ESTIMATED GFR IS NOT APPLICABLE FOR DIALYSIS PATIENTS. CBC W/PLT COUNT & AUTO [id number] 05:53:00 Test Item Value Reference Range Comments WHITE BLOOD CELL COUNT (BEAKER) (test vvtu=610) 11.7 K/ L 3.5-10.5 RED BLOOD CELL COUNT (BEAKER) (test esoj=696) 4.34 M/ L 3.93-5.22 HEMOGLOBIN (BEAKER) (test wkwa=733) 12.6 GM/DL 11.2-15.7 HEMATOCRIT (BEAKER) (test pnmm=368) 38.1 % 34.1-44.9 MEAN CORPUSCULAR VOLUME (BEAKER) (test mmyk=148) 87.8 fL 79.4-94.8 MEAN CORPUSCULAR HEMOGLOBIN (BEAKER) (test 29.0 pg 25.6-32.2 kcrs=798) MEAN CORPUSCULAR HEMOGLOBIN CONC (BEAKER) (test 33.1 GM/DL 32.2-35.5 rjqh=191) RED CELL DISTRIBUTION WIDTH (BEAKER) (test 14.0 % 11.7-14.4 wpiv=315) PLATELET COUNT (BEAKER) (test cagr=163) 201 K/CU MM 150-450 MEAN PLATELET VOLUME (BEAKER) (test gkcn=239) 12.4 fL 9.4-12.3 NUCLEATED RED BLOOD CELLS (BEAKER) (test 0 /100 WBC 0-0 druc=089) NEUTROPHILS RELATIVE PERCENT (BEAKER) (test 64 % ltgw=416) LYMPHOCYTES RELATIVE PERCENT (BEAKER) (test 17 % gajc=506) MONOCYTES RELATIVE PERCENT (BEAKER) (test 15 % hjkg=884) EOSINOPHILS RELATIVE PERCENT (BEAKER) (test 2 % nach=569) BASOPHILS RELATIVE PERCENT (BEAKER) (test 1 % zwmd=791) NEUTROPHILS ABSOLUTE COUNT (BEAKER) (test 7.52 K/ L 1.56-6.13 erxk=270) LYMPHOCYTES ABSOLUTE COUNT (BEAKER) (test 1.98 K/ L 1.18-3.74 fzew=592) MONOCYTES ABSOLUTE COUNT (BEAKER) (test 1.78 K/ L 0.24-0.36 pjzf=491) EOSINOPHILS ABSOLUTE COUNT (BEAKER) (test 0.27 K/ L 0.04-0.36 xhgi=058) BASOPHILS ABSOLUTE COUNT (BEAKER) (test 0.07 K/ L 0.01-0.08 yhza=077) IMMATURE GRANULOCYTES-RELATIVE PERCENT (BEAKER) 0 % 0-1 (test kbej=9706) POCT-GLUCOSE [id number] 20:12:00 Test Item Value Reference Range Comments POC-GLUCOSE METER (BEAKER) 333 mg/dL 70-110 TESTED AT [address] (test udgl=6579) [place] [id number] POCT-GLUCOSE [id number] 11:45:00 Test Item Value Reference Range Comments POC-GLUCOSE METER (BEAKER) 355 mg/dL 70-110 TESTED AT [address] (test xlvb=1736) [facility] [address] POCT-GLUCOSE [id number] 08:17:00 Test Item Value Reference Range Comments POC-GLUCOSE METER (BEAKER) 303 mg/dL 70-110 TESTED AT [address] (test ecmg=8744) [facility] [address] POCT-GLUCOSE [id number] 00:00:00 Test Item Value Reference Range Comments POC-GLUCOSE METER (BEAKER) 340 mg/dL 70-110 TESTED AT [address] (test iehp=3358) [place] [id number] POCT-GLUCOSE [id number] 20:42:00 Test Item Value Reference Range Comments POC-GLUCOSE METER (BEAKER) 309 mg/dL 70-110 TESTED AT [address] (test ntlm=0116) [place] [id number] POCT-GLUCOSE [id number] 17:09:00 Test Item Value Reference Range Comments POC-GLUCOSE METER (BEAKER) 351 mg/dL 70-110 TESTED AT [place] [id number] [facility] (test qibd=5811) [facility] [address] POCT-GLUCOSE [id number] 11:28:00 Test Item Value Reference Range Comments POC-GLUCOSE METER (BEAKER) 327 mg/dL 70-110 TESTED AT [address] (test nsfs=9120) [place] [id number] POCT-GLUCOSE [id number] 07:37:00 Test Item Value Reference Range Comments POC-GLUCOSE METER (BEAKER) 247 mg/dL 70-110 TESTED AT [address] (test tlps=6140) [facility] [address] BASIC METABOLIC [id number] 03:12:00 Test Item Value Reference Range Comments SODIUM (BEAKER) (test 130 meq/L 136-145 mdyd=972) POTASSIUM (BEAKER) (test 4.6 meq/L 3.5-5.1 nnbr=613) CHLORIDE (BEAKER) (test 101 meq/L 98-107 hkte=517) CO2 (BEAKER) (test 19 meq/L 22-29 ndqn=827) BLOOD UREA NITROGEN 41 mg/dL 7-21 (BEAKER) (test ntxz=456) CREATININE (BEAKER) (test 1.89 mg/dL 0.57-1.25 wzmv=173) GLUCOSE RANDOM (BEAKER) 277 mg/dL 70-105 (test doyj=455) CALCIUM (BEAKER) (test 8.3 mg/dL 8.4-10.2 wwpt=978) EGFR (BEAKER) (test 26 mL/min/1.73 sq m ESTIMATED GFR IS NOT njgi=9124) ACCURATE CREATININE CLEARANCE IN PREDICTING GLOMERULAR FILTRATION RATE. ESTIMATED GFR IS NOT APPLICABLE FOR DIALYSIS PATIENTS. CBC W/PLT COUNT & AUTO [id number] 03:01:00 Test Item Value Reference Range Comments WHITE BLOOD CELL COUNT (BEAKER) (test imyr=905) 17.2 K/ L 3.5-10.5 RED BLOOD CELL COUNT (BEAKER) (test oagi=235) 3.90 M/ L 3.93-5.22 HEMOGLOBIN (BEAKER) (test fmwb=451) 11.7 GM/DL 11.2-15.7 HEMATOCRIT (BEAKER) (test sjpo=304) 36.3 % 34.1-44.9 MEAN CORPUSCULAR VOLUME (BEAKER) (test wnpu=883) 93.1 fL 79.4-94.8 MEAN CORPUSCULAR HEMOGLOBIN (BEAKER) (test 30.0 pg 25.6-32.2 jsvx=630) MEAN CORPUSCULAR HEMOGLOBIN CONC (BEAKER) (test 32.2 GM/DL 32.2-35.5 vjhe=430) RED CELL DISTRIBUTION WIDTH (BEAKER) (test 14.4 % 11.7-14.4 dnsz=971) PLATELET COUNT (BEAKER) (test djvj=471) 153 K/CU MM 150-450 MEAN PLATELET VOLUME (BEAKER) (test hsmk=696) 12.5 fL 9.4-12.3 NUCLEATED RED BLOOD CELLS (BEAKER) (test 0 /100 WBC 0-0 dhsv=149) NEUTROPHILS RELATIVE PERCENT (BEAKER) (test 76 % rcss=106) LYMPHOCYTES RELATIVE PERCENT (BEAKER) (test 13 % aejk=259) MONOCYTES RELATIVE PERCENT (BEAKER) (test 10 % tito=002) EOSINOPHILS RELATIVE PERCENT (BEAKER) (test 0 % jyia=750) BASOPHILS RELATIVE PERCENT (BEAKER) (test 0 % lpbd=864) NEUTROPHILS ABSOLUTE COUNT (BEAKER) (test 13.01 K/ L 1.56-6.13 kdbc=497) LYMPHOCYTES ABSOLUTE COUNT (BEAKER) (test 2.28 K/ L 1.18-3.74 jlja=823) MONOCYTES ABSOLUTE COUNT (BEAKER) (test 1.74 K/ L 0.24-0.36 jvze=596) EOSINOPHILS ABSOLUTE COUNT (BEAKER) (test 0.00 K/ L 0.04-0.36 hbqb=832) BASOPHILS ABSOLUTE COUNT (BEAKER) (test 0.04 K/ L 0.01-0.08 lxza=657) IMMATURE GRANULOCYTES-RELATIVE PERCENT (BEAKER) 1 % 0-1 (test zygu=0189)
[2020-01-04 13:24] LABS: Absolute Lymphocytes (CBC) 2.2 K/uL (0.7-4.9); Basophils % 0.9 % (0-1.3); Hematocrit 34.2 % (36.0-45.0); Lymphocytes % 22.5 % (15.3-44.8); MPV 10.2 fL (7.6-11.3); RBC Red Blood Cell Count 3.99 M/uL (3.86-4.86)
--- NOTE | 2020-01-04 13:29 | RAD REPORT ---
EXAM DESCRIPTION: RAD - Chest Single View - 01/04/2020 1:23 pm CLINICAL HISTORY: Cough;Dyspnea Chest pain. COMPARISON: Chest Single View dated 11/13/2019; Chest Single View dated 11/12/2019; Chest Single View da fabiana 11/06/2019; Chest Single View dated 03/29/2018 FINDINGS: Portable technique limits examination quality. Bilateral pulmonary haziness is seen suggesting pulmonary edema, slightly greater on the right. The h eart is upper limit normal in size with changes of a prior CABG. Multi lead pacer device is present. IMPRESSION: Moderate CHF versus volume overload pattern.
[2020-01-04 13:42] LABS: Potassium 4.1 mmol/L (3.5-5.1)
--- NOTE | 2020-01-04 13:58 | ER ---
Nurse's Notes [facility] Name: Ace Almendarez Age: 79 yrs Sex: Female : 1940 Arrival Date: 01/04/2020 Time: 11:52 Bed 5 Private MD: Diagnosis: Unspecified combined systolic (congestive) and diastolic (congestive) heart failure;Pulmonary edema;Dyspnea, unspecified Presentation: 01/03 12:30 Chief complaint: Spouse and/or significant other states: Worsening cough and shortness jl7 of breath over the past 3 days. Coronavirus screen: Patient reports a subjective fever or greater than 100.4F, or cough, or shortness of breath, or difficulty breathing. Surgical mask placed on patient. Patient moved to private room, placed in contact and droplet isolation with eye protection until further assessment. Patient denies travel on a cruise ship or to a country the [facility] currently lists as an affected area. Patient denies contact with known and/or suspected case of COVID-19. Ebola Screen: No symptoms or risks identified at this time. Initial Sepsis Screen: Does the patient meet any 2 criteria? No. Patient's initial sepsis screen is negative. Does the patient have a suspected source of infection? No. Patient's initial sepsis screen is negative. Risk Assessment: Do you want to hurt yourself or someone else? Patient reports no desire to harm self or others. Onset of symptoms is unknown. 12:30 Method Of Arrival: Ambulatory jl7 12:30 Acuity: PARVIN 3 jl7 Triage Assessment: 12:30 General: Appears in no apparent distress. uncomfortable, Behavior is cooperative. Pain: jl7 Denies pain. Neuro: Level of Consciousness is awake, alert, obeys commands. Cardiovascular: Patient's skin is warm and dry. Respiratory: Reports shortness of breath Airway is patent Respiratory effort is even, labored, with retractions, Respiratory pattern is symmetrical, tachypnea Onset: The symptoms/episode began/occurred gradually, the patient has moderate shortness of breath. Derm: Skin is pink, warm \T\ dry. Historical: - Allergies: 13:41 PENICILLINS; jl7 - Home Meds: 13:41 amlodipine 5 mg tab twice a day [Active]; aspirin 81 mg Oral TbEC 1 tab once daily jl7 [Active]; atorvastatin 40 mg Oral tab 1 tab once daily [Active]; carvedilol 25 mg Oral tab 1 tab 2 times per day [Active]; coenzyme Q10 100 mg Oral cap daily [Active]; docusate sodium 100 mg Oral cap 1 cap 2 times per day [Active]; Estring 2 mg Vaginal ring 1 vaginal ring every 90 days [Active]; galantamine 12 mg Oral tab 1 tab 2 times per day [Active]; Humalog 100 unit/mL Sub-Q soln [Active]; hydrochlorothiazide 12.5 mg Oral cap 1 cap once daily [Active]; Lantus 100 unit/mL Sub-Q soln [Active]; losartan 100 mg Oral tab 1 tab once daily [Active]; metformin 1,000 mg Oral tab 1 tab 2 times per day [Active]; Namenda XR 28 mg Oral CSpX 1 cap once daily [Active]; nitrofurantoin macrocrystal 50 mg Oral cap 1 cap once daily [Active]; pantoprazole 40 mg Oral TbEC 1 tab once daily [Active]; Plavix 75 mg Oral tab 1 tab once daily [Active]; Synthroid 50 mcg Oral tab 1 tab once daily [Active]; - PMHx: 13:41 chronic uti; Dementia; Diabetes - NIDDM; Hyperlipidemia; Hypertension; Hypothyroidism; jl7 - PSHx: 13:41 Pacemaker; Heart stents; Hysterectomy; jl7 - Immunization history:: Adult Immunizations up to date. - Social history:: Smoking status: Patient denies any tobacco usage or history of. - Family history:: not pertinent. - Hospitalizations: : No recent hospitalization is reported. Screenin:03 Abuse screen: Denies threats or abuse. Denies injuries from another. Nutritional ls4 screening: No deficits noted. Tuberculosis screening: No symptoms or risk factors identified. Fall Risk None identified. Assessment: 12:30 General: See triage assessment. at bedside. jl7 13:30 Reassessment: Patient appears in no apparent distress at this time. No changes from jl7 previously documented assessment. Patient and/or family updated on plan of care and expected duration. Pain level reassessed. 15:00 Reassessment: Patient appears in no apparent distress at this time. No changes from jl7 previously documented assessment. Patient and/or family updated on plan of care and expected duration. Pain level reassessed. 16:29 Reassessment: Received PUI# [id number] from [facility], called to Mika from lab. iw 16:40 Reassessment: Peggy garibay called due to pt's being agitated, grabbed Humaira from jl7 UVS and yelling at SOCORRO Kothari to see the doctor now. states that his was about to fall out of the bed. Pt laying in bed with warm blanket on and both side rails up at this time. SOCORRO Lara instructed pt's not to touch staff, he verbalized understanding. Vital Signs: 12:32 BP 166 / 55; Pulse 66; Resp 22; Temp 97.8(TE); Pulse Ox 99% on 3 lpm NC; mh5 13:16 BP 132 / 58; Pulse 81; Resp 20; Temp 97.9(O); Pulse Ox 97% on 3 lpm NC; mh5 17:00 BP 144 / 64; Pulse 71; Resp 16 S; Pulse Ox 98% on R/A; jl7 ED Course: 11:52 Patient arrived in ED. ag5 12:27 Gaetano Harris RN is Primary Nurse. jl7 12:28 Mukul Estrada MD is Attending Physician. rn 12:30 Arm band placed on right wrist. jl7 12:34 Patient has correct armband on for positive identification. Bed in low position. Call [facility] light in reach. Warm blanket given. monitoring manager on. Pulse ox on. NIBP on. 13:10 Inserted saline lock: 22 gauge in right upper arm, using aseptic technique. Blood jl7 collected. 13:10 Initial lab(s) drawn, by wv, sent to lab. First set of blood cultures drawn by wv. jl7 13:15 Second set of blood cultures drawn. jl7 13:39 Triage completed. jl7 13:56 Bret Blackwell MD is Hospitalizing Provider. rn 15:02 [facility]. Lab Test Sent. ls4 15:02 XRAY CXR (1 view) Sent. ls4 15:03 No provider procedures requiring assistance completed. ls4 15:04 EKG done, by ED staff, reviewed by Mukul Estrada MD COVID 19 SWAB. Oxygen administration ls4 via nasal cannula \T\ 3L/min. 17:38 Patient admitted, IV remains in place. intact, No redness/swelling at site. jl7 Administered Medications: 15:02 Drug: Lasix 40 mg Route: IVP; Site: right upper arm; ls4 15:30 Follow up: Response: No adverse reaction jl7 Outcome: 13:57 Decision to Hospitalize by Provider. rn 17:38 Admitted to Tele accompanied by tech, family with patient, via stretcher, room 417, jl7 with chart, Report called to SOCORRO Porras 17:38 Condition: stable 17:38 Discharge instructions given to patient, family, Instructed on the need for admit, Demonstrated understanding of instructions. 17:52 Patient left the ED. jl7 Signatures: Anne Woodruff RN RN iw Nieto, Roman, MD MD rn Martinez, Maria Gaetano Potts RN RN jl7 Saniya Pelletier RN RN ls4 Dwain Meyers [facility]
--- NOTE | 2020-01-04 13:59 | EDPHYS ---
Physician Documentation [facility] Name: Ace Almendarez Age: 79 yrs Sex: Female : 1940 Arrival Date: 01/04/2020 Time: 11:52 Bed 5 Private MD: ED Physician Mukul Estrada HPI: 01/03 12:36 This 79 yrs old Other Female presents to ER via Unassigned with complaints of Cough, rn Breathing Difficulty. 12:36 The patient or guardian reports cough, difficulty breathing. Onset: The rn symptoms/episode began/occurred 3 day(s) ago. Severity of symptoms: At their worst the symptoms were mild, in the emergency department the symptoms are unchanged. Modifying factors: The symptoms are alleviated by nothing, the symptoms are aggravated by nothing. Associated signs and symptoms: Pertinent negatives: diarrhea, fever, vomiting. The patient has experienced similar episodes in the past. The patient has not recently seen a physician. Sent by Dr. Blackwell for COVID-19 testing, family reports dry cough and sob for 3 days, no fever, no travel, no known sick contacts. Has had similar problems in past and recently admitted/discharged from hospital. recently placed on hospice for lung and heart problems. . Historical: - Allergies: 13:41 PENICILLINS; jl7 - Home Meds: 13:41 amlodipine 5 mg tab twice a day [Active]; aspirin 81 mg Oral TbEC 1 tab once daily jl7 [Active]; atorvastatin 40 mg Oral tab 1 tab once daily [Active]; carvedilol 25 mg Oral tab 1 tab 2 times per day [Active]; coenzyme Q10 100 mg Oral cap daily [Active]; docusate sodium 100 mg Oral cap 1 cap 2 times per day [Active]; Estring 2 mg Vaginal ring 1 vaginal ring every 90 days [Active]; galantamine 12 mg Oral tab 1 tab 2 times per day [Active]; Humalog 100 unit/mL Sub-Q soln [Active]; hydrochlorothiazide 12.5 mg Oral cap 1 cap once daily [Active]; Lantus 100 unit/mL Sub-Q soln [Active]; losartan 100 mg Oral tab 1 tab once daily [Active]; metformin 1,000 mg Oral tab 1 tab 2 times per day [Active]; Namenda XR 28 mg Oral CSpX 1 cap once daily [Active]; nitrofurantoin macrocrystal 50 mg Oral cap 1 cap once daily [Active]; pantoprazole 40 mg Oral TbEC 1 tab once daily [Active]; Plavix 75 mg Oral tab 1 tab once daily [Active]; Synthroid 50 mcg Oral tab 1 tab once daily [Active]; - PMHx: 13:41 chronic uti; Dementia; Diabetes - NIDDM; Hyperlipidemia; Hypertension; Hypothyroidism; jl7 - PSHx: 13:41 Pacemaker; Heart stents; Hysterectomy; jl7 - Immunization history:: Adult Immunizations up to date. - Social history:: Smoking status: Patient denies any tobacco usage or history of. - Family history:: not pertinent. - Hospitalizations: : No recent hospitalization is reported. ROS: 12:42 Constitutional: Negative for fever, chills, and weight loss, Eyes: Negative for injury, rn pain, redness, and discharge, Cardiovascular: Negative for chest pain, palpitations, and edema, Respiratory: Negative for pleuritic chest pain, + cough and sob Abdomen/GI: Negative for abdominal pain, nausea, vomiting, diarrhea, and constipation, MS/Extremity: Negative for injury and deformity, Skin: Negative for injury, rash, and discoloration, Neuro: Negative for headache, weakness, numbness, tingling, and seizure. Exam: 12:42 Constitutional: This is a well developed, well nourished patient who is awake, alert, rn mild respiratory distress Head/Face: Normocephalic, atraumatic. ENT: No stridor Cardiovascular: Regular rate and rhythm. No pulse deficits. Respiratory: + diminished breath sounds at bases with crackles, faint upper wheezing, mild tachypnea Abdomen/GI: Soft, non-tender MS/ Extremity: Pulses equal, no cyanosis. Neurovascular intact. Full, normal range of motion. Equal circumference. Neuro: Awake and alert, follows commands Vital Signs: 12:32 BP 166 / 55; Pulse 66; Resp 22; Temp 97.8(TE); Pulse Ox 99% on 3 lpm NC; mh5 13:16 BP 132 / 58; Pulse 81; Resp 20; Temp 97.9(O); Pulse Ox 97% on 3 lpm NC; mh5 17:00 BP 144 / 64; Pulse 71; Resp 16 S; Pulse Ox 98% on R/A; jl7 MDM: 12:28 Patient medically screened. rn 13:55 Differential Diagnosis: Bronchitis Influenza Viral Syndrome Pneumonia Other CHF, rn pulmonary edema. Data reviewed: vital signs, nurses notes, lab test result(s), EKG, radiologic studies, plain films, and as a result, I will admit patient. Counseling: I had a detailed discussion with the patient and/or guardian regarding: the historical points, exam findings, and any diagnostic results supporting the discharge/admit diagnosis, lab results, radiology results, the need for further work-up and treatment in the hospital. Response to treatment: the patient's symptoms have mildly improved after treatment, and as a result, I will admit patient. Admission orders: after a detailed discussion of the patient's condition and case, the admit orders are written by me. ED course: Consulted with Dr. Blackwell, will admit for CHF exacerbation and dyspnea. COVID-19 test ordered. . 16:25 ED course: called out for help, states patient almost fell trying to transfer rn from bedside commode, has dementia and overweight, difficult to use bedpan, decision made to place johnson given need for diuresis and patient safety. . 01/03 12:35 Order name: Blood Culture Adult (2) rn 01/03 12:35 Order name: BMP; Complete Time: 13:49 rn 01/03 12:35 Order name: CBC with Diff; Complete Time: 13:36 rn 01/03 12:35 Order name: NT PRO-BNP; Complete Time: 13:49 rn 01/03 12:35 Order name: Flu; Complete Time: 13:49 rn 01/03 14:26 Order name: Misc. Lab Test; Complete Time: 16:49 jl7 01/03 12:35 Order name: XRAY CXR (1 view) rn 01/03 12:35 Order name: EKG; Complete Time: 12:37 rn 01/03 12:35 Order name: Cardiac monitoring; Complete Time: 17:39 rn 01/03 12:35 Order name: EKG - Nurse/Tech; Complete Time: 15:04 rn 01/03 12:35 Order name: IV Saline Lock; Complete Time: 13:49 rn 01/03 12:35 Order name: Labs collected and sent; Complete Time: 13:49 rn 01/03 15:35 Order name: RAD; Complete Time: 16:16 EDMS 01/03 12:35 Order name: O2 Per Protocol; Complete Time: 13:49 rn 01/03 12:35 Order name: O2 Sat Monitoring; Complete Time: 13:49 rn 01/03 13:54 Order name: Misc. Order: COVID-19 swab; Complete Time: 15:00 rn 01/03 16:25 Order name: Johnson; Complete Time: 17:39 rn Administered Medications: 15:02 Drug: Lasix 40 mg Route: IVP; Site: right upper arm; ls4 15:30 Follow up: Response: No adverse reaction jl7 Disposition: 01/04/20 13:57 Hospitalization ordered by Bret Blackwell for Inpatient Admission. Preliminary diagnosis are Unspecified combined systolic (congestive) and diastolic (congestive) heart failure, Pulmonary edema, Dyspnea, unspecified. - Bed requested for Telemetry/MedSurg (Inpatient). - Status is Inpatient Admission. jl7 - Condition is Stable. - Problem is an ongoing problem. - Symptoms have improved. Signatures: Dispatcher [employer] EDBrielle Maldonado RN RN dw Mukul Estrada MD MD rn Leal, Jahala, RN RN jl7 Saniya Pelletier RN RN ls4 Corrections: (The following items were deleted from the chart) 17:13 13:57 Hospitalization Ordered by Bret Blackwell MD for Inpatient Admission. Preliminary dw diagnosis is Unspecified combined systolic (congestive) and diastolic (congestive) heart failure; Pulmonary edema; Dyspnea, unspecified. Bed requested for Telemetry/MedSurg (Inpatient). Status is Inpatient Admission. Condition is Stable. Problem is an ongoing problem. Symptoms have improved. rn 17:52 17:13 01/04/2020 13:57 Hospitalization Ordered by Bret Blackwell MD for Inpatient jl7 Admission. Preliminary diagnosis is Unspecified combined systolic (congestive) and diastolic (congestive) heart failure; Pulmonary edema; Dyspnea, unspecified. Bed requested for Telemetry/MedSurg (Inpatient). Status is Inpatient Admission. Condition is Stable. Problem is an ongoing problem. Symptoms have improved. dw
[2020-01-04] MEDS ORDERED: FUROSEMIDE 40 MG/4 ML VIAL ONE (14:32)
[2020-01-04] MEDS ORDERED: ONDANSETRON 4 MG/2 ML VIAL IV PRN (18:56)
[2020-01-04] MEDS: FUROSEMIDE 20 MG/ 2ML VIAL IV SCH (19:56)
--- NOTE | 2020-01-04 20:35 | P.HP ---
Certification for Inpatient Patient admitted to: Inpatient With expected LOS: >2 Midnights Practitioner: I am a practitioner with admitting privileges, knowledge of patient current condition, hospital course, and medical plan of care. Services: Services provided to patient in accordance with Admission requirements found in Title 42 Section 412.3 of the Code of Federal Regulations Patient History Date of Service: 01/04/20 Reason for admission: DYSPNEA History of Present Illness: MS. DUMONT IS SEVERELY DEMENTED LADY WITH DM, HTN, MACRODANTIN TOXICITY COMES WTH DYSPNEA AND LOW GRADE FEVER. IN LIEU OF CURRENT COVID EPIDEMIC SHE IS ALSO TESTED FOR COVID 19. HER ADMISSION DIAGNOSIS IS CHF. HER IS A LUNG TRANSPLANT PATIENT TAKING CARE OF HER ON DAILY BASIS. HE HAS HIRED SOME HELP. SHE WAS ON HOSPICE UNTIL TODAY BUT TAKEN OFF HOSPICE NOW SHE IS NOT DECLINING IN HER PHYSICAL CONDITION. Allergies Penicillins Allergy (Verified 11/14/15 07:30) Hives/Rash Home Medications: Aspirin [Aspirin EC 81 MG] 81 mg PO DAILY 09/04/15 Atorvastatin Calcium 40 mg PO BEDTIME 09/04/15 Clopidogrel Bisulfate [Clopidogrel] 75 mg PO DAILY 09/04/15 Levothyroxine Sodium 50 mcg PO DAILY 09/04/15 [place]-3 Fatty Acids [Fish Oil] 1,000 mg PO NOON 09/04/15 Ascorbic Acid [Vitamin C*] 1,000 mg PO DAILY 04/23/17 Calcium Carb/D3/Magnesium/Zinc [Amadou Mag Zinc-D Tablet] 1 tab PO DAILY 04/23/17 Memantine HCl [Namenda Xr] 28 mg PO DAILY 04/23/17 Ubidecarenone [Coenzyme Q10] 100 mg PO DAILY 04/23/17 Vitamin B Complex [Vitamin B Complex*] 1 cap PO DAILY 04/23/17 Galantamine HBr [Galantamine ER] 24 mg PO BID 06/05/17 Amlodipine Besylate [Norvasc] 5 mg PO BID 11/06/19 Brinzolamide/Brimonidine Tart [Simbrinza 1%-0.2% Eye Drops] 1 drop OP BID Carvedilol [Coreg] 25 mg PO BID 11/06/19 Cranberry Fruit Extract [Theracran Hp For Kids] 360 mg PO NOON 11/06/19 Cyanocobalamin (Vitamin B-12) [Vitamin B-12] 5,000 mcg PO DAILY 11/06/19 Estradiol [Estring] 1 each VG 11/06/19 Insulin Lispro [Humalog Kwikpen U-100] 10 unit SQ AC 11/06/19 Pantoprazole Sodium 40 mg PO DAILY 11/06/19 Propylene Glycol [Systane Balance] 1 drop OP TID 11/06/19 Calcitrol [Rocaltrol*] 0.25 mcg PO Q48H #45 cap 11/14/19 Calcium Carbonate [Tums Regular*] 500 mg PO AC tab 11/14/19 Insulin Glargine Human [Lantus*] 30 units SQ BEDTIME ml 11/14/19 Promethazine/Dextrometh Syr [Phenergan Dm Oral Syrup*] 10 ml PO Q6H PRN #8 osyr 11/14/19 levoFLOXacin [Levaquin*] 250 mg PO DAILY #5 tab 11/14/19 - Past Medical/Surgical History Diabetic: Yes -: DMI -: hypothryroidism -: HTN -: hyperlipidemia -: dementia -: chronic UTI gets daily antibiotic -: 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 moist/pink, EOMI, Sclerae nonicteric Neck: Supple, 2+ carotid pulse no bruit, No LAD, Without JVD or thyroid abnormality Respiratory: Clear to auscultation bilaterally, Normal air movement Cardiovascular: Regular rate/rhythm, Normal S1 S2 Gastrointestinal: Normal bowel sounds, No tenderness Musculoskeletal: No tenderness Integumentary: No rashes Neurological: Normal gait, Normal speech, Normal strength at 5/5 x4 extr, Normal tone, Normal affect Lymphatics: No axilla or inguinal lymphadenopathy - Studies Laboratory Data (last 24 hrs) 01/04/20 11:53: WBC 9.7, Hgb 11.1 L, Hct 34.2 L, Plt Count 217 01/04/20 11:53: Sodium 140, Potassium 4.1, BUN 26 H, Creatinine 1.26, Glucose 156 H Microbiology Data (last 24 hrs): 01/04/20 12:00 Nasopharnyx Influenza Type A Antigen Screen - Final 01/04/20 12:00 Nasopharnyx Influenza Type B Antigen Screen - Final Assessment and Plan - Problems (Diagnosis) (1) Acute diastolic CHF (congestive heart failure) Current Visit: Yes Status: Acute Plan: CHF LASIX IV BID. EVAL ECHO. ARB IF POSSIBLE. SALT CONTROL. (2) Alzheimer disease Current Visit: Yes Status: Chronic Qualifiers: Alzheimer's disease onset: late-onset (3) Diabetes Onset Date: 04/24/17 Current Visit: No Status: Chronic Plan: CHECK A1C, LDL, URINE MICALB. Qualifiers: Diabetes mellitus type: type 2 - Advance Directives Does patient have a Living Will: No Does patient have a Durable POA for Healthcare: Yes
[2020-01-04 22:26] VITALS: BMI 31.6
[2020-01-05 04:59] LABS: Absolute Lymphocytes (CBC) 1.8 K/uL (0.7-4.9); Basophils % 0.7 % (0-1.3); Lymphocytes % 18.7 % (15.3-44.8); MPV 10.1 fL (7.6-11.3); RBC Red Blood Cell Count 3.75 M/uL (3.86-4.86)
[2020-01-05 05:12] LABS: Potassium 3.2 mmol/L (3.5-5.1)
[2020-01-05] MEDS: LOSARTAN POTASSIUM 50 MG TABLET PO SCH (07:19)
[2020-01-05] MEDS: FUROSEMIDE 20 MG/ 2ML VIAL IV SCH ×2 (07:20→15:38)
[2020-01-05] MEDS: POTASSIUM CL SA 10 MEQ TAB PO SCH ×3 (07:20→21:50)
[2020-01-05] MEDS ORDERED: ESTRADIOL VG SCH (08:00)
[2020-01-05] MEDS ORDERED: CALCITROL 0.25 MCG CAP PO SCH (08:00)
[2020-01-05] MEDS: HOME MED 1 EA UNK (Galantamine Hbr [Galantamine Er] 12 MG) PO SCH ×2 (08:23→21:00)
[2020-01-05] MEDS: CALCIUM CARB PO SCH (08:23)
[2020-01-05] MEDS: D3 PO SCH (08:23)
[2020-01-05] MEDS: ZINC PO SCH (08:23)
[2020-01-05] MEDS: HOME MED 1 EA UNK (Memantine Hcl [Namenda Xr] 28 MG) PO SCH (08:23)
[2020-01-05] MEDS: MAGNESIUM PO SCH (08:23)
[2020-01-05] MEDS: AMLODIPINE 5 MG TAB PO SCH ×2 (08:32→21:00)
[2020-01-05] MEDS: ASPIRIN EC 81 MG TAB PO SCH (08:32)
[2020-01-05] MEDS: CLOPIDOGREL 75 MG TABLET PO SCH (08:33)
[2020-01-05] MEDS: METFORMIN HCL 500 MG TAB PO SCH ×2 (08:33→15:37)
[2020-01-05] MEDS: DOCUSATE NA 100 MG CAP PO SCH ×2 (08:33→21:50)
[2020-01-05] MEDS: carvediloL 25 MG TAB PO SCH ×2 (08:34→21:50)
[2020-01-05] MEDS: ENOXAPARIN 40 MG/0.4 ML SQ SCH (08:34)
[2020-01-05] MEDS: LEVOTHYROXINE SOD 0.05 MG TABLET PO SCH (08:35)
[2020-01-05 08:42] LABS: MPV 10.3 fL (7.6-11.3)
[2020-01-05] MEDS ORDERED: POTASSIUM CL SA 10 MEQ TAB PO ONE (08:45)
[2020-01-05 09:07] LABS: Anisocytosis 1+; Blood Morphology Comment NOTED (NOT SEEN); Platelet Estimate ADEQ; Poikilocytosis 1+; Urine White Blood Cell Casts OK
[2020-01-05 09:08] LABS: Platelet Estimate ADEQ
--- NOTE | 2020-01-05 10:04 | EKG ---
Test Date: 2020-01-04 Test Time: 14:46:58 Felt Machine Mechanic: JUSTYN MEASUREMENT RESULTS: Intervals: Rate: 64 IL: 188 QRSD: 124 QT: 470 QTc: 484 Kinder: P: 60 IL: 188 QRS: -6 T: 78 INTERPRETIVE STATEMENTS: Atrial-paced rhythm Nonspecific intraventricular conduction delay Abnormal ECG Compared to ECG 11/06/2019 10:08:25 Intraventricular conduction delay now present Sinus rhythm no longer present Left-axis deviation no longer present Electronically Signed On 01-05-20 10:02:56 CDT by Syed Hernandez
[2020-01-05] MEDS: INSULIN LISPRO 100 UNIT/1 ML SQ SCH ×2 (11:08→15:38)
--- NOTE | 2020-01-05 12:30 | RAD REPORT ---
EXAM DESCRIPTION: RAD - Chest Pa And Lat (2 Views) - 01/05/2020 12:14 pm CLINICAL HISTORY: FU CHF COMPARISON: January 03 TECHNIQUE: Frontal and lateral views of the chest were obtained. FINDINGS: The lungs are slightly underinflated. Interstitial and mild alveolar opacities are present . No new mass or consolidation. Pacemaker remains in place. Sternotomy wires present. Heart size gorman s decreased in prominence. Central vasculature is substantially decreased as well. Small pleural effu sions remain. No pneumothorax. No acute bony finding noted. No aortic abnormality. IMPRESSION: Significant improvement in the CHF/ volume overload pattern since prior day imaging.
--- NOTE | 2020-01-05 13:06 | P.PN ---
Subjective Date of Service: 01/05/20 Chief Complaint: DYSPNEA Subjective: Improving MS. DUMONT IS DOING A LOT BETTER. SHE IS BREATHING BETTER. COMFORTABLE, HAS NO COUGH. SHE RECOGNIZES ME. Review of Systems 10-point ROS is otherwise unremarkable General: Weakness, Malaise Respiratory: SOB with Excertion Physical Examination - Vital Signs Temperature: 97.2 F Blood Pressure: 122/74 Pulse: 72 Respirations: 17 Pulse Ox (%): 100 - Physical Exam General: Alert, Mild distress, Obese HEENT: Atraumatic, PERRLA, EOMI Neck: Supple, JVD not distended Respiratory: Clear to auscultation bilaterally, Normal air movement Cardiovascular: Regular rate/rhythm, Normal S1 S2 Gastrointestinal: Normal bowel sounds, No tenderness Musculoskeletal: No tenderness Integumentary: No rashes Neurological: Normal speech, Normal tone, Normal affect Lymphatics: No axilla or inguinal lymphadenopathy - Studies Laboratory Data (last 24 hrs) 01/04/20 11:53: WBC 9.7, Hgb 11.1 L, Hct 34.2 L, Plt Count 217 01/04/20 11:53: Sodium 140, Potassium 4.1, BUN 26 H, Creatinine 1.26, Glucose 156 H Microbiology Data (last 24 hrs): 01/04/20 12:00 Nasopharnyx Influenza Type A Antigen Screen - Final 01/04/20 12:00 Nasopharnyx Influenza Type B Antigen Screen - Final Medications List Reviewed: Yes Assessment And Plan - Current Problems (Diagnosis) (1) Acute diastolic CHF (congestive heart failure) Current Visit: Yes Status: Acute Plan: CHF LASIX IV BID. EVAL ECHO. ARB IF POSSIBLE. SALT CONTROL. SHE WILL BE TAKEN OFF HOSPICE AND PLACED ON HOME HEALTH. SHE IS STABLE. SHE WILL NEED HOSPITAL BED SHE HAS GEN WEAKNESS AND CHF BY HISTORY. (2) Alzheimer disease Current Visit: Yes Status: Chronic Qualifiers: Alzheimer's disease onset: late-onset (3) Diabetes Onset Date: 04/24/17 Current Visit: No Status: Chronic Plan: CHECK A1C, LDL, URINE MICALB. Qualifiers: Diabetes mellitus type: type 2
[2020-01-05] MEDS ORDERED: ATORVASTATIN 40 MG TAB PO SCH (21:00)
[2020-01-05] MEDS ORDERED: INSULIN GLARGINE 100 UNITS/ML SQ SCH (21:00)
[2020-01-06] MEDS: LEVOTHYROXINE SOD 0.05 MG TABLET PO SCH (05:56)
[2020-01-06 06:21] LABS: Magnesium 1.9 mg/dL (1.8-2.4)
[2020-01-06] MEDS: POTASSIUM CL SA 10 MEQ TAB PO SCH (08:17)
[2020-01-06] MEDS: CLOPIDOGREL 75 MG TABLET PO SCH (08:17)
[2020-01-06] MEDS: METFORMIN HCL 500 MG TAB PO SCH (08:17)
[2020-01-06] MEDS: LOSARTAN POTASSIUM 50 MG TABLET PO SCH (08:17)
[2020-01-06] MEDS: ASPIRIN EC 81 MG TAB PO SCH (08:17)
[2020-01-06] MEDS: FUROSEMIDE 20 MG/ 2ML VIAL IV SCH (08:18)
[2020-01-06] MEDS: DOCUSATE NA 100 MG CAP PO SCH (08:18)
[2020-01-06] MEDS: ENOXAPARIN 40 MG/0.4 ML SQ SCH (08:21)
[2020-01-06] MEDS: carvediloL 25 MG TAB PO SCH (08:21)
[2020-01-06] MEDS: INSULIN LISPRO 100 UNIT/1 ML SQ SCH ×2 (08:22→11:46)
[2020-01-06] MEDS: AMLODIPINE 5 MG TAB PO SCH (08:26)
[2020-01-06] MEDS: CALCIUM CARB PO SCH (08:28)
[2020-01-06] MEDS: ZINC PO SCH (08:28)
[2020-01-06] MEDS: HOME MED 1 EA UNK (Galantamine Hbr [Galantamine Er] 12 MG) PO SCH (08:28)
[2020-01-06] MEDS: D3 PO SCH (08:28)
[2020-01-06] MEDS: MAGNESIUM PO SCH (08:28)
[2020-01-06] MEDS: HOME MED 1 EA UNK (Memantine Hcl [Namenda Xr] 28 MG) PO SCH (08:28)
--- NOTE | 2020-01-06 09:11 | P.DS ---
Admission Date: 01/04/20 Discharge Date: 01/06/20 Disposition: ROUTINE DISCHARGE Discharge Condition: FAIR Reason for Admission: DYSPNEA - Problems (1) Acute diastolic CHF (congestive heart failure) Current Visit: Yes Status: Acute (2) Alzheimer disease Current Visit: Yes Status: Chronic Qualifiers: Alzheimer's disease onset: late-onset (3) Diabetes Onset Date: 04/24/17 Current Visit: No Status: Chronic Qualifiers: Diabetes mellitus type: type 2 Brief History of Present Illness: MS. DUMONT IS SEVERELY DEMENTED LADY WITH DM, HTN, MACRODANTIN TOXICITY COMES WTH DYSPNEA AND LOW GRADE FEVER. IN LIEU OF CURRENT COVID EPIDEMIC SHE IS ALSO TESTED FOR COVID 19. HER ADMISSION DIAGNOSIS IS CHF. HER IS A LUNG TRANSPLANT PATIENT TAKING CARE OF HER ON DAILY BASIS. HE HAS HIRED SOME HELP. SHE WAS ON HOSPICE UNTIL TODAY BUT TAKEN OFF HOSPICE NOW SHE IS NOT DECLINING IN HER PHYSICAL CONDITION. Hospital Course: MS DUMONT IS DOING WELL. SHE HAS NO DYSPNEA. HER CEATIINE IS HIGHER. I WILL WATCH THAT. I REDUCED THE DOSE OF LASIX TO 20 MG DAILY. WILL SEND HER HOME HEALTH. SHE IS STABLE TO GET OFF HOSPICE NOW. Vital Signs/Physical Exam: Temp Pulse Resp BP Pulse Ox 96.5 F L 69 20 144/65 H 99 01/06/20 08:00 01/06/20 08:18 01/06/20 08:00 01/06/20 08:18 01/06/20 08:00 Laboratory Data at Discharge: WBC 9.7 K/uL (4.3-10.9) 01/05/20 04:33 Hgb 10.9 g/dL (12.0-15.0) L 01/05/20 04:33 Hct 32.0 % (36.0-45.0) L 01/05/20 04:33 Plt Count 194 K/uL (152-406) 01/05/20 08:21 Sodium 143 mmol/L (136-145) 01/06/20 05:36 Potassium 4.0 mmol/L (3.5-5.1) 01/06/20 05:36 BUN 28 mg/dL (7-18) H 01/06/20 05:36 Creatinine 1.31 mg/dL (0.55-1.3) H 01/06/20 05:36 Glucose 212 mg/dL (74-106) H 01/06/20 05:36 Magnesium 1.9 mg/dL (1.8-2.4) 01/06/20 05:36 Home Medications: Aspirin [Aspirin EC 81 MG] 81 mg PO DAILY 09/04/15 Atorvastatin Calcium 40 mg PO BEDTIME 09/04/15 Clopidogrel Bisulfate [Clopidogrel] 75 mg PO DAILY 09/04/15 Levothyroxine Sodium 50 mcg PO DAILY 09/04/15 Calcium Carb/D3/Magnesium/Zinc [Amadou Mag Zinc-D Tablet] 1 tab PO DAILY 04/23/17 Memantine HCl [Namenda Xr] 28 mg PO DAILY 04/23/17 Ubidecarenone [Coenzyme Q10] 100 mg PO DAILY 04/23/17 Galantamine HBr [Galantamine ER] 12 mg PO BID 06/05/17 Amlodipine Besylate [Norvasc] 5 mg PO BID 11/06/19 Carvedilol [Coreg] 25 mg PO BID 11/06/19 Estradiol [Estring] 1 each VG SEECOM 11/06/19 Insulin Lispro [Humalog Kwikpen U-100] 10 unit SQ AC 11/06/19 Pantoprazole Sodium 40 mg PO DAILY 11/06/19 Calcitrol [Rocaltrol*] 0.25 mcg PO Q48H #45 cap 11/14/19 Insulin Glargine Human [Lantus*] 30 units SQ BEDTIME ml 11/14/19 Docusate [Colace Cap*] 100 mg PO BID 01/04/20 Metformin HCl 1,000 mg PO BIDWM 01/04/20 Furosemide 20 mg PO DAILY #90 tablet 01/06/20 Losartan Potassium [Cozaar*] 25 mg PO DAILY #90 tablet 01/06/20 Potassium Oral Tab [Klor-Con 10 mEq Tab] 10 meq PO DAILY #90 tab 01/06/20 New Medications: Furosemide 20 mg PO DAILY #90 tablet Losartan Potassium [Cozaar*] 25 mg PO DAILY #90 tablet Potassium Oral Tab [Klor-Con 10 mEq Tab] 10 meq PO DAILY #90 tab Diet: ADA
[2020-01-06 11:50] VITALS: BP 156/56; TEMP 96.9
[2020-01-06 11:53] VITALS: O2SAT 98
== END 2020-01-06 14:45 | disposition home health service (06) | DRG 291 ==
LOC: ER 11:50 → ERHOLD 14:28 → 4TH 17:35
PROVIDERS: ADMIT Internal Medicine; ATTEND Internal Medicine
PROC: 8E0ZXY6 Isolation (ICD-10-PCS; principal; 2020-01-04)
DX: I11.0 Hypertensive heart disease with heart failure (principal); I50.31 Acute diastolic (congestive) heart failure; G30.1 Alzheimer's disease with late onset; F02.80 Dementia in other diseases classified elsewhere, unspecified severity, without behavioral disturbance, psychotic disturbance, mood disturbance, and anxiety; E11.9 Type 2 diabetes mellitus without complications; Z79.82 Long term (current) use of aspirin; Z79.899 Other long term (current) drug therapy; Z79.890 Hormone replacement therapy; Z79.4 Long term (current) use of insulin; Z88.0 Allergy status to penicillin; E03.9 Hypothyroidism, unspecified; E78.5 Hyperlipidemia, unspecified; Z95.5 Presence of coronary angioplasty implant and graft; Z90.710 Acquired absence of both cervix and uterus; Z11.59 Encounter for screening for other viral diseases; Z68.31 Body mass index [BMI] 31.0-31.9, adult; E66.9 Obesity, unspecified
CPT/HCPCS: 36415; 71045; 71046; 80048; 82947; 83735; 83880; 85025; 85049; 87040; 87804; 93005; 96374; 99285; J1650; J1815; J1940; U0001

== ENCOUNTER 2020-08-25 06:17 | Emergency (ER) | payer OTHER, MEDICARE ==
--- OUTSIDE RECORDS SUMMARY | 2020-08-25 06:19 | XMS REPORT | Clinical Summary ---
:1940 Author Organization [facility] Address [address] [place] [address] Care Team Providers Name Role Phone MD Rosalva Primary Care Provider Allergies Active Allergy Reactions Severity Noted Date Comments Penicillins Rash Low 08/14/2016 Medications Medication Sig Dispensed Refills Start End Date Status Date ascorbate Vitamin C 0 Active Ag-vwnbzapw-iqf (VITAMIN C) 1,000 mg powder effervescent in packet lkcnucp-wxksccjqc-kurt Take 1 tablet 0 Active tablet by mouth. pantoprazole (PROTONIX) Take 40 mg by 0 Active 40 MG EC tablet mouth daily. 8 levothyroxine Take 50 mcg 0 Acti ve (SYNTHROID, LEVOXYL) 50 by mouth mcg tablet every morning. losartan (COZAAR) 100 Take 100 mg 0 Active MG tablet by mouth nightly. metFORMIN (GLUCOPHAGE) Take 1,000 mg [...] mouth daily. docusate sodium Take 100 mg 0 Ac tive (COLACE) 100 MG capsule by mouth 2 (two) times a day. cyanocobalamin, vitamin Place 2,500 0 Active B-12, 5,000 mcg tablet, mcg under the sublingual tongue daily. omega-3 fatty Take by mouth 0 Ac tive acids-fish oil (FISH daily. OIL) 340-1,000 mg capsule memantine (NAMENDA XR) Take by mouth 0 Active 28 mg daily. capsule,sprinkle,ER 24hr galantamine (RAZADYNE) Take 12 mg by 0 Active 12 MG tablet mouth 2 (two) times a day. insulin GLARGINE Inject 20-25 0 Active (LANTUS) 100 unit/mL Units under injection (vial) the skin nightly. insulin lispro Inject 2-15 0 Act med (HumaLOG) 100 unit/mL Units under injection the skin 3 (three) times a day before meals. nitrofurantoin Take 50 mg by 0 A ctive (MACRODANTIN) 100 MG mouth daily. capsule brinzolamide-brimonidin Apply 1 drop 0 Active e (SIMBRINZA) 1-0.2 % to eye 2 drops,suspension (two) times a day. propylene glycol Apply 1 drop 0 Active (SYSTANE BALANCE) 0.6 % to eye 3 drops (three) times a day. hydroCHLOROthiazide Take 1 90 capsule 0 Active (MICROZIDE) 12.5 mg capsule (12.5 9 capsule mg total) by mouth daily. VITAMIN B COMPLEX ORAL Take by mouth 0 Active daily. ESTRING 2 mg (7.5 mcg TAKE 3 Active /24 hour) vaginal ring DIRECTED 9 EVERY 3 MONTHS cranberry fruit extract Take 360 mg 0 Active (THERACRAN ORAL) by mouth as needed. alcohol swabs (ALCOHOL Use as 0 Active PADS) pads, medicated directed 4 7 times daily blood sugar diagnostic USE TO CHECK 0 Active strips (ONETOUCH VERIO) BLOOD SUGAR 0 strip test strips FOUR TIMES A DAY; Dx E11.65 blood-glucose meter Check glucose 0 Active (ONETOUCH VERIO SYSTEM) 4 times 7 misc daily. Dx code:E11.65 lancets (ONETOUCH Check glucose 0 Active DELICA LANCETS) 33 4 times 7 gauge misc daily. Dx code:E11.65 nitrofurantoin, Take 50 mg by 0 Active macrocrystal-monohydrat mouth. 7 e, (MACROBID) 100 MG capsule pen needle, diabetic USE 0 Active (BD ULTRA-FINE ZOLTAN PEN DIRECTED FOUR 9 NEEDLE) 32 gauge x TIMES A DAY. 5/32" needle DX E11.9 Insulin Dependent galantamine (RAZADYNE) Take 12 mg by 0 Active 12 MG tablet mouth. 0 insulin GLARGINE Inject 20 0 Act med (LANTUS SOLOSTAR) 100 Units under 9 unit/mL injection (pen) the skin. insulin lispro 100 Inject 10 0 A ctive unit/mL insulin pen, Units under 7 half-unit the skin. memantine 28 mg Take 28 mg by 0 Active capsule,sprinkle,ER mouth. 0 24hr b complex vitamins Take 1 0 A ctive capsule capsule by mouth. carvediloL (COREG) 25 TAKE 1 TABLET 180 tablet 0 Active MG tablet BY MOUTH 0 TWICE DAILY WITH MEALS carvedilol (COREG) 25 TAKE 1 TABLET 180 tablet 0 03/31 Discontinued MG tablet BY MOUTH 9 20 TWICE DAILY WITH MEALS carvedilol (COREG) 25 TAKE 1 TABLET 180 tablet 0 Discontinued MG tablet BY MOUTH 0 20 TWICE DAILY WITH MEALS carvediloL (COREG) 25 TAKE 1 TABLET 180 tablet 0 Discontinued MG tablet BY MOUTH 0 20 TWICE DAILY WITH MEALS carvediloL (COREG) 25 TAKE 1 TABLET 180 tablet 0 Discontinued MG tablet BY MOUTH 0 20 TWICE DAILY WITH MEALS Active Problems Problem Noted Date Stented coronary artery 05/03/2019 History of cardiac pacemaker in situ 06/22/2018 Fluid overload 03/31/2018 Coronary artery disease 03/29/2018 Coronary artery disease involving [place] heart with an alissa pectoris 03/25/2018 Chest pain 02/02/2018 Hx of CABG 02/02/2018 CAD in [place] artery 08/04/2017 Syncope 02/27/2017 Carotid artery disease 02/03/2017 Coronary artery disease with angina pectoris 7 Stenosis of carotid artery 07/18/2016 Chronic coronary artery disease 07/18/2016 Essential hypertension 07/18/2016 Hyperlipidemia 07/18/2016 Temporary cerebral vascular dysfunction 07/18/2016 Transient ischemia 07/18/2016 Encounters Date Type Specialty Care Team Description 07/28/2020 Refill Cardiology Sabas Burnett MD 04/30/2020 Hospital Encounter Procedural Adan Lopez ry artery Cardiology MD Glenn disease with an alissa pectoris, unspe cified vessel or lesio n type, unspecifi ed whether [place] or transplanted he art ([facility]) 04/28/2020 Refill Cardiology Sabas Burnett MD 04/03/2020 Office Visit Cardiology Sabas Burnett Coronary artery disease involving [place] coronary artery of [place] heart without angina pectoris (Primary Dx); MD Jorge L Hx of CABG; History of card iac pacemaker in situ; Stenosis of rig ht carotid artery; Stented coronar y artery 04/03/2020 Travel 03/27/2020 Travel 01/31/2020 Telephone Consult Cardiology Adan Lopezak er (Primary MD Glenn Dx) 01/29/2020 Hospital Encounter Procedural Adan Lopez ([facility]) Cardiology MD Glenn 01/28/2020 Refill Cardiology Sabas Burnett MD 01/23/2020 Telephone Cardiology Everardo Mendez, Appointment MA 11/01/2019 Office Visit Cardiology Sabas Burnett CAD in [place] a rtery (Primary Dx); MD Jorge L Hx of CABG; Bilateral carot id artery disease, unspecified type ([facility]) 10/30/2019 Hospital Encounter Procedural Adan Lopez ([facility]) Joaquin Elizabeth MD 10/15/2019 Refill Cardiology Sabas Burnett MD after 08/25/2019 Immunizations Name Administration Dates Next Due Pneumococcal Conjugate 13-Valent 03/31/2018 Surgical History Surgery Date Site/Laterality Comments CARDIAC CATHETERIZATION CARDIAC CATHETERIZATION 03/25/2018 N/A Procedur e: Cv selective coronary angiogr aphy; Surgeon: Sabas Burnett MD; Location: [facility] Bead Inspector Invasive Loc ation; Service: Cardiov ascular; Laterality: N/A; Medical devices from this surgery are in t he Implants section . CARDIAC CATHETERIZATION 03/25/2018 N/A Procedur e: Cv left internal mammary graft; Surgeon: Sabas Burnett MD; Location: [facility] Bead Inspector Invasive Loc ation; Service: Cardiov ascular; Laterality: N/A; Medical devices from this surgery are in t he Implants section . CARDIAC CATHETERIZATION 03/25/2018 N/A Procedur e: Cv pci; Surgeon: Sabas Burnett MD; Location: [facility] Bead Inspector In[facility]; Service: Cardiov ascular; Laterality: N/A; Medical devices from this surgery are in t he Implants section . CARDIAC CATHETERIZATION 03/26/2018 N/A Procedur e: PCI STENT; Surgeon: Sabas Burnett MD; Location: [facility] Bead Inspector In[facility]; Service: Cardiov ascular; Laterality: N/A; RCA Medical devices from this surgery are in t he Implants section . CARDIAC CATHETERIZATION 03/29/2018 N/A Procedur e: Cv left heart cath w lv gram c ors; Surgeon: Sabas Burnett MD; Location: [facility] Bead Inspector Invasive Loc [facility]; Service: Cardiov ascular; Laterality: N/A; Medical devices from this surgery are in t he Implants section . CARDIAC ELECTROPHYSIOLOGY 03/29/2018 N/A Proced ure: Ep ppi PROCEDURE generator insert ion dual; Surgeon: Sabas Burnett MD; Location: [facility] Bead Inspector Invasive Loc [facility]; Service: Cardiov ascular; Laterality: N/A; Medical devices from this surgery are in t he Implants section . CARDIAC CATHETERIZATION 03/29/2018 N/A Procedur e: Cv selective coronary angiogr aphy; Surgeon: Sabas Burnett MD; Location: [facility] Bead Inspector Invasive Loc [facility]; Service: Cardiov ascular; Laterality: N/A; Medical devices from this surgery are in t he Implants section . Medical History Medical History Date Comments TIA (transient ischemic attack) Carotid artery disease (HCC) Diabetes mellitus (HCC) Hypertension Hyperlipidemia Social History Tobacco Use Types Packs/Day Years Used Date Never Smoker Smokeless Tobacco: Never Used Sex Assigned at Date Recorded Not on file Last Filed Vital Signs Vital Sign Reading Time Taken Comments Blood Pressure 121/58 04/03/2020 11:07 AM CDT Pulse 68 04/03/2020 11:07 AM CDT Temperature - - Respiratory Rate - - Oxygen Saturation - - Inhaled Oxygen Concentration - - Weight 83.5 kg (184 lb) 04/03/2020 11:07 AM CDT Height 167.6 cm (5' 6") 04/03/2020 11:07 AM CDT Body Mass Index 29.7 04/03/2020 11:07 AM CDT Plan of Treatment Date Type Specialty Care Team Description 04/02/2021 Office Visit Cardiology Sabas Burnett MD [address] [facility] [address] [place], [place] [address] [phone] Health Maintenance Due Date Last Done Comments DIABETES: RETINAL EYE EXAM 1950 DIABETIC FOOT EXAM 1950 URINE MICROALBUMIN 1950 SHINGLES VACCINES (#1) 1991 65+ PNEUMOCOCCAL VACCINE (2 of 2 - PPSV23) 03/31/201903/31 INFLUENZA VACCINE 05/12/2020 Implants Implanted Type Area Wash Tank Tender Device Shelf Model / Identifier Expiration Serial / Date Lot Percepta Quad Crtp Mri - [id number] Cardiac N/A: [facility] [id number] / Implanted: Qty: 1 on 03/29/2018 by Sabas Burnett MD at [facility] Pacemaker N/A [employer] / Generators Lead, Pacemaker Bipolar Fix Forming Atri al And Ventricular Steroid Eluting 52 Centimeter Capsure Fix Novus - [id number] - [id number] Cardiac Pacing N/A: [facility] 01/16/2020 [id number] / Implanted: Qty: 1 on 03/29/2018 by Sabas Burnett MD at [facility] Leads or N/A [employer] [id number] / Electrodes or [id number] Accessories Lead [id number] Attain Performa - [id number] - [id number] Cardiac P acing N/A: [facility] 01/29/2020 [id number] / Implanted: Qty: 1 on 03/29/2018 by Sabas Burnett MD at [facility] Leads or N/A [employer] [id number] / Electrodes or [id number] Accessories Lead, Bipolar Active Fixation Atrial Darryl roid Eluting 45 Cm Capsure Fix Novus System - [id number] - [id number] Cardiac Pacing N/A: [facility] 12/25/2019 [id number] / Implanted: Qty: 1 on 03/29/2018 by Sabas Burnett MD at [facility] Leads or N/A [employer] [id number] / Electrodes or [id number] Accessories Catheter Cardiac 7f Mach 1 Fr4 - [id number] Cardiovascular N/A: [facility] [id number] / Implanted: 03/26/2018 at [facility] (Quantity not on file) Imp lants N/A INTERVENTIONAL / CARDIOLOGY Microcatheter Miley Corsair 6f X 135 Cm - [id number] Cardiovascul ar N/A: [facility] [id number] / Implanted: 03/26/2018 at [facility] (Quantity not on file) Implants N/A / Stent Cornorary Syst Synergy (Mr) 2.50mm X 20mm - [id number] Coronary Stents N/A: [facility] 11/16/2018 [id number] / Implanted: Qty: 1 on 03/25/2018 by Sabas Burnett MD at [facility] N/A INTERVENTIONAL / CARDIOLOGY [id number] Stent Cornorary Syst Synergy (Mr) 2.50mm X 16mm - [id number] Coronary Stents N/A: [facility] 12/29/2018 [id number] / Implanted: Qty: 1 on 03/26/2018 by Sabas Burnett MD at [facility] N/A INTERVENTIONAL / CARDIOLOGY [id number] System Clsr Sut Meditd 6fr Perclose Proglide - [id number] Surgic al N/A: [facility] 01/10/2020 [id number] / Implanted: 03/25/2018 at [facility] (Quantity not on file) Imp lants; N/A DEVICES / Expanders; [id number] Extenders; Surgical Wires System Clsr Sut Meditd 6fr Perclose Proglide - [id number] Surgic al N/A: [facility] 01/10/2020 [id number] / Implanted: 03/26/2018 at [facility] (Quantity not on file) Imp lants; N/A DEVICES / Expanders; [id number] Extenders; Surgical Wires Procedures Procedure Name Priority Date/Time Associated Diagnosis Comme nts CV PACEMAKER DEFIB ILR Routine 01/31/2020 INTERROGATION after 08/25/2019 Results CV pacemaker defib or ilr interrogation (01/31/2020) Narrative Performed At This result has an attachment that is no t available. 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
--- OUTSIDE RECORDS SUMMARY | 2020-08-25 06:19 | XMS REPORT | Clinical Summary ---
:1940 Author Organization [facility] Address [address] [place] [address] Care Team Providers Name Role Phone Unavailable Primary Care Provider Unavailable Allergies Active Allergy Reactions Severity Noted Date Comments Penicillins Rash Medium 06/06/2017 Medications Medication Sig Dispensed Refills Start Date End Date Status repaglinide (PRANDIN) 2 Take 2 mg by 0 Active MG tabletIndications: mouth 3 (three) type 2 diabetes times daily mellitus before meals. levothyroxine Take 50 mcg by 0 A ctive (SYNTHROID, LEVOTHROID) mouth Every 50 MCG morning on an tabletIndications: empty stomach. hypothyroidism irbesartan (AVAPRO) 300 Take 300 mg by 0 03/01/2017 Active MG tabletIndications: mouth nightly. hypertension metFORMIN (GLUCOPHAGE) Take 1,000 mg by 0 Active 1000 MG mouth 2 (two) tabletIndications: type times daily with 2 diabetes mellitus breakfast and dinner. aspirin 81 MG EC tablet Take 81 mg by 0 Active mouth daily. carvedilol (COREG) 12.5 Take 12.5 mg by 0 Active MG tablet mouth 2 (two) times daily with breakfast and dinner. amLODIPine (NORVASC) 5 Take 5 mg by 0 03/20/2017 Active MG tabletIndications: mouth 2 (two) hypertension times daily. atorvastatin (LIPITOR) Take 40 mg by 0 Active 40 MG tablet mouth daily. galantamine (RAZADYNE) Take 12 mg by 0 Active 12 MG tablet mouth 2 (two) times daily. coenzyme Q10 100 mg Take 100 mg by 0 Active capsule mouth daily. docusate sodium Take 100 mg by 0 Active (COLACE) 100 MG capsule mouth 2 (two) times daily. cyanocobalamin (VITAMIN Take 1,000 mcg by 0 Active B-12) 1000 MCG tablet mouth daily. ascorbic acid, vitamin Take 1,000 mg by 0 Active C, (VITAMIN C) 1000 MG mouth daily. tablet folic acid (FOLVITE) Take 800 mcg by 0 Active 800 MCG tablet mouth daily. b complex vitamins Take 1 capsule by 0 Active capsule mouth daily. memantine (NAMENDA XR) Take 28 mg by 0 Active 28 mg CSpX mouth daily. Active Problems Problem Noted Date Acute [...] Not on file Last Filed Vital Signs Not on file Plan of Treatment Not on file Results Not on fileafter 08/25/2019 Insurance Payer Benefit Plan / Subscriber ID Effective Dates Phone Addre ss Type Group MEDICARE MEDICARE A B [id number] 1994-[place] Medicare t MCR AARP/[place] [id number] 2016-Present Medigap SUPPLEMENT/[facility] Advance Directives For more information, please contact: [phone] Code Status Date Activated Date Inactivated Comments Full Code 06/06/2017 12:50 AM 06/12/2017 6:34 PM This code status was determined by: Patient
--- OUTSIDE RECORDS SUMMARY | 2020-08-25 06:20 | XMS REPORT | Continuity of Care Document ---
:1940 Author Organization [facility] t Address [address] [place] [address] Care Team Providers Name Role Phone Rosalva TRUJILLO Primary Care Physician Janelle TRUJILLO R. Attending Clinician Glenn Lopez MD Attending Clinician Andrea FORTUNE Attending Clinician Unavailable Viri TRUJILLO, Gene Attending Clinician Davian TRUJILLO Attending Clinician SAMANTHA Attending Clinician Unavailable Georgette MYERS Admitting Clinician Unavailable Payers Payer Name Policy Type Policy Effective Date Expiration Date Sour ce Number MEDICAREMEDICARE PART [id number] 1994 Bin [place] AND 00:00:00 Mandaeism [id number] [place] [facility] [place] [id number] 2014 [place] [id number] 00:00:00 Met hammond 2014-UrielComme rcial Problems Condition Condition Condition Status Onset Resolution Last Treating Co mments Source Name Details Category Date Date Treatment Clinician Date Stented Stented Disease Active [place] coronary coronary 7-23 Method i artery artery 00:00: st 00 History of History of Disease Active hussein cardiac cardiac 9-11 Methodi pacemaker pacemaker 00:00: st in situ in situ 00 Fluid Fluid Disease Active [place] overload overload 6-20 Method i 00:00: st 00 Coronary Coronary Disease Active [place] artery artery 6-18 [facility] disease disease 00:00: st 00 Coronary Coronary Disease Active [place] artery artery 6-14 [facility] disease disease 00:00: st involving involving 00 [place] nooksack heart with heart with angina angina pectoris pectoris Chest pain Chest pain Disease Active H hussein 4-24 Methodi 00:00: st 00 Hx of CABG Hx of CABG Disease Active H hussein 4-24 Methodi 00:00: st 00 CAD in CAD in Disease Active 2016-10 [place] nooksack nooksack 0-24 Methodi artery artery 00:00: st 00 Acute Acute Disease Active [facility] upper GI upper GI 8-31 [facility] bleed bleed [facility]: Medical 00 [place] Acute Acute Disease Active [facility] blood loss blood loss 8-31 [place] kes - anemia anemia 00:00: Medical 00 [place] Urinary Urinary Disease Active [facility] tract tract 8-26 [facility] - infection infection 00:00: [facility] thien 00 [place] Syncope Syncope Disease Active [place] 5-19 Methodi 00:00: st 00 Carotid Carotid Disease Active [place] artery artery 4-25 [facility] disease disease 00:00: st 00 Coronary Coronary Disease Active [place] artery artery 4-25 [facility] disease disease 00:00: st with with 00 angina angina pectoris pectoris Stenosis Stenosis Disease Active 2015-10 [place] of carotid of carotid 0-07 Me [place] artery artery 00:00: st 00 Chronic Chronic Disease Active 2015-10 [place] coronary coronary 0-07 Method i artery artery 00:00: st disease disease 00 Essential Essential Disease Active 2015-10 Erich mercado hypertensi hypertensi 0-07 Me [place] on on 00:00: st 00 Hyperlipid Hyperlipid Disease Active 2015-10 H hussein emia emia 0-07 Methodi 00:00: st 00 Temporary Temporary Disease Active 2015-10 Erich stoharmony cerebral cerebral 0-07 Method i vascular vascular 00:00: st dysfunctio dysfunctio 00 n n Transient Transient Disease Active 2015-10 Erich ston ischemia ischemia 0-07 Method i 00:00: st 00 Allergies, Adverse Reactions, Alerts Allergy Allergy Status Severity Reaction(s) Onset Inactive Treating Comm ents Source Name Type Date Date Clinician Penicill Propensi Active Rash [facility] adverse [facility]: Medical reaction 00 Center s Penicill Propensi Active Rash 2015-10 [place] ins ty to 10-14 [facility] adverse 00:00: st reaction 00 s to drug Family History Family Member Diagnosis Comments Start Date Stop Date Source Natural brother Diabetes [facility] Natural father Diabetes [facility] Natural mother Diabetes [facility] Natural son Diabetes [facility] Social History Social Habit Start Date Stop Date Quantity Comments Source Sex Assigned At [facility] ethodist Tobacco use and 2020-04-03 2020-04-03 Never used [facility] ethodist exposure 00:00:00 00:00:00 Alcohol intake 2017-06-11 2017-06-[address] [facility] 00:00:00 00:00:00 non-drinker of Medical Ce nter alcohol (finding) Smoking Status Start Date Stop Date Source Never smoker [facility] Medications Ordered Filled Start Stop Current Ordering Indication Dosage Frequency Signature Comments Components Source Medication Medication Date Date Medication? Clinician (SIG) Name Name carvediloL 2019-10 Yes TAKE 1 [place] (COREG) 25 0-19 TABLET BY Meth [place] MG tablet 00:00: MOUTH st 00 TWICE DAILY WITH MEALS carvediloL 2019- No TAKE 1 [place] (COREG) 25 7-20 10-19 TABLET BY Met hodi MG tablet 00:00: 00:[address] 00 :00 TWICE DAILY WITH MEALS levothyroxi Yes 50ug QD Take 50 Erich ston ne 6-23 mcg by Methodi (SYNTHROID, 11:14: mouth st LEVOXYL) 50 42 every mcg tablet morning. losartan Yes 100mg QD Take 100 [place] (COZAAR) 6-23 mg by Methodi 100 MG 11:14: mouth st tablet 42 nightly. metFORMIN Yes 1000mg Q.5D Take 1,000 [place] (GLUCOPHAGE 6-23 mg by Methodi ) 1,000 mg 11:14: mouth 2 st tablet 42 (two) times a day with meals. docusate 2020-0 Yes 100mg Q.5D Take 100 [place] sodium 6-23 mg by Methodi (COLACE) 11:14: mouth 2 st 100 MG 42 (two) capsule times a day. cyanocobala 2020-[address] Erich ston min, 6-23 2,500 mcg Methodi vitamin 11:14: under the st B-12, 5,000 42 tongue mcg tablet, daily. sublingual omega-3 2020-0 Yes QD Take by [place] fatty 6-23 mouth Methodi acids-fish 11:14: daily. st oil (FISH 42 OIL) 340-1,000 mg capsule memantine 2020-0 Yes QD Take by [place] (NAMENDA 6-23 mouth Methodi XR) 28 mg 11:14: daily. st capsule,spr 42 inkle,ER 24hr galantamine 2020-0 Yes 12mg Q.5D Take 12 mg [place] (RAZADYNE) 6-23 by mouth 2 Met hodi 12 MG 11:14: (two) st tablet 42 times a day. insulin 2020-0 Yes 20U QD Inject [place] GLARGINE 6- 20-25 Methodi (LANTUS) 11:14: Units st 100 unit/mL 42 under the injection skin (vial) nightly. insulin 2020-0 Yes 2U [id number] Inject [place] lispro 6- [id number] 2-15 Units M ethodi (HumaLOG) 11:14: 3D under the st 100 unit/mL 42 skin 3 injection (three) times a day before meals. nitrofurant 2020-0 Yes 50mg QD Take 50 mg [place] oin 6-23 by mouth Methodi (MACRODANTI 11:14: daily. st N) 100 MG 42 capsule propylene 2020-0 Yes 1[drp] [id number] Apply 1 [place] glycol 6- [id number] drop to Meth [place] (SYSTANE 11:14: 3D eye 3 st BALANCE) 42 (three) 0.6 % drops times a day. cranberry 2020-0 Yes 360mg Take 360 Erich ston fruit 6-23 mg by Methodi extract 11:14: mouth as st (THERACRAN 42 needed. ORAL) ascorbate 2020-0 Yes Vitamin C Erich ston Ca-multivit 6-23 Methodi -min 11:14: st (VITAMIN C) 37 1,000 mg powder effervescen t in packet calcium-mag 2019-0 Yes 1{tbl} Take 1 [place] nesium-zinc 6-23 tablet by Met hodi tablet 11:14: mouth. st 37 aspirin 2020-0 Yes 81mg QD Take 81 mg [place] (ECOTRIN) 6-23 by mouth Method i 81 MG 11:14: daily. st enteric 37 coated tablet clopidogrel 2020-0 Yes 75mg QD Take 75 mg [place] (PLAVIX) 75 6-23 by mouth [place] mg tablet 11:14: daily. st 37 amLODIPine 2020-0 Yes 5mg Q.5D Take 5 mg [place] (NORVASC) 5 6-23 by mouth 2 Me thodi mg tablet 11:14: (two) st 37 times a day. atorvastati 2020-0 Yes 40mg QD Take 40 mg [place] n (LIPITOR) 6-23 by mouth Meth [place] 40 MG 11:14: daily. st tablet 37 coenzyme 2020-0 Yes 10mg QD Take 10 mg Erich ston Q10 10 mg 6-23 by mouth Method i capsule 11:14: daily. st 37 brinzolamid 2019-0 Yes 1[drp] Q.5D Apply 1 [place] e-brimonidi 6-23 drop to Metho di ne 11:14: eye 2 st (SIMBRINZA) 37 (two) 1-0.2 % times a drops,suspe day. nsion VITAMIN B 2020-0 Yes QD Take by [place] COMPLEX 6-23 mouth Methodi ORAL 11:14: daily. st 37 b complex 2020-0 Yes 1{capsu Take 1 Erich ston vitamins 6-23 le} capsule by Metho di capsule 11:14: mouth. st 37 carvediloL 2020-0 2020- No TAKE 1 [place] (COREG) 25 4-20 07-20 TABLET BY Met hodi MG tablet 00:00: 00:[address] 00 :00 TWICE DAILY WITH MEALS blood sugar 2020-0 Yes USE TO [place] diagnostic 1-17 CHECK Methodi strips 00:00: BLOOD st (ONETOUCH 00 SUGAR FOUR VERIO) TIMES A strip test DAY; Dx strips E11.65 galantamine Yes 12mg Take 12 mg [place] (RAZADYNE) 1-13 by mouth. [place] 12 MG 00:00: st tablet 00 memantine Yes 28mg Take 28 mg [place] 28 mg 1-13 by mouth. Methodi capsule,spr 00:00: st inkle,ER 00 24hr carvedilol 2019- No TAKE 1 [place] (COREG) 25 1-06 04-20 TABLET BY Met hodi MG tablet 00:00: 00:[address] 00 :00 TWICE DAILY WITH MEALS carvedilol 2018-10- No TAKE 1 [place] (COREG) 25 0-14 01-06 TABLET BY Met hodi MG tablet 00:00: 00:[address] 00 :00 TWICE DAILY WITH MEALS insulin Yes 20U Inject 20 [place] GLARGINE 8-22 Units Methodi (LANTUS 00:00: under the st SOLOSTAR) 00 skin. 100 unit/mL injection (pen) ESTRING 2 Yes TAKE [place] mg (7.5 mcg 6-17 DIRECTED Meth [place] /24 hour) 00:00: EVERY 3 st vaginal 00 MONTHS ring hydroCHLORO Yes 12.5mg QD Take 1 [place] thiazide 5-03 capsule Methodi (MICROZIDE) 00:00: (12.[address] 12.5 mg 00 total) by capsule mouth daily. pen needle, Yes USE [place] diabetic 1-30 DIRECTED Methodi (BD 00:00: FOUR TIMES st ULTRA-FINE 00 A DAY. DX ZOLTAN PEN E11.9 NEEDLE) 32 Insulin gauge x Dependent 32" needle pantoprazol Yes 40mg QD Take 40 mg [place] e 1-15 by mouth Methodi (PROTONIX) 00:00: daily. st 40 MG EC 00 tablet nitrofurant 2016-10 Yes 50mg Take 50 mg [place] oin, 1-27 by mouth. Methodi macrocrysta 00:00: st l-monohydra 00 te, (MACROBID) 100 MG capsule alcohol 2016-10 Yes Use as [place] swabs 0-04 directed 4 Methodi (ALCOHOL 00:00: times st PADS) pads, 00 daily medicated blood-gluco 2016-10 Yes Check [place] se meter 0-04 glucose 4 Method i (ONETOUCH 00:00: times st VERIO 00 daily. Dx SYSTEM) code:E11.6 misc 5 lancets 2016-10 Yes Check [place] (ONETOUCH 0-04 glucose 4 Metho di DELICA 00:00: times st LANCETS) 33 00 daily. Dx gauge mis code:E11.6 5 insulin Yes 10U Inject 10 [place] lispro 100 9-08 Units Methodi unit/mL 00:00: under the st insulin 00 skin. pen, half-unit repaglinide Yes type 2 2mg Take [address] [facility] (PRANDIN) 2 06-12 diabetes by mouth 3 [facility] - MG tablet 16:34: mellitus (three) M edical 41 times Center daily before meals. levothyroxi Yes hypothyroid 50ug Take [address] ne 06-12 ism mcg by [facility] - (SYNTHROID, 16:34: mouth Medic al LEVOTHROID) 41 Every Center 50 MCG morning on tablet an empty stomach. metFORMIN Yes type 2 1000mg Take 1,[address] (GLUCOPHAGE 06-12 diabetes mg by Edel es - ) 1000 MG 16:34: mellitus mouth 2 M edical tablet 41 (two) Center times daily with breakfast and dinner. aspirin 81 Yes 81mg QD Take [address] MG EC 06-12 by mouth [facility] - tablet 16:34: daily. Medical 41 [place] carvedilol Yes 12.5mg Take 12.[address] (COREG) - mg by [facility]ukes - 12.5 MG 16:34: mouth 2 Medical tablet 41 (two) Center times daily with breakfast and dinner. atorvastati Yes 40mg QD Take [address] n (LIPITOR) 06-12 by mouth Luke s - 40 MG 16:34: daily. Medical tablet 41 Center galantamine Yes 12mg Q.5D Take [address] (RAZADYNE) 06-12 by mouth 2 Edel es - 12 MG 16:34: (two) Medical tablet 41 times Center daily. coenzyme Yes 100mg QD Take [address] Q10 100 mg 06-12 mg by [facility]ukes - capsule 16:34: mouth Medical 41 daily. [place] docusate 2017-0 Yes 100mg Q.5D Take [address] sodium 9-01 mg by [facility]ukes - (COLACE) 16:34: mouth 2 Medica l 100 MG 41 (two) Center capsule times daily. cyanocobala 2017 Yes 1000ug QD Take 1,[address] min 9-01 mcg by [facility]ukes - (VITAMIN 16:34: mouth Medical B-12) 1000 41 daily. [place] MCG tablet ascorbic 2017 Yes 1000mg QD Take 1,[address] acid, 9-01 mg by [facility] - vitamin C, 16:34: mouth Medica l (VITAMIN C) 41 daily. [place] 1000 MG tablet folic acid 2017 Yes 800ug QD Take [address] (FOLVITE) 9-01 mcg by [facility]ukes - 800 MCG 16:34: mouth Medical tablet 41 daily. [place] b complex 2017 Yes 1{capsu QD Take [address] vitamins 9-01 le} capsule by [facility] - capsule 16:34: mouth Medical 41 daily. [place] memantine Yes 28mg QD Take [address] (NAMENDA 9-01 by mouth [facility] - XR) 28 mg 16:34: daily. Medica l CSpX 41 [place] amLODIPine Yes hypertensio 5mg Q.5D Take [address] (NORVASC) 5 6-09 n by mouth 2 [place] kes - MG tablet 00:00: (two) Medical 00 times Center daily. irbesartan Yes hypertensio 300mg QD Take [address] (AVAPRO) 5-21 n mg by [facility] - 300 MG 00:00: mouth Medical tablet 00 nightly. [place] Immunizations Ordered Immunization Filled Immunization Date Status Commen ts Source Name Name Pneumococcal 2018-03-31 Completed [place] Conjugate 13-Valent 00:00:00 Meth[facility] dist Vital Signs Vital Name Observation Time Observation Value Comments Source Systolic blood 2020-04-03 11:07:00 121 mm[Hg] Celine antunez Mandaeism pressure Diastolic blood 2020-04-03 11:07:00 58 mm[Hg] [place] Mandaeism pressure Heart rate 2020-04-03 11:07:00 68 /min Alf Breen Body height 2020-04-03 11:07:00 167.6 cm Alf B[place] Body weight 2020-04-03 11:07:00 83.462 kg Alf [place] BMI 2020-04-03 11:07:00 29.70 kg/m2 [place] Mandaeism Procedures Procedure Date / Time Performed Performing Clinician Sourc e CV PACEMAKER DEFIB ILR 2020-01-31 00:00:00 Everardo Mendez on Mandaeism INTERROGATION Plan of Care Planned Activity Planned Date Details Comments Source Future Scheduled 2020-05-12 INFLUENZA VACCINE [place] [facility] Test 00:00:00 [code = INFLUENZA VACCINE] Future Scheduled 2019-03-31 65+ PNEUMOCOCCAL [place] [facility]aeism Test 00:00:00 VACCINE (2 of 2 - PPSV23) [code = 65+ PNEUMOCOCCAL VACCINE (2 of 2 - PPSV23)] Future Scheduled 1991 SHINGLES VACCINES (#1) [place] [facility] Test 00:00:00 [code = SHINGLES VACCINES (#1)] Future Scheduled 1951 DIABETES: RETINAL EYE Ho [facility] Mandaeism Test 00:00:00 EXAM [code = DIABETES: RETINAL EYE EXAM] Future Scheduled 1951 DIABETIC FOOT EXAM [place] [facility] Test 00:00:00 [code = DIABETIC FOOT EXAM] Future Scheduled 1950 URINE MICROALBUMIN [place] [facility]ism Test 00:00:00 [code = URINE MICROALBUMIN] Encounters Start End Encounter Admission Attending Care Care Encounter Source Date/Time Date/Time Type Type Clinicians Facility Department ID 2020-04-30 2020-04-30 Outpatient [facility] [id number] [place] 00:00:00 00:00:00 FAINA 290 Method i 2020-04-03 2020-04-03 Outpatient JANELLE [facility] [id number] [place] 00:00:00 00:00:00 WIL [address] 2020-01-31 2020-01-31 Outpatient [facility] [id number] [place] 00:00:00 00:00:00 FAINA 805 Method i 2020-01-29 2020-01-29 Outpatient [facility] [id number] [place] 00:00:00 00:00:00 FAINA [address] 2019-10-30 2019-10-30 Outpatient [facility] [id number] [place] 00:00:00 00:00:00 FAINA [address] 2019-10-24 2019-10-24 STACEY Mc [id number] 10:27:20 11:29:13 Visit Iam Purcell 350.1.13.10 Gil 4.2.7.2.686 [place] [id number] nal 092 [facility] 2019-07-31 2019-07-31 Outpatient [facility] [id number] [place] 00:00:00 00:00:00 296 Method i 2019-07-31 2019-07-31 Outpatient [facility] [id number] [place] 00:00:00 00:00:00 500 Method i 2019-06-02 2019-06-02 Office DAVID Marcelo [id number] 15:31:05 16:01:05 Visit Donta AMBULATOR 350.1.13.21 Y 0.2.7.2.686 [id number] Results Test Description Test Time Test Comments Results Result Comments Source POCT-GLUCOSE METER 2017-06-12 16:12:00 Test Item Value Reference Range Interpretation Comme nts POC-GLUCOSE METER [facility] (test 212 mg/dL 70-110 H TESTED AT [address] code = 1538) [facility] 7703 0 POCT-GLUCOSE [id number] 12:56:00 Test Item Value Reference Range Interpretation Comments POC-GLUCOSE METER 272 mg/dL 70-110 H TESTED AT [place] [address] ([facility]) (test code = TARUNMIRLANDE Sharma [facility] 1538) [id number] HEMOGLOBIN [id number] 08:28:00 Test Item Value Reference Range Interpretation Comments HEMOGLOBIN A1C ([facility]) (test code = 8.0 % 4.3-6.1 H 368) POCT-GLUCOSE [id number] 07:33:00 Test Item Value Reference Range Interpretation Comments POC-GLUCOSE METER 199 mg/dL 70-110 H TESTED AT [place] [address] ([facility]) (test code = SHAKIR Sharma [facility] 1538) [id number] CBC W/PLT COUNT & AUTO [id number] 06:29:00 Test Item Value Reference Range Interpretation Comments WHITE BLOOD CELL COUNT ([facility]) 15.0 K/ L 3.5-10.5 H (test code = 775) RED BLOOD CELL COUNT (BEAKER) 3.88 M/ L 3.93-5.22 L (test code = 761) HEMOGLOBIN (BEAKER) (test code = 11.1 GM/DL 11.2-15.7 L 410) HEMATOCRIT (BEAKER) (test code = 34.1 % 34.1-44.9 411) MEAN CORPUSCULAR VOLUME (BEAKER) 87.9 fL 79.4-94.8 (test code = 753) MEAN CORPUSCULAR HEMOGLOBIN 28.6 pg 25.6-32.2 (BEAKER) (test code = 751) MEAN CORPUSCULAR HEMOGLOBIN CONC 32.6 GM/DL 32.2-35.5 (BEAKER) (test code = 752) RED CELL DISTRIBUTION WIDTH 15.2 % 11.7-14.4 H (BEAKER) (test code = 412) PLATELET COUNT (BEAKER) (test 255 K/CU MM 150-450 code = 756) MEAN PLATELET VOLUME (BEAKER) 12.6 fL 9.4-12.3 H (test code = 754) NUCLEATED RED BLOOD CELLS 0 /100 WBC 0-0 (BEAKER) (test code = 413) NEUTROPHILS RELATIVE PERCENT 68 % (BEAKER) (test code = 429) LYMPHOCYTES RELATIVE PERCENT 19 % (BEAKER) (test code = 430) MONOCYTES RELATIVE PERCENT 9 % (BEAKER) (test code = 431) EOSINOPHILS RELATIVE PERCENT 3 % (BEAKER) (test code = 432) BASOPHILS RELATIVE PERCENT 0 % (BEAKER) (test code = 437) NEUTROPHILS ABSOLUTE COUNT 10.21 K/ L 1.56-6.13 H (BEAKER) (test code = 670) LYMPHOCYTES ABSOLUTE COUNT 2.82 K/ L 1.18-3.74 (BEAKER) (test code = 414) MONOCYTES ABSOLUTE COUNT (BEAKER) 1.30 K/ L 0.24-0.36 H (test code = 415) EOSINOPHILS ABSOLUTE COUNT 0.47 K/ L 0.04-0.36 H (BEAKER) (test code = 416) BASOPHILS ABSOLUTE COUNT (BEAKER) 0.05 K/ L 0.01-0.08 (test code = 417) IMMATURE GRANULOCYTES-RELATIVE 1 % 0-1 PERCENT (BEAKER) (test code = 2801) COMPREHENSIVE METABOLIC [id number] 06:04:00 Test Item Value Reference Range Interpretation Comments TOTAL PROTEIN 6.0 gm/dL 6.0-8.3 (BEAKER) (test code = 770) ALBUMIN (BEAKER) 2.9 g/dL 3.5-5.0 L (test code = 1145) ALKALINE PHOSPHATASE 42 U/L 40-150 (BEAKER) (test code = 346) BILIRUBIN TOTAL 0.3 mg/dL 0.2-1.2 (BEAKER) (test code = 377) SODIUM (BEAKER) (test 142 meq/L 136-145 code = 381) POTASSIUM (BEAKER) 3.8 meq/L 3.5-5.1 (test code = 379) CHLORIDE (BEAKER) 109 meq/L 98-107 H (test code = 382) CO2 (BEAKER) (test 25 meq/L 22-29 code = 355) BLOOD UREA NITROGEN 27 mg/dL 7-21 H (BEAKER) (test code = 354) CREATININE (BEAKER) 0.86 mg/dL 0.57-1.25 (test code = 358) GLUCOSE RANDOM 159 mg/dL 70-105 H (BEAKER) (test code = 652) CALCIUM (BEAKER) 8.5 mg/dL 8.4-10.2 (test code = 697) AST (SGOT) (BEAKER) 26 U/L 5-34 (test code = 353) ALT (SGPT) (BEAKER) 44 U/L 6-55 (test code = 347) EGFR (BEAKER) (test 64 mL/min/1.73 ESTIMA TANK GFR IS code = 1092) sq m NOT ACCURATE CREATININE CLEARANCE IN PREDICTING GLOMERULAR FILTRATION RATE . ESTIMATED GFR I S NOT APPLICABLE FOR DIALYSIS PATIEN TS. POCT-GLUCOSE [id number] 21:22:00 Test Item Value Reference Range Interpretation Comments POC-GLUCOSE METER 152 mg/dL 70-110 H TESTED AT [facility] 6720 (BEAKER) (test code = SHAKIR [place] 1538) [id number] POCT-GLUCOSE [id number] 18:12:00 Test Item Value Reference Range Interpretation Comments POC-GLUCOSE METER 202 mg/dL 70-110 [facility] ([facility] (test code = SHAKIR Sharma [place] 1538) [id number] HEMOGLOBIN AND [id number] 18:02:00 Test Item Value Reference Range Interpretation Comments HEMOGLOBIN (BEAKER) (test code = 11.1 GM/DL 11.2-15.7 L 410) HEMATOCRIT (BEAKER) (test code = 35.6 % 34.1-44.9 411) TISSUE [id number] 17:12:00Surgical Pathology Report Case: [id number] Authorizing Provider: Jian Cabrera MD Collected: 06/11/2017 0839 Ordering Location: [address] Received: 06/11/2017 1126 Service Pathologist: Juany Ochoa MD Specimen: Stomach, random stomach biopsy A. STOMACH, RANDOM, BIOPSIES: - FRAGMENTS OF ANTRAL MUCOSA WITH CHRONIC INACTIVE GASTRITIS (SEE MICROSCOPIC DESCRIPTION) - FRAGMENTS OF OXYNTIC MUCOSA WITH NO SIGNIFICANT DIAGNOSTIC ALTERATION - WARTHIN- STARRY STAIN NEGATIVE FOR HELICOBACTER PYLORI ORGANISMS - NO EVIDENCE OF INTESTINAL METAPLASIA OR DYSPLASIA OR MALIGNANCY IDENTIFIED Signing Pathologist Direct Phone Line: [phone] signed by Juany Ochoa MD on 06/11/2017 at 5:12 [id number] bleedRandom stomach biopsyThe specimen is received in [...] no intestinal metaplasia, dysplasia or carcinoma.HEMOGLOBIN AND [id number] 15:17:00 Test Item Value Reference Range Interpretation Comments HEMOGLOBIN (BEAKER) (test code = 11.3 GM/DL 11.2-15.7 410) HEMATOCRIT (BEAKER) (test code = 34.1 % 34.1-44.9 411) POCT-GLUCOSE [id number] 13:13:00 Test Item Value Reference Range Interpretation Comments POC-GLUCOSE METER 229 mg/dL 70-110 H TESTED AT [facility] 6720 (BEAKER) (test code = SHAKIR GOMEZ 1538) [id number] HEMOGLOBIN AND [id number] 11:52:00 Test Item Value Reference Range Interpretation Comments HEMOGLOBIN (BEAKER) (test code = 11.8 GM/DL 11.2-15.7 410) HEMATOCRIT (BEAKER) (test code = 37.0 % 34.1-44.9 411) URINE [id number] 10:51:00 Test Item Value Reference Range Interpretation Comments CULTURE (BEAKER) (test code = 1095) No growth [id number] 08:11:00 Test Item Value Reference Range Interpretation Comments PROTIME (BEAKER) (test code = 15.1 seconds 11.7-14.7 H 759) INR (BEAKER) (test code = 370) 1.2 <=5.9 PARTIAL THROMBOPLASTIN TIME 29.8 seconds 22.5-36.0 (BEAKER) (test code = 760) RECOMMENDED COUMADIN/WARFARIN INR THERAPY RANGESSTANDARD DOSE: 2.0 - 3.0 Includes: PROPHYLAXIS forvenous thrombosis, systemic embolization; TREATMENT for venous thrombosis and/or pulmonary embolus.HIGH RISK: Target INR is 2.5-3.5 for patients with mechanical heart valves.POCT-GLUCOSE [id number] 07:13:00 Test Item Value Reference Range Interpretation Comments POC-GLUCOSE METER 126 mg/dL 70-110 H TESTED AT [place] [address] ([facility]) (test code = SHAKIR GOMEZ 1538) [id number] BLOOD [id number] 06:00:00 Test Item Value Reference Range Interpretation Comments CULTURE (BEAKER) (test No growth in 5 days code = 1095) BLOOD [id number] 06:00:00 Test Item Value Reference Range Interpretation Comments CULTURE (BEAKER) (test No growth in 5 days code = 1095) HEMOGLOBIN AND [id number] 05:48:00 Test Item Value Reference Range Interpretation Comments HEMOGLOBIN (BEAKER) (test code = 10.9 GM/DL 11.2-15.7 L 410) HEMATOCRIT (BEAKER) (test code = 32.8 % 34.1-44.9 L 411) POCT-GLUCOSE [id number] 22:12:00 Test Item Value Reference Range Interpretation Comments POC-GLUCOSE METER 279 mg/dL 70-110 H TESTED AT [place] [address] ([facility]) (test code = SHAKIR Sharma [facility] 1538) [id number] POCT-GLUCOSE [id number] 20:16:00 Test Item Value Reference Range Interpretation Comments POC-GLUCOSE METER 283 mg/dL 70-110 H TESTED AT [place] [address] ([facility]) (test code = [facility] Sharma [facility] 1538) [address] HEMOGLOBIN AND [id number] 17:41:00 Test Item Value Reference Range Interpretation Comments HEMOGLOBIN ([facility]) (test code = 8.2 GM/DL 11.2-15.7 L 410) HEMATOCRIT ([facility]) (test code = 24.3 % 34.1-44.9 L 411) POCT-GLUCOSE [id number] 17:34:00 Test Item Value Reference Range Interpretation Comments POC-GLUCOSE METER 327 mg/dL 70-110 H TESTED AT [place] [address] ([facility]) (test code = [facility] 1538) [address] POCT-GLUCOSE [id number] 15:48:00 Test Item Value Reference Range Interpretation Comments POC-GLUCOSE METER 401 mg/dL 70-110 HH TESTED AT [place] [address] ([facility]) (test code = [facility] 1538) [address] POCT-GLUCOSE [id number] 13:29:00 Test Item Value Reference Range Interpretation Comments POC-GLUCOSE METER 429 mg/dL 70-110 HH TESTED AT [place] [address] ([facility]) (test code = [facility] 1538) [id number] HEMOGLOBIN AND [id number] 09:34:00 Test Item Value Reference Range Interpretation Comments HEMOGLOBIN ([facility]) (test code = 9.7 GM/DL 11.2-15.7 L 410) HEMATOCRIT ([facility]) (test code = 28.9 % 34.1-44.9 L 411) POCT-GLUCOSE [id number] 07:33:00 Test Item Value Reference Range Interpretation Comments POC-GLUCOSE METER 396 mg/dL 70-110 H TESTED AT [place] [address] ([facility]) (test code = [facility] 1538) [id number] CBC W/PLT COUNT & AUTO [id number] 03:48:00 Test Item Value Reference Range Interpretation Comments WHITE BLOOD CELL COUNT ([facility]) 13.9 K/ L 3.5-10.5 H (test code = 775) RED BLOOD CELL COUNT (BEAKER) 3.50 M/ L 3.93-5.22 L (test code = 761) HEMOGLOBIN (BEAKER) (test code = 10.4 GM/DL 11.2-15.7 L 410) HEMATOCRIT (BEAKER) (test code = 30.9 % 34.1-44.9 L 411) MEAN CORPUSCULAR VOLUME (BEAKER) 88.3 fL 79.4-94.8 (test code = 753) MEAN CORPUSCULAR HEMOGLOBIN 29.7 pg 25.6-32.2 (BEAKER) (test code = 751) MEAN CORPUSCULAR HEMOGLOBIN CONC 33.7 GM/DL 32.2-35.5 (BEAKER) (test code = 752) RED CELL DISTRIBUTION WIDTH 13.9 % 11.7-14.4 (BEAKER) (test code = 412) PLATELET COUNT (BEAKER) (test 253 K/CU MM 150-450 code = 756) MEAN PLATELET VOLUME (BEAKER) 12.1 fL 9.4-12.3 (test code = 754) NUCLEATED RED BLOOD CELLS 0 /100 WBC 0-0 (BEAKER) (test code = 413) NEUTROPHILS RELATIVE PERCENT 73 % (BEAKER) (test code = 429) LYMPHOCYTES RELATIVE PERCENT 16 % (BEAKER) (test code = 430) MONOCYTES RELATIVE PERCENT 9 % (BEAKER) (test code = 431) EOSINOPHILS RELATIVE PERCENT 1 % (BEAKER) (test code = 432) BASOPHILS RELATIVE PERCENT 0 % (BEAKER) (test code = 437) NEUTROPHILS ABSOLUTE COUNT 10.11 K/ L 1.56-6.13 H (BEAKER) (test code = 670) LYMPHOCYTES ABSOLUTE COUNT 2.21 K/ L 1.18-3.74 (BEAKER) (test code = 414) MONOCYTES ABSOLUTE COUNT (BEAKER) 1.29 K/ L 0.24-0.36 H (test code = 415) EOSINOPHILS ABSOLUTE COUNT 0.15 K/ L 0.04-0.36 (BEAKER) (test code = 416) BASOPHILS ABSOLUTE COUNT (BEAKER) 0.06 K/ L 0.01-0.08 (test code = 417) IMMATURE GRANULOCYTES-RELATIVE 1 % 0-1 PERCENT (BEAKER) (test code = 2801) BASIC METABOLIC [id number] 03:41:00 Test Item Value Reference Range Interpretation Comments SODIUM (BEAKER) 135 meq/L 136-145 L (test code = 381) POTASSIUM (BEAKER) 4.4 meq/L 3.5-5.1 (test code = 379) CHLORIDE (BEAKER) 104 meq/L 98-107 (test code = 382) CO2 (BEAKER) (test 22 meq/L 22-29 code = 355) BLOOD UREA NITROGEN 52 mg/dL 7-21 H (BEAKER) (test code = 354) CREATININE (BEAKER) 1.04 mg/dL 0.57-1.25 (test code = 358) GLUCOSE RANDOM 354 mg/dL 70-105 H (BEAKER) (test code = 652) CALCIUM (BEAKER) 8.7 mg/dL 8.4-10.2 (test code = 697) EGFR (BEAKER) (test 52 mL/min/1.73 ESTIMA TANK GFR IS code = 1092) sq m NOT ACCURATE CREATININE CLEARANCE IN PREDICTING GLOMERULAR FILTRATION RATE . ESTIMATED GFR I S NOT APPLICABLE FOR DIALYSIS PATIEN TS. POCT-GLUCOSE [id number] 22:56:00 Test Item Value Reference Range Interpretation Comments POC-GLUCOSE METER 275 mg/dL 70-110 H TESTED AT [facility] (BEAKER) (test code = SHAK[facility] [place] 1538) [id number] URINE [id number] 18:15:00 Test Item Value Reference Range Interpretation Comments CULTURE (BEAKER) (test <10,000 col/mL skin code = 1095) abdon URINALYSIS W/ [id number] 15:32:00 Test Item Value Reference Range Interpretation Comments COLOR (BEAKER) (test code Yellow = 470) CLARITY (BEAKER) (test Clear code = 469) SPECIFIC GRAVITY UA 1.011 1.001-1.035 (BEAKER) (test code = 468) PH UA (BEAKER) (test code 6.5 5.0-8.0 = 467) PROTEIN UA (BEAKER) (test 20 mg/dL Negative A code = 464) GLUCOSE UA (BEAKER) (test >1000 mg/dL Negative A code = 365) KETONES UA (BEAKER) (test Negative Negative code = 371) BILIRUBIN UA (BEAKER) Negative Negative (test code = 462) BLOOD UA (BEAKER) (test Negative Negative code = 461) NITRITE UA (BEAKER) (test Negative Negative code = 465) LEUKOCYTE ESTERASE UA Negative Negative (BEAKER) (test code = 466) UROBILINOGEN UA (BEAKER) 0.2 mg/dL 0.2-1.0 (test code = 463) RBC UA (BEAKER) (test < /HPF code = 519) WBC UA (BEAKER) (test 2 /HPF code = 520) SOURCE(BEAKER) (test code Urine, Straight = 0344) Catheter POCT-GLUCOSE [id number] 11:43:00 Test Item Value Reference Range Interpretation Comments POC-GLUCOSE METER 340 mg/dL 70-110 H TESTED AT [place] [address] ([facility]) (test code = [facility] Sharma [place] 1538) [id number] POCT-GLUCOSE [id number] 07:26:00 Test Item Value Reference Range Interpretation Comments POC-GLUCOSE METER 178 mg/dL 70-110 H TESTED AT [place] [address] ([facility]) (test code = [place] 1538) [id number] POCT-GLUCOSE [id number] 23:39:00 Test Item Value Reference Range Interpretation Comments POC-GLUCOSE METER 183 mg/dL 70-110 H TESTED AT [place] [address] ([facility]) (test code = [place] Sh[place] 1538) [id number] POCT-GLUCOSE [id number] 22:25:00 Test Item Value Reference Range Interpretation Comments POC-GLUCOSE METER 208 mg/dL 70-110 H TESTED AT [place] [address] ([facility]) (test code = [place] Sharma [place] 1538) [id number] POCT-GLUCOSE [id number] 20:12:00 Test Item Value Reference Range Interpretation Comments POC-GLUCOSE METER 194 mg/dL 70-110 H TESTED AT [place] [address] ([facility]) (test code = [facility] [place] [place] 1538) [id number] POCT-GLUCOSE [id number] 16:11:00 Test Item Value Reference Range Interpretation Comments POC-GLUCOSE METER 266 mg/dL 70-110 H TESTED AT [place] [address] ([facility]) (test code = SHAKIR Sharma [place] 1538) [id number] POCT-GLUCOSE [id number] 11:17:00 Test Item Value Reference Range Interpretation Comments POC-GLUCOSE METER 288 mg/dL 70-110 H TESTED AT [facility] 67[facility] (BEAKER) (test code = SHAKIR Sharma [place] 1538) [id number] POCT-GLUCOSE [id number] 08:57:00 Test Item Value Reference Range Interpretation Comments POC-GLUCOSE METER 202 mg/dL 70-110 H TESTED AT [facility] 67[facility] (BEAKER) (test code = SHAKIR Sharma [place] 1538) [id number] BASIC METABOLIC [id number] 07:38:00 Test Item Value Reference Range Interpretation Comments SODIUM (BEAKER) 137 meq/L 136-145 (test code = 381) POTASSIUM (BEAKER) 3.7 meq/L 3.5-5.1 (test code = 379) CHLORIDE (BEAKER) 103 meq/L 98-107 (test code = 382) CO2 (BEAKER) (test 25 meq/L 22-29 code = 355) BLOOD UREA NITROGEN 28 mg/dL 7-21 H (BEAKER) (test code = 354) CREATININE (BEAKER) 1.13 mg/dL 0.57-1.25 (test code = 358) GLUCOSE RANDOM 194 mg/dL 70-105 H (BEAKER) (test code = 652) CALCIUM (BEAKER) 9.0 mg/dL 8.4-10.2 (test code = 697) EGFR (BEAKER) (test 47 mL/min/1.73 ESTIMA TANK GFR IS code = 1092) sq m NOT ACCURATE CREATININE CLEARANCE IN PREDICTING GLOMERULAR FILTRATION RATE . ESTIMATED GFR I S NOT APPLICABLE FOR DIALYSIS PATIEN TS. CBC W/PLT COUNT & AUTO [id number] 05:53:00 Test Item Value Reference Range Interpretation Comments WHITE BLOOD CELL COUNT (BEAKER) 11.7 K/ L 3.5-10.5 H (test code = 775) RED BLOOD CELL COUNT (BEAKER) 4.34 M/ L 3.93-5.22 (test code = 761) HEMOGLOBIN (BEAKER) (test code = 12.6 GM/DL 11.2-15.7 410) HEMATOCRIT (BEAKER) (test code = 38.1 % 34.1-44.9 411) MEAN CORPUSCULAR VOLUME (BEAKER) 87.8 fL 79.4-94.8 (test code = 753) MEAN CORPUSCULAR HEMOGLOBIN 29.0 pg 25.6-32.2 (BEAKER) (test code = 751) MEAN CORPUSCULAR HEMOGLOBIN CONC 33.1 GM/DL 32.2-35.5 (BEAKER) (test code = 752) RED CELL DISTRIBUTION WIDTH 14.0 % 11.7-14.4 (BEAKER) (test code = 412) PLATELET COUNT (BEAKER) (test 201 K/CU MM 150-450 code = 756) MEAN PLATELET VOLUME (BEAKER) 12.4 fL 9.4-12.3 H (test code = 754) NUCLEATED RED BLOOD CELLS 0 /100 WBC 0-0 (BEAKER) (test code = 413) NEUTROPHILS RELATIVE PERCENT 64 % (BEAKER) (test code = 429) LYMPHOCYTES RELATIVE PERCENT 17 % (BEAKER) (test code = 430) MONOCYTES RELATIVE PERCENT 15 % (BEAKER) (test code = 431) EOSINOPHILS RELATIVE PERCENT 2 % (BEAKER) (test code = 432) BASOPHILS RELATIVE PERCENT 1 % (BEAKER) (test code = 437) NEUTROPHILS ABSOLUTE COUNT 7.52 K/ L 1.56-6.13 H (BEAKER) (test code = 670) LYMPHOCYTES ABSOLUTE COUNT 1.98 K/ L 1.18-3.74 (BEAKER) (test code = 414) MONOCYTES ABSOLUTE COUNT (BEAKER) 1.78 K/ L 0.24-0.36 H (test code = 415) EOSINOPHILS ABSOLUTE COUNT 0.27 K/ L 0.04-0.36 (BEAKER) (test code = 416) BASOPHILS ABSOLUTE COUNT (BEAKER) 0.07 K/ L 0.01-0.08 (test code = 417) IMMATURE GRANULOCYTES-RELATIVE 0 % 0-1 PERCENT (BEAKER) (test code = 2801) POCT-GLUCOSE [id number] 20:12:00 Test Item Value Reference Range Interpretation Comments POC-GLUCOSE METER 333 mg/dL 70-110 H TESTED AT [facility] (test code = [facility] 1538) [id number] POCT-GLUCOSE [id number] 11:45:00 Test Item Value Reference Range Interpretation Comments POC-GLUCOSE METER 355 mg/dL 70-110 H TESTED AT [facility] ([facility] (test code = [facility] 1538) [id number] POCT-GLUCOSE [id number] 08:17:00 Test Item Value Reference Range Interpretation Comments POC-GLUCOSE METER 303 mg/dL 70-110 H TESTED AT [place] [address] ([facility]) (test code = SHAKIR Sharma [facility] 1538) [address] POCT-GLUCOSE [id number] 00:00:00 Test Item Value Reference Range Interpretation Comments POC-GLUCOSE METER 340 mg/dL 70-110 H TESTED AT [place] [address] ([facility]) (test code = [facility] Edith [facility] 1538) [id number] POCT-GLUCOSE [id number] 20:42:00 Test Item Value Reference Range Interpretation Comments POC-GLUCOSE METER 309 mg/dL 70-110 H TESTED AT [place] [address] ([facility]) (test code = [facility] 1538) [id number] POCT-GLUCOSE [id number] 17:09:00 Test Item Value Reference Range Interpretation Comments POC-GLUCOSE METER 351 mg/dL 70-110 H TESTED AT [place] [address] ([facility]) (test code = [facility] Edith [facility] 1538) [address] POCT-GLUCOSE [id number] 11:28:00 Test Item Value Reference Range Interpretation Comments POC-GLUCOSE METER 327 mg/dL 70-110 H TESTED AT [place] [address] ([facility]) (test code = [facility] Edith [facility] 1538) [id number] POCT-GLUCOSE [id number] 07:37:00 Test Item Value Reference Range Interpretation Comments POC-GLUCOSE METER 247 mg/dL 70-110 H TESTED AT [place] [address] ([facility]) (test code = [facility] 1538) [id number] BASIC METABOLIC [id number] 03:12:00 Test Item Value Reference Range Interpretation Comments SODIUM (BEAKER) 130 meq/L 136-145 L (test code = 381) POTASSIUM (BEAKER) 4.6 meq/L 3.5-5.1 (test code = 379) CHLORIDE (BEAKER) 101 meq/L 98-107 (test code = 382) CO2 (BEAKER) (test 19 meq/L 22-29 L code = 355) BLOOD UREA NITROGEN 41 mg/dL 7-21 H (BEAKER) (test code = 354) CREATININE (BEAKER) 1.89 mg/dL 0.57-1.25 H (test code = 358) GLUCOSE RANDOM 277 mg/dL 70-105 H (BEAKER) (test code = 652) CALCIUM (BEAKER) 8.3 mg/dL 8.4-10.2 L (test code = 697) EGFR (BEAKER) (test 26 mL/min/1.73 ESTIMA TANK GFR IS code = 1092) sq m NOT ACCURATE CREATININE CLEARANCE IN PREDICTING GLOMERULAR FILTRATION RATE . ESTIMATED GFR I S NOT APPLICABLE FOR DIALYSIS PATIEN TS. CBC W/PLT COUNT & AUTO [id number] 03:01:00 Test Item Value Reference Range Interpretation Comments WHITE BLOOD CELL COUNT (BEAKER) 17.2 K/ L 3.5-10.5 H (test code = 775) RED BLOOD CELL COUNT (BEAKER) 3.90 M/ L 3.93-5.22 L (test code = 761) HEMOGLOBIN (BEAKER) (test code = 11.7 GM/DL 11.2-15.7 410) HEMATOCRIT (BEAKER) (test code = 36.3 % 34.1-44.9 411) MEAN CORPUSCULAR VOLUME (BEAKER) 93.1 fL 79.4-94.8 (test code = 753) MEAN CORPUSCULAR HEMOGLOBIN 30.0 pg 25.6-32.2 (BEAKER) (test code = 751) MEAN CORPUSCULAR HEMOGLOBIN CONC 32.2 GM/DL 32.2-35.5 (BEAKER) (test code = 752) RED CELL DISTRIBUTION WIDTH 14.4 % 11.7-14.4 (BEAKER) (test code = 412) PLATELET COUNT (BEAKER) (test 153 K/CU MM 150-450 code = 756) MEAN PLATELET VOLUME (BEAKER) 12.5 fL 9.4-12.3 H (test code = 754) NUCLEATED RED BLOOD CELLS 0 /100 WBC 0-0 (BEAKER) (test code = 413) NEUTROPHILS RELATIVE PERCENT 76 % (BEAKER) (test code = 429) LYMPHOCYTES RELATIVE PERCENT 13 % (BEAKER) (test code = 430) MONOCYTES RELATIVE PERCENT 10 % (BEAKER) (test code = 431) EOSINOPHILS RELATIVE PERCENT 0 % (BEAKER) (test code = 432) BASOPHILS RELATIVE PERCENT 0 % (BEAKER) (test code = 437) NEUTROPHILS ABSOLUTE COUNT 13.01 K/ L 1.56-6.13 H (BEAKER) (test code = 670) LYMPHOCYTES ABSOLUTE COUNT 2.28 K/ L 1.18-3.74 (BEAKER) (test code = 414) MONOCYTES ABSOLUTE COUNT (BEAKER) 1.74 K/ L 0.24-0.36 H (test code = 415) EOSINOPHILS ABSOLUTE COUNT 0.00 K/ L 0.04-0.36 L (BEAKER) (test code = 416) BASOPHILS ABSOLUTE COUNT (BEAKER) 0.04 K/ L 0.01-0.08 (test code = 417) IMMATURE GRANULOCYTES-RELATIVE 1 % 0-1 PERCENT (BEAKER) (test code = 2801)
[2020-08-25 07:04] LABS: Absolute Lymphocytes (CBC) 2.8 K/uL (0.7-4.9); Basophils % 0.9 % (0-1.3); Hematocrit 40.7 % (36.0-45.0); Lymphocytes % 19.3 % (15.3-44.8); MPV 10.1 fL (7.6-11.3); RBC Red Blood Cell Count 4.92 M/uL (3.86-4.86)
[2020-08-25 07:21] LABS: Protime INR 1.03
[2020-08-25 07:22] LABS: ALT/SGPT 24 U/L (12-78); AST/SGOT 15 U/L (15-37); Albumin 3.8 g/dL (3.4-5.0); Alkaline Phosphatase 73 U/L (45-117); BUN Blood Urea Nitrogen 23 mg/dL (7-18); Bicarbonate 29 mmol/L (21-32); Bilirubin Direct 0.1 mg/dL (0-0.2); Bilirubin Total 0.4 mg/dL (0.2-1.0); Creatine Phosphokinase 112 U/L (26-192); Glucose Level 196 mg/dL (74-106); Magnesium 2.1 mg/dL (1.8-2.4); NT PRO-BNP 435 pg/mL (<450); Protein, Total 8.6 g/dL (6.4-8.2); Sodium Level 137 mmol/L (136-145); Troponin (Emerg Dept Use Only) < 0.02 ng/mL (0.0-0.045)
--- NOTE | 2020-08-25 07:35 | RAD REPORT ---
EXAM DESCRIPTION: CT - [id number] - 08/25/2020 7:06 am CLINICAL HISTORY: trauma, head and neck injury COMPARISON: Head C Spine Mpr Wo Con dated 06/04/2017 TECHNIQUE: Axial 5 mm thick images of the head were obtained. Axial 2 mm thick images of the cervic al spine were obtained with sagittal and coronal reconstruction images generated and reviewed. All CT scans are performed using dose optimization technique as appropriate and may include automated exposure control or mA/KV adjustment according to patient size. FINDINGS: No intracranial hemorrhage, mass, edema or acute intracranial finding. No suspicion for ac [place] infarction. Moderate severity atrophy and chronic ischemic changes are present. Ventricles are in proportion. Mastoid air cells and paranasal sinuses are clear. No globe or orbit abnormality seen. I ntracranial findings are similar to comparison. Cervical body height and alignment are normal. No disk space narrowing. No fracture or acute bony abn ormality. Uncovertebral joint hypertrophy and facet joint hypertrophy changes are present. Mild minal inal stenosis changes are present at C3-4 and on the left at C4-5. Left paracentral bony spurring cau ses spinal stenosis at the superior C6 level. Central canal detail is inherently limited. No paraspinal mass or hematoma. IMPRESSION: Negative CT head examination for acute or significant finding. Patient has moderate jesus rity atrophy and chronic ischemic changes match [address] cervical spine examination for acute or significant finding. Cervical spine degenerative change including spinal stenosis at the superior C6 level matches comparison as well.
--- NOTE | 2020-08-25 08:10 | EDPHYS ---
Physician Documentation [facility] Name: Ace Almendarez Age: 79 yrs Sex: Female : 1940 Arrival Date: 08/25/2020 Time: 06:19 Bed 20 Private MD: ED Physician Mukul Estrada HPI: 08/25 07:09 This 79 yrs old Other Female presents to ER via EMS with complaints of Fall. mh7 07:09 Details of fall: The patient fell from an upright position, while standing. Onset: The mh7 symptoms/episode began/occurred today. Associated injuries: The patient sustained injury to the head, abrasion, contusion, tenderness, right shoulder, painful injury. Severity of symptoms: At their worst the symptoms were moderate, earlier today, in the emergency department the symptoms have improved, moderately. Historical: - Allergies: 06:29 PENICILLINS; rv - PMHx: 06:29 chronic uti; Dementia; Diabetes - NIDDM; Hyperlipidemia; Hypertension; Hypothyroidism; rv - PSHx: 06:29 CABG; Heart stents; pacemaker; rv - Immunization history:: Adult Immunizations up to date. - Social history:: Smoking status: Patient denies any tobacco usage or history of. ROS: 07:11 Constitutional: Negative for fever, chills, and weight loss, Eyes: Negative for injury, mh7 pain, redness, and discharge, ENT: Negative for injury, pain, and discharge, Neck: Negative for injury, pain, and swelling, Cardiovascular: Negative for chest pain, palpitations, and edema. 07:11 Abdomen/GI: Negative for abdominal pain, nausea, vomiting, diarrhea, and constipation, Back: Negative for injury and pain, : Negative for injury, bleeding, discharge, and swelling, Skin: Negative for injury, rash, and discoloration, Neuro: Negative for headache, weakness, numbness, tingling, and seizure, Psych: Negative for depression, anxiety, suicide ideation, homicidal ideation, and hallucinations, Allergy/Immunology: Negative for hives, rash, and allergies, Endocrine: Negative for neck swelling, polydipsia, polyuria, polyphagia, and marked weight changes, Hematologic/Lymphatic: Negative for swollen nodes, abnormal bleeding, and unusual bruising. 07:11 Cardiovascular: 07:11 Respiratory: Positive for cough, with no reported sputum, shortness of breath, started yesterday. Exam: 07:11 Constitutional: This is a well developed, well nourished patient who is awake, alert, mh7 and in no acute distress. Head/Face: Normocephalic, atraumatic. Eyes: Pupils equal round and reactive to light, extra-ocular motions intact. Lids and lashes normal. Conjunctiva and sclera are non-icteric and not injected. Cornea within normal limits. Periorbital areas with no swelling, redness, or edema. Neck: Trachea midline, no thyromegaly or masses palpated, and no cervical lymphadenopathy. Supple, full range of motion without nuchal rigidity, or vertebral point tenderness. No Meningismus. Chest/axilla: Normal chest wall appearance and motion. Nontender with no deformity. No lesions are appreciated. Cardiovascular: Regular rate and rhythm with a normal S1 and S2. No gallops, murmurs, or rubs. Normal PMI, no JVD. No pulse deficits. 07:11 Abdomen/GI: Soft, non-tender, with normal bowel sounds. No distension or tympany. No guarding or rebound. No evidence of tenderness throughout. Back: No spinal tenderness. No costovertebral tenderness. Full range of motion. Skin: Warm, dry with normal turgor. Normal color with no rashes, no lesions, and no evidence of cellulitis. 07:11 Neuro: Awake and alert, GCS 15, oriented to person, place, time, and situation. Cranial nerves II-XII grossly intact. Motor strength 5/5 in all extremities. Sensory grossly intact. Cerebellar exam normal. Normal gait. Psych: Awake, alert, with orientation to person, place and time. Behavior, mood, and affect are within normal limits. 07:11 Respiratory: the patient does not display signs of respiratory distress, Respirations: normal, Breath sounds: rhonchi, that are mild, are scattered, Respiratory rate: 18 07:11 Musculoskeletal/extremity: Extremities: noted in the right shoulder: pain, tenderness, ROM: intact in all extremities, Circulation is intact in all extremities. Sensation intact. Compartment Syndrome exam of affected extremity: is normal. no numbness, no tingling, no sensation deficit, no palor, no weak pulses, Joints: the right shoulder displays painful range of motion, tenderness, Tendon exam: specific tendon testing normal through active and passive range of motion Vital Signs: 06:26 BP 140 / 87; Pulse 81; Resp 18; Temp 98.3; Pulse Ox 95% on R/A; Weight 72.57 kg; rv MDM: 06:35 Patient medically screened. [facility] 08:07 Differential diagnosis: closed head injury, contusion, fracture, sprain, strain. rn Differential diagnosis: CHF, pneumonia, bronchitis, viral syndrome. Data reviewed: vital signs, nurses notes. Counseling: I had a detailed discussion with the patient and/or guardian regarding: the historical points, exam findings, and any diagnostic results supporting the discharge/admit diagnosis, lab results, radiology results, the need for outpatient follow up, to return to the emergency department if symptoms worsen or persist or if there are any questions or concerns that arise at home. Response to treatment: the patient's symptoms have markedly improved after treatment, and as a result, I will discharge patient. Special discussion: I discussed with the patient/guardian in detail that at this point there is no indication for admission to the hospital. It is understood, however, that if the symptoms persist or worsen the patient needs to return immediately for re-evaluation. ED course: No acute complaints on reevaluation, denies sob or focal neuro complaint. No chest pain. BNP and trop neg. CXR without large infiltrate. Will dc home with zithromax for elevated WBC, cough, and subjective sob. daughter states sometimes patient will try and get out of bed to urinate at night without using her walker, and has chronic right shoulder issues as it is main shoulder she sleeps on. . 08/25 06:37 Order name: Basic Metabolic Panel [facility] 08/25 06:37 Order name: CBC with Diff; Complete Time: 07:40 [facility] 08/25 06:37 Order name: LFT's [facility] 08/25 06:37 Order name: Magnesium; Complete Time: 07:40 [facility] 08/25 06:37 Order name: NT PRO-BNP; Complete Time: 07:40 [facility] 08/25 06:37 Order name: PT-INR; Complete Time: 07:58 [facility] 08/25 06:37 Order name: Troponin (emerg Dept Use Only); Complete Time: 07:40 [facility] 08/25 06:37 Order name: XRAY Chest (1 view) [facility] 08/25 06:37 Order name: EKG; Complete Time: 06:38 [facility] 08/25 06:37 Order name: CPK; Complete Time: 07:40 [facility] 08/25 06:37 Order name: Shoulder Right (2 View) XRAY [facility] 08/25 06:38 Order name: Basic Metabolic Panel; Complete Time: 07:40 [facility] 08/25 06:38 Order name: Liver (Hepatic) Function; Complete Time: 07:40 [facility] 08/25 06:40 Order name: CT Head C Spine; Complete Time: 07:40 [facility] 08/25 06:37 Order name: Cardiac monitoring; Complete Time: 06:51 [facility] 08/25 06:37 Order name: EKG - Nurse/Tech; Complete Time: 07:25 [facility] 08/25 06:37 Order name: IV Saline Lock; Complete Time: 06:51 [facility] 08/25 06:37 Order name: Labs collected and sent; Complete Time: 06:51 [facility] 08/25 06:37 Order name: O2 Per Protocol; Complete Time: 06:51 [facility] 08/25 06:37 Order name: O2 Sat Monitoring; Complete Time: 06:51 mh Administered Medications: No medications were administered Disposition: 08/25/20 08:09 Discharged to Home. Impression: Bronchitis, not specified as acute or chronic, Fall from standing. - Condition is Stable. - Discharge Instructions: Fall Prevention in the Home, Cough, Adult. - Prescriptions for Zithromax Z- Gage 250 mg Oral Tablet - take 1 tablet by ORAL route as directed for 5 days Day 1 - take two (2) tablets one time. Day 2, 3, 4 , 5 take one (1) tablet once daily.; 6 tablet. - Medication Reconciliation Form, Thank You Letter, Antibiotic Education, Prescription Opioid Use form. - Follow up: Private Physician; When: 2 - 3 days; Reason: Recheck today's complaints, Re-evaluation by your physician. - Problem is new. - Symptoms have improved. Signatures: Dispatcher [employer] EDMS Mukul Estrada MD MD rn Vicente, Ronaldo, RN RN rv Harris, Amy, RN RN ah Holmes, Maurice, MD MD 7 Corrections: (The following items were deleted from the chart) 08:44 08:09 08/25/2020 08:09 Discharged to Home. Impression: Bronchitis, not specified as ah acute or chronic; Fall from standing. Condition is Stable. Forms are Medication Reconciliation Form, Thank You Letter, Antibiotic Education, Prescription Opioid Use. Follow up: Private Physician; When: 2 - 3 days; Reason: Recheck today's complaints, Re-evaluation by your physician. Problem is new. Symptoms have improved. rn
--- NOTE | 2020-08-25 08:10 | ER ---
Nurse's Notes [facility] Name: Ace Almendarez Age: 79 yrs Sex: Female : 1940 Arrival Date: 08/25/2020 Time: 06:19 Bed 20 Private MD: Diagnosis: Bronchitis, not specified as acute or chronic;Fall from standing Presentation: 08/25 06:26 Chief complaint: EMS states: patient was found on the floor by this morning, rv curled up on her side, awake. no injury. takes blood thinner. with history of Dementia. Coronavirus screen: Client denies travel out of the [place] in the last 14 days. Ebola Screen: No symptoms or risks identified at this time. Initial Sepsis Screen: Does the patient meet any 2 criteria? No. Patient's initial sepsis screen is negative. Does the patient have a suspected source of infection? No. Patient's initial sepsis screen is negative. Risk Assessment: Do you want to hurt yourself or someone else? Patient reports no desire to harm self or others. Onset of symptoms is unknown. 06:26 Method Of Arrival: EMS: [facility] 06:26 Acuity: PARVIN 3 rv Triage Assessment: 06:29 General: Appears comfortable, Behavior is calm, cooperative. Pain: Complains of pain in rv right shoulder. EENT: No signs and/or symptoms were reported regarding the EENT system. Neuro: Level of Consciousness is awake, alert, obeys commands, Oriented to person, place, time, situation. Cardiovascular: Patient's skin is warm and dry. Respiratory: Airway is patent Respiratory effort is even, unlabored. Derm: Skin is intact. Historical: - Allergies: 06:29 PENICILLINS; rv - PMHx: 06:29 chronic uti; Dementia; Diabetes - NIDDM; Hyperlipidemia; Hypertension; Hypothyroidism; rv - PSHx: 06:29 CABG; Heart stents; pacemaker; rv - Immunization history:: Adult Immunizations up to date. - Social history:: Smoking status: Patient denies any tobacco usage or history of. Screenin:30 Abuse screen: Denies threats or abuse. Denies injuries from another. Nutritional rv screening: No deficits noted. Tuberculosis screening: No symptoms or risk factors identified. Fall Risk None identified. Assessment: 07:05 Reassessment: pt returned to room from CT scan. 07:15 General: Appears uncomfortable, Behavior is calm, cooperative. Pain: Denies pain. ah Neuro: Level of Consciousness is awake, alert, obeys commands, Oriented to person, situation, [employer] are equal bilaterally Gait is unsteady, Facial symmetry appears normal. Cardiovascular: Heart tones S1 S2 present Capillary refill < 3 seconds Patient's skin is warm and dry. Respiratory: Reports cough that is non-productive, Airway is patent Respiratory effort is even, unlabored, Respiratory pattern is regular, symmetrical. GI: No signs and/or symptoms were reported involving the gastrointestinal system. Abdomen is distended. : No signs and/or symptoms were reported regarding the genitourinary system. Derm: Skin is intact, is healthy with good turgor. Musculoskeletal: Circulation, motion, and sensation intact. Capillary refill < 3 seconds, Range of motion: intact in all extremities. 08:30 Reassessment: Discharge instructions given to patient and daughter. Educated on prescription and the importance of completing all antibiotics. Understanding voiced. Vital Signs: 06:26 BP 140 / 87; Pulse 81; Resp 18; Temp 98.3; Pulse Ox 95% on R/A; Weight 72.57 kg; rv ED Course: 06:19 Patient arrived in ED. 06:23 Mati Berry MD is Attending Physician[facility] 06:29 Triage completed. rv 06:30 Arm band placed on right wrist. Patient placed in the treatment room, on a stretcher, rv Patient notified of wait time. 06:30 Patient has correct armband on for positive identification. Pulse ox on. NIBP on. rv 06:52 Initial lab(s) drawn, by ri, sent to lab. Inserted saline lock: 20 gauge in left rv antecubital area, using aseptic technique. Blood collected. 07:00 Sheron Patel, RN is Primary Nurse. ah 07:06 CT Head C Spine In Process Unspecified. EDMS 07:46 XRAY Chest (1 view) In Process Unspecified. EDMS 07:46 Shoulder Right (2 View) XRAY In Process Unspecified. EDMS 07:49 Attending Physician role handed off by Mati Berry MD rn 07:49 Mukul Estrada MD is Attending Physician. rn 08:44 No provider procedures requiring assistance completed. IV discontinued, intact, ah bleeding controlled, No redness/swelling at site. Pressure dressing applied. Administered Medications: No medications were administered Outcome: 08:09 Discharge ordered by . marleen 08:30 Discharged to home via wheelchair. 08:30 Condition: stable 08:30 Discharge instructions given to patient, family, Instructed on discharge instructions, follow up and referral plans. medication usage, Demonstrated understanding of instructions, follow-up care, medications, Prescriptions given X 1. 08:44 Patient left the ED. Signatures: Dispatcher [employer] EDMS Jefferson Recinos RN RN sg Nieto, Roman, MD MD rn Vicente, Ronaldo, RN RN rv Harris, Amy, RN RN ah Holmes, Maurice, MD MD [id number]
[2020-08-25 09:04] VITALS: BP 140/87; TEMP 98.3; O2SAT 95
--- NOTE | 2020-08-25 09:34 | RAD REPORT ---
EXAM DESCRIPTION: RAD - Chest Single View - 08/25/2020 7:45 am CLINICAL HISTORY: COUGH, found on the floor limited responsiveness COMPARISON: December 2019 TECHNIQUE: AP portable chest image was obtained 08/25/2020 7:45 am . FINDINGS: Lung volumes are low. No pulmonary edema or focal consolidation. Lung parenchyma matches c omparison. 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 Pacemaker is in place. Heart and vasculature are normal. No measurable pleural effusion and no pneumothorax. No acute bony abnormality seen. No acute aortic f indings suspected. IMPRESSION: No acute cardiopulmonary process. No significant change from comparison study.
--- NOTE | 2020-08-25 09:37 | RAD REPORT ---
EXAM DESCRIPTION: Shoulder Right 2 View - 08/25/2020 7:45 am CLINICAL HISTORY: trauma, fall with shoulder pain COMPARISON: No comparisons TECHNIQUE: Two view right shoulder examination performed. FINDINGS: The submitted images are internal rotation and a mostly internally rotated projection. No fracture or dislocation seen. AC joint degenerative changes are present with small inferiorly direct ed clavicle spur. Degenerative change is present along the undersurface of the acromion. Multiple sof t tissue calcifications are present along the margin of the humeral head most likely calcific tendino sis/tendinitis. No acute or suspicious findings. IMPRESSION: Right shoulder degenerative change present as detailed. No fracture identified and no di slocation
--- NOTE | 2020-08-26 07:43 | EKG ---
Test Date: 2020-08-25 Test Time: 07:14:23 [employer] Supervisor: JOHANNA MEASUREMENT RESULTS: Intervals: Rate: 77 CT: 180 QRSD: 108 QT: 444 QTc: 502 [place]: P: 70 CT: 180 QRS: -53 T: 83 INTERPRETIVE STATEMENTS: Sinus rhythm with fusion complexes and premature atrial complexes with aberrant conduction Left axis deviation Possible Anterior infarct, age undetermined Abnormal ECG Compared to ECG 01/04/2020 14:46:58 Atrial premature complex(es) now present Fusion complex(es) now present Aberrant conduction of supraventricular beat(s) now present Left-axis deviation now present Myocardial infarct finding now present Atrial-paced complex(es) or rhythm no longer present Ventricular-paced complex(es) or rhythm no longer present Intraventricular conduction delay no longer present Electronically Signed On 08-26-20 07:40:44 [employer] SUPPL[employer] SPECIALIST by Syed Hernandez
== END 2020-08-25 08:44 | disposition home or self-care (01) ==
LOC: ER 06:17
DX: J40 Bronchitis, not specified as acute or chronic (principal); W18.30XA Fall on same level, unspecified, initial encounter; Y93.9 Activity, unspecified; Y92.9 Unspecified place or not applicable; I10 Essential (primary) hypertension; F03.90 Unspecified dementia, unspecified severity, without behavioral disturbance, psychotic disturbance, mood disturbance, and anxiety; Z95.0 Presence of cardiac pacemaker; Z95.1 Presence of aortocoronary bypass graft; Z95.818 Presence of other cardiac implants and grafts; Z88.0 Allergy status to penicillin
CPT/HCPCS: 36415; 70450; 71045; 72125; 80048; 80076; 82550; 83735; 83880; 84484; 85025; 85610; 93005; 99284

== ENCOUNTER 2021-01-07 13:46 | Emergency (ER) | payer OTHER, MEDICARE ==
--- OUTSIDE RECORDS SUMMARY | 2021-01-07 13:50 | XMS REPORT | Continuity of Care Document ---
:[address] [facility] t Address [address] [place] [address] Care Team Providers Name Role Phone Viri TRUJILLO, Gene Attending Clinician LASHON Attending Clinician Unavailable JANELLE Attending Clinician Unavailable Davian TRUJILLO Attending Clinician SAMANTHA Attending Clinician Unavailable Georgette MYERS Admitting Clinician Unavailable Problems Condition Condition Condition Status Onset Resolution Last Treating Co mments Source Name Details Category Date Date Treatment Clinician Date Acute Acute Disease Active [facility] GI 06[facility]: [facility] 00 [place] Acute Acute Disease Active [facility] blood loss blood loss 06-11 [facility] - anemia anemia 00:00: Medical 00 [place] Urinary Urinary Disease Active [facility] tract tract 06-06 [facility] infection infection 00:00: Medi thien 00 Center Allergies, Adverse Reactions, Alerts Allergy Allergy Status Severity Reaction(s) Onset Inactive Treating Comm ents Source Name Type Date Date Clinician Penicill Propensi Active Rash [facility] to 06-06 [facility] - adverse 00:00: Medical reaction 00 Center s Family History Family Member Diagnosis Comments Start Date Stop Date Source Natural brother Diabetes [facility] Natural father Diabetes [facility] Natural mother Diabetes [facility] Natural son Diabetes [facility] Social History Social Habit Start Date Stop Date Quantity Comments Source Sex Assigned At [facility] Alcohol intake 2017-06-11 2017-06-11 Current [facility] - 00:00:00 00:00:00 non-drinker of Medical nter alcohol (finding) Tobacco use and 2017-06-11 2017-06-11 Never used [facility] - exposure 00:00:00 00:00:00 [facility] Smoking Status Start Date Stop Date Source Never smoker [facility] Medications Ordered Filled Start Stop Current Ordering Indication Dosage Frequency Signature Comments Components Source Medication Medication Date Date Medication? Clinician (SIG) Name Name repaglinide Yes type 2 2mg Take 2 [...] [facility] - tablet 16:34: daily. Medical 41 Center carvedilol Yes 12.5mg Take 12.[address] [facility] [address] (COREG) 06-12 mg by [facility] - 12.5 MG 16:34: [...] Medical tablet 41 times Center daily. coenzyme 2017-0 Yes 100mg QD Take [address] [address] Q10 100 mg 9-01 mg by [facility] - capsule 16:34: mouth Medical 41 daily. [place] docusate 2017 Yes 100mg Q.5D Take [address] sodium 9-01 mg by [facility] - (COLACE) 16:34: mouth 2 Medica l 100 MG 41 (two) Center capsule times daily. cyanocobala 2017- Yes 1000ug QD Take 1,[address] min 9-01 mcg by [facility] - (VITAMIN 16:34: mouth Medical B-12) 1000 41 daily. [place] MCG tablet ascorbic 2017- Yes 1000mg QD Take 1,[address] acid, 9-01 mg by [facility] - vitamin C, 16:34: mouth Medica l (VITAMIN C) 41 daily. [place] 1000 MG tablet folic acid 2016- Yes 800ug QD Take [address] (FOLVITE) 9-01 mcg by [facility] - 800 MCG 16:34: mouth Medical tablet 41 daily. [place] b complex 2017 Yes 1{capsu QD Take [address] vitamins 9-01 le} capsule by [facility] - capsule 16:34: mouth Medical 41 daily. [place] memantine Yes 28mg QD Take [address] (NAMENDA 9-01 by mouth [facility] - XR) 28 mg 16:34: daily. Medica l CSpX 41 Center amLODIPine Yes hypertensio 5mg Q.5D Take [address] [facility] (NORVASC) 5 6-09 n by mouth 2 [place] [facility] - MG tablet 00:00: (two) Medical 00 times Center daily. irbesartan Yes hypertensio 300mg QD Take [address] (AVAPRO) 5-21 n mg by [facility] - 300 MG 00:00: mouth Medical tablet 00 nightly. Center Procedures This patient has no known procedures. Encounters Start End Encounter Admission Attending Care Care Encounter Source Date/Time Date/Time Type Type Clinicians Facility Department ID 2020-11-15 2020-11-15 Outpatient [facility] [id number] [place] 00:00:00 00:00:[address] 2020-11-02 2020-11-02 STACEY Mc [id number] 10:16:52 11:21:27 Visit Iam Purcell [id number] [place] [id number] [place] [id number] [facility] 092 [facility] 2020-10-25 2020-10-25 Outpatient [facility] [id number] [place] 00:00:00 00:00:00 565 Method i 2020-04-30 2020-04-30 Outpatient [facility] [id number] [place] 00:00:00 00:00:00 FAINA 290 Method i 2020-04-03 2020-04-03 Outpatient LUIS, [facility] [id number] [place] 00:00:00 00:00:00 WIL 982 Method i 2020-01-31 2020-01-31 Outpatient [facility] [id number] [place] 00:00:00 00:00:00 FAINA 805 Method i 2020-01-29 2020-01-29 Outpatient [facility] [id number] [place] 00:00:00 00:00:00 FAINA 537 Method i 2019-10-30 2019-10-30 Outpatient [facility] [id number] [place] 00:00:00 00:00:00 FAINA 633 Method i 2019-07-31 2019-07-31 Outpatient [facility] [id number] [place] 00:00:00 00:00:00 296 Method i 2019-07-31 2019-07-31 Outpatient [facility] [id number] [place] 00:00:00 00:00:00 500 Method i 2019-06-02 2019-06-02 Office DAVID Marcelo [id number] 15:31:05 16:01:05 Visit [facility] [id number] Y [id number] [id number] Results Test Description Test Time Test Comments Results Result Comments Source POCT-GLUCOSE METER 2017-06-12 16:12:00 Test Item Value Reference Range Interpretation Comme nts POC-GLUCOSE METER (DELVIS) (test 212 mg/dL 70-110 H TESTED AT [facility] [address] [facility] code = 1538) [facility] 7703 0 POCT-GLUCOSE [id number] 12:56:00 Test Item Value Reference Range Interpretation Comments POC-GLUCOSE METER 272 mg/dL 70-110 H TESTED AT [facility] 67 [facility] (test code = [place] 1538) [id number] HEMOGLOBIN [id number] 08:28:00 Test Item Value Reference Range Interpretation Comments HEMOGLOBIN A1C (BEAKER) (test code = 8.0 % 4.3-6.1 H 368) POCT-GLUCOSE [id number] 07:33:00 Test Item Value Reference Range Interpretation Comments POC-GLUCOSE METER 199 mg/dL 70-110 H TESTED AT [facility] 67 (BEAKER) (test code = SHAKIR Sharma [place] 1538) [address] CBC W/PLT COUNT & AUTO [id number] 06:29:00 Test Item Value Reference Range Interpretation Comments WHITE BLOOD CELL COUNT (BEAKER) 15.0 K/ L 3.5-10.5 H (test code [...] (BEAKER) (test code = 2801) COMPREHENSIVE METABOLIC [id number] 06:04:00 Test Item Value Reference Range Interpretation [...] 5-34 (test code = 353) ALT (SGPT) ([facility]) 44 U/L 6-55 (test code = 347) EGFR ([facility]) (test 64 mL/min/1.73 ESTIMA TANK GFR IS code = 1092) sq m NOT ACCURATE CREATININE CLEARANCE IN PREDICTING GLOMERULAR FILTRATION RATE . ESTIMATED GFR I S NOT APPLICABLE FOR DIALYSIS PATIEN TS. POCT-GLUCOSE [id number] 21:22:00 Test Item Value Reference Range Interpretation Comments POC-GLUCOSE METER 152 mg/dL 70-110 H TESTED AT [place] [address] ([facility]) (test code = SHAKIR Sharma [facility] 1538) [address] POCT-GLUCOSE [id number] 18:12:00 Test Item Value Reference Range Interpretation Comments POC-GLUCOSE METER 202 mg/dL 70-110 H TESTED AT [place] [address] ([facility]) (test code = [facility] Edith [facility] 1538) [address] HEMOGLOBIN AND [id number] 18:02:00 Test Item Value Reference Range Interpretation Comments HEMOGLOBIN ([facility]) (test code = 11.1 GM/DL 11.2-15.7 L 410) HEMATOCRIT ([facility]) (test code = 35.6 % 34.1-44.9 411) TISSUE [id number] 17:12:00Surgical Pathology Report Case: [id number] Authorizing Provider: Jian Cabrera MD Collected: 06/11/2017 0839 Ordering Location: [address] Received: 06/11/2017 1126 Service Pathologist: Juany [...] MALIGNANCY IDENTIFIED Signing Pathologist Direct Phone Line: [phone] signed by Juany Ochoa MD on 06/11/2017 at 5:12 [id number] bleedRandom stomach biopsyThe specimen is received in [...] no intestinal metaplasia, dysplasia or carcinoma.HEMOGLOBIN AND [id number] 15:17:00 Test Item Value Reference Range Interpretation Comments HEMOGLOBIN (BEAKER) (test code = 11.3 GM/DL 11.2-15.7 410) HEMATOCRIT (BEAKER) (test code = 34.1 % 34.1-44.9 411) POCT-GLUCOSE [id number] 13:13:00 Test Item Value Reference Range Interpretation Comments POC-GLUCOSE METER 229 mg/dL 70-110 H TESTED AT [facility] 6720 (BEAKER) (test code = SHAKIR Sharma [place] 1538) [address] HEMOGLOBIN AND [id number] 11:52:00 Test Item Value Reference Range Interpretation Comments HEMOGLOBIN (BEAKER) (test code = 11.8 GM/DL 11.2-15.7 410) HEMATOCRIT (BEAKER) (test code = 37.0 % 34.1-44.9 411) URINE [id number] 10:51:00 Test Item Value Reference Range Interpretation Comments CULTURE (BEAKER) (test code = 1095) No growth [id number] 08:11:00 Test Item Value Reference Range Interpretation [...] 2.5-3.5 for patients with mechanical heart valves.POCT-GLUCOSE [id number] 07:13:00 Test Item Value Reference Range Interpretation Comments POC-GLUCOSE METER 126 mg/dL 70-110 H TESTED AT [place] [address] (BEAKER) (test code = SHAKIR Sharma [place] 1538) [id number] BLOOD [id number] 06:00:00 Test Item Value Reference Range Interpretation Comments CULTURE (BEAKER) (test No growth in 5 days code = 1095) BLOOD [id number] 06:00:00 Test Item Value Reference Range Interpretation Comments CULTURE (BEAKER) (test No growth in 5 days code = 1095) HEMOGLOBIN AND [id number] 05:48:00 Test Item Value Reference Range Interpretation Comments HEMOGLOBIN (BEAKER) (test code = 10.9 GM/DL 11.2-15.7 L 410) HEMATOCRIT (BEAKER) (test code = 32.8 % 34.1-44.9 L 411) POCT-GLUCOSE [id number] 22:12:00 Test Item Value Reference Range Interpretation Comments POC-GLUCOSE METER 279 mg/dL 70-110 H TESTED AT [place] [address] ([facility] (test code = SHAKIR Sharma [facility] 1538) [address] POCT-GLUCOSE [id number] 20:16:00 Test Item Value Reference Range Interpretation Comments POC-GLUCOSE METER 283 mg/dL 70-110 H TESTED AT [place] [address] ([facility] (test code = SHAKIR Sharma [facility] 1538) [address] HEMOGLOBIN AND [id number] 17:41:00 Test Item Value Reference Range Interpretation Comments HEMOGLOBIN (BEAKER) (test code = 8.2 GM/DL 11.2-15.7 L 410) HEMATOCRIT (BEAKER) (test code = 24.3 % 34.1-44.9 L 411) POCT-GLUCOSE [id number] 17:34:00 Test Item Value Reference Range Interpretation Comments POC-GLUCOSE METER 327 mg/dL 70-110 H TESTED AT [place] [address] ([facility]) (test code = SHAKIR Sharma [place] 1538) [address] POCT-GLUCOSE [id number] 15:48:00 Test Item Value Reference Range Interpretation Comments POC-GLUCOSE METER 401 mg/dL 70-110 HH TESTED AT [place] [address] ([facility]) (test code = TAR[place] 1538) [address] POCT-GLUCOSE [id number] 13:29:00 Test Item Value Reference Range Interpretation Comments POC-GLUCOSE METER 429 mg/dL 70-110 HH TESTED AT [place] [address] ([facility]) (test code = SHAKIR Sharma [facility] 1538) [address] HEMOGLOBIN AND [id number] 09:34:00 Test Item Value Reference Range Interpretation Comments HEMOGLOBIN (BEAKER) (test code = 9.7 GM/DL 11.2-15.7 L 410) HEMATOCRIT (BEAKER) (test code = 28.9 % 34.1-44.9 L 411) POCT-GLUCOSE [id number] 07:33:00 Test Item Value Reference Range Interpretation Comments POC-GLUCOSE METER 396 mg/dL 70-110 H TESTED AT [place] [address] ([facility]) (test code = SHAKIR Sharma [facility] 1538) [address] CBC W/PLT COUNT & AUTO [id number] 03:48:00 Test Item Value Reference Range Interpretation Comments WHITE BLOOD CELL COUNT (BEAKER) 13.9 K/ L 3.5-10.5 H (test code [...] (BEAKER) (test code = 2801) BASIC METABOLIC [id number] 03:41:00 Test Item Value Reference Range Interpretation [...] NOT APPLICABLE FOR DIALYSIS PATIEN TS. POCT-GLUCOSE [id number] 22:56:00 Test Item Value Reference Range Interpretation Comments POC-GLUCOSE METER 275 mg/dL 70-110 H TESTED AT [place] [address] (BEAKER) (test code = SHAKIR Sharma [place] 1538) [address] URINE [id number] 18:15:00 Test Item Value Reference Range Interpretation Comments CULTURE (BEAKER) (test <10,000 col/mL skin code = 1095) abdon URINALYSIS W/ [id number] 15:32:00 Test Item Value Reference Range Interpretation [...] 520) SOURCE(BEAKER) (test code Urine, Straight = 2795) Catheter POCT-GLUCOSE [id number] 11:43:00 Test Item Value Reference Range Interpretation Comments POC-GLUCOSE METER 340 mg/dL 70-110 H TESTED AT [place] [address] (BEAKER) (test code = SHAKIR Sharma [facility] 1538) [address] POCT-GLUCOSE [id number] 07:26:00 Test Item Value Reference Range Interpretation Comments POC-GLUCOSE METER 178 mg/dL 70-110 H TESTED AT [place] [address] (BEAKER) (test code = SHAKIR Sharma [place] 1538) [address] POCT-GLUCOSE [id number] 23:39:00 Test Item Value Reference Range Interpretation Comments POC-GLUCOSE METER 183 mg/dL 70-110 H TESTED AT [place] [address] ([facility]) (test code = SHAKIR Sharma [place] 1538) [address] POCT-GLUCOSE [id number] 22:25:00 Test Item Value Reference Range Interpretation Comments POC-GLUCOSE METER 208 mg/dL 70-110 H TESTED AT [place] [address] ([facility]) (test code = SHAKIR Sharma [place] 1538) [address] POCT-GLUCOSE [id number] 20:12:00 Test Item Value Reference Range Interpretation Comments POC-GLUCOSE METER 194 mg/dL 70-110 H TESTED AT [place] [address] ([facility]) (test code = SHAKIR Sharma [place] 1538) [address] POCT-GLUCOSE [id number] 16:11:00 Test Item Value Reference Range Interpretation Comments POC-GLUCOSE METER 266 mg/dL 70-110 H TESTED AT [place] [address] ([facility]) (test code = SHAKIR Sharma [place] 1538) [address] POCT-GLUCOSE [id number] 11:17:00 Test Item Value Reference Range Interpretation Comments POC-GLUCOSE METER 288 mg/dL 70-110 H TESTED AT [place] [address] ([facility]) (test code = SHAKIR Sharma [place] 1538) [address] POCT-GLUCOSE [id number] 08:57:00 Test Item Value Reference Range Interpretation Comments POC-GLUCOSE METER 202 mg/dL 70-110 H TESTED AT [place] [address] ([facility]) (test code = SHAKIR Sharma [place] 1538) [address] BASIC METABOLIC [id number] 07:38:00 Test Item Value Reference Range Interpretation [...] PATIEN TS. CBC W/PLT COUNT & AUTO [id number] 05:53:00 Test Item Value Reference Range Interpretation [...] 417) IMMATURE GRANULOCYTES-RELATIVE 0 % 0-1 PERCENT ([facility]) (test code = 2801) POCT-GLUCOSE [id number] 20:12:00 Test Item Value Reference Range Interpretation Comments POC-GLUCOSE METER 333 mg/dL 70-110 H TESTED AT [place] [address] ([facility]) (test code = [place] 1538) [address] POCT-GLUCOSE [id number] 11:45:00 Test Item Value Reference Range Interpretation Comments POC-GLUCOSE METER 355 mg/dL 70-110 H TESTED AT [place] [address] ([facility]) (test code = [place] 1538) [address] POCT-GLUCOSE [id number] 08:17:00 Test Item Value Reference Range Interpretation Comments POC-GLUCOSE METER 303 mg/dL 70-110 H TESTED AT [place] [address] ([facility]) (test code = [place] 1538) [address] POCT-GLUCOSE [id number] 00:00:00 Test Item Value Reference Range Interpretation Comments POC-GLUCOSE METER 340 mg/dL 70-110 H TESTED AT [place] [address] ([facility]) (test code = [place] 1538) [address] POCT-GLUCOSE [id number] 20:42:00 Test Item Value Reference Range Interpretation Comments POC-GLUCOSE METER 309 mg/dL 70-110 H TESTED AT [place] [address] ([facility]) (test code = [place] [address]38) [address] POCT-GLUCOSE [id number] 17:09:00 Test Item Value Reference Range Interpretation Comments POC-GLUCOSE METER 351 mg/dL 70-110 H TESTED AT [place] [address] ([facility]) (test code = [place] 1538) [address] POCT-GLUCOSE [id number] 11:28:00 Test Item Value Reference Range Interpretation Comments POC-GLUCOSE METER 327 mg/dL 70-110 H TESTED AT [facility] 6720 (BEAKER) (test code = SHAKIR Sharma [place] 1538) [address] POCT-GLUCOSE [id number] 07:37:00 Test Item Value Reference Range Interpretation Comments POC-GLUCOSE METER 247 mg/dL 70-110 H TESTED AT [facility] 6720 (BEAKER) (test code = SHAKIR Sharma [place] 1538) [address] BASIC METABOLIC [id number] 03:12:00 Test Item Value Reference Range Interpretation [...] PATIEN TS. CBC W/PLT COUNT & AUTO [id number] 03:01:00 Test Item Value Reference Range Interpretation [...] % 0-1 PERCENT (BEAKER) (test code = 5395)
[2021-01-07 14:41] LABS: Absolute Lymphocytes (CBC) 2.6 K/uL (0.7-4.9); Basophils % 0.7 % (0-1.3); Hematocrit 39.6 % (36.0-45.0); Lymphocytes % 17.6 % (15.3-44.8); MPV 10.9 fL (7.6-11.3); RBC Red Blood Cell Count 4.63 M/uL (3.86-4.86)
--- NOTE | 2021-01-07 14:48 | RAD REPORT ---
EXAM DESCRIPTION: CT - CTHCSPWOC - 01/07/2021 2:35 pm CLINICAL HISTORY: Trauma, head and neck injury. PAIN COMPARISON: Head C Spine Mpr Wo Con dated 08/25/2020; Head C Spine Mpr Wo Con dated 06/04/2017; Head C Spine Mpr Wo Con dated 04/23/2017 TECHNIQUE: Axial 5 mm thick images of the head were obtained. Axial 2 mm thick images of the cervical spine were obtained with sagittal and coronal reconstruction images generated and reviewed. All CT scans are performed using dose optimization technique as appropriate and may include automated exposure control or mA/KV adjustment according to patient size. FINDINGS: CT HEAD WITHOUT CONTRAST: No acute hemorrhage, hydrocephalus or extra-axial collection is identified.Advanced generalized brain atrophy is present with moderate periventricular and deep white matter chronic microvascular ischemi c changes.No areas of brain edema or midline shift. The paranasal sinuses and mastoids are clear.The calvarium is intact. CT CERVICAL SPINE WITHOUT CONTRAST: No fracture or subluxation.Mild mid and lower cervical degenerative changes.No prevertebral soft tiss ues swelling is identified. IMPRESSION: No acute intracranial or cervical spine findings. Mild mid and lower cervical degenerative changes.
[2021-01-07 14:50] LABS: Protime INR 1.06
[2021-01-07 15:02] LABS: ALT/SGPT 24 U/L (12-78); AST/SGOT 18 U/L (15-37); Albumin 3.7 g/dL (3.4-5.0); Alkaline Phosphatase 53 U/L (45-117); BUN Blood Urea Nitrogen 25 mg/dL (7-18); Bicarbonate 25 mmol/L (21-32); Bilirubin Direct 0.1 mg/dL (0-0.2); Bilirubin Total 0.4 mg/dL (0.2-1.0); Glucose Level 89 mg/dL (74-106); Magnesium 1.8 mg/dL (1.8-2.4); NT PRO-BNP 774 pg/mL (<450); Potassium 4.2 mmol/L (3.5-5.1); Protein, Total 8.2 g/dL (6.4-8.2); Sodium Level 143 mmol/L (136-145); Troponin (Emerg Dept Use Only) < 0.02 ng/mL (0.0-0.045)
--- NOTE | 2021-01-07 15:10 | RAD REPORT ---
EXAM DESCRIPTION: RAD - Chest Single View - 01/07/2021 3:04 pm CLINICAL HISTORY: Fall Chest pain. COMPARISON: Chest Single View dated 08/25/2020; Chest Pa And Lat (2 Views) dated 01/05/2020; Chest Si ngle View dated 01/04/2020; Chest Single View dated 11/13/2019 FINDINGS: Portable technique limits examination quality. The lungs are grossly clear. The heart is normal in size. Changes of a prior CABG noted. Multi lead p acer device is in place. IMPRESSION: No acute intrathoracic process suspected.
--- NOTE | 2021-01-07 15:11 | RAD REPORT ---
EXAM DESCRIPTION: RAD - Shoulder Left 2 View - 01/07/2021 3:04 pm CLINICAL HISTORY: PAIN COMPARISON: <Comparisons> FINDINGS: Mild AC joint and glenohumeral joint arthritic changes are present. No acute fracture or d islocation is seen. No aggressive marrow pattern.
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
--- NOTE | 2021-01-07 15:41 | ER ---
Nurse's Notes [facility] Name: Ace Almendarez Age: 80 yrs Sex: Female : 1940 Arrival Date: 01/07/2021 Time: 13:54 Bed 2 Private MD: Diagnosis: Fall from non-moving wheelchair;Unspecified injury of head;Contusion of left shoulder Presentation: 01/07 13:55 Chief complaint: EMS states: Toned out for fall from wheelchair to floor, head hit the jl7 bottom of a wooden cabinet and broke the wood. Pt is at baseline, A\T\Ox2, to self and place, denies pain. Care prior to arrival: None. Mechanism of Injury: Fall out of chair. Trauma event details: Injury occurred in the [facility], Injury occurred: at home. Injury occurred: January 07, 2021 Injury occurred at: 13:00. 13:55 Acuity: PARVIN 2 jl7 13:55 Method Of Arrival: EMS: [facility] jl7 14:04 Coronavirus screen: Client denies travel out of the [place] in the last 14 days. At this jl7 time, the client does not indicate any symptoms associated with coronavirus-19. Ebola Screen: No symptoms or risks identified at this time. Initial Sepsis Screen: Does the patient meet any 2 criteria? No. Patient's initial sepsis screen is negative. Does the patient have a suspected source of infection? No. Patient's initial sepsis screen is negative. Risk Assessment: Do you want to hurt yourself or someone else? Patient reports no desire to harm self or others. Onset of symptoms was January 07, 2021 at 13:00. Transition of care: patient was not received from another setting of care. Trauma Activation: Physician: ED Physician; Name: Candida; Notified At: 13:49; Arrived At: 13:49 Physician: General Surgeon; Name: ; Notified At: 13:49; Arrived At: Physician: Radiology; Name: ; Notified At: 13:49; Arrived At: Physician: Respiratory; Name: ; Notified At: 13:49; Arrived At: Physician: Lab; Name: ; Notified At: 13:49; Arrived At: Historical: - Allergies: 14:10 PENICILLINS; jl7 - Home Meds: 14:10 Synthroid 50 mcg Oral tab 1 tab once daily [Active]; metformin 1,000 mg Oral tab 1 tab jl7 2 times per day [Active]; aspirin 81 mg Oral TbEC 1 tab once daily [Active]; Plavix 75 mg Oral tab 1 tab once daily [Active]; carvedilol 25 mg Oral tab 1 tab 2 times per day [Active]; atorvastatin 40 mg Oral tab 1 tab once daily [Active]; galantamine 12 mg Oral tab 1 tab 2 times per day [Active]; coenzyme Q10 100 mg Oral cap daily [Active]; pantoprazole 40 mg Oral TbEC 1 tab once daily [Active]; Namenda XR 28 mg Oral CSpX 1 cap once daily [Active]; furosemide 20 mg Oral tab 1 tab once daily [Active]; Lantus 100 unit/mL Sub-Q soln [Active]; Humalog 100 unit/mL Sub-Q soln [Active]; Estring 2 mg Vaginal ring 1 vaginal ring every 90 days [Active]; - PMHx: 14:10 chronic uti; Dementia; Diabetes - NIDDM; Hyperlipidemia; Hypertension; Hypothyroidism; jl7 - Immunization history: Last tetanus immunization: unknown. - Social history:: Smoking status: Patient denies any tobacco usage or history of. Screenin:55 Abuse screen: Denies threats or abuse. Denies injuries from another. Tuberculosis jl7 screening: No symptoms or risk factors identified. 14:00 Nutritional screening: No deficits noted. Fall Risk IV access (20 points). Gait- Weak jl7 (10 pts.). Mental Status- Overestimates/Forgets Limitations (15 pts.). Total [place] Fall Scale indicates High Risk Score (45 or more points). Fall prevention measures have been instituted. Side Rails Up X 2 Placed Close to Nursing Station Frequent Obs/Assessments Occuring Family Present and informed to notify staff if the need to leave the bedside As available patient and family educated on Fall Prevention Program and Strategies. Primary Survey: 13:55 NO uncontrolled hemorrhage observed. Breathing/Chest: Respiratory pattern: regular, jl7 Respiratory effort: spontaneous, unlabored, Breath sounds: clear, Chest inspection: symmetrical rise and fall of the chest. Circulation: Cardiac rhythm: sinus rhythm Heart tones present. Pulses: palpable right radial artery and left radial artery. Skin color: pink, Skin temperature: warm. Disability Alert. Exposure/Environment: All clothing and personal items were removed. Forensic evidence collection is not deemed to be indicated at this time. Items placed in patient belonging bag. There is no evidence of uncontrolled external bleeding. No obvious injuries are noted at this time. A warming method has been applied: A warm blanket has been provided to the patient. 14:30 Reassessment Airway Airway Patent Breathing/Chest Respiratory pattern Regular jl7 Respiratory effort Spontaneous Unlabored Chest inspection Symmetrical Circulation Color [place] Disability Alert. Assessment: 13:55 General: Appears in no apparent distress. uncomfortable, Behavior is calm, cooperative. jl7 Pain: Denies pain. Neuro: Level of Consciousness is awake, alert, obeys commands, Oriented to person, place. Cardiovascular: Patient's skin is warm and dry. Respiratory: Airway is patent Respiratory effort is even, unlabored, Respiratory pattern is regular, symmetrical. Derm: Skin is dry, Skin is normal, Skin temperature is warm. 14:30 Reassessment: Patient appears in no apparent distress at this time. No changes from jl7 previously documented assessment. Patient and/or family updated on plan of care and expected duration. Pain level reassessed. at bedside. 15:30 Reassessment: Patient appears in no apparent distress at this time. No changes from jl7 previously documented assessment. Patient and/or family updated on plan of care and expected duration. Pain level reassessed. remains at bedside. Vital Signs: 13:55 BP 145 / 61; Pulse 78; Resp 15; Temp 98.2; Pulse Ox 100% ; Weight 83.91 kg; Pain 0/10; jl7 14:30 BP 135 / 57; Pulse 80; Resp 15; Pulse Ox 97% ; jl7 15:00 BP 150 / 68; Pulse 63; Resp 17; Pulse Ox 96% ; jl7 15:30 BP 159 / 81; Pulse 70; Resp 17; Pulse Ox 95% ; jl7 Sherly Coma Score: 13:55 Eye Response: spontaneous(4). Verbal Response: oriented(5). Motor Response: obeys jl7 commands(6). Total: 15. 14:30 Eye Response: spontaneous(4). Verbal Response: oriented(5). Motor Response: obeys jl7 commands(6). Total: 15. 15:00 Eye Response: spontaneous(4). Verbal Response: oriented(5). Motor Response: obeys jl7 commands(6). Total: 15. 15:30 Eye Response: spontaneous(4). Verbal Response: oriented(5). Motor Response: obeys jl7 commands(6). Total: 15. Trauma Score (Adult): 13:55 Eye Response: spontaneous(1); Verbal Response: oriented(1); Motor Response: obeys jl7 commands(2); Systolic BP: > 89 mm Hg(4); Respiratory Rate: 10 to 29 per min(4); Eunice Score: 15; Trauma Score: 12 ED Course: 13:54 Patient arrived in ED. jl7 13:55 Patient has correct armband on for positive identification. Placed in gown. Bed in low jl7 position. Call light in reach. Side rails up X2. Adult w/ patient. 13:55 Patient maintains SpO2 saturation greater than 95% on room air. Thermoregulation: warm jl7 blanket given to patient. 13:58 Triage completed. jl7 14:00 environmental monitoring specialist on. Pulse ox on. NIBP on. Warm blanket given. jl7 14:03 Mavis Tirado MD is Attending Physician. ma2 14:03 Peter Raza NP is PHCP. pm1 14:10 Arm band placed on right wrist. jl7 14:25 Missed attempt(s): 20 gauge in left forearm. Bleeding controlled, band aid applied, aa5 catheter tip intact. 14:30 Initial lab(s) drawn, by nc, sent to lab. Inserted saline lock: 22 gauge in right hand, aa5 using aseptic technique. Blood collected. 14:[address] via stretcher. aa5 14:35 CT Head C Spine In Process Unspecified. EDMS 14:44 Gaetano Harris RN is Primary Nurse. jl7 15:00 EKG done, by ED staff, reviewed by Peter Raza NP. jl7 15:04 Shoulder Left (2 View) XRAY In Process Unspecified. EDMS 15:04 XRAY Chest (1 view) In Process Unspecified. EDMS 15:58 No provider procedures requiring assistance completed. IV discontinued, intact, jl7 bleeding controlled, No redness/swelling at site. Pressure dressing applied. Administered Medications: No medications were administered Intake: 15:55 PO: 0ml; IV: 0ml; Tubes: 0ml (); Total: 0ml. jl7 Output: 15:55 Urine: 0ml; Gastric: 0ml; Stool: 0; EBL: 0ml; Drainage: 0ml; Other: 0; Total: 0ml. jl7 Outcome: 15:41 Discharge ordered by MD. pm1 15:59 Discharged to home via wheelchair, with family. jl7 15:59 Condition: stable 15:59 Discharge instructions given to patient, family, Instructed on discharge instructions, follow up and referral plans. Demonstrated understanding of instructions, follow-up care. 16:02 Patient's length of stay was not longer than 2 hours. jl7 16:02 Patient left the ED. jl7 Signatures: Dispatcher [employer] EDMS Maryann Andersen RN RN aa5 Peter Raza, CHAPARRITA SUPERVISOR [employer]ING pm1 Gaetano Harris RN RN jl7 Mavis Tirado MD MD ma2 Corrections: (The following items were deleted from the chart) 15:59 15:00 Discharged to home via wheelchair, with family, jl7 jl7 15:59 15:00 Condition: stable jl7 jl7 15:59 15:00 Discharge instructions given to patient, family, Instructed on discharge jl7 instructions, follow up and referral plans. Demonstrated understanding of instructions, follow-up care, jl7
[2021-01-07 16:09] VITALS: TEMP 98.2
[2021-01-07 16:12] VITALS: BP 159/81; O2SAT 95
--- NOTE | 2021-01-08 12:55 | EKG ---
Test Date: 2021-01-07 Test Time: 15:12:49 All Terrain Vehicle Technician: KAREN MEASUREMENT RESULTS: Intervals: Rate: 70 CO: 152 QRSD: 112 QT: 440 QTc: 475 [place]: P: 56 CO: 152 QRS: -36 T: 61 INTERPRETIVE STATEMENTS: Normal sinus rhythm Left axis deviation Possible Anterior infarct, age undetermined Abnormal ECG Compared to ECG 08/25/2020 07:14:23 Atrial premature complex(es) no longer present Fusion complex(es) no longer present Aberrant conduction of supraventricular beat(s) no longer present Myocardial infarct finding still present Electronically Signed On 01-08-21 12:52:44 CDT by Syed Hernandez
== END 2021-01-07 16:02 | disposition home or self-care (01) ==
LOC: ER 13:46
DX: S09.90XA Unspecified injury of head, initial encounter (principal); S40.012A Contusion of left shoulder, initial encounter; W05.0XXA Fall from non-moving wheelchair, initial encounter; Y93.9 Activity, unspecified; Y92.009 Unspecified place in unspecified non-institutional (private) residence as the place of occurrence of the external cause; Z79.01 Long term (current) use of anticoagulants; Z79.82 Long term (current) use of aspirin; Z79.4 Long term (current) use of insulin; Z88.0 Allergy status to penicillin; E11.9 Type 2 diabetes mellitus without complications; E03.9 Hypothyroidism, unspecified; F03.90 Unspecified dementia, unspecified severity, without behavioral disturbance, psychotic disturbance, mood disturbance, and anxiety; I10 Essential (primary) hypertension
CPT/HCPCS: 36415; 70450; 71045; 72125; 80048; 80076; 83735; 83880; 84484; 85025; 85610; 93005; 99285

== ENCOUNTER 2022-08-22 10:04 | Inpatient (IN) | payer OTHER, MEDICARE ==
--- OUTSIDE RECORDS SUMMARY | 2022-08-22 10:12 | XMS REPORT | Continuity of Care Document ---
:1940 Author Organization [facility] t Address [address] [place] [address] Care Team Providers Name Role Phone Pcp, Patient Does Not Have A Primary Care Physician [phone] Sabas Burnett MD Attending Clinician Iam Zambrano MD Attending Clinician Adan Lopez MD Attending Clinician [phone] Padmaja Khan RN Attending Clinician Unavailable Only, Ang Db Test Attending Clinician Unavailable Enriqueta Huddleston MD Attending Clinician ENRIQUETA HUDDLESTON Attending Clinician Unavailable Doctor Unassigned, [place] Attending Clinician Unavailable Xena Vitale RN Attending Clinician Unavailable Rashid Pena DO Attending Clinician Iam Meredith MD Attending Clinician IAM MEREDITH Attending Clinician Unavailable IAM MEREDITH Attending Clinician Unavailable Yue Marcelo Attending Clinician Donta Marcelo MD Attending Clinician EVERARDO SINGH Attending Clinician Unavailable JEYSON MYERS Admitting Clinician Unavailable Payers Payer Name Policy Type Policy Number Effective Date Expiration Date S ource Problems Condition Condition Condition Status Onset Resolution Last Treating Co mments Source Name Details Category Date Date Treatment Clinician Date Stented Stented Disease Active [facility] coronary coronary 7-[facility] artery artery 00:00: Hosp[facility] 00 l History of History of Disease Active [facility] cardiac cardiac 9-11 st pacemaker pacemaker 00:00: [facility]osp [facility] in situ in situ 00 l Fluid Fluid Disease Active [facility] overload overload 6-20 st 00:00: Hospita 00 l Coronary Coronary Disease Active [facility] artery artery 6-18 [facility] disease disease 00:00: Hospita 00 l Coronary Coronary Disease Active [facility] artery artery 6-14 st disease disease 00:00: Hospita involving involving 00 l [place] heart with heart with angina angina pectoris pectoris Chest pain Chest pain Disease Active [facility] 00:00: Hospita 00 l Hx of CABG Hx of CABG Disease Active [facility] 00:[facility]: [facility]ospita 00 l CAD in CAD in Disease Active 2016-10 [facility] [place] 0-24 st artery artery 00:00: Hospita 00 l 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 06-19 [facility] mellitus mellitus 00:00: of treated treated 00 Medicin with with e insulin insulin Hypothyroi Hypothyroi Disease Active [facility] 00:00: of 00 Medicin e Acute Acute Disease Active [facility] Acute Acute Disease Active [facility] blood loss blood loss 8-31 [facility] anemia anemia [facility] Center Urinary Urinary Disease Active [facility] tract tract [facility] infection infection [facility] 00 Center Syncope Syncope Disease Active [facility] 00:[facility]: [facility]osp[facility] 00 l Carotid Carotid Disease Active [facility] artery artery 4-25 st disease disease 00:00: Hospita 00 l Coronary Coronary Disease Active [facility] artery artery 4-25 st disease disease 00:00: Hospita with with 00 l angina angina pectoris pectoris Stenosis Stenosis Disease Active 2015-10 [facility] of carotid of carotid 0-07 st artery artery 00:00: Hospita 00 l Chronic Chronic Disease Active 2015-10 [facility] coronary coronary 0-07 st artery artery 00:00: Hospita disease disease 00 l Essential Essential Disease Active 2015-10 [facility] hypertensi hypertensi 0-07 st on on 00:00: Hospita 00 l Hyperlipid Hyperlipid Disease Active 2015-10 M [facility] emia emia 0-07 st 00:00: Hospita 00 l Temporary Temporary Disease Active 2015-10 [facility] cerebral cerebral 007 st vascular vascular 00:00: Hospit a dysfunctio dysfunctio 00 l n n Transient Transient Disease Active 2015-10 [facility] ischemia ischemia 007 st 00:00: Hospita 00 l No known No known Disease Unive rs active active ity of problems problems [place] [facility] Allergies, Adverse Reactions, Alerts Allergy Allergy Status Severity Reaction(s) Onset Inactive Treating Comm ents Source Name Type Date Date Clinician Penicill Propensi Active Rash [facility] ins ty to 06-06 [facility] adverse 00:00: Medical reaction 00 [place] Penicill Propensi Active Rash 2015-10 [facility] ins ty to 10-14 [place] adverse 00:00: of reaction 00 Medicin s to e drug Penicill Propensi Active Rash 2015-10 Univer s ins ty to 10-14 ity of adverse 00:00: [place] reaction 00 Medical s Branch PENICILL Drug Active Med Rash 2015-10 [facility] INS Class 10-14 ity of 00:00: [place] 00 Medical Branch Penicill Propensi Active Rash 2015-10 Univer s ins ty to 10-14 ity of adverse 00:00: [place] reaction 00 Medical s Branch Penicill Propensi Active Rash 2015-10 Method i ins ty to 10-14 adverse 00:00: Hospita reaction 00 l s to drug Family History Family Member Diagnosis Comments Start Date Stop Date Source Natural son Diabetes [facility] Natural brother Diabetes [facility] Natural father Diabetes [facility] Natural mother Diabetes [facility] Social History Social Habit Start Date Stop Date Quantity Comments Source Exposure to 2022-01-29 2022-02-08 Not sure University of SARS-CoV-2 00:00:00 17:33:00 [place] [facility] (event) [facility] Alcohol intake 2017-06-11 2017-06-11 Current RAN[facility] [place] 00:00:00 00:00:00 non-drinker of Medical Ce nter alcohol (finding) Tobacco use and 2017-06-06 2017-06-06 Never used [facility] [place] exposure 00:00:00 00:00:[facility] Sex Assigned At [birth year] [facility] 00:00:00 00:00:00 Smoking Status Start Date Stop Date Source Never smoked tobacco [facility] Medications Ordered Filled Start Stop Current Ordering Indication Dosage Frequency Signature Comments Components Source Medication Medication Date Date Medication? Clinician (SIG) Name Name carvediloL 2021-10 Yes TAKE 1 [facility] (COREG) 25 0-[address] MG tablet 00:00: MOUTH Hospita 00 TWICE l DAILY WITH MEALS ascorbate 2021-10 Yes Vitamin C [facility] calcium-mul 0-04 st tivit-min 12:36: Hospita 1,000 mg 16 l powder effervescen t in packet calcium-mag 2021-10 Yes 1{tbl} Take 1 Me [facility] nesium-zinc 0-[address] tablet 12:36: mouth. Hospita 16 l levothyroxi 2021-10 Yes 50ug QD Take 50 [facility] ne 0-[address] (SYNTHROID, 12:36: mouth Hospi ta LEVOXYL) 50 16 every l mcg tablet morning. losartan 2021-10 Yes 100mg QD Take 100 [facility] [place] (COZAAR) 0-[address] 100 MG 12:36: mouth Hospita tablet 16 nightly. l metFORMIN 2021-10 Yes 1000mg Q.5D Take 1,000 [facility] (GLUCOPHAGE 0-[address] ) 1,000 mg 12:36: mouth 2 [facility] tablet 16 (two) l times a day with meals. aspirin 2021-10 Yes 81mg QD Take 81 mg [facility] [place] (ECOTRIN) 0-[address] 81 MG 12:36: daily. Hospita enteric 16 l coated tablet clopidogrel 2021-10 Yes 75mg QD Take 75 mg [facility] (PLAVIX) 75 0-[address] mg tablet 12:36: daily. Hospit a 16 l amLODIPine 2021-10 Yes 5mg Q.5D Take 5 mg Me [facility] (NORVASC) 5 0-[address] mg tablet 12:36: (two) Hospita 16 times a l day. atorvastati 2021-10 Yes 40mg QD Take 40 mg [facility] n (LIPITOR) 0-[address] 40 MG 12:36: daily. Hospita tablet 16 l coenzyme 2021-10 Yes 10mg QD Take 10 mg [facility] Q10 10 mg 0-[address] capsule 12:36: daily. Hospita 16 l docusate 2021-10 Yes 100mg Q.5D Take 100 [facility] [place] sodium 0-[address] (COLACE) 12:36: mouth 2 Hospit a 100 MG 16 (two) l capsule times a day. cyanocobala 2021-[address] [facility] min, 0-04 2,[address] vitamin 12:36: under the Hospi ta B-12, 5,000 16 tongue l mcg tablet, daily. sublingual omega-3 2021-10 Yes QD Take by [facility] fatty 0-[address] acids-fish 12:36: daily. Hospi ta oil 16 l 340-1,000 mg capsule memantine 2021-10 Yes QD Take by [facility] di 28 mg 0-[address] capsule,spr 12:36: daily. [facility]osp [facility]te inkle,ER 16 l 24hr galantamine 2021-10 Yes 12mg Q.5D Take 12 mg [facility] (RAZADYNE) 0-[address] 12 MG 12:36: (two) Hospita tablet 16 times a l day. insulin 2021-10 Yes 20U QD Inject [facility] GLARGINE 0-04 20-25 st (LANTUS) 12:36: Units Hospita 100 unit/mL 16 under the l injection skin (vial) nightly. insulin 2021-10 Yes 2U [id number] Inject Me [facility]odi lispro 0-04 [id number] 2-15 Units s t (HumaLOG) 12:36: 3D under the Hos renate 100 unit/mL 16 skin 3 l injection (three) times a day before meals. nitrofurant 2021-10 Yes 50mg QD Take 50 mg [facility] oin 0-[address] (MACRODANTI 12:36: daily. [facility]osp [facility] N) 100 MG 16 l capsule brinzolamid 2021-10 Yes 1[drp] Q.5D Apply 1 M ethodi e-brimonidi 0-[address] ne 1-0.2 % 12:36: eye 2 Hospit a drops,suspe 16 (two) l nsion times a day. propylene 2021-10 Yes 1[drp] [id number] Apply 1 [facility] glycoL 0.6 0-[id number] % drops 12:36: 3D eye 3 Hospita 16 (three) l times a day. VITAMIN B 2021-10 Yes QD Take by [facility] COMPLEX 0-[address] ORAL 12:36: daily. Hospita 16 l cranberry 2021-10 Yes 360mg Take 360 [facility] fruit 0-[address] extract 12:36: mouth as Hospit a (THERACRAN 16 needed. l ORAL) b complex 2021-10 Yes 1{capsu Take 1 [facility] vitamins 0-04 le} capsule by st capsule 12:36: mouth. Hospita 16 l magnesium 2021-10 Yes 400mg QD Take 400 [facility] oxide 0-[address] (MAG-OX) 12:36: mouth Hospita 400 mg 16 daily. l (241.3 mg magnesium) tablet calcitrioL 2021-10 Yes .25ug QD Take 0.25 M ethodi (ROCALTROL) 0-[address] 0.25 MCG 12:36: mouth Hospita capsule 16 daily. l carvediloL 2021- No TAKE 1 [facility] [place] (COREG) 25 05-[address] MG tablet 00:00: 00:00 MOUTH Hospit a 00 :00 TWICE l DAILY WITH MEALS carvediloL 2021- No TAKE 1 [facility] [place] (COREG) 25 02-[address] MG tablet 00:00: 00:00 MOUTH Hospit a 00 :00 TWICE l DAILY WITH MEALS carvediloL 2021- No TAKE 1 [facility] [place] (COREG) 25 1-31 05-[address] MG tablet 00:00: 00:00 MOUTH Hospit a 00 :00 TWICE l DAILY WITH MEALS carvediloL 2020-10- No TAKE 1 [facility] [place] (COREG) 25 0-25 -[address] MG tablet 00:00: 00:00 MOUTH Hospit a 00 :00 TWICE l DAILY WITH MEALS potassium 2020-10 Yes [id number] 10meq QD Take 1 [facility] chloride 0-13 tablet (10 st (KLOR-CON) 00:00: mEq total) H ospita 10 MEQ CR 00 by mouth l tablet daily. furosemide 2020-10 Yes 20mg QD Take 1 [facility] (LASIX) 20 0-04 tablet (20 st mg tablet 00:00: mg total) Hos renate 00 by mouth l daily. galantamine Yes [id number] 12mg Take 1 [facility] 12 mg 2-04 tablet by ity of tablet 00:00: mouth 2 [place] 00 (two) Medical times Branch daily. galantamine Yes [id number] 12mg Take 1 Univers 12 mg 2-04 tablet by ity of tablet 00:00: mouth 2 [place] 00 (two) Medical times Branch daily. galantamine Yes [id number] 12mg Take 1 Univers 12 mg 2-04 tablet by ity of tablet 00:00: mouth 2 [place] 00 (two) Medical times Branch daily. galantamine Yes [id number] 12mg Take 1 Univers 12 mg 2-04 tablet by ity of tablet 00:00: mouth 2 [place] 00 (two) Medical times Branch daily. galantamine Yes [id number] 12mg Take 1 Univers 12 mg 2-04 tablet by ity of tablet 00:00: mouth 2 [place] 00 (two) Medical times Branch daily. GALANTAMINE 2020- No [id number] Take 1 Univers 12 mg 2-04 02-04 tablet by ity of tablet 00:00: 00:00 mouth [place] 00 :00 twice Medical daily Branch GALANTAMINE 2020- No [id number] Take 1 Univers 12 mg 2-04 02-04 tablet by ity of tablet 00:00: 00:00 mouth [place] 00 :00 twice Medical daily Branch BABY Yes [id number] 81mg Take 81 mg Un luis f ASPIRIN 1-13 by mouth ity of ORAL 17:25: daily. [place] [address] Medical Branch docusate 2019-0 Yes 100mg Take 100 Univers 100 mg 1-13 mg by ity of capsule 17:25: mouth [place] 52 daily. Medical Branch ascorbic 2019-0 Yes 500mg Take 500 Univers acid, 1-13 mg by ity of vitamin C, 17:25: mouth. [place] (VITAMIN C) 52 Medical 500 mg Branch tablet folic acid 2019-0 Yes 400ug Take 400 Univers 800 mcg 1-13 mcg by ity of tablet 17:25: mouth [place] 52 daily. Medical Branch calcium-vit 2019-0 Yes 1{tbl} Take 1 Univers ballard D 1-13 tablet by ity of (CALCIUM 17:25: mouth [place] 500+D) 500 52 daily. Medical mg(1,250mg) Branch -200 unit per tablet insulin 2019-0 Yes inject Uni vers glargine 1-13 under the ity of (LANTUS) 17:25: skin at [place] 100 unit/mL 52 bedtime. Medi thien injection Branch insulin 0 Yes inject Uni vers lispro 1-13 under the ity of (HUMALOG 17:25: skin 3 [place] KWIKPEN) 52 (three) Medical 100 unit/mL times Branch pen daily injector before meals. BABY 0 Yes 81mg Take 81 mg Un luis f ASPIRIN 1-13 by mouth ity of ORAL 17:25: daily. [place] [address] Medical Branch docusate 2019-0 Yes 100mg Take 100 Univers 100 mg 1-13 mg by ity of capsule 17:25: mouth [place] 52 daily. Medical Branch ascorbic 2019-0 Yes 500mg Take 500 Univers acid, 1-13 mg by ity of vitamin C, 17:25: mouth. [place] (VITAMIN C) 52 Medical 500 mg Branch tablet folic acid 2019-0 Yes 400ug Take 400 Univers 800 mcg 1-13 mcg by ity of tablet 17:25: mouth [place] 52 daily. Medical Branch calcium-vit 2019-0 Yes 1{tbl} Take 1 Univers ballard D 1-13 tablet by ity of (CALCIUM 17:25: mouth [place] 500+D) 500 52 daily. Medical mg(1,250mg) Branch -200 unit per tablet insulin 2019-0 Yes inject Uni vers glargine 1-13 under the ity of (LANTUS) 17:25: skin at [place] 100 unit/mL 52 bedtime. Medi thien injection Branch insulin 2019-0 Yes inject Uni vers lispro 1-13 under the ity of (HUMALOG 17:25: skin 3 [place] KWIKPEN) 52 (three) Medical 100 unit/mL times Branch pen daily injector before meals. BABY 2019-0 Yes 81mg Take 81 mg Un luis f ASPIRIN 1-13 by mouth ity of ORAL 17:25: daily. [place] [address] Medical Branch BABY 2019-0 Yes 81mg Take 81 mg Un luis f ASPIRIN 1-13 by mouth ity of ORAL 17:25: daily. [place] [address] Medical Branch docusate 2019-0 Yes 100mg Take 100 Univers 100 mg 1-13 mg by ity of capsule 17:25: mouth [place] 52 daily. Medical Branch ascorbic 2019-0 Yes 500mg Take 500 Univers acid, 1-13 mg by ity of vitamin C, 17:25: mouth. [place] (VITAMIN C) 52 Medical 500 mg Branch tablet folic acid 2019-0 Yes 400ug Take 400 Univers 800 mcg 1-13 mcg by ity of tablet 17:25: mouth [place] 52 daily. Medical Branch calcium-vit 2019-0 Yes 1{tbl} Take 1 Univers ballard D 1-13 tablet by ity of (CALCIUM 17:25: mouth [place] 500+D) 500 52 daily. Medical mg(1,250mg) Branch -200 unit per tablet insulin 2019-0 Yes inject Uni vers glargine 1-13 under the ity of (LANTUS) 17:25: skin at [place] 100 unit/mL 52 bedtime. Medi thien injection Branch insulin 2019-0 Yes inject Uni vers lispro 1-13 under the ity of (HUMALOG 17:25: skin 3 [place] KWIKPEN) 52 (three) Medical 100 unit/mL times Branch pen daily injector before meals. docusate 2019-0 Yes 100mg Take 100 Univers 100 mg 1-13 mg by ity of capsule 17:25: mouth [place] 52 daily. Medical Branch BABY 2019-0 Yes 81mg Take 81 mg Un luis f ASPIRIN 1-13 by mouth ity of ORAL 17:25: daily. [place] [address] Medical Branch docusate 2020-0 Yes 100mg Take 100 Univers 100 mg 1-13 mg by ity of capsule 17:25: mouth [place] 52 daily. Medical Branch ascorbic 2020-0 Yes 500mg Take 500 Univers acid, 1-13 mg by ity of vitamin C, 17:25: mouth. [place] (VITAMIN C) 52 Medical 500 mg Branch tablet folic acid 2019-0 Yes 400ug Take 400 Univers 800 mcg 1-13 mcg by ity of tablet 17:25: mouth [place] 52 daily. Medical Branch calcium-vit 2019-0 Yes 1{tbl} Take 1 Univers ballard D 1-13 tablet by ity of (CALCIUM 17:25: mouth [place] 500+D) 500 52 daily. Medical mg(1,250mg) Branch -200 unit per tablet insulin 2019-0 Yes inject Uni vers glargine 1-13 under the ity of (LANTUS) 17:25: skin at [place] 100 unit/mL 52 bedtime. Medi thien injection Branch insulin 2019-0 Yes inject Uni vers lispro 1-13 under the ity of (HUMALOG 17:25: skin 3 [place] KWIKPEN) 52 (three) Medical 100 unit/mL times Branch pen daily injector before meals. ascorbic 2019-0 Yes 500mg Take 500 Univers acid, 1-13 mg by ity of vitamin C, 17:25: mouth. [place] (VITAMIN C) 52 Medical 500 mg Branch tablet folic acid 2019-0 Yes 400ug Take 400 Univers 800 mcg 1-13 mcg by ity of tablet 17:25: mouth [place] 52 daily. Medical Branch BABY 2019-0 Yes 81mg Take 81 mg Un luis f ASPIRIN 1-13 by mouth ity of ORAL 17:25: daily. [place] [address] Medical Branch docusate 2019-0 Yes 100mg Take 100 Univers 100 mg 1-13 mg by ity of capsule 17:25: mouth [place] 52 daily. Medical Branch ascorbic 2020-0 Yes 500mg Take 500 Univers acid, 1-13 mg by ity of vitamin C, 17:25: mouth. [place] (VITAMIN C) 52 Medical 500 mg Branch tablet folic acid 2019-0 Yes 400ug Take 400 Univers 800 mcg 1-13 mcg by ity of tablet 17:25: mouth [place] 52 daily. Medical Branch calcium-vit 2020-0 Yes 1{tbl} Take 1 Univers ballard D 1-13 tablet by ity of (CALCIUM 17:25: mouth [place] 500+D) 500 52 daily. Medical mg(1,250mg) Branch -200 unit per tablet insulin 2019-0 Yes inject Uni vers glargine 1-13 under the ity of (LANTUS) 17:25: skin at [place] 100 unit/mL 52 bedtime. Medi thien injection Branch insulin 2019-0 Yes inject Uni vers lispro 1-13 under the ity of (HUMALOG 17:25: skin 3 [place] KWIKPEN) 52 (three) Medical 100 unit/mL times Branch pen daily injector before meals. calcium-vit 2019-0 Yes 1{tbl} Take 1 Univers ballard D 1-13 tablet by ity of (CALCIUM 17:25: mouth [place] 500+D) 500 52 daily. Medical mg(1,250mg) Branch -200 unit per tablet insulin 2019-0 Yes inject Uni vers glargine 1-13 under the ity of (LANTUS) 17:25: skin at [place] 100 unit/mL 52 bedtime. Medi thien injection Branch insulin 2019-0 Yes inject Uni vers lispro 1-13 under the ity of (HUMALOG 17:25: skin 3 [place] KWIKPEN) 52 (three) Medical 100 unit/mL times Branch pen daily injector before meals. BABY 2019-0 Yes 81mg Take 81 mg Un luis f ASPIRIN 1-13 by mouth ity of ORAL 17:25: daily. [place] 52 Medical Branch docusate 2020-0 Yes 100mg Take 100 Univers 100 mg 1-13 mg by ity of capsule 17:25: mouth [place] 52 daily. Medical Branch ascorbic 2020-0 Yes 500mg Take 500 Univers acid, 1-13 mg by ity of vitamin C, 17:25: mouth. [place] (VITAMIN C) 52 Medical 500 mg Branch tablet folic acid 2019-0 Yes 400ug Take 400 Univers 800 mcg 1-13 mcg by ity of tablet 17:25: mouth [place] 52 daily. Medical Branch calcium-vit 2019-0 Yes 1{tbl} Take 1 Univers ballard D 1-13 tablet by ity of (CALCIUM 17:25: mouth [place] 500+D) 500 52 daily. Medical mg(1,250mg) Branch -200 unit per tablet insulin 2019-0 Yes inject Uni vers glargine 1-13 under the ity of (LANTUS) 17:25: skin at [place] 100 unit/mL 52 bedtime. Medi thien injection Branch insulin Yes inject Uni vers lispro 1-13 under the ity of (HUMALOG 17:25: skin 3 [place] KWIKPEN) 52 (three) Medical 100 unit/mL times Branch pen daily injector before meals. BABY 2019-0 Yes 81mg Take 81 mg Un luis f ASPIRIN 1-13 by mouth ity of ORAL 17:25: daily. [address] docusate Yes 100mg Take 100 Univers 100 mg 1-13 mg by ity of capsule 17:25: mouth [place] 52 daily. Medical Branch ascorbic 0 Yes 500mg Take 500 Univers acid, 1-13 mg by ity of vitamin C, 17:25: mouth. [place] (VITAMIN C) 52 Medical 500 mg Branch tablet folic acid Yes 400ug Take 400 Univers 800 mcg 1-13 mcg by ity of tablet 17:25: mouth [place] 52 daily. Medical Branch calcium-vit 2019- Yes 1{tbl} Take 1 Univers ballard D 1-13 tablet by ity of (CALCIUM 17:25: mouth [place] 500+D) 500 52 daily. Medical mg(1,250mg) Branch -200 unit per tablet insulin 0 Yes inject Uni vers glargine 1-13 under the ity of (LANTUS) 17:25: skin at [place] 100 unit/mL 52 bedtime. Medi thien injection Branch insulin Yes inject Uni vers lispro 1-13 under the ity of (HUMALOG 17:25: skin 3 [place] KWIKPEN) 52 (three) Medical 100 unit/mL times Branch pen daily injector before meals. BABY 2019-0 Yes 81mg Take 81 mg Un luis f ASPIRIN 1-13 by mouth ity of ORAL 11:25: daily. [place] 52 Medical Branch docusate 2019-0 Yes 100mg Take 100 Univers 100 mg 1-13 mg by ity of capsule 11:25: mouth [place] 52 daily. Medical Branch ascorbic 2019-0 Yes 500mg Take 500 Univers acid, 1-13 mg by ity of vitamin C, 11:25: mouth. [place] (VITAMIN C) 52 Medical 500 mg Branch tablet folic acid 2019-0 Yes 400ug Take 400 Univers 800 mcg 1-13 mcg by ity of tablet 11:25: mouth [place] 52 daily. Medical Branch calcium-vit 2019-0 Yes 1{tbl} Take 1 Univers ballard D 1-13 tablet by ity of (CALCIUM 11:25: mouth [place] 500+D) 500 52 daily. Medical mg(1,250mg) Branch -200 unit per tablet insulin Yes inject Uni vers glargine 1-13 under the ity of (LANTUS) 11:25: skin at [place] 100 unit/mL 52 bedtime. Medi thien injection Branch insulin Yes inject Uni vers lispro 1-13 under the ity of (HUMALOG 11:25: skin 3 [place] KWIKPEN) 52 (three) Medical 100 unit/mL times Branch pen daily injector before meals. BABY 0 Yes 81mg Take 81 mg Un luis f ASPIRIN 1-13 by mouth ity of ORAL 11:25: daily. [address] docusate 0 Yes 100mg Take 100 Univers 100 mg 1-13 mg by ity of capsule 11:25: mouth [place] 52 daily. Medical Branch ascorbic 2019-0 Yes 500mg Take 500 Univers acid, 1-13 mg by ity of vitamin C, 11:25: mouth. [place] (VITAMIN C) 52 Medical 500 mg Branch tablet folic acid 2019-0 Yes 400ug Take 400 Univers 800 mcg 1-13 mcg by ity of tablet 11:25: mouth [place] 52 daily. Medical Branch calcium-vit 2019- Yes 1{tbl} Take 1 Univers ballard D 1-13 tablet by ity of (CALCIUM 11:25: mouth [place] 500+D) 500 52 daily. Medical mg(1,250mg) Branch -200 unit per tablet insulin 0 Yes inject Uni vers glargine 1-13 under the ity of (LANTUS) 11:25: skin at [place] 100 unit/mL 52 bedtime. [facility] injection Branch insulin 2019-0 Yes inject Uni vers lispro 1-13 under the ity of (HUMALOG 11:25: skin 3 [place] KWIKPEN) 52 (three) Medical 100 unit/mL times Branch pen daily injector before meals. BABY 2019-0 Yes 81mg Take 81 mg Un luis f ASPIRIN 1-13 by mouth ity of ORAL 11:25: daily. [place] 52 Medical Branch docusate 2019-0 Yes 100mg Take 100 Univers 100 mg 1-13 mg by ity of capsule 11:25: mouth [place] 52 daily. Medical Branch ascorbic 2019-0 Yes 500mg Take 500 Univers acid, 1-13 mg by ity of vitamin C, 11:25: mouth. [place] (VITAMIN C) 52 Medical 500 mg Branch tablet folic acid 0 Yes 400ug Take 400 Univers 800 mcg 1-13 mcg by ity of tablet 11:25: mouth [place] 52 daily. Medical Branch calcium-vit 2019-0 Yes 1{tbl} Take 1 Univers ballard D 1-13 tablet by ity of (CALCIUM 11:25: mouth [place] 500+D) 500 52 daily. Medical mg(1,250mg) Branch -200 unit per tablet insulin 0 Yes inject Uni vers glargine 1-13 under the ity of (LANTUS) 11:25: skin at [place] 100 unit/mL 52 bedtime. [facility] injection Branch insulin 2019-0 Yes inject Uni vers lispro 1-13 under the ity of (HUMALOG 11:25: skin 3 [place] KWIKPEN) 52 (three) Medical 100 unit/mL times Branch pen daily injector before meals. memantine 2019-0 Yes [id number] 28mg Take 1 Un luis f (NAMENDA 1-13 capsule by ity o f XR) 28 mg 00:00: mouth [place] capsule 00 daily. Medical Branch galantamine 2019-0 Yes [id number] 12mg Take 1 Univers 12 mg 1-13 tablet by ity of tablet 00:00: mouth 2 [place] 00 (two) Medical times Branch daily. memantine 2019-0 Yes [id number] 28mg Take 1 Un luis f (NAMENDA 1-13 capsule by ity o f XR) 28 mg 00:00: mouth [place] capsule 00 daily. Medical Branch memantine 2020-0 Yes [id number] 28mg Take 1 Un luis f (NAMENDA 1-13 capsule by ity o f XR) 28 mg 00:00: mouth [place] capsule 00 daily. Medical Branch memantine 2020-0 Yes [id number] 28mg Take 1 Un luis f (NAMENDA 1-13 capsule by ity o f XR) 28 mg 00:00: mouth [place] capsule 00 daily. Medical Branch memantine 2020-0 Yes [id number] 28mg Take 1 Un luis f (NAMENDA 1-13 capsule by ity o f XR) 28 mg 00:00: mouth [place] capsule 00 daily. Medical Branch memantine 2020-0 Yes [id number] 28mg Take 1 Un luis f (NAMENDA 1-13 capsule by ity o f XR) 28 mg 00:00: mouth [place] capsule 00 daily. Medical Branch memantine 2020-0 Yes [id number] 28mg Take 1 Un luis f (NAMENDA 1-13 capsule by ity o f XR) 28 mg 00:00: mouth [place] capsule 00 daily. Medical Branch memantine 2020-0 Yes [id number] 28mg Take 1 Un luis f (NAMENDA 1-13 capsule by ity o f XR) 28 mg 00:00: mouth [place] capsule 00 daily. Medical Branch memantine 2020-0 Yes [id number] 28mg Take 1 Un luis f (NAMENDA 1-13 capsule by ity o f XR) 28 mg 00:00: mouth [place] capsule 00 daily. Medical Branch galantamine 2020-0 Yes [id number] 12mg Take 1 Univers 12 mg 1-13 tablet by ity of tablet 00:00: mouth 2 [place] 00 (two) Medical times Branch daily. memantine 2020-0 Yes [id number] 28mg Take 1 Un luis f (NAMENDA 1-13 capsule by ity o f XR) 28 mg 00:00: mouth [place] capsule 00 daily. Medical Branch galantamine 2020-0 Yes [id number] 12mg Take 1 Univers 12 mg 1-13 tablet by ity of tablet 00:00: mouth 2 [place] 00 (two) Medical times Branch daily. memantine 2020-0 Yes [id number] 28mg Take 1 Un luis f (NAMENDA 1-13 capsule by ity o f XR) 28 mg 00:00: mouth [place] capsule 00 daily. Medical Branch galantamine 2019- Yes [id number] 12mg Take 1 [facility] 12 mg 1-13 tablet by ity of tablet 00:00: mouth 2 [place] 00 (two) Medical times Branch daily. galantamine Yes 12mg Take 12 mg [facility] (RAZADYNE) 1-[address] 12 MG 00:00: [facility] tablet 00 l memantine Yes 28mg Take 28 mg [facility] 28 mg 1-[address] capsule,spr 00:00: [facility] 00 l 24hr galantamine 2019-2020- No [id number] 12mg Take 1 [facility] 12 mg 1-13 02-04 tablet by ity of tablet 00:00: 00:00 mouth 2 [place] 00 :00 (two) Medical times Branch daily. galantamine 2019-2020- No [id number] 12mg Take 1 [facility] 12 mg 1-13 02-04 tablet by ity of tablet 00:00: 00:00 mouth 2 [place] 00 :00 (two) Medical times Branch daily. galantamine 2020- No [id number] 12mg Take 1 [facility] 12 mg 1-13 02-04 tablet by ity of tablet 00:00: 00:00 mouth 2 [place] 00 :00 (two) Medical times Branch daily. galantamine 1- No [id number] 12mg Take 1 [facility] 12 mg 1-13 02-04 tablet by ity of tablet 00:00: 00:00 mouth 2 [place] 00 :00 (two) Medical times Branch daily. aspirin 81 2018- Yes [id number] 81mg Take 81 mg [facility] MG tablet 8-22 by mouth [facility] e 20:46: daily. of 44 Medicin e Memantine 2018- Yes [id number] Take by B [facility] HCl ER 8-22 mouth [facility] (NAMENDA 20:46: daily. of XR) 28 MG 44 Medicin CP24 e amlodipine 2018-0 Yes [id number] 5mg Take 5 mg [facility] (NORVASC) 5 8-22 by mouth [facility] MG tablet 20:46: two times of 44 daily. Medicin e atorvastati 2018- Yes [id number] 40mg Take 40 mg [facility] n (LIPITOR) 8-22 by mouth [facility] 40 MG 20:46: daily. of tablet 44 Medicin e B Complex 2019-0 Yes [id number] 1{capsu Take 1 [facility] Vitamins 8-22 le} capsule by [facility] CAPS 20:46: mouth of 44 daily. Medicin e clopidogrel 2019-0 Yes [id number] 75mg Take 75 mg [facility] (PLAVIX) 75 8-22 by mouth [place] [facility] MG tablet 20:46: daily. of 44 Medicin e Coenzyme 2019-0 Yes [id number] 100mg Take 100 [facility] Q10 (CO Q 8-22 mg by [facility] 10) 100 MG 20:46: mouth of CAPS 44 daily. Medicin e docusate 2018-0 Yes [id number] 100mg Take 100 [facility] sodium 8-22 mg by [facility] (COLACE) 20:46: mouth two of 100 MG 44 times Medicin capsule daily. e folic acid 2018-0 Yes [id number] 800ug Take 800 [facility] 800 MCG 8-22 mcg by [facility] TABS 20:46: mouth of 44 daily. Medicin e galantamine 2018-0 Yes [id number] 12mg Take 12 mg [facility] 12 MG TABS 8-22 by mouth [facility] 20:46: two times of 44 daily. Medicin e levothyroxi 2018-0 Yes [id number] 50ug Take 50 [facility] ne 8-22 mcg by [facility] (SYNTHROID) 20:46: mouth of 50 MCG 44 every Medicin tablet morning. e metformin 2018-0 Yes [id number] 1000mg Take 1,000 [facility] (GLUCOPHAGE 8-22 mg by [facility] ) 1000 MG 20:46: mouth 2 of tablet 44 times Medicin daily e (with meals). Cyanocobala 2019-0 Yes [id number] 1000ug Take 1,000 [facility] min 8-22 mcg by [facility] (VITAMIN 20:46: mouth of B-12) 1000 44 daily. Medicin MCG TABS e Ascorbic 2019-0 Yes [id number] 1000mg Take 1,000 [facility] Acid 8-22 mg by [facility] (VITAMIN C) 20:46: mouth of 1000 MG 44 daily. Medicin TABS e Brinzolamid 2019-0 Yes 1[drp] Apply 1 B aylor e-Brimonidi 8-22 Drop to [facility] ne 1-0.2 % 20:46: eye two of ophthalmic 44 times Medicin suspension daily. e pantoprazol Yes [id number] 40mg Take 40 mg [facility] e 8-22 by mouth College (PROTONIX) 20:46: two times of 40 MG 44 daily. Medicin tablet e Insulin Yes 20U Inject 20 [facility] Glargine 8-22 Units into Colle ge (BASAGLAR 00:00: the skin of KWIKPEN) 00 two times Medici n 100 UNIT/ML daily. e SOPN insulin Yes 20U Inject 20 Metho di GLARGINE 8-[address] (LANTUS 00:00: under the Hospi ta SOLOSTAR) 00 skin. l 100 unit/mL injection (pen) Insulin 2019- No [id number] 20U Inject 20 [facility] Glargine 8-13 08-22 Units into Quin ege (LANTUS 00:00: 00:00 the skin of SOLOSTAR) 00 :00 two times Medic in 100 UNIT/ML daily. e SOPN ESTRING 2 Yes TAKE Metho di mg (7.5 mcg 6-[address] /24 hour) 00:00: EVERY 3 Hospi ta vaginal 00 MONTHS l ring Insulin Pen Yes USE Bayl or Needle (BD 1-30 DIRECTED Colle ge PEN NEEDLE 00:00: FOUR TIMES o f ZOLTAN U/F) 00 A DAY. DX Medic in 32G X 4 MM E11.9 e MISC Insulin Dependent pen needle, Yes USE Meth [place] diabetic 32 1-[address] gauge x 00:00: FOUR TIMES [facility] 5/32" 00 A DAY. DX l needle E11.9 Insulin Dependent Glucose 2017-10 Yes USE ONE [facility] Blood 2-05 STRIP TO [employer] Strips 00:00: CHECK of (ONETOUCH 00 GLUCOSE 4 Medic in VERIO) TIMES e DAILY; Dx E11.8 memantine 2017-10 2020- No [id number] 28mg Take 1 [facility] (NAMENDA 10-24 capsule by ity of XR) 28 mg 00:00: 00:00 mouth [place] capsule 00 :00 daily. Medical Branch memantine 2017-10 2020- No [id number] 28mg Take 1 [facility] (NAMENDA 10-24 capsule by ity of XR) 28 mg 00:00: 00:00 mouth [place] capsule 00 :00 daily. Medical Branch diclofenac 2018-0 Yes 50mg Take 1 Unive rs 50 mg 9-07 tablet by ity of tablet 00:00: mouth 2 (two) Medical times Branch daily as needed for Other (inflamati on). diclofenac 2018-0 Yes 50mg Take 1 Unive rs 50 mg 9-07 tablet by ity of tablet 00:00: mouth 2 00 (two) Medical times Branch daily as needed for Other (inflamati on). diclofenac 2018-0 Yes 50mg Take 1 Unive rs 50 mg 9-07 tablet by ity of tablet 00:00: mouth 2 (two) Medical times Branch daily as needed for Other (inflamati on). diclofenac 2018-0 Yes 50mg Take 1 Unive rs 50 mg 9-07 tablet by ity of tablet 00:00: mouth 2 (two) Medical times Branch daily as needed for Other (inflamati on). diclofenac 2018-0 Yes 50mg Take 1 Unive rs 50 mg 9-07 tablet by ity of tablet 00:00: mouth 2 (two) Medical times Branch daily as needed for Other (inflamati on). diclofenac 2018-0 Yes 50mg Take 1 Unive rs 50 mg 9-07 tablet by ity of tablet 00:00: mouth 2 (two) Medical times Branch daily as needed for Other (inflamati on). diclofenac 2018-0 Yes 50mg Take 1 Unive rs 50 mg 9-07 tablet by ity of tablet 00:00: mouth 2 (two) Medical times Branch daily as needed for Other (inflamati on). diclofenac 2018-0 Yes 50mg Take 1 Unive rs 50 mg 9-07 tablet by ity of tablet 00:00: mouth 2 (two) Medical times Branch daily as needed for Other (inflamati on). diclofenac 2018-0 Yes 50mg Take 1 Unive rs 50 mg 9-07 tablet by ity of tablet 00:00: mouth 2 00 (two) Medical times Branch daily as needed for Other (inflamati on). diclofenac 2018-0 Yes 50mg Take 1 Unive rs 50 mg 9-07 tablet by ity of tablet 00:00: mouth 2 00 (two) Medical times Branch daily as needed for Other (inflamati on). diclofenac 2018-0 Yes 50mg Take 1 Unive rs 50 mg 9-07 tablet by ity of tablet 00:00: mouth 2 [place] 00 (two) Medical times Branch daily as needed for Other (inflamati on). UBIDECARENO Yes 1{tbl} Take 1 Univers NE 8-24 tablet by ity of (COENZYME 16:12: mouth [place] Q10) 100 mg 19 daily. Medica l Tab Branch vitamin Yes 1000ug Take 1,000 [facility] B-12 8-24 mcg by ity of (VITAMIN 16:12: mouth [place] B-12) 1,000 19 daily. Medica l mcg tablet Branch PROPYLENE Yes 1[drp] Place 1 Univers GLYCOL/PEG 8-24 Drop in ity of 400/PF 16:12: each eye 3 [place] (SYSTANE, 19 (three) Medical PF, times Branch OPHTHALMIC) daily. Eads-3-DHA Yes 1{capsu Take 1 Univers -EPA-Fish 8-24 le} capsule by ity of Oil (FISH 16:12: mouth [place] OIL) 1,000 19 daily. Medical mg (120 Branch mg-180 mg) Cap VITAMIN B Yes Take by [facility] COMPLEX 8-24 mouth ity of ORAL 16:12: daily. Medical Branch pantoprazol Yes 40mg Take 40 mg Univers e 40 mg EC 8-24 by mouth ity o f tablet 16:12: daily. 19 Medical Branch Nitrofurant Yes 100mg Take 100 [facility] oin&Nit. 8-24 mg by ity of Macrocryst 16:12: mouth 2 [place] (MACROBID[place] 19 (two) Medical 100 mg times Branch capsule daily. UBIDECARENO Yes 1{tbl} Take 1 [facility] NE 8-24 tablet by ity of (COENZYME 16:12: mouth [place] Q10) 100 mg 19 daily. Medica l Tab Branch vitamin Yes 1000ug Take 1,000 [facility] B-12 8-24 mcg by ity of (VITAMIN 16:12: mouth [place] B-12) 1,000 19 daily. Medica l mcg tablet Branch PROPYLENE Yes 1[drp] Place 1 [facility] GLYCOL/PEG 8-24 Drop in ity of 400/PF 16:12: each eye 3 [place] (SYSTANE, 19 (three) Medical PF, times Branch OPHTHALMIC) daily. Eads-3-DHA Yes 1{capsu Take 1 [facility] -EPA-Fish 8-24 le} capsule by ity of Oil (FISH 16:12: mouth [place] OIL) 1,000 19 daily. Medical mg (120 Branch mg-180 mg) Cap VITAMIN B Yes Take by [facility] COMPLEX 8-24 mouth ity of ORAL 16:12: daily. [address] pantoprazol Yes 40mg Take 40 mg Univers e 40 mg EC 8-24 by mouth ity o f tablet 16:12: daily. [address] Nitrofurant Yes 100mg Take 100 [facility] oin&Nit. 8-24 mg by ity of Macrocryst 16:12: mouth 2 [place] (MACROBID[place] 19 (two) Medical 100 mg times [place] capsule daily. UBIDECARENO Yes 1{tbl} Take 1 [facility] NE 8-24 tablet by ity of (COENZYME 16:12: mouth [place] Q10) 100 mg 19 daily. Medica l Tab Branch UBIDECARENO Yes 1{tbl} Take 1 [facility] NE 8-24 tablet by ity of (COENZYME 16:12: mouth [place] Q10) 100 mg 19 daily. Medica l Tab Branch vitamin Yes 1000ug Take 1,000 [facility] B-12 8-24 mcg by ity of (VITAMIN 16:12: mouth [place] B-12) 1,000 19 daily. Medica l mcg tablet Branch PROPYLENE Yes 1[drp] Place 1 [facility] GLYCOL/PEG 8-24 Drop in ity of 400/PF 16:12: each eye 3 [place] (SYSTANE, 19 (three) Medical PF, times Branch OPHTHALMIC) daily. Eads-3-DHA Yes 1{capsu Take 1 [facility] -EPA-Fish 8-24 le} capsule by ity of Oil (FISH 16:12: mouth [place] OIL) 1,000 19 daily. Medical mg (120 Branch mg-180 mg) Cap VITAMIN B Yes Take by [facility] COMPLEX 8-24 mouth ity of ORAL 16:12: daily. [place] [address] Medical Branch pantoprazol Yes 40mg Take 40 mg Univers e 40 mg EC 8-24 by mouth ity o f tablet 16:12: daily. [place] [address] Medical Branch Nitrofurant Yes 100mg Take 100 [facility] oin&Nit. 8-24 mg by ity of Macrocryst 16:12: mouth 2 [place] (MACROBID[place] 19 (two) Medical 100 mg times Branch capsule daily. vitamin Yes 1000ug Take 1,000 [facility] B-12 8-24 mcg by ity of (VITAMIN 16:12: mouth [place] B-12) 1,000 19 daily. Medica l mcg tablet Branch UBIDECARENO Yes 1{tbl} Take 1 [facility] NE 8-24 tablet by ity of (COENZYME 16:12: mouth [place] Q10) 100 mg 19 daily. Medica l Tab Branch PROPYLENE Yes 1[drp] Place 1 Univers GLYCOL/PEG 8-24 Drop in ity of 400/PF 16:12: each eye 3 [place] (SYSTANE, 19 (three) Medical PF, times Branch OPHTHALMIC) daily. vitamin Yes 1000ug Take 1,000 [facility] B-12 8-24 mcg by ity of (VITAMIN 16:12: mouth [place] B-12) 1,000 19 daily. Medica l mcg tablet Branch PROPYLENE Yes 1[drp] Place 1 [facility] GLYCOL/PEG 8-24 Drop in ity of 400/PF 16:12: each eye 3 [place] (SYSTANE, 19 (three) Medical PF, times Branch OPHTHALMIC) daily. Eads-3-DHA Yes 1{capsu Take 1 [facility] -EPA-Fish 8-24 le} capsule by ity of Oil (FISH 16:12: mouth [place] OIL) 1,000 19 daily. Medical mg (120 Branch mg-180 mg) Cap VITAMIN B Yes Take by [facility] COMPLEX 8-24 mouth ity of ORAL 16:12: daily. [address] pantoprazol Yes 40mg Take 40 mg Univers e 40 mg EC 8-24 by mouth ity o f tablet 16:12: daily. [address] Nitrofurant Yes 100mg Take 100 [facility] oin&Nit. 8-24 mg by ity of Macrocryst 16:12: mouth 2 [place] (MACROBID[place] 19 (two) Medical 100 mg times Branch capsule daily. UBIDECARENO Yes 1{tbl} Take 1 [facility] NE 8-24 tablet by ity of (COENZYME 16:12: mouth [place] Q10) 100 mg 19 daily. Medica l Tab Branch Eads-3-DHA Yes 1{capsu Take 1 [facility] -EPA-Fish 8-24 le} capsule by ity of Oil (FISH 16:12: mouth [place] OIL) 1,000 19 daily. Medical mg (120 Branch mg-180 mg) Cap vitamin Yes 1000ug Take 1,000 [facility] B-12 8-24 mcg by ity of (VITAMIN 16:12: mouth [place] B-12) 1,000 19 daily. Medica l mcg tablet Branch PROPYLENE Yes 1[drp] Place 1 [facility] GLYCOL/PEG 8-24 Drop in ity of 400/PF 16:12: each eye 3 [place] (SYSTANE, 19 (three) Medical PF, times [place] OPHTHALMIC) daily. Eads-3-DHA Yes 1{capsu Take 1 [facility] -EPA-Fish 8-24 le} capsule by ity of Oil (FISH 16:12: mouth [place] OIL) 1,000 19 daily. Medical mg (120 Branch mg-180 mg) Cap VITAMIN B Yes Take by [facility] COMPLEX 8-24 mouth ity of ORAL 16:12: daily. [place] [facility] Branch pantoprazol Yes 40mg Take 40 mg Univers e 40 mg EC 8-24 by mouth ity o f tablet 16:12: daily. [address] VITAMIN B Yes Take by Univers COMPLEX 8-24 mouth ity of ORAL 16:12: daily. [address] Nitrofurant Yes 100mg Take 100 [facility] oin&Nit. 8-24 mg by ity of Macrocryst 16:12: mouth 2 [place] (MACROBID) 19 (two) Medical 100 mg times Branch capsule daily. pantoprazol Yes 40mg Take 40 mg Univers e 40 mg EC 8-24 by mouth ity o f tablet 16:12: daily. [place] [facility] Nitrofurant 0 Yes 100mg Take 100 [facility] oin&Nit. 8-24 mg by ity of Macrocryst 16:12: mouth 2 [place] (MACROBID) 19 (two) Medical 100 mg times Branch capsule daily. UBIDECARENO Yes 1{tbl} Take 1 [facility] NE 8-24 tablet by ity of (COENZYME 16:12: mouth [place] Q10) 100 mg 19 daily. Medica l Tab Branch vitamin Yes 1000ug Take 1,000 [facility] B-12 8-24 mcg by ity of (VITAMIN 16:12: mouth [place] B-12) 1,000 19 daily. Medica l mcg tablet Branch PROPYLENE Yes 1[drp] Place 1 [facility] GLYCOL/PEG 8-24 Drop in ity of 400/PF 16:12: each eye 3 [place] (SYSTANE, 19 (three) Medical PF, times Branch OPHTHALMIC) daily. Eads-3-DHA Yes 1{capsu Take 1 [facility] -EPA-Fish 8-24 le} capsule by ity of Oil (FISH 16:12: mouth [place] OIL) 1,000 19 daily. Medical mg (120 Branch mg-180 mg) Cap VITAMIN B Yes Take by [facility] COMPLEX 8-24 mouth ity of ORAL 16:12: daily. [place] [facility] pantoprazol Yes 40mg Take 40 mg Univers e 40 mg EC 8-24 by mouth ity o f tablet 16:12: daily. [place] 19 [facility] Nitrofurant Yes 100mg Take 100 [facility] oin&Nit. 8-24 mg by ity of Macrocryst 16:12: mouth 2 [place] (MACROBID) 19 (two) Medical 100 mg times Branch capsule daily. UBIDECARENO Yes 1{tbl} Take 1 [facility] NE 8-24 tablet by ity of (COENZYME 16:12: mouth [place] Q10) 100 mg 19 daily. Medica l Tab Branch vitamin Yes 1000ug Take 1,000 [facility] B-12 8-24 mcg by ity of (VITAMIN 16:12: mouth [place] B-12) 1,000 19 daily. Medica l mcg tablet Branch PROPYLENE Yes 1[drp] Place 1 [facility] GLYCOL/PEG 8-24 Drop in ity of 400/PF 16:12: each eye 3 [place] (SYSTANE, 19 (three) Medical PF, times Branch OPHTHALMIC) daily. Eads-3-DHA Yes 1{capsu Take 1 [facility] -EPA-Fish 8-24 le} capsule by ity of Oil (FISH 16:12: mouth [place] OIL) 1,000 19 daily. Medical mg (120 Branch mg-180 mg) Cap VITAMIN B Yes Take by [facility] COMPLEX 8-24 mouth ity of ORAL 16:12: daily. [address] pantoprazol Yes 40mg Take 40 mg Univers e 40 mg EC 8-24 by mouth ity o f tablet 16:12: daily. [address] Nitrofurant Yes 100mg Take 100 [facility] oin&Nit. 8-24 mg by ity of Macrocryst 16:12: mouth 2 [place] (MACROBID) 19 (two) Medical 100 mg times Branch capsule daily. UBIDECARENO Yes 1{tbl} Take 1 [facility] NE 8-24 tablet by ity of (COENZYME 11:12: mouth [place] Q10) 100 mg 19 daily. Medica l Tab Branch vitamin Yes 1000ug Take 1,000 [facility] B-12 8-24 mcg by ity of (VITAMIN 11:12: mouth [place] B-12) 1,000 19 daily. Medica l mcg tablet Branch PROPYLENE Yes 1[drp] Place 1 [facility] GLYCOL/PEG 8-24 Drop in ity of 400/PF 11:12: each eye 3 [place] (SYSTANE, 19 (three) Medical PF, times Branch OPHTHALMIC) daily. Eads-3-DHA Yes 1{capsu Take 1 [facility] -EPA-Fish 8-24 le} capsule by ity of Oil (FISH 11:12: mouth [place] OIL) 1,000 19 daily. Medical mg (120 Branch mg-180 mg) Cap VITAMIN B Yes Take by [facility] COMPLEX 8-24 mouth ity of ORAL 11:12: daily. [place] [facility] pantoprazol Yes 40mg Take 40 mg Univers e 40 mg EC 8-24 by mouth ity o f tablet 11:12: daily. [place] [facility] Nitrofurant Yes 100mg Take 100 [facility] oin&Nit. 8-24 mg by ity of Macrocryst 11:12: mouth 2 [place] (MACROBID) 19 (two) Medical 100 mg times Branch capsule daily. UBIDECARENO Yes 1{tbl} Take 1 [facility] NE 8-24 tablet by ity of (COENZYME 11:12: mouth [place] Q10) 100 mg 19 daily. Medica l Tab Branch vitamin Yes 1000ug Take 1,000 [facility] B-12 8-24 mcg by ity of (VITAMIN 11:12: mouth [place] B-12) 1,000 19 daily. Medica l mcg tablet Branch PROPYLENE Yes 1[drp] Place 1 [facility] GLYCOL/PEG 8-24 Drop in ity of 400/PF 11:12: each eye 3 [place] (SYSTANE, 19 (three) Medical PF, times Branch OPHTHALMIC) daily. Eads-3-DHA Yes 1{capsu Take 1 [facility] -EPA-Fish 8-24 le} capsule by ity of Oil (FISH 11:12: mouth [place] OIL) 1,000 19 daily. Medical mg (120 Branch mg-180 mg) Cap VITAMIN B Yes Take by [facility] COMPLEX 8-24 mouth ity of ORAL 11:12: daily. [place] [facility] pantoprazol Yes 40mg Take 40 mg Univers e 40 mg EC 8-24 by mouth ity o f tablet 11:12: daily. [place] [facility] Nitrofurant Yes 100mg Take 100 [facility] oin&Nit. 8-24 mg by ity of Macrocryst 11:12: mouth 2 [place] (MACROBID) 19 (two) Medical 100 mg times Branch capsule daily. UBIDECARENO Yes 1{tbl} Take 1 [facility] NE 8-24 tablet by ity of (COENZYME 11:12: mouth [place] Q10) 100 mg 19 daily. Medica l Tab Branch vitamin Yes 1000ug Take 1,000 [facility] B-12 8-24 mcg by ity of (VITAMIN 11:12: mouth [place] B-12) 1,000 19 daily. Medica l mcg tablet Branch PROPYLENE Yes 1[drp] Place 1 [facility] GLYCOL/PEG 8-24 Drop in ity of 400/PF 11:12: each eye 3 [place] (SYSTANE, 19 (three) Medical PF, times Branch OPHTHALMIC) daily. Eads-3-DHA Yes 1{capsu Take 1 [facility] -EPA-Fish 8-24 le} capsule by ity of Oil (FISH 11:12: mouth [place] OIL) 1,000 19 daily. Medical mg (120 Branch mg-180 mg) Cap VITAMIN B Yes Take by [facility] COMPLEX 8-24 mouth ity of ORAL 11:12: daily. [place] [facility] pantoprazol Yes 40mg Take 40 mg Univers e 40 mg EC 8-24 by mouth ity o f tablet 11:12: daily. [address] Branch Nitrofurant Yes 100mg Take 100 [facility] oin&Nit. 8-24 mg by ity of Macrocryst 11:12: mouth 2 [place] (MACROBID) 19 (two) Medical 100 mg times Branch capsule daily. carvedilol Yes [id number] 25mg Take 25 mg [facility] (COREG) 25 8-15 by mouth Colle ge MG tablet 00:00: two times of 00 daily. Medicin e galantamine 2020- No 12mg Take 1 Uni vers 12 mg 7-30 -13 tablet by ity of tablet 00:00: 00:00 mouth 2 [place] 00 :00 (two) Medical times Branch daily. galantamine 2019- No 12mg Take 1 Uni vers 12 mg 7-30 -13 tablet by ity of tablet 00:00: 00:00 mouth 2 [place] 00 :00 (two) Medical times Branch daily. levothyroxi Yes 50ug Take 50 Univers ne 50 mcg 5-27 mcg by ity of tablet 00:00: mouth [place] 00 daily. Medical Branch levothyroxi 2018-0 Yes 50ug Take 50 Univers ne 50 mcg 5-27 mcg by ity of tablet 00:00: mouth [place] 00 daily. Medical Branch levothyroxi 2017-0 Yes 50ug Take 50 Univers ne 50 mcg 5-27 mcg by ity of tablet 00:00: mouth [place] 00 daily. Medical Branch levothyroxi 2017-0 Yes 50ug Take 50 Univers ne 50 mcg 5-27 mcg by ity of tablet 00:00: mouth [place] 00 daily. Medical Branch levothyroxi 2017-0 Yes 50ug Take 50 Univers ne 50 mcg 5-27 mcg by ity of tablet 00:00: mouth [place] 00 daily. Medical Branch levothyroxi 0 Yes 50ug Take 50 Univers ne 50 mcg 5-27 mcg by ity of tablet 00:00: mouth [place] 00 daily. Medical Branch levothyroxi 2017-0 Yes 50ug Take 50 Univers ne 50 mcg 5-27 mcg by ity of tablet 00:00: mouth [place] 00 daily. Medical Branch levothyroxi 0 Yes 50ug Take 50 Univers ne 50 mcg 5-27 mcg by ity of tablet 00:00: mouth [place] 00 daily. Medical Branch levothyroxi 2017-0 Yes 50ug Take 50 Univers ne 50 mcg 5-27 mcg by ity of tablet 00:00: mouth [place] 00 daily. Medical Branch levothyroxi 2017-0 Yes 50ug Take 50 Univers ne 50 mcg 5-27 mcg by ity of tablet 00:00: mouth [place] 00 daily. Medical Branch levothyroxi 2017-0 Yes 50ug Take 50 Univers ne 50 mcg 5-27 mcg by ity of tablet 00:00: mouth [place] 00 daily. Medical Branch SIMBRINZA 2018-0 Yes 1[drp] Place 1 Univers 1-0.2 % 5-17 Drop in ity of ophthalmic 00:00: both eyes [place] drops 00 2 (two) Medical times Branch daily. SIMBRINZA 2018-0 Yes 1[drp] Place 1 Univers 1-0.2 % 5-17 Drop in ity of ophthalmic 00:00: both eyes [place] drops 00 2 (two) Medical times Branch daily. SIMBRINZA Yes 1[drp] Place 1 Univers 1-0.2 % 5-17 Drop in ity of ophthalmic 00:00: both eyes [place] drops 00 2 (two) Medical times Branch daily. SIMBRINZA Yes 1[drp] Place 1 Univers 1-0.2 % 5-17 Drop in ity of ophthalmic 00:00: both eyes [place] drops 00 2 (two) Medical times Branch daily. SIMBRINZA Yes 1[drp] Place 1 Univers 1-0.2 % 5-17 Drop in ity of ophthalmic 00:00: both eyes [place] drops 00 2 (two) Medical times Branch daily. SIMBRINZA Yes 1[drp] Place 1 Univers 1-0.2 % 5-17 Drop in ity of ophthalmic 00:00: both eyes [place] drops 00 2 (two) Medical times Branch daily. SIMBRINZA Yes 1[drp] Place 1 Univers 1-0.2 % 5-17 Drop in ity of ophthalmic 00:00: both eyes [place] drops 00 2 (two) Medical times Branch daily. SIMBRINZA Yes 1[drp] Place 1 Univers 1-0.2 % 5-17 Drop in ity of ophthalmic 00:00: both eyes [place] drops 00 2 (two) Medical times Branch daily. SIMBRINZA Yes 1[drp] Place 1 Univers 1-0.2 % 5-17 Drop in ity of ophthalmic 00:00: both eyes [place] drops 00 2 (two) Medical times Branch daily. SIMBRINZA Yes 1[drp] Place 1 Univers 1-0.2 % 5-17 Drop in ity of ophthalmic 00:00: both eyes [place] drops 00 2 (two) Medical times Branch daily. SIMBRINZA Yes 1[drp] Place 1 Univers 1-0.2 % 5-17 Drop in ity of ophthalmic 00:00: both eyes [place] drops 00 2 (two) Medical times Branch daily. losartan Yes [id number] 100mg Take 100 Univers 100 mg 5-14 mg by ity of tablet 00:00: mouth [place] 00 daily. Medical Branch losartan 2018-0 Yes [id number] 100mg Take 100 [facility] 100 mg 5-14 mg by ity of tablet 00:00: mouth [place] 00 daily. Medical Branch losartan 2017-0 Yes [id number] 100mg Take 100 [facility] 100 mg 5-14 mg by ity of tablet 00:00: mouth [place] 00 daily. Medical Branch losartan 2017-0 Yes [id number] 100mg Take 100 [facility] 100 mg 5-14 mg by ity of tablet 00:00: mouth [place] 00 daily. [facility] losartan 2017-0 Yes 100mg Take 100 Univers 100 mg 5-14 mg by ity of tablet 00:00: mouth [place] 00 daily. [facility] losartan 2017-0 Yes 100mg Take 100 Univers 100 mg 5-14 mg by ity of tablet 00:00: mouth [place] 00 daily. Medical Branch losartan 2017-0 Yes 100mg Take 100 [facility] 100 mg 5-14 mg by ity of tablet 00:00: mouth [place] 00 daily. [facility] losartan 2017-0 Yes 100mg Take 100 Univers 100 mg 5-14 mg by ity of tablet 00:00: mouth [place] 00 daily. [facility] losartan 2017-0 Yes [id number] 100mg Take 100 [facility] 100 mg 5-14 mg by ity of tablet 00:00: mouth [place] 00 daily. [facility] losartan 2017-0 Yes [id number] 100mg Take 100 [facility] 100 mg 5-14 mg by ity of tablet 00:00: mouth [place] 00 daily. [facility] losartan 2017-0 Yes [id number] 100mg Take 100 Univers 100 mg 5-14 mg by ity of tablet 00:00: mouth [place] 00 daily. [facility] clopidogrel 2017-0 Yes [id number] 1{tbl} Take 1 Univers 75 mg 4-29 tablet by ity of tablet 00:00: mouth [place] 00 daily. [facility] clopidogrel 2017-0 Yes [id number] 1{tbl} Take 1 Univers 75 mg 4-29 tablet by ity of tablet 00:00: mouth [place] 00 daily. [facility] clopidogrel 2017-0 Yes [id number] 1{tbl} Take 1 [facility] 75 mg 4-29 tablet by ity of tablet 00:00: mouth [place] 00 daily. [facility] clopidogrel 2017-0 Yes [id number] 1{tbl} Take 1 Univers 75 mg 4-29 tablet by ity of tablet 00:00: mouth [place] 00 daily. Medical Branch clopidogrel 2017- Yes 1{tbl} Take 1 [facility] 75 mg 4-29 tablet by ity of tablet 00:00: mouth [place] 00 daily. [facility] clopidogrel 2017- Yes 1{tbl} Take 1 [facility] 75 mg 4-29 tablet by ity of tablet 00:00: mouth [place] 00 daily. Medical Branch clopidogrel Yes 1{tbl} Take 1 [facility] 75 mg 4-29 tablet by ity of tablet 00:00: mouth [place] 00 daily. [facility] clopidogrel Yes 1{tbl} Take 1 [facility] 75 mg 4-29 tablet by ity of tablet 00:00: mouth [place] 00 daily. [facility] clopidogrel Yes 1{tbl} Take 1 [facility] 75 mg 4-29 tablet by ity of tablet 00:00: mouth [place] 00 daily. Medical Branch clopidogrel Yes 1{tbl} Take 1 [facility] 75 mg 4-29 tablet by ity of tablet 00:00: mouth [place] 00 daily. Medical Branch clopidogrel 2017- Yes 1{tbl} Take 1 Univers 75 mg 4-29 tablet by ity of tablet 00:00: mouth [place] 00 daily. Medical Branch metFORMIN 2017-0 Yes 1{tbl} Take 1 Univers 1,000 mg 4-23 tablet by ity of tablet 00:00: mouth 2 [place] 00 (two) Medical times Branch daily. metFORMIN 2017- Yes 1{tbl} Take 1 Univers 1,000 mg 4-23 tablet by ity of tablet 00:00: mouth 2 [place] 00 (two) Medical times Branch daily. metFORMIN 2017-0 Yes 1{tbl} Take 1 Univers 1,000 mg 4-23 tablet by ity of tablet 00:00: mouth 2 [place] 00 (two) Medical times Branch daily. metFORMIN 2017-0 Yes 1{tbl} Take 1 Univers 1,000 mg 4-23 tablet by ity of tablet 00:00: mouth 2 [place] 00 (two) Medical times Branch daily. metFORMIN 2017- Yes 1{tbl} Take 1 Univers 1,000 mg 4-23 tablet by ity of tablet 00:00: mouth 2 (two) Medical times Branch daily. metFORMIN 2017-0 Yes 1{tbl} Take 1 Univers 1,000 mg 4-23 tablet by ity of tablet 00:00: mouth 2 (two) Medical times Branch daily. metFORMIN 2017-0 Yes 1{tbl} Take 1 Univers 1,000 mg 4-23 tablet by ity of tablet 00:00: mouth 2 (two) Medical times Branch daily. metFORMIN 2017-0 Yes 1{tbl} Take 1 Univers 1,000 mg 4-23 tablet by ity of tablet 00:00: mouth 2 (two) Medical times Branch daily. metFORMIN 2017-0 Yes 1{tbl} Take 1 Univers 1,000 mg 4-23 tablet by ity of tablet 00:00: mouth (two) Medical times Branch daily. metFORMIN 2017-0 Yes 1{tbl} Take 1 Univers 1,000 mg 4-23 tablet by ity of tablet 00:00: mouth (two) Medical times Branch daily. metFORMIN 2017-0 Yes 1{tbl} Take 1 Univers 1,000 mg 4-23 tablet by ity of tablet 00:00: mouth (two) Medical times Branch daily. amLODIPine 2017-0 Yes 1{tbl} Take 1 Univers 5 mg tablet 4-09 tablet by ity of 00:00: mouth (two) Medical times Branch daily. amLODIPine 2017-0 Yes 1{tbl} Take 1 Univers 5 mg tablet 4-09 tablet by ity of 00:00: mouth (two) Medical times Branch daily. amLODIPine 2017-0 Yes 1{tbl} Take 1 Univers 5 mg tablet 4-09 tablet by ity of 00:00: mouth 2 (two) Medical times Branch daily. amLODIPine 2017-0 Yes 1{tbl} Take 1 Univers 5 mg tablet 4-09 tablet by ity of 00:00: mouth 2 (two) Medical times Branch daily. amLODIPine 2017-0 Yes 1{tbl} Take 1 Univers 5 mg tablet 4-09 tablet by ity of 00:00: mouth 2 (two) Medical times Branch daily. amLODIPine 2017-0 Yes 1{tbl} Take 1 Univers 5 mg tablet 4-09 tablet by ity of 00:00: mouth 2 (two) Medical times Branch daily. amLODIPine 2017-0 Yes 1{tbl} Take 1 Univers 5 mg tablet 4-09 tablet by ity of 00:00: mouth 2 (two) Medical times Branch daily. amLODIPine 2017-0 Yes 1{tbl} Take 1 Univers 5 mg tablet 4-09 tablet by ity of 00:00: mouth 2 (two) Medical times Branch daily. amLODIPine 2017-0 Yes 1{tbl} Take 1 Univers 5 mg tablet 4-09 tablet by ity of 00:00: mouth 2 (two) Medical times Branch daily. amLODIPine 2017- Yes 1{tbl} Take 1 Univers 5 mg tablet 4-09 tablet by ity of 00:00: mouth (two) Medical times Branch daily. amLODIPine 2017-0 Yes 1{tbl} Take 1 Univers 5 mg tablet 4-09 tablet by ity of 00:00: mouth (two) Medical times Branch daily. carvedilol 2017-0 Yes 1{tbl} Take 1 Univers 12.5 mg 3-24 tablet by ity of tablet 00:00: mouth [place] (two) Medical times Branch daily. carvedilol 2017-0 Yes 1{tbl} Take 1 Univers 12.5 mg 3-24 tablet by ity of tablet 00:00: mouth 2 (two) Medical times Branch daily. carvedilol 2017-0 Yes 1{tbl} Take 1 Univers 12.5 mg 3-24 tablet by ity of tablet 00:00: mouth 2 (two) Medical times Branch daily. carvedilol 2017-0 Yes 1{tbl} Take 1 Univers 12.5 mg 3-24 tablet by ity of tablet 00:00: mouth 2 (two) Medical times Branch daily. carvedilol 2017-0 Yes 1{tbl} Take 1 Univers 12.5 mg 3-24 tablet by ity of tablet 00:00: mouth 2 (two) Medical times Branch daily. carvedilol 2017- Yes 1{tbl} Take 1 Univers 12.5 mg 3-24 tablet by ity of tablet 00:00: mouth 2 (two) Medical times Branch daily. carvedilol 2017- Yes 1{tbl} Take 1 Univers 12.5 mg 3-24 tablet by ity of tablet 00:00: mouth 2 (two) Medical times Branch daily. carvedilol Yes 1{tbl} Take 1 Univers 12.5 mg 3-24 tablet by ity of tablet 00:00: mouth 2 (two) Medical times Branch daily. carvedilol Yes 1{tbl} Take 1 Univers 12.5 mg 3-24 tablet by ity of tablet 00:00: mouth 2 (two) Medical times Branch daily. carvedilol Yes 1{tbl} Take 1 Univers 12.5 mg 3-24 tablet by ity of tablet 00:00: mouth 2 (two) Medical times Branch daily. carvedilol Yes 1{tbl} Take 1 Univers 12.5 mg 3-24 tablet by ity of tablet 00:00: mouth 2 (two) Medical times Branch daily. atorvastati Yes 1{tbl} Take 1 Univers n 40 mg 3-07 tablet by ity of tablet 00:00: mouth [place] 00 daily. Medical Branch atorvastati Yes 1{tbl} Take 1 Univers n 40 mg 3-07 tablet by ity of tablet 00:00: mouth [place] 00 daily. Medical Branch atorvastati Yes 1{tbl} Take 1 Univers n 40 mg 3-07 tablet by ity of tablet 00:00: mouth [place] 00 daily. Medical Branch atorvastati Yes 1{tbl} Take 1 Univers n 40 mg 3-07 tablet by ity of tablet 00:00: mouth [place] 00 daily. Medical Branch atorvastati Yes 1{tbl} Take 1 Univers n 40 mg 3-07 tablet by ity of tablet 00:00: mouth [place] 00 daily. Medical Branch atorvastati Yes [id number] 1{tbl} Take 1 Univers n 40 mg 3-07 tablet by ity of tablet 00:00: mouth [place] 00 daily. [facility] atorvastati Yes 1{tbl} Take 1 Univers n 40 mg 3-07 tablet by ity of tablet 00:00: mouth [place] 00 daily. [facility] atorvastati Yes 1{tbl} Take 1 Univers n 40 mg 3-07 tablet by ity of tablet 00:00: mouth [place] 00 daily. [facility] atorvastati Yes 1{tbl} Take 1 Univers n 40 mg 3-07 tablet by ity of tablet 00:00: mouth [place] 00 daily. [facility] atorvastati Yes [id number] 1{tbl} Take 1 Univers n 40 mg 3-07 tablet by ity of tablet 00:00: mouth [place] 00 daily. [facility] atorvastati Yes 1{tbl} Take 1 Univers n 40 mg 3-07 tablet by ity of tablet 00:00: mouth [place] 00 daily. [facility] pantoprazol Yes 40mg QD Take 40 mg Methodi e 1-[address] (PROTONIX) 00:00: daily. Hospi ta 40 MG EC 00 l tablet nitrofurant 2016-10 Yes [id number] 50mg Take 50 mg [facility] oin, 1-27 by mouth [facility] macrocrysta 00:00: daily. of l-monohydra 00 Medicin te, e (MACROBID) 100 MG capsule nitrofurant 2016-10 Yes 50mg Take 50 mg Methodi oin, 1-[address] macrocrysta 00:00: Hospit a l-monohydra 00 l te, (MACROBID) 100 MG capsule losartan 2016-10 Yes [id number] 100mg Take 100 Aki (COZAAR) 1-08 mg by [facility] 100 MG 00:00: mouth of tablet 00 daily. Medicin e Blood 2016-10 Yes Check [facility] Glucose 0-04 glucose 4 [facility] Monitoring 00:00: times of Suppl 00 daily. Dx Medicin (ONETOUCH code:E11.6 e VERIO) 5 W/DEVICE KIT alcohol 2016-10 Yes Use as Methodi swabs pads, 0-[address] medicated 00:00: times Hospita 00 daily l blood-gluco 2016-10 Yes Check Metho di se meter 0-[address] misc 00:00: times Hospita 00 daily. Dx l code:E11.6 5 lancets 33 2016-10 Yes Check Method i gauge misc 0-[address] 00:00: times Hospita 00 daily. Dx l code:E11.6 5 ONETOUCH 2016-10 Yes Check [facility] DELICA 0-04 glucose 4 College LANCETS 33G 00:00: times of MISC 00 daily. Dx Medicin code:E11.6 e 5 Alcohol 2016-10 Yes Use as Aki Swabs 0-04 directed 4 College (ALCOHOL 00:00: times of PADS) 70 % 00 daily Medicin PADS e insulin Yes 10U Inject 10 Metho di lispro 100 9-[address] unit/mL 00:00: under the Hospi ta insulin 00 skin. l pen, half-unit Insulin Yes [id number] 10U Inject 10 B aylor Lispro 9-08 Units into Chambers (HUMALOG 00:00: the skin 3 of KWIKPEN) 00 times Medicin 100 UNIT/ML daily e SOPN (with meals). repaglinide Yes type 2 2mg Take [address] [facility] (PRANDIN) 2 06-12 diabetes by mouth 3 [facility] MG tablet 16:34: mellitus (three) M edical 41 times Center daily before meals. levothyroxi Yes hypothyroid 50ug Take [address] [facility] ne 06-12 ism mcg by Марина (SYNTHROID, 16:34: mouth Medic al LEVOTHROID) 41 Every Center 50 MCG morning on tablet an empty stomach. metFORMIN Yes type 2 1000mg Take 1,[address] [facility] (GLUCOPHAGE 06-12 diabetes mg by Edel es ) 1000 MG 16:34: mellitus mouth 2 M edical tablet 41 (two) Center times daily with breakfast and dinner. aspirin 81 Yes 81mg QD Take [address] MG EC 06-12 by mouth [facility] tablet 16:34: daily. Medical 41 Center carvedilol Yes 12.5mg Take 12.[address] [facility] (COREG) 9-01 mg by [facility] 12.5 MG 16:34: mouth 2 Medical tablet 41 (two) Center times daily with breakfast and dinner. atorvastati 2017 Yes 40mg QD Take [address] [facility] n (LIPITOR) 9-01 by mouth Luke s 40 MG 16:34: daily. Medical tablet 41 [place] galantamine 2017 Yes 12mg Q.5D Take [address] [facility] (RAZADYNE) 9-01 by mouth 2 Edel es 12 MG 16:34: (two) Medical tablet 41 times Center daily. coenzyme 2017-0 Yes 100mg QD Take [address] Q10 100 mg 9-01 mg by [facility] capsule 16:34: mouth Medical 41 daily. [place] docusate 2017 Yes 100mg Q.5D Take [address] sodium 9-01 mg by [facility]ukes (COLACE) 16:34: mouth 2 Medica l 100 MG 41 (two) Center capsule times daily. cyanocobala 2017 Yes 1000ug QD Take 1,[address] min 9- mcg by [facility]ukes (VITAMIN 16:34: mouth Medical B-12) 1000 41 daily. [place] MCG tablet ascorbic 2017 Yes 1000mg QD Take 1,[address] acid, 9-01 mg by [facility]ukes vitamin C, 16:34: mouth Medica l (VITAMIN C) 41 daily. [place] 1000 MG tablet folic acid Yes 800ug QD Take [address] (FOLVITE) 9- mcg by [facility]ukes 800 MCG 16:34: mouth Medical tablet 41 daily. [place] b complex Yes 1{capsu QD Take [address] [facility] vitamins 9-01 le} capsule by [facility]ukes capsule 16:34: mouth Medical 41 daily. [place] memantine Yes 28mg QD Take [address] (NAMENDA 9-01 by mouth [facility] XR) 28 mg 16:34: daily. Medica l CSpX 41 [place] amLODIPine Yes hypertensio 5mg Q.5D Take [address] [facility] (NORVASC) 5 6-09 n by mouth 2 [place] kes MG tablet 00:00: (two) Medical 00 times Center daily. irbesartan 2017 Yes hypertensio 300mg QD Take [address] (AVAPRO) 5-21 n mg by [facility]ukes 300 MG 00:00: mouth Medical tablet 00 nightly. Center Immunizations Ordered Immunization Filled Immunization Date Status Commen ts Source Name Name PFIZER COVID-19 MRNA 2021-07-15 Completed Meth odist VACCINATION 00:00:00 [facility] PFIZER COVID-19 MRNA 2020-11-15 Completed Meth odist VACCINATION 00:00:00 [facility] PFIZER COVID-19 MRNA 2020-10-25 Completed Meth odist VACCINATION 00:00:00 [facility] Pneumococcal 2018-03-31 Completed [facility] 13-Valent 00:00:00 Hospi manjeet Vital Signs Vital Name Observation Time Observation Value Comments Source Systolic blood 2020-11-02 17:04:00 138 mm[Hg] Univer sity of pressure [facility] Diastolic blood 2020-11-02 17:04:00 78 mm[Hg] Unive rsity of [facility] Heart rate 2020-11-02 17:04:00 65 /min Universi ty [facility] Oxygen saturation in 2020-11-02 17:04:00 94 /min University of Arterial blood by [facility] Pulse oximetry Branch Systolic blood 2020-11-02 17:04:00 138 mm[Hg] Univer sity of pressure [place] [facility] Diastolic blood 2020-11-02 17:04:00 78 mm[Hg] Unive rsity of pressure [facility] Heart rate 2020-11-02 17:04:00 65 /[facility] 2020-11-02 17:04:00 94 /min University of Arterial blood by [facility] Pulse oximetry Branch Systolic blood 2019-10-24 17:20:00 117 mm[Hg] Univer sity of [facility] Diastolic blood 2019-10-24 17:20:00 62 mm[Hg] Unive rsity of [facility] Heart rate 2019-10-24 17:20:00 91 /min Univers ty [facility] Body temperature 2019-10-24 17:20:00 36.44 [facility] 2019-10-24 17:20:00 17 /min [facility] Body height 2019-10-24 17:20:00 160 cm [facility] Body weight 2019-10-24 17:20:00 81.647 [facility] BMI 2019-10-24 17:20:00 31.89 kg/m2 [facility] Branch Systolic blood 2019-06-02 20:43:00 126 mm[Hg] [facility] pressure Medicine Diastolic blood 2019-06-02 20:43:00 80 mm[Hg] [facility] pressure Medicine Heart rate 2019-06-02 20:43:00 84 /min [facility] Body height 2019-06-02 20:43:00 162.6 cm [facility] Body weight 2019-06-02 20:43:00 83.462 kg [facility] BMI 2019-06-02 20:43:00 31.58 kg/m2 [facility] Systolic blood 2019-06-02 20:43:00 126 mm[Hg] [facility] pressure Medicine Diastolic blood 2019-06-02 20:43:00 80 mm[Hg] [facility] pressure Medicine Heart rate 2019-06-02 20:43:00 84 /min [facility] Body height 2019-06-02 20:43:00 162.6 cm [facility] Body weight 2019-06-02 20:43:00 83.462 kg [facility] BMI 2019-06-02 20:43:00 31.58 [facility] Sy[facility] blood 2022-07-15 17:35:00 159 mm[Hg] [facility] pressure Diastolic blood 2022-07-15 17:35:00 68 mm[Hg] [facility] pressure Heart rate 2022-07-15 17:35:00 64 /[facility] height 2022-07-15 17:35:00 [facility] Procedure Date / Time Performed Performing Clinician [facility] e ECG 12-LEAD 2022-07-15 17:30:35 Sabas Burnett CONSENT/REFUSAL FOR 2022-02-08 22:33:37 Doctor Unassigned, No [facility] DIAGNOSIS AND [facility] Medical Branch TREATMENT ASSIGNMENT OF BENEFITS 2020-11-02 16:16:39 Doctor Unassigned, No [facility] Plan of Care Planned Activity Planned Date Details Comments Source Future Scheduled 2022-08-13 HEPATITIS B VACCINES Met [facility]odist Test 08:41:03 (1 of 3 - 3-dose Hospital series) [code = HEPATITIS B VACCINES (1 of 3 - 3-dose series)] Future Scheduled 2022-08-13 SHINGLES VACCINES (1 Met [facility]odist Test 08:41:03 of 2) [code = Hospital SHINGLES VACCINES (1 of 2)] Future Scheduled 2022-08-13 65+ PNEUMOCOCCAL Methodi st Test 08:41:03 VACCINE (2 - PPSV23 Hospital if available, else PCV20) [code = 65+ PNEUMOCOCCAL VACCINE (2 - PPSV23 if available, else PCV20)] Future Scheduled 2022-08-13 COVID-19 VACCINE (4 - Me thodist Test 08:41:03 Booster for Pfizer Hospital series) [code = COVID-19 VACCINE (4 - Booster for Pfizer series)] Future Scheduled 2022-08-13 INFLUENZA VACCINE Method ist Test 08:41:03 [code = INFLUENZA Hospital VACCINE] Diagnostic Test 2019-11-02 HEMOGLOBIN A1C [code Expected: Radha or Corbin Pending 00:00:00 = 4548-4] 11/02/2019, of Medicine Expires: 06/02/2025 Diagnostic Test 2019-11-02 LIPID PANEL [code = Expected: Curt Alaniz Pending 00:00:00 91577-6] 11/02/2019, of Medicine Expires: 06/02/2025 Diagnostic Test 2019-11-02 COMPREHENSIVE Expected: [facility] Pending 00:00:00 METABOLIC PANEL [code 11/02/2019, of Med icine = 86341-9] Expires: 06/02/2025 Future Scheduled MEDICARE AWV [code = [place] [employer] Test MEDICARE AWV] of Medicine Future Scheduled TETANUS SHOT (ADULT) [place] [employer] Test [code = TETANUS SHOT of Medi cine (ADULT)] Future Scheduled ANNUAL DIABETIC [facility] C ollemiguel Test RETINOPATHY SCREENING of Med icine [code = ANNUAL DIABETIC RETINOPATHY SCREENING] Future Scheduled BMI FOLLOW UP PLAN [employer] Test [code = BMI FOLLOW UP of Med icine PLAN] Future Scheduled FALL SCREEN [code = [employer] Test FALL SCREEN] of Medicine Future Scheduled OSTEOPOROSIS [facility] [employer] Test SCREENING [code = of Medicin e OSTEOPOROSIS SCREENING] Future Scheduled PNEUMOVAX >=65 [facility] [employer] Test (PPSV23) [code = of Medicine PNEUMOVAX >=65 (PPSV23)] Future Scheduled FLU VACCINE > 6 [facility] pita Test MONTHS [code = FLU of Medici ne VACCINE > 6 MONTHS] Future Scheduled A1C TESTING EVERY 6 [facility] or [facility] Test MONTHS [code = A1C of Medici ne TESTING EVERY 6 MONTHS] Future Scheduled Diabetic foot [facility] [employer] Test examination of Medicine (regime/therapy) [code = 758275168] Encounters Start End Encounter Admission Attending Care Care Encounter Source Date/Time Date/Time Type Type Clinicians Facility Department ID 2022-08-09 2022-08-09 Refill Janelle, 1.2.840.1 [id number] Methodi 00:00:00 00:00:[address] [place] [address] 3.430.2.7 Hospit a .3.423353 l .8 2022-07-15 2022-07-15 Office Janelle 1.2.840.1 [id number] Methodi 11:40:00 16:09:26 Visit Sabas Coats 68717.1.[address] 3.430.2.7 Hospit a .3.335022 l .8 2022-07-15 2022-07-15 [facility] [id number] [place] 00:00:00 00:00:00 SABAS [address] 2022-07-15 2022-07-15 Travel 1.2.840.1 1.2.635.471 [id number] Methodi 00:00:00 00:00:[address] 3.430.2.7 0.2.7.3.698 Ho spita .3.784291 084.8 l .8 2022-05-28 2022-05-28 Travel 1.2.840.1 1.2.054.195 [id number] Methodi 00:00:00 00:00:[address] 3.430.2.7 0.2.7.3.698 Ho spita .3.134349 084.8 l .8 2022-05-12 2022-05-12 Travel 1.2.840.1 1.2.331.902 4118 [id number] Methodi 00:00:00 00:00:[address] 3.430.2.7 0.2.7.3.698 Ho spita .3.363381 084.8 l .8 2022-05-11 2022-05-11 Refill Janelle, 1.2.840.1 [id number] Methodi 00:00:00 00:00:[address] [place] [address] 3.430.2.7 Hospit a .3.094721 l .8 2022-05-05 2022-05-05 Junaid Burnett, 1.2.840.1 [id number] Methodi 00:00:00 00:00:00 [place] [address] 3.430.2.7 Hospit a .3.037852 l .8 2022-03-31 2022-03-31 Travel 1.2.840.1 1.2.677.978 [id number] Methodi 00:00:00 00:00:[address] 3.430.2.7 0.2.7.3.698 Ho spita .3.008897 084.8 l .8 2022-02-12 2022-02-12 Meghna Zambrano 1.2.840.1 [id number] Methodi 00:00:00 00:00:00 [place] [address]65.1.[address] 3.430.2.7 Hospit a .3.216409 l .8 2022-02-11 2022-02-11 Telemedici Lashon 1.2.840.1 [id number] Methodi 14:45:00 15:04:28 shannon Arellano 81519.1.[address] Glenn 3.430.2.7 Hospit a .3.627512 l .8 2022-02-11 2022-02-11 Outpatient LASHON, [facility] [id number] [place] 00:00:00 00:00:[address] ADAN [address] 2022-02-09 2022-02-09 Letter GRIFFIN Khan 1.2.840.114 [id number] Univers 00:00:00 00:00:00 (Out) Padmaja Ese SHEIKH 350.1.13.10 it y of [facility] 4.2.7.2.686 Pramod as [phone] [facility] 019 [place] 2022-02-08 2022-02-08 Laboratory Only, Ang Db Test [facility] 1.2.8 40.114 [id number] Univers 18:00:00 18:15:00 [facility] 350.1.13.10 ity [facility] 4.2.7.2.686 Pramod as SHY?BLEA [phone] [address] MEDICAL OFFICE [facility] 2022-02-08 2022-02-[address] [facility] [id number] Univers 18:00:00 18:00:00 ENRIQUETA ity [facility] 2022-02-08 2022-02-08 Orders Doctor GRIFFIN 1.2.840.114 [id number] Univers 00:00:00 00:00:00 Only Unassigned, KORI 350.1.13.10 ity of [place] [facility] 4.2.7.2.686 Pramod as [phone] [facility] 009 [place] 2022-02-08 2022-02-08 Refill Janelle 1.2.840.1 [id number] Methodi 00:00:00 00:00:00 [place]ats [address] 3.430.2.7 Hospit a .3.613090 l .8 2021-12-26 2021-12-26 Telephone Iam 1.2.840.1 [id number] [id number] Methodmahsa 00:00:00 00:00:[address] 3.430.2.7 Hospit a .3.752156 l .8 2021-12-25 2021-12-25 Telephone Janelle 1.2.840.1 [id number] [id number] Methodi 00:00:00 00:00:00 Sabas [address] 3.430.2.7 Hospit a .3.820464 l .8 2021-12-24 2021-12-24 Telephone Janelle, 1.2.840.1 [id number] [id number] Methodi 00:00:00 00:00:00 Sab[address] 3.430.2.7 Hospit a .3.478973 l .8 2021-11-09 2021-11-09 Refill Janelle, 1.2.840.1 [id number] Methodi 00:00:00 00:00:[address] 3.430.2.7 Hospit a .3.694366 l .8 2021-07-15 2021-07-15 Outpatient [facility] [id number] [place] 00:00:00 00:00:[address] 2021-07-15 2021-07-15 [facility] [id number] [place] 00:00:00 00:00:00 ADAN [address] 2021-04-02 2021-04-02 Outpatient JANELLE [facility] [id number] [place] 00:00:00 00:00:00 SABAS [address] 2020-11-15 2020-11-15 Outpatient [facility] [id number] [place] 00:00:00 00:00:[address] 2020-11-04 2020-11-04 Patient Jean [facility] 1.2.840.114 [id number] 00:00:00 00:00:00 Outreach Rashid CHO 350.1.13.[address] [facility] 4.2.7.2.686 [place] RODRIGUEZ [id number] Az dical 388 Branch 2020-11-02 2020-11-02 Office STACEY Meredith 1.2.840.114 [id number] [facility] 10:16:52 11:21:27 Visit Iam Purcell 350.1.13.10 ity [place] [phone] Az dical nal [address] [place] [address] 2020-11-02 2020-11-02 Office Daphney [facility] 1.2.840.114 [id number] 10:16:52 11:21:27 Visit Iam Arzola Jazzy 350.1.13.10 [place] 4.2.7.2.686 Professio [phone] [address] 2020-11-02 2020-11-02 Outpatient Edith DAPHNEY, IAM [facility] [id number] [facility] 10:40:00 10:40:00 IAM MEREDITH [facility] 2020-11-02 2020-11-02 Orders Doctor GRIFFIN 1.2.840.114 [id number] 00:00:00 00:00:00 Only Unassigned, KORI 350.1.13.10 [facility] 4.2.7.2.686 Pramod as [phone] [address] 2020-10-27 2020-10-27 [facility] 1.2.840.114 [id number] [facility] 00:00:00 00:00:00 Jazzy carlton 350.1.13.10 i ty of [place] [phone] Az dical [address] 2020-10-26 2020-10-26 Outpatient Edith DAPHNEY, IAM [facility] [id number] [facility] 09:20:00 09:20:00 IAM MEREDITH [facility] 2020-10-25 2020-10-25 Outpatient [facility] [id number] [place] 00:00:00 00:00:00 565 Method i 2020-04-30 2020-04-30 [facility] [id number] [place] 00:00:00 00:00:00 ADAN 290 Method i 2020-04-03 2020-04-03 Outpatient JANELLE [facility] [id number] [place] 00:00:00 00:00:00 SABAS 982 Method i 2020-01-31 2020-01-31 Outpatient LASHON [facility] [id number] [id number] [place] 00:00:00 00:00:00 ADAN [address] 2020-01-29 2020-01-29 [facility] [id number] [id number] [place] 00:00:00 00:00:00 ADAN [address] 2019-10-30 2019-10-30 Outpatient LASHON [facility] [id number] [place] 00:00:00 00:00:00 ADAN [address] 2019-10-24 2019-10-24 Office STACEY Meredith 1.2.840.114 [id number] [facility] 10:27:20 11:29:13 Visit Iam Purcell 350.1.13.10 ity michelle [place] 4.2.7.2.686 [place] Byrd [phone] [place] [id number] [facility] 2019-07-31 2019-07-31 Outpatient [facility] [id number] [place] 00:00:00 00:00:[address] 2019-07-31 2019-07-31 Outpatient [facility] [id number] [place] 00:00:00 00:00:[address] 2019-06-02 2019-06-02 Office DAVID Marcelo 1.2.840.[id number] [place] [address] 15:31:05 16:01:05 Visit Donta AMBULATOR 350.1.13.21 College Y 0.2.7.2.686 of [phone] [facility] melinda 310 e 2019-06-02 2019-06-02 Office DAVID Marcelo 1.2.840.114 [id number] 15:31:05 16:01:05 Visit Donta AMBULATOR 350.1.13.21 Y 0.2.7.2.686 [id number] 310 Results Test Description Test Time Test Comments Results Result Comments Source ECG 12 lead 2022-07-16 01:37:47 Test Item Value Reference Range Interpretation Comme nts Ventricular rate (test code = 253) Atrial rate (test code = 255) WA interval (test code = 266) QRSD interval (test code = 260) QT interval (test code = 264) QTC interval (test code = 265) P axis 1 (test code = 267) QRS axis 1 (test code = 268) T wave axis (test code = 270) EKG impression (test code = 273) Poor data xjjltzb-Ozsche-uczew rhy thm-Left anterior fascicular block-Left ventricular hypertrophy with repolarization abnormality-Abnormal ECG-In automated comparison with ECG of 15-JUL-2021 16:50,-Electronic atrial pacemaker has replaced Sinus rhythm-Left anterior fascicular block is now present[facility] [id number] 16:12:00 Test Item Value Reference Range Interpretation Comments POC-GLUCOSE METER 212 mg/dL 70-110 H TESTED AT [place] [address] ([facility]) (test code = [facility] 1538) [id number] POCT-GLUCOSE [id number] 12:56:00 Test Item Value Reference Range Interpretation Comments POC-GLUCOSE METER 272 mg/dL 70-110 H TESTED AT [place] [address] ([facility]) (test code = [facility] 1538) [id number] HEMOGLOBIN [id number] 08:28:00 Test Item Value Reference Range Interpretation Comments HEMOGLOBIN A1C ([facility]) (test code = 8.0 % 4.3-6.1 H 368) POCT-GLUCOSE [id number] 07:33:00 Test Item Value Reference Range Interpretation Comments POC-GLUCOSE METER 199 mg/dL 70-110 H TESTED AT [place] [address] ([facility]) (test code = [facility] 1538) [id number] CBC W/PLT COUNT & AUTO [id number] 06:29:00 Test Item Value Reference Range Interpretation Comments WHITE BLOOD CELL COUNT ([facility]) 15.0 K/ L 3.5-10.5 H (test code = 775) RED BLOOD CELL COUNT ([facility]) 3.88 M/ L 3.93-5.22 L (test code = 761) HEMOGLOBIN (BEAKER) (test code = 11.1 GM/DL 11.2-15.7 L 410) HEMATOCRIT ([facility]) (test code = 34.1 % 34.1-44.9 411) MEAN CORPUSCULAR VOLUME ([facility]) 87.9 fL 79.4-94.8 (test code = 753) [...] (BEAKER) (test code = 2801) COMPREHENSIVE METABOLIC [id number] 06:04:00 Test Item Value Reference Range Interpretation [...] NOT APPLICABLE FOR DIALYSIS PATIEN TS. POCT-GLUCOSE [id number] 21:22:00 Test Item Value Reference Range Interpretation Comments POC-GLUCOSE METER 152 mg/dL 70-110 H TESTED AT [facility] 67[address] ([facility]) (test code = SHAKIR Sharma [facility] 1538) [id number] POCT-GLUCOSE [id number] 18:12:00 Test Item Value Reference Range Interpretation Comments POC-GLUCOSE METER 202 mg/dL 70-110 H TESTED AT [facility] [address] ([facility]) (test code = SHAKIR Sharma [facility] 1538) 60676 HEMOGLOBIN AND [id number] 18:02:00 Test Item Value Reference Range Interpretation Comments HEMOGLOBIN (BEAKER) (test code = 11.1 GM/DL 11.2-15.7 L 410) HEMATOCRIT (BEAKER) (test code = 35.6 % 34.1-44.9 411) TISSUE [id number] 17:12:00Surgical Pathology Report Case: [id number] Authorizing Provider: Jian Cabrera MD Collected: 06/11/2017 0839 Ordering Location: [address] Received: 06/11/2017 1126 Service Pathologist: Juany Ochoa MD Specimen: Stomach, random stomach biopsy A. STOMACH, RANDOM, BIOPSIES: - FRAGMENTS OF ANTRAL MUCOSA WITH CHRONIC INACTIVE GASTRITIS (SEE MICROSCOPIC DESCRIPTION) - FRAGMENTS OF OXYNTIC MUCOSA WITH NO SIGNIFICANT DIAGNOSTIC ALTERATION - WARTHIN-STARRY STAIN NEGATIVE FOR HELICOBACTER PYLORI ORGANISMS - NO EVIDENCE OF INTESTINAL METAPLASIA OR DYSPLASIA OR MALIGNANCY IDENTIFIEDSigning Pathologist Direct Phone Line: [phone] signed by Juany Ochoa MDon 06/11/2017 at 5:12 [id number] bleedRandom stomach biopsyThe specimen is received in [...] propria with capillary congestion. The oxyntic and junction al mucosa are largely unremarkable. No significant inflammation is noted. Warthin stain for Helicobacter pylori is negative. There is no intestinal metaplasia, dysplasia or carcinoma.HEMOGLOBIN AND [id number] 15:17:00 Test Item Value Reference Range Interpretation Comments HEMOGLOBIN (BEAKER) (test code = 11.3 GM/DL 11.2-15.7 410) HEMATOCRIT (BEAKER) (test code = 34.1 % 34.1-44.9 411) POCT-GLUCOSE [id number] 13:13:00 Test Item Value Reference Range Interpretation Comments POC-GLUCOSE METER 229 mg/dL 70-110 H TESTED AT [facility] 67[address] (BEAK[facility]) (test code = [facility] [place] 1538) [id number] HEMOGLOBIN AND [id number] 11:52:00 Test Item Value Reference Range Interpretation Comments HEMOGLOBIN (BEAKER) (test code = 11.8 GM/DL 11.2-15.7 410) HEMATOCRIT (BEAKER) (test code = 37.0 % 34.1-44.9 411) URINE [id number] 10:51:00 Test Item Value Reference Range Interpretation Comments CULTURE (BEAKER) (test code = 1095) No growth [id number] 08:11:00 Test Item Value Reference Range Interpretation Comments PROTIME (BEAKER) (test code = 15.1 seconds 11.7-14.7 H 759) INR (BEAKER) (test code = 370) 1.2 <=5.9 PARTIAL THROMBOPLASTIN TIME 29.8 seconds 22.5-36.0 (BEAKER) (test code = 760) RECOMMENDED COUMADIN/WARFARIN INR THERAPY RANGESSTANDARD DOSE: 2.0 - 3.0 Includes: PROPHYLAXIS for venous thrombosis, systemic embolization; TREATMENT for venous thrombosis and/or pulmonary embolus.HIGH RISK: Target INR is 2.5-3.5 for patients with mechanical heart valves.POCT-GLUCOSE [id number] 07:13:00 Test Item Value Reference Range Interpretation Comments POC-GLUCOSE METER 126 mg/dL 70-110 H TESTED AT [place] [address] ([facility]) ([facility] [place] 1538) [address] BLOOD [id number] 06:00:00 Test Item Value Reference Range Interpretation Comments CULTURE (BEAKER) (test No growth in 5 days code = 1095) BLOOD [id number] 06:00:00 Test Item Value Reference Range Interpretation Comments CULTURE (BEAKER) (test No growth in 5 days code = 1095) HEMOGLOBIN AND [id number] 05:48:00 Test Item Value Reference Range Interpretation Comments HEMOGLOBIN (BEAKER) (test code = 10.9 GM/DL 11.2-15.7 L 410) HEMATOCRIT (BEAKER) (test code = 32.8 % 34.1-44.9 L 411) POCT-GLUCOSE [id number] 22:12:00 Test Item Value Reference Range Interpretation Comments POC-GLUCOSE METER 279 mg/dL 70-110 H TESTED AT [place] [address] ([facility]) (test code = [facility] [place] 1538) [id number] POCT-GLUCOSE [id number] 20:16:00 Test Item Value Reference Range Interpretation Comments POC-GLUCOSE METER 283 mg/dL 70-110 H TESTED AT [place] [address] ([facility]) (test code = [facility] [place] 1538) [address] HEMOGLOBIN AND [id number] 17:41:00 Test Item Value Reference Range Interpretation Comments HEMOGLOBIN (BEAKER) (test code = 8.2 GM/DL 11.2-15.7 L 410) HEMATOCRIT (BEAKER) (test code = 24.3 % 34.1-44.9 L 411) POCT-GLUCOSE [id number] 17:34:00 Test Item Value Reference Range Interpretation Comments POC-GLUCOSE METER 327 mg/dL 70-110 H TESTED AT [place] [address] ([facility]) (test code = [facility] Edith [facility] 1538) [address] POCT-GLUCOSE [id number] 15:48:00 Test Item Value Reference Range Interpretation Comments POC-GLUCOSE METER 401 mg/dL 70-110 HH TESTED AT [place] [address] ([facility]) (test code = [facility] 1538) [id number] POCT-GLUCOSE [id number] 13:29:00 Test Item Value Reference Range Interpretation Comments POC-GLUCOSE METER 429 mg/dL 70-110 HH TESTED AT [place] [address] ([facility]) (test code = [facility] 1538) [address] HEMOGLOBIN AND [id number] 09:34:00 Test Item Value Reference Range Interpretation Comments HEMOGLOBIN (BEAKER) (test code = 9.7 GM/DL 11.2-15.7 L 410) HEMATOCRIT (BEAKER) (test code = 28.9 % 34.1-44.9 L 411) POCT-GLUCOSE [id number] 07:33:00 Test Item Value Reference Range Interpretation Comments POC-GLUCOSE METER 396 mg/dL 70-110 H TESTED AT [place] [address] ([facility]) (test code = [facility] 1538) 18896 CBC W/PLT COUNT & AUTO [id number] 03:48:00 Test Item Value Reference Range Interpretation [...] (BEAKER) (test code = 2801) BASIC METABOLIC [id number] 03:41:00 Test Item Value Reference Range Interpretation [...] NOT APPLICABLE FOR DIALYSIS PATIEN TS. POCT-GLUCOSE [id number] 22:56:00 Test Item Value Reference Range Interpretation Comments POC-GLUCOSE METER 275 mg/dL 70-110 H TESTED AT [facility] 67[address] (BEAKER) (test code = [facility] [place] 1538) [address] URINE [id number] 18:15:00 Test Item Value Reference Range Interpretation Comments CULTURE (BEAKER) (test <10,000 col/mL skin code = 1095) abdon URINALYSIS W/ [id number] 15:32:00 Test Item Value Reference Range Interpretation [...] (BEAKER) (test 2 /HPF code = 520) SOURCE([facility]) (test code Urine, Straight = 2170) Catheter POCT-GLUCOSE [id number] 11:43:00 Test Item Value Reference Range Interpretation Comments POC-GLUCOSE METER 340 mg/dL 70-110 H TESTED AT [place] [address] ([facility]) (test code = [facility]AKIR Sharma [place] 1538) [address] POCT-GLUCOSE [id number] 07:26:00 Test Item Value Reference Range Interpretation Comments POC-GLUCOSE METER 178 mg/dL 70-110 H TESTED AT [place] [address] ([facility]) (test code = [facility] [place] 1538) [address] POCT-GLUCOSE [id number] 23:39:00 Test Item Value Reference Range Interpretation Comments POC-GLUCOSE METER 183 mg/dL 70-110 H TESTED AT [place] [address] ([facility]) (test code = [facility] [place] 1538) [address] POCT-GLUCOSE [id number] 22:25:00 Test Item Value Reference Range Interpretation Comments POC-GLUCOSE METER 208 mg/dL 70-110 H TESTED AT [place] [address] ([facility]) (test code = [facility] 1538) [address]136 POCT-GLUCOSE [id number] 20:12:00 Test Item Value Reference Range Interpretation Comments POC-GLUCOSE METER 194 mg/dL 70-110 H TESTED AT [place] [address] ([facility]) (test code = [facility] [facility] [place] 1538) [address] POCT-GLUCOSE [id number] 16:11:00 Test Item Value Reference Range Interpretation Comments POC-GLUCOSE METER 266 mg/dL 70-110 H TESTED AT [place] [address] ([facility]) (test code = [facility] 1538) [address] POCT-GLUCOSE [id number] 11:17:00 Test Item Value Reference Range Interpretation Comments POC-GLUCOSE METER 288 mg/dL 70-110 H TESTED AT [place] [address] ([facility]) (test code = [facility] [place] 1538) [address] POCT-GLUCOSE [id number] 08:57:00 Test Item Value Reference Range Interpretation Comments POC-GLUCOSE METER 202 mg/dL 70-110 H TESTED AT [place] [address] ([facility]) (test code = [facility] 1538) [address] BASIC METABOLIC [id number] 07:38:00 Test Item Value Reference Range Interpretation [...] PATIEN TS. CBC W/PLT COUNT & AUTO [id number] 05:53:00 Test Item Value Reference Range Interpretation [...] PERCENT (BEAKER) (test code = 2801) POCT-GLUCOSE [id number] 20:12:00 Test Item Value Reference Range Interpretation Comments POC-GLUCOSE METER 333 mg/dL 70-110 H TESTED AT [place] [address] ([facility]) (test code = SHAKIR Sharma [facility] 1538) [address]71 POCT-GLUCOSE [id number] 11:45:00 Test Item Value Reference Range Interpretation Comments POC-GLUCOSE METER 355 mg/dL 70-110 H TESTED AT [place] [address] ([facility]) (test code = [facility]AKIR Sharma [facility] 1538) [address]05 POCT-GLUCOSE [id number] 08:17:00 Test Item Value Reference Range Interpretation Comments POC-GLUCOSE METER 303 mg/dL 70-110 H TESTED AT [place] [address] ([facility]) (test code = SHAKIR Sharma [facility] 1538) 89017 POCT-GLUCOSE [id number] 00:00:00 Test Item Value Reference Range Interpretation Comments POC-GLUCOSE METER 340 mg/dL 70-110 H TESTED AT [place] [address] ([facility]) (test code = SHAKIR Sharma [place] 1538) [address]656 POCT-GLUCOSE [id number] 20:42:00 Test Item Value Reference Range Interpretation Comments POC-GLUCOSE METER 309 mg/dL 70-110 H TESTED AT [place] [address] ([facility]) (test code = SHAKIR Sharma [place] 1538) [address] POCT-GLUCOSE [id number] 17:09:00 Test Item Value Reference Range Interpretation Comments POC-GLUCOSE METER 351 mg/dL 70-110 H TESTED AT [place] [address] ([facility]) (test code = SHAKIR Sharma [facility] 1538) [address]107 POCT-GLUCOSE [id number] 11:28:00 Test Item Value Reference Range Interpretation Comments POC-GLUCOSE METER 327 mg/dL 70-110 H TESTED AT [place] [address] ([facility]) (test code = SHAKIR Sharma [facility] 1538) 39233 POCT-GLUCOSE [id number] 07:37:00 Test Item Value Reference Range Interpretation Comments POC-GLUCOSE METER 247 mg/dL 70-110 H TESTED AT [place] [address] ([facility]) (test code = SHAKIR Sharma [facility] 1538) [address] BASIC METABOLIC [id number] 03:12:00 Test Item Value Reference Range Interpretation [...] PATIEN TS. CBC W/PLT COUNT & AUTO [id number] 03:01:00 Test Item Value Reference Range Interpretation [...]
[2022-08-22] MEDS ORDERED: ACETAMINOPHEN 650MG/RECT SUPP PR ONE (10:40)
[2022-08-22 11:11] LABS: Absolute Lymphocytes (CBC) 2.1 K/uL (0.7-4.9); Hematocrit 36.5 % (36.0-45.0); Lymphocytes % 27.4 % (15.3-44.8); MCV 85.2 fL (80-100); MPV 10.2 fL (7.6-11.3); RBC Red Blood Cell Count 4.28 M/uL (3.86-4.86)
[2022-08-22 11:14] LABS: Protime INR 1.24
[2022-08-22 11:22] LABS: Albumin 3.3 g/dL (3.4-5.0); Bilirubin Total 0.3 mg/dL (0.2-1.0); Potassium 3.8 mmol/L (3.5-5.1); Protein, Total 7.5 g/dL (6.4-8.2)
--- NOTE | 2022-08-22 11:32 | RAD REPORT ---
EXAM DESCRIPTION: RAD - Chest Single View - 08/22/2022 11:10 am CLINICAL HISTORY: Fever Chest pain. COMPARISON: Chest Single View dated 01/07/2021; Chest Single View dated 08/25/2020; Chest Pa And Lat (2 Views) dated 01/05/2020; Chest Single View dated 01/04/2020 FINDINGS: Portable technique limits examination quality. The lungs are grossly clear. 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 Pacer device is noted. IMPRESSION: No acute intrathoracic process suspected.
[2022-08-22 11:51] LABS: Urine Blood Negative (Negative); Urine Glucose Trace (Negative); Urine Protein 1+ (Negative); Urine Specific Gravity 1.015 (1.005-1.030); Urine pH 7.5 (5.0-7.0)
[2022-08-22] MEDS ORDERED: LEVALBUTEROL 1.25 MG/3 ML NEB ONE ×2 (12:16→15:17)
[2022-08-22] MEDS ORDERED: METHYLPREDNISOLONE 125 MG INJ ONE (12:23)
--- NOTE | 2022-08-22 15:49 | RAD REPORT ---
EXAM DESCRIPTION: CT - Head Brain Wo Cont - 08/22/2022 3:39 pm CLINICAL HISTORY: Mental status change, persistent or worsening COMPARISON: Head Brain Wo Cont dated 02/17/2017; HEAD BRAIN W O CONTRAST dated 09/04/2015 TECHNIQUE: All CT scans are performed using dose optimization technique as appropriate and may inclu de automated exposure control or mA/KV adjustment according to patient size. FINDINGS: No intracranial hemorrhage, hydrocephalus or extra-axial fluid collection.No areas of brai n edema or evidence of midline shift. Chronic small vessel ischemic changes. The paranasal sinuses and mastoids are clear. The calvarium is intact. IMPRESSION: No acute intracranial abnormality.
--- NOTE | 2022-08-22 17:46 | ER ---
Nurse's Notes [facility] Name: Ace Almendarez Age: 81 yrs Sex: Female : 1940 Arrival Date: 08/22/2022 Time: 10:16 Bed 16 Private MD: Diagnosis: COPD/ Chronic obstructive pulmonary disease with (acute) exacerbation;Unspecified dementia with behavioral disturbance;Acute and chronic respiratory failure with hypoxia Presentation: 08/22 10:06 Chief complaint: Spouse and/or significant other states: patient is on hospice EMS db states: AMS, fever since Thursday on Levaquin not eating last night per spouse. patient not answering questions but does follow some commands. upon EMS arrival patient 85% on RA, 98% on 5L NC. Blood glucose 193. Coronavirus screen: Client denies travel out of the [place] in the last 14 days. At this time, the client does not indicate any symptoms associated with coronavirus-19. Ebola Screen: Patient negative for fever greater than or equal to 101.5 degrees Fahrenheit, and additional compatible Ebola Virus Disease symptoms Patient denies exposure to infectious person. Patient denies travel to an Ebola-affected area in the 21 days before illness onset. No symptoms or risks identified at this time. Initial Sepsis Screen: Does the patient meet any 2 criteria? RR > 20 per min. Temp <36.0*C (96.8*F)) or > 38.3*C (100.9*F). Altered Mental Status. Yes Does the patient have a suspected source of infection? No. Patient's initial sepsis screen is negative. Risk Assessment: Do you want to hurt yourself or someone else? Unable to obtain. Onset of symptoms was August 19, 2022. 10:06 Method Of Arrival: EMS: [facility] db 10:06 Acuity: PARVIN 2 db Triage Assessment: 10:20 General: Appears in no apparent distress. comfortable, Behavior is calm, quiet. Pain: db Denies pain. Neuro: Level of Consciousness is awake, alert, obeys commands, confused, Oriented to patient not answering questions. Cardiovascular: No deficits noted. Respiratory: Parent/caregiver reports the patient having shortness of breath cough that is. Historical: - Allergies: 10:20 PENICILLINS; db - PMHx: 10:20 chronic uti; Dementia; Diabetes - NIDDM; Hyperlipidemia; Hypertension; Hypothyroidism; db 10:23 Alzheimer's disease; db - PSHx: 10:23 Stented artery; db - Immunization history:: Adult Immunizations unknown, . - Social history:: Smoking status: Patient denies any tobacco usage or history of. Screenin:30 Abuse screen: Denies threats or abuse. Denies injuries from another. Nutritional ko1 screening: No deficits noted. Tuberculosis screening: No symptoms or risk factors identified. Fall Risk Secondary diagnosis (15 points) dementia, impaired mobility, Mental Status- Overestimates/Forgets Limitations (15 pts.). Sepsis Screening:. Assessment: 10:30 General: Appears in no apparent distress. uncomfortable, ill, Behavior is drowsy. Pain: ko1 Unable to use pain scale. Patient is disoriented. Neuro: Ha Agitation-Sedation Scale (RASS): +1 Restless Level of Consciousness is awake, obeys commands, Oriented to Cardiovascular: Rhythm is Respiratory: Breath sounds with wheezes bilaterally. GI: No deficits noted. : Parent/caregiver report the patient having incontinence fci. EENT: No deficits noted. Derm: No deficits noted. Musculoskeletal: No deficits noted. 17:00 Reassessment: patient trialed on room air, sats dropped to 87%, good waveform, patient ko1 appears short of breath, repositioned in bed with head elevated, sats increased to 91%. placed back on 2lpm nc. 20:14 Reassessment: Patient appears in no apparent distress at this time. Patient and/or ke1 family updated on plan of care and expected duration. Pain level reassessed. daughter at bedside. 23:00 Reassessment: Report called to 2nd floor. ke1 23:15 Reassessment: No o2 tank to transfer partient, respiratory texted to request oxygen ke1 tank. Vital Signs: 10:06 BP 160 / 89; Pulse 76 MON; Resp 26 S; Temp 101.2(O); Pulse Ox 100% on 5 lpm NC; Weight db 68.95 kg; Height 5 ft. 3 in. (160.02 cm); Pain 0/10; 10:45 BP 133 / 77; Pulse 75; Pulse Ox 97% on 4 lpm NC; ko1 11:30 BP 155 / 108; Pulse 77; Pulse Ox 99% on Nebulizer Mask; ko1 12:00 BP 157 / 70; Pulse 77; Pulse Ox 97% on Nebulizer Mask; ko1 12:30 BP 157 / 69; Pulse 83; Pulse Ox 100% on 2 lpm NC; ko1 13:00 BP 145 / 82; Pulse 86; Pulse Ox 98% on 2 lpm NC; ko1 14:57 BP 167 / 66; Pulse 61; Pulse Ox 97% 2 lpm ; ko1 15:30 BP 156 / 80; Pulse 61; Resp 19; Pulse Ox 95% on 1 lpm NC; ko1 16:00 BP 140 / 70; Pulse 59; Pulse Ox 100% on R/A; ko1 17:00 BP 130 / 57; Pulse 62; Pulse Ox 87% on R/A; ko1 18:00 BP 145 / 62; Pulse 66; Resp 18; Pulse Ox 92% on 1.5 lpm NC; ko1 20:15 BP 137 / 80; Pulse 67; Resp 17; Temp 97.6(A); Pulse Ox 96% on 2 lpm NC; ke1 23:48 BP 152 / 75; Pulse 66; Resp 16; Pulse Ox 96% on 2 lpm NC; ke1 10:06 Body Mass Index 26.93 (68.95 kg, 160.02 cm) db ED Course: 10:16 Patient arrived in ED. db 10:20 Dony Rojas MD is Attending Physician. kdr 10:20 Triage completed. db 10:21 Jaye Sheppard, SOCORRO is Primary Nurse. ko1 10:23 Arm band placed on left wrist. Patient placed in an exam room, on a stretcher, on db oxygen, on laboratory monitor, on pulse oximetry. 10:30 Patient has correct armband on for positive identification. Allergy band placed. Fall ko1 risk band placed. Placed in gown. Bed in low position. Side rails up X2. Adult w/ patient. Client placed on continuous cardiac and pulse oximetry monitoring. NIBP monitoring applied. monitoring tech on. Door closed. Noise minimized. Lights dimmed. Warm blanket given. Pillow given. Oral care given. Head of bed elevated. 10:30 Maintain EMS IV. Dressing intact. Good blood return noted. Site clean \T\ dry. Gauge \T\ ko 1 site: 20 R FA. Oxygen administration via nasal cannula \T\ 4L/min Response to oxygen therapy: symptoms improved. 10:56 CBC with Diff Sent. ko1 10:56 CMP Sent. ko1 10:56 Lactate Sent. ko1 10:56 Protime (+inr) Sent. ko1 10:56 Ptt, Activated Sent. ko1 11:12 Chest Single View XRAY In Process Unspecified. EDMS 11:46 Urine Culture Sent. ko1 12:44 Blood Culture Adult (2) Sent. zm 12:44 Inserted saline lock: 22 gauge in left antecubital area, using aseptic technique. Blood zm collected. 12:45 Karimi cath inserted, using sterile technique, 16 Fr., by ar, balloon inflated, to ko1 gravity drainage, urine specimen collected. 12:55 Urine Culture Sent. ko1 12:55 Blood Culture Adult (2) Sent. ko1 15:41 CT Head Brain wo Cont In Process Unspecified. EDMS 17:44 Ortiz Estrada MD is Hospitalizing Provider. kdr 19:24 Chest For PE Angio CT In Process Unspecified. EDMS 19:49 Primary Nurse role handed off by Jaye Sheppard, SOCORRO mw2 19:57 Charity Su, SOCORRO is Primary Nurse. ke1 20:14 COVID-19/FLU A+B Sent. ke1 20:14 DD Sent. ke1 20:14 Troponin High Sensitivity Sent. ke1 20:14 Urine Microscopic Only Sent. ke1 23:47 No provider procedures requiring assistance completed. Patient admitted, IV remains in ke1 place. Administered Medications: 11:46 Drug: Tylenol Suppository 650 mg Route: MD; ko1 12:20 Drug: Xopenex (levalbuterol) (3) 1.25 mg Route: Inhalation; ko1 12:24 Drug: SOLU-Medrol (methylPrednisoLONE) 125 mg Route: IVP; Site: right antecubital; ko1 15:35 Drug: Xopenex (levalbuterol) (3) 1.25 mg Route: Inhalation; ko1 Medication: 23:48 VIS not applicable for this client. ke1 Intake: 18:54 IV: 1000ml; Total: 1000ml. ko1 Output: 18:54 Urine: 1500ml (Karimi); Total: 1500ml. ko1 23:47 Urine: 600ml (Karimi); Total: 2100ml. ke1 Outcome: 17:45 Decision to Hospitalize by Provider. kdr 23:47 Admitted to Med/surg accompanied by nurse. ke1 23:47 Condition: stable 23:47 Instructed on the need for admit, daughter 23:49 Patient left the ED. tw5 Signatures: Dispatcher [employer] EDMS Dony Rojas MD MD [facility] PatriciaRagini mw2 Maya Rodriguez tw5 Charity Su RN RN ke1 Ely Malloy Kathy, RN RN ko1 Sharon Lam RN RN db Corrections: (The following items were deleted from the chart) 10: 10:06 Chief complaint: EMS states: AMS, fever since Thursday on Levaquin not eating last db night per spouse. patient not answering questions but does follow some commands. db 10:23 10:06 Chief complaint: Spouse and/or significant other states: patient is on hospice db EMS states: AMS, fever since Thursday on Levaquin not eating last night per spouse. patient not answering questions but does follow some commands. db
--- NOTE | 2022-08-22 17:46 | EDPHYS ---
Physician Documentation [facility] Name: Ace Almendarez Age: 81 yrs Sex: Female : 1940 Arrival Date: 08/22/2022 Time: 10:16 Bed 16 Private MD: ED Physician Dony Rojas HPI: 08/22 17:37 This 81 yrs old Female presents to ER via EMS with complaints of Altered Mental kdr Status. 17:37 The patient presents with confusion, decreased responsiveness. Onset: The kdr symptoms/episode began/occurred gradually, 3 day(s) ago. Possible causes: CVA or TIA, sepsis, the patient has had a history of a fever. Associated signs and symptoms: Pertinent positives: shortness of breath, weakness. Current symptoms: In the emergency department the patient's symptoms are unchanged from the initial presentation. Patient's baseline: Neuro: alert but confused, Motor: Patient has been marginally ambulatory were released able to help get around up until the last few days., Speech: Patient has a history of dementia and has been largely nonverbal. The patient has not experienced similar symptoms in the past. The patient has not recently seen a physician. Historical: - Allergies: 10:20 PENICILLINS; db - PMHx: 10:20 chronic uti; Dementia; Diabetes - NIDDM; Hyperlipidemia; Hypertension; Hypothyroidism; db 10:23 Alzheimer's disease; db - PSHx: 10:23 Stented artery; db - Immunization history:: Adult Immunizations unknown, . - Social history:: Smoking status: Patient denies any tobacco usage or history of. ROS: 17:37 Constitutional: Negative for fever, chills, and weight loss, Eyes: Negative for injury, kdr pain, redness, and discharge, ENT: Negative for injury, pain, and discharge, Neck: Negative for injury, pain, and swelling, Cardiovascular: Negative for chest pain, palpitations, and edema, Abdomen/GI: Negative for abdominal pain, nausea, vomiting, diarrhea, and constipation, Back: Negative for injury and pain, : Negative for injury, bleeding, discharge, and swelling, MS/Extremity: Negative for injury and deformity, Skin: Negative for injury, rash, and discoloration, Psych: Negative for depression, anxiety, suicide ideation, homicidal ideation, and hallucinations, Allergy/Immunology: Negative for hives, rash, and allergies, Endocrine: Negative for neck swelling, polydipsia, polyuria, polyphagia, and marked weight changes, Hematologic/Lymphatic: Negative for swollen nodes, abnormal bleeding, and unusual bruising. 17:37 Respiratory: Positive for cough, with no reported sputum, dyspnea on exertion, shortness of breath, at rest. wheezing, expiratory, Negative for hemoptysis, orthopnea, pleurisy. Exam: 17:37 Constitutional: This is a well developed, well nourished patient who is awake, alert, kdr and in no acute distress. Head/Face: Normocephalic, atraumatic. Eyes: Pupils equal round and reactive to light, extra-ocular motions intact. Lids and lashes normal. Conjunctiva and sclera are non-icteric and not injected. Cornea within normal limits. Periorbital areas with no swelling, redness, or edema. Neck: Trachea midline, no thyromegaly or masses palpated, and no cervical lymphadenopathy. Supple, full range of motion without nuchal rigidity, or vertebral point tenderness. No Meningismus. Chest/axilla: Normal chest wall appearance and motion. Nontender with no deformity. No lesions are appreciated. Cardiovascular: Regular rate and rhythm with a normal S1 and S2. No gallops, murmurs, or rubs. Normal PMI, no JVD. No pulse deficits. Abdomen/GI: Soft, non-tender, with normal bowel sounds. No distension or tympany. No guarding or rebound. No evidence of tenderness throughout. Back: No spinal tenderness. No costovertebral tenderness. Full range of motion. Skin: Warm, dry with normal turgor. Normal color with no rashes, no lesions, and no evidence of cellulitis. MS/ Extremity: Pulses equal, no cyanosis. Neurovascular intact. Full, normal range of motion. Psych: Awake, alert, with orientation to person, place and time. Behavior, mood, and affect are within normal limits. 17:37 Respiratory: the patient does not display signs of respiratory distress, Respirations: labored breathing, Breath sounds: wheezing: expiratory that is moderate, is heard diffusely. Vital Signs: 10:06 BP 160 / 89; Pulse 76 MON; Resp 26 S; Temp 101.2(O); Pulse Ox 100% on 5 lpm NC; Weight db 68.95 kg; Height 5 ft. 3 in. (160.02 cm); Pain 0/10; 10:45 BP 133 / 77; Pulse 75; Pulse Ox 97% on 4 lpm NC; ko1 11:30 BP 155 / 108; Pulse 77; Pulse Ox 99% on Nebulizer Mask; ko1 12:00 BP 157 / 70; Pulse 77; Pulse Ox 97% on Nebulizer Mask; ko1 12:30 BP 157 / 69; Pulse 83; Pulse Ox 100% on 2 lpm NC; ko1 13:00 BP 145 / 82; Pulse 86; Pulse Ox 98% on 2 lpm NC; ko1 14:57 BP 167 / 66; Pulse 61; Pulse Ox 97% 2 lpm ; ko1 15:30 BP 156 / 80; Pulse 61; Resp 19; Pulse Ox 95% on 1 lpm NC; ko1 16:00 BP 140 / 70; Pulse 59; Pulse Ox 100% on R/A; ko1 17:00 BP 130 / 57; Pulse 62; Pulse Ox 87% on R/A; ko1 18:00 BP 145 / 62; Pulse 66; Resp 18; Pulse Ox 92% on 1.5 lpm NC; ko1 20:15 BP 137 / 80; Pulse 67; Resp 17; Temp 97.6(A); Pulse Ox 96% on 2 lpm NC; ke1 23:48 BP 152 / 75; Pulse 66; Resp 16; Pulse Ox 96% on 2 lpm NC; ke1 10:06 Body Mass Index 26.93 (68.95 kg, 160.02 cm) db MDM: 17:37 Data reviewed: vital signs, nurses notes, lab test result(s), radiologic studies. kdr Counseling: I had a detailed discussion with the patient and/or guardian regarding: the historical points, exam findings, and any diagnostic results supporting the discharge/admit diagnosis, lab results, radiology results, the need for further work-up and treatment in the hospital. ED course: Patient initially presented from home and was on hospice. Patient had home care with hospice. Initially after evaluation and results, the family considered taking the patient back home. However the patient's oxygen saturation off of oxygen was 85% or less (saturation was noted to be in the 70s at home) and the family was not comfortable taking her home at this time. They asked to be admitted. I attempted several calls to Dr. Blackwell and texting. He did not respond to any of those messages. I subsequently talked with the hospitalist, Dr. Estrada, and he informed me that the hospitalist service was taking his admissions this afternoon and through the weekend. Patient was admitted to the floor in stable condition and improved. 17:45 Patient medically screened. [facility] 08/22 10:30 Order name: Blood Culture Adult (2) [facility] 08/22 10:30 Order name: CBC with Diff; Complete Time: 11:55 [facility] 08/22 10:30 Order name: CMP; Complete Time: 11:55 [facility] 08/22 10:30 Order name: Lactate; Complete Time: 11:55 [facility] 08/22 10:30 Order name: Protime (+inr); Complete Time: :55 [facility] 08/22 10:30 Order name: Ptt, Activated; Complete Time: :55 [facility] 08/22 10:30 Order name: Urine Culture [facility] 08/22 11:52 Order name: Urine Dipstick-Ancillary; Complete Time: 11:55 [facility]MS 08/22 17:49 Order name: Urine Microscopic Only [facility] 08/22 17:51 Order name: Troponin High Sensitivity; Complete Time: 20:59 [facility] 08/22 17:51 Order name: DD; Complete Time: 20:59 [facility] 08/22 10:30 Order name: Chest Single View XRAY; Complete Time: 11:55 [facility] 08/22 10:30 Order name: Cardiac monitoring; Complete Time: 10:38 [facility] 08/22 10:30 Order name: EKG - Nurse/Tech; Complete Time: 10:51 [facility] 08/22 10:30 Order name: IV Saline Lock - Large Bore; Complete Time: 10:38 [facility] 08/22 10:30 Order name: Labs collected and sent; Complete Time: 11:46 [facility] 08/22 10:30 Order name: O2 Per Protocol; Complete Time: 10:38 [facility] 08/22 10:30 Order name: O2 Sat Monitoring; Complete Time: :38 [facility] 08/22 10:30 Order name: Urine Dipstick-Ancillary (obtain specimen); Complete Time: 11:46 [facility] 08/22 14:58 Order name: CT Head Brain wo Cont; Complete Time: 16:51 [facility] 08/22 18:53 Order name: Chest For PE Angio CT; Complete Time: 19:41 [facility] 08/22 20:00 Order name: COVID-19/FLU A+B; Complete Time: 20:59 [facility]MS 08/22 10:30 Order name: Vital Signs; Complete Time: 10:39 kdr 08/22 10:30 Order name: Sachi; Complete Time: 11:46 kdr Administered Medications: 11:46 Drug: Tylenol Suppository 650 mg Route: HI; ko1 12:20 Drug: Xopenex (levalbuterol) (3) 1.25 mg Route: Inhalation; ko1 12:24 Drug: SOLU-Medrol (methylPrednisoLONE) 125 mg Route: IVP; Site: right antecubital; ko1 15:35 Drug: Xopenex (levalbuterol) (3) 1.25 mg Route: Inhalation; ko1 Disposition Summary: 08/22/22 17:45 Hospitalization Ordered Hospitalization Status: Inpatient Admission kdr Provider: Ortiz Estrada kdr Location: Telemetry/MedSurg (observation) kdr Condition: Fair kdr Problem: an acute exacerbation kdr Symptoms: have improved kdr Bed/Room Type: Standard kdr Room Assignment: 201(08/22/22 22:20) tw5 Diagnosis - COPD/ Chronic obstructive pulmonary disease with (acute) exacerbation kdr - Unspecified dementia with behavioral disturbance kdr - Acute and chronic respiratory failure with hypoxia kdr Forms: - Medication Reconciliation Form kdr - SBAR form kdr Signatures: Dispatcher [employer] EDMS Dony Rojas MD MD kdr Matias Hummel, DISTRICT AGENT-C DISTRICT AGENT-Cla1 Maya Rodriguez tw5 Jaye Sheppard RN RN ko1 Sharon Lam RN RN db Corrections: (The following items were deleted from the chart) 20:00 17:48 SARS-COV-2 RT PCR+MOL.LAB.BRZ ordered. EDMS EDMS 20:01 17:48 Influenza Screen (A \T\ B)+BA.LAB.BRZ ordered. EDMS EDMS 22:20 17:45 kdr tw5
--- NOTE | 2022-08-22 19:34 | RAD REPORT ---
EXAM DESCRIPTION: CT - Chest For Pe Angio - 08/22/2022 7:22 pm CLINICAL HISTORY: Pulmonary embolism (PE) suspected, high prob COMPARISON: Thorax Wo Con dated 11/09/2019 TECHNIQUE: Dynamically enhanced axial 3 mm thick images of the chest were obtained during administra tion of <100> mL Isovue 370 IV contrast. Coronal and oblique reconstruction images were generated and reviewed. Exam utilizes a protocol for optimal evaluation of pulmonary arterial tree. Maximum intensity projections 3D imaging was utilized All CT scans are performed using dose optimization technique as appropriate and may include automated exposure control or mA/KV adjustment according to patient size. FINDINGS: Chest Wall: No suspicious thyroid nodules or pathologic lymphadenopathy. Lungs: Motion artifact. No dominant pulmonary nodule. Mild right upper lobe subsegmental atelectasis and/or scarring. Pleura: No significant effusions or pneumothorax. Mediastinum/ember: No pathologic lymphadenopathy. Pulmonary arteries/Aorta: No filling defect identified. No aortic aneurysm. Limited due to motion art ifact. The subsegmental pulmonary arteries are not well assessed. Heart: No significant pericardial effusion. Normal heart size. Coronary artery calcifications. Upper abdomen: No acute abnormality.Surgical changes in the epigastrium. Bones: No acute abnormality. Sternotomy. Pacemaker. Multilevel degenerative changes are present in th e spine. IMPRESSION: Negative for pulmonary embolism. No other acute findings are present within the chest.
[2022-08-22 20:38] LABS: SARS-COV-2 RT PCR NEGATIVE (NEGATIVE)
[2022-08-22 21:07] LABS: Urine Bacteria <20 /HPF (<20); Urine Crystals Unidentified Few /HPF (None Seen); Urine Mucus Slight /HPF (None Seen)
--- NOTE | 2022-08-22 22:13 | P.HP ---
Certification for Inpatient Patient admitted to: Inpatient With expected LOS: >2 Midnights Patient will require the following post-hospital care: None Practitioner: I am a practitioner with admitting privileges, knowledge of patient current condition, hospital course, and medical plan of care. Services: Services provided to patient in accordance with Admission requirements found in Title 42 Section 412.3 of the Code of Federal Regulations Patient History Date of Service: 08/22/22 Reason for admission: COPD exacerbation, inflenza A, hypoxia History of Present Illness: 81-year-old female with history of advanced dementia/Alzheimer's, insulin- dependent diabetes, hypertension, hyperlipidemia, hypothyroidism, CAD status post CABG, COPD presents the emergency department for hypoxia. Patient is on hospice for advanced dementia, she stays with her significant other at home who monitors her vital signs closely he noted that her oxygen saturations was in the 70s to 80s today and without reason brought to the emergency department. Family also reports progressive decrease in level of consciousness over the course of the last 3 days or so. She was evaluated here in the emergency department her labs were significant for elevated D-dimer 1076, influenza a positive chest x- ray negative for acute findings CT head no acute intracranial abnormality. CT chest rule out pulmonary embolism given hypoxia, elevated D-dimer negative for pulmonary embolism. No other acute findings present within the chest. Patient does have history of COPD present with mild wheezing at this time, given IV steroids, nebulizer treatments still requiring nasal cannula oxygen around 3 L. ED provider wishes to admit for further evaluation and management of COPD exace rbation complicated with influenza A. Patient is DNR/DNI. Daughter at bedside. Allergies Penicillins Allergy (Verified 11/14/15 07:30) Hives/Rash Home Medications: Aspirin [Aspirin EC 81 MG] 81 mg PO DAILY 09/04/15 Atorvastatin Calcium 40 mg PO BEDTIME 09/04/15 Clopidogrel Bisulfate [Clopidogrel] 75 mg PO DAILY 09/04/15 Levothyroxine Sodium 50 mcg PO DAILY 09/04/15 Calcium Carb/D3/Magnesium/Zinc [Amadou Mag Zinc-D Tablet] 1 tab PO DAILY 04/23/17 Memantine HCl [Namenda Xr] 28 mg PO DAILY 04/23/17 Ubidecarenone [Coenzyme Q10] 100 mg PO DAILY 04/23/17 Galantamine HBr [Galantamine ER] 12 mg PO BID 06/05/17 Amlodipine Besylate [Norvasc] 5 mg PO BID 11/06/19 Carvedilol [Coreg] 25 mg PO BID 11/06/19 Estradiol [Estring] 1 each VG SEECOM 11/06/19 Insulin Lispro [Humalog Kwikpen U-100] 10 unit SQ AC 11/06/19 Pantoprazole Sodium 40 mg PO DAILY 11/06/19 Calcitrol [Rocaltrol*] 0.25 mcg PO Q48H #45 cap 11/14/19 Insulin Glargine Human [Lantus*] 30 units SQ BEDTIME ml 11/14/19 Docusate [Colace Cap*] 100 mg PO BID 01/04/20 Metformin HCl 1,000 mg PO BIDWM 01/04/20 Furosemide 20 mg PO DAILY #90 tablet 01/06/20 Losartan Potassium [Cozaar*] 25 mg PO DAILY #90 tablet 01/06/20 Potassium Oral Tab [Klor-Con 10 mEq Tab] 10 meq PO DAILY #90 tab 01/06/20 - Past Medical/Surgical History Diabetic: Yes -: DMI -: hypothryroidism -: HTN -: hyperlipidemia -: dementia -: chronic UTI gets daily antibiotic -: 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 moist/pink, EOMI, Sclerae nonicteric Neck: Supple, 2+ carotid pulse no bruit, No LAD, Without JVD or thyroid abnormality Respiratory: Diminished, Expiratory wheezes Cardiovascular: No edema, Regular rate/rhythm, Normal S1 S2 Capillary refill: <2 Seconds Gastrointestinal: Normal bowel sounds, No tenderness Musculoskeletal: No tenderness Integumentary: No rashes Neurological: Normal strength at 5/5 x4 extr - Studies Laboratory Data (last 24 hrs) 08/22/22 10:50: PT 13.6 H, INR 1.24, APTT 30.1 08/22/22 10:50: Sodium 134 L, Potassium 3.8, BUN 16, Creatinine 1.04, Glucose 148 H, Total Bilirubin 0.3, AST 22, ALT 26, Alkaline Phosphatase 43 L 08/22/22 10:50: WBC 7.80, Hgb 12.1, Hct 36.5, Plt Count 173 Assessment and Plan - Plan Assessment: Acute hypoxic respiratory failure secondary to COPD exacerbation complicated with influenza A Advanced Alzheimer's dementia Diabetes mellitus type 2insulin-dependent Hypertension Hyperlipidemia Hypothyroidism CAD with history of CABG Plan: Acute hypoxic respiratory failure secondary to COPD exacerbation complicated with influenza A: Continue with IV steroids, scheduled nebs, inhalers. Patient is n.p.o. at this time as she is not following verbal commands, she is nonverbal at baseline daughter reports some difficulty with swallowing the past few days. We will need to hold off on Tamiflu. Continue supplemental oxygen as needed, daily her saturations. Patient on hospice at home family wishes for DNR/DNI to continue supportive measures, oxygen. Advanced Alzheimer's dementia: Continue as above, discharged back to hospice appropriate. Diabetes mellitus type 2insulin-dependent: Every 6 hours Accu-Chek, sliding sca le insulin. Hypertension: Hold oral medications at this time until passes swallow screen/PT eval Hyperlipidemia:Hold oral medications at this time until passes swallow screen/PT eval Hypothyroidism: Hold oral medications at this time until passes swallow screen/PT eval CAD with history of CABG: Monitor on telemetry, Hold oral medications at this time until passes swallow screen/PT eval DVT PPX: Lovenox Code status:DNR/DNI Discharge Plan: Home Plan to discharge in: Greater than 2 days - Advance Directives Does patient have a Living Will: No Does patient have a Durable POA for Healthcare: Yes - Code Status/Comfort Care Code Status Assessed: Yes (DNR/DNI) Critical Care: No Time Spent Managing Pts Care (In Minutes): 70
[2022-08-22] MEDS ORDERED: ONDANSETRON 4 MG/2 ML VIAL IV PRN (23:56)
[2022-08-22] MEDS ORDERED: ACETAMINOPHEN 650MG/RECT SUPP PR PRN (23:56)
[2022-08-23] MEDS: D5 0.9 NS 1,000 ML IV SCH ×2 (00:07→11:16)
[2022-08-23] MEDS: ALBUTEROL 2.5 MG/3 ML NEB SOL NEB SCH ×4 (00:30→20:15)
[2022-08-23] MEDS: IPRATROPIUM BROM 0.5MG/2.5ML NEB SCH ×4 (00:30→20:15)
[2022-08-23] MEDS: METHYLPREDNISOLONE 40 MG INJ IV SCH ×3 (01:04→21:12)
[2022-08-23 06:51] LABS: Absolute Lymphocytes (CBC) 1.6 K/uL (0.7-4.9); Hematocrit 39.6 % (36.0-45.0); Lymphocytes % 19.5 % (15.3-44.8); MCV 85.3 fL (80-100); MPV 10.2 fL (7.6-11.3); RBC Red Blood Cell Count 4.65 M/uL (3.86-4.86)
[2022-08-23] MEDS: INSULIN -REGULAR HUMAN 50 UNIT/0.5 ML ML SQ SCH ×4 (07:23→23:42)
[2022-08-23 07:26] LABS: Albumin 3.3 g/dL (3.4-5.0); Bilirubin Total 0.4 mg/dL (0.2-1.0); Potassium 3.7 mmol/L (3.5-5.1); Protein, Total 7.6 g/dL (6.4-8.2); Thyroid Stimulating Hormone 0.313 uIU/mL (0.360-3.740)
[2022-08-23] MEDS ORDERED: INSULIN -REGULAR HUMAN 50 UNIT/0.5 ML ML SQ SCH ×2 (07:30→16:30)
[2022-08-23] MEDS ORDERED: CEFTRIAXONE 1000 MG/VIAL ONE (07:31)
[2022-08-23] MEDS ORDERED: NA CHLORIDE 0.9% 50 ML ONE (07:50)
[2022-08-23] MEDS ORDERED: KCL 20 MEQ/100 mL IVPB 20 MEQ/100 ML BAG IV SCH (08:00)
[2022-08-23] MEDS ORDERED: DULERA 200/5 (MOMETASONE/FORMOTEROL) INHALER IH SCH (09:00)
[2022-08-23] MEDS: CEFTRIAXONE 1,000 MG in NA CHLORIDE 0.9% 50 ML IVPB SCH (11:16)
[2022-08-23] MEDS: ENOXAPARIN 40 MG/0.4 ML SQ SCH (11:17)
--- NOTE | 2022-08-23 11:34 | P.CNS ---
Date of Consult: 08/23/22 Chief Complaint: Hypoxemia influenza A infection History of Present Illness: Patient is 81 years of age with advanced dementia metabolic syndrome coronary artery disease admitted with fever hypoxemia at the bedside found to be hypoxic decrease in the level of consciousness of the past 3 days tested positive for influenza A currently stable history of obstructive airways disease Allergies Penicillins Allergy (Verified 08/22/22 23:55) Hives/Rash Home Medications: Aspirin [Aspirin EC 81 MG] 81 mg PO DAILY 09/04/15 Atorvastatin Calcium 40 mg PO SEECOM 09/04/15 Clopidogrel Bisulfate [Clopidogrel] 75 mg PO DAILY 09/04/15 Levothyroxine Sodium 50 mcg PO DAILY 09/04/15 Ubidecarenone [Coenzyme Q10] 10 mg PO NOON 04/23/17 Amlodipine Besylate [Norvasc] 5 mg PO DAILY 11/06/19 Carvedilol [Coreg] 25 mg PO BID 11/06/19 Insulin Lispro [Humalog Kwikpen U-100] 6 unit SQ TIDWM 11/06/19 Pantoprazole Sodium 40 mg PO DAILY 11/06/19 Metformin HCl 1,000 mg PO DAILY 01/04/20 Ascorbate Calcium [Vitamin C] 2 tab PO NOON 08/23/22 Calcitrol [Rocaltrol*] 0.25 mcg PO SEECOM 08/23/22 Calcium Carbonate [Calcium] 1,000 mg PO SEECOM 08/23/22 Cholecalciferol (Vitamin D3) [Vitamin D3] 2,000 unit PO SEECOM 08/23/22 Insulin Glargine,Hum.rec.anlog [Basaglar Kwikpen U-100] 100 unit SQ BIDWM 08/23/22 Magnesium Oxide 400 mg PO DAILY 08/23/22 Magnesium Oxide 400 mg PO SEECOM 08/23/22 Metformin HCl 0.5 tab PO SEECOM 08/23/22 - Past Medical/Surgical History Diabetic: Yes -: DMI -: hypothryroidism -: HTN -: hyperlipidemia -: dementia -: chronic UTI gets daily antibiotic -: 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 -: cardiac quad bipass 24 yrs ago -: hyster -: 2018 cardiac stent Psychosocial/ Personal History: Lives at home, is on hospice for advanced dementia - Family History Mother Medical History: Hypertension, Diabetes Father Medical History: Hypertension, Diabetes - Social History Smoking Status: Unknown if ever smoked Alcohol use: No CD- Drugs: No Caffeine use: No Place of Residence: Home Review of Systems is unable to be obtained Physical Examination Temp Pulse Resp BP Pulse Ox 97.1 F 69 16 155/67 H 92 08/23/22 08:00 08/23/22 08:00 08/23/22 08:00 08/23/22 08:00 08/23/22 08:00 General: Alert Respiratory: Clear to auscultation bilaterally Cardiovascular: No edema, Regular rate/rhythm, Normal S1 S2 Gastrointestinal: Normal bowel sounds, Soft and benign Musculoskeletal: No clubbing, No swelling Integumentary: No rashes, No breakdown - Problems (1) Hypoxemia Current Visit: Yes Status: Acute Plan: Patient is 81 years of age with advanced dementia and metabolic syndrome admitted with hypoxemia positive for influenza A infection oxygenation satisfactory blood pressure is mildly elevated no significant changes noted on the CT scan there is no evidence of thromboembolism trial of IV diuretics no history of COPD patient was admitted with a fever currently afebrile continue continue to monitor her O2 sat possible discharge tomorrow BNP ordered
--- NOTE | 2022-08-23 13:21 | P.PN ---
Date of Service: 08/23/22 Subjective: Severe dementia Opens eyes, responds to verbal stimuli, answering questions, but difficult to understand/nonsensical ROS: 10 point ROS as noted above, otherwise negative Physical exam GEN: awake, fatigued appearing, confused, demented CV: Regular rate and rhythm, no edema Pulm: Nonlabored respirations on2L NC ABD: Soft, nontender, nondistended Neuro: awake, moves extremities, generalized weakness Problem List Acute hypoxic respiratory failure secondary to COPD exacerbation complicated with influenza A Advanced Alzheimer's dementia Diabetes mellitus type 2insulin-dependent Hypertension Hyperlipidemia Hypothyroidism CAD with history of CABG Symptoms have been ongoing for 3-4 days now, beyond the window of Tamiflu Patient has also been having difficulty swallowing, getting choked up Continue n.p.o., bedside swallow evaluation later today now patient is more awake and Speech therapy was consulted on admission Continue IV fluids Confirmed with , . On line with their goals of care at this time, revoked hospice, planning on returning home on hospice once over this episode Confirm home medications and restart as appropriate /once able to swallow safely Has been is concerned about patient's inability/difficulty to swallow, her dehydration. We will hold off on feeding the patient until she passes bedside swallow, speech therapy is available, or family okay with attempting oral feeds given risk of aspiration. Discussed this morning, currently wants n.p.o. VTE: Lovenox Code: DNR Dispo: Back home with hospice, 1-2 days Time Spent Managing Pts Care (In Minutes): 35
[2022-08-23] MEDS: FUROSEMIDE 20 MG/ 2ML VIAL IV SCH ×2 (14:52→16:41)
--- NOTE | 2022-08-23 19:47 | P.PN ---
Date of Service: 08/23/22 Code stroke called at 1928. Patient family reports waxing and waning slurred speech since around 1600 today. Speech is now basically at baseline per family at bedside. Patient on was on hospice for advanced dementia prior to admission and yesterday was nonverbal with AMS. Today patient much more alert, speech much more clear than earlier in the day. No unilateral neuro deficits noted. Pt seen immediately and examined. NIH 3 for LOC 1B month and age 2 points and dysarthria 1 point. Patient mental status/LOC at baseline per family, speech improved, discussed TNK with family at bedside, stated they would not want this medication for her unless there was very clear and severe deficit present and at this time there is not. Discussed case with neurology production welder who agrees with plan to obtain non contrast ct on the head, BGL [id number]- will continue to treat for hyperglycemia. Follow CT head result.
--- NOTE | 2022-08-23 20:04 | RAD REPORT ---
EXAM DESCRIPTION: CT - Head Brain Wo Cont - 08/23/2022 7:59 pm CLINICAL HISTORY: slurred speech COMPARISON: Head Brain Wo Cont dated 08/22/2022; Head Brain Wo Cont dated 02/17/2017; Chest For Pe Ang io dated 08/22/2022 TECHNIQUE: All CT scans are performed using dose optimization technique as appropriate and may inclu de automated exposure control or mA/KV adjustment according to patient size. FINDINGS: No intracranial hemorrhage, hydrocephalus or extra-axial fluid collection.No areas of brai n edema or evidence of midline shift. Chronic small vessel ischemic changes in cerebral atrophy. The paranasal sinuses and mastoids are clear. The calvarium is intact. IMPRESSION: No acute intracranial abnormality. Discussed with Dr. Vazquez by Dr. Camargo at 1951 on 08/23/22
[2022-08-23] MEDS: INSULIN GLARGINE 100 UNIT/ML SQ SCH (21:12)
[2022-08-23] MEDS ORDERED: INSULIN -REGULAR HUMAN 50 UNIT/0.5 ML ML IV ONE (23:32)
[2022-08-24] MEDS: IPRATROPIUM BROM 0.5MG/2.5ML NEB SCH ×2 (01:15→08:22)
[2022-08-24] MEDS: ALBUTEROL 2.5 MG/3 ML NEB SOL NEB SCH ×2 (01:15→08:22)
[2022-08-24 05:56] VITALS: BMI 28.4
[2022-08-24 06:18] LABS: Absolute Lymphocytes (CBC) 1.9 K/uL (0.7-4.9); Hematocrit 39.5 % (36.0-45.0); Lymphocytes % 18.1 % (15.3-44.8); MCV 84.2 fL (80-100); MPV 9.9 fL (7.6-11.3); RBC Red Blood Cell Count 4.69 M/uL (3.86-4.86)
[2022-08-24 06:46] LABS: Albumin 3.2 g/dL (3.4-5.0); Bilirubin Total 0.4 mg/dL (0.2-1.0); Magnesium 2.4 mg/dL (1.8-2.4); Potassium 3.7 mmol/L (3.5-5.1); Protein, Total 7.7 g/dL (6.4-8.2)
[2022-08-24] MEDS: ENOXAPARIN 40 MG/0.4 ML SQ SCH (08:21)
[2022-08-24] MEDS: INSULIN -REGULAR HUMAN 50 UNIT/0.5 ML ML SQ SCH ×2 (08:21→12:22)
[2022-08-24] MEDS: INSULIN GLARGINE 100 UNIT/ML SQ SCH (08:21)
[2022-08-24] MEDS: CEFTRIAXONE 1,000 MG in NA CHLORIDE 0.9% 50 ML IVPB SCH (08:22)
[2022-08-24] MEDS: FUROSEMIDE 20 MG/ 2ML VIAL IV SCH (08:22)
[2022-08-24] MEDS: METHYLPREDNISOLONE 40 MG INJ IV SCH (08:22)
[2022-08-24] MEDS ORDERED: LOSARTAN POTASSIUM 50 MG TABLET PO SCH (09:00)
[2022-08-24] MEDS ORDERED: POTASSIUM CL SA 10 MEQ TAB PO ONE (09:00)
[2022-08-24] MEDS ORDERED: OSELTAMIVIR 75 MG CAP PO SCH (09:00)
[2022-08-24 11:25] VITALS: O2SAT 88
[2022-08-24] MEDS ORDERED: carvediloL 25 MG TAB PO SCH (12:26)
[2022-08-24 12:31] VITALS: TEMP 97.6
[2022-08-24 13:43] VITALS: BP 158/86
--- NOTE | 2022-08-26 08:29 | EKG ---
Test Date: 2022-08-22 Test Time: 10:48:16 Mandarin Speaking Nanny: CLEO MEASUREMENT RESULTS: Intervals: Rate: 75 SC: 190 QRSD: 112 QT: 398 QTc: 444 Browning: P: 60 SC: 190 QRS: -41 T: 83 INTERPRETIVE STATEMENTS: Normal sinus rhythm with sinus arrhythmia Left axis deviation Possible Anterior infarct, age undetermined T wave abnormality, consider lateral ischemia Abnormal ECG Compared to ECG 01/07/2021 15:12:49 T-wave abnormality now present Possible ischemia now present Myocardial infarct finding still present Electronically Signed On 08-26-22 08:20:52 COMMUNICATIONS TECHNOLOGIST by Syed Hernandez
== END 2022-08-24 14:15 | disposition home or self-care (01) | DRG 190 ==
LOC: ER 10:04 → ERHOLD 21:12 → 2ND 22:54
PROVIDERS: ADMIT Hospitalist; ATTEND Internal Medicine
DX: J44.1 Chronic obstructive pulmonary disease with (acute) exacerbation (principal); J96.21 Acute and chronic respiratory failure with hypoxia; F02.818 Dementia in other diseases classified elsewhere, unspecified severity, with other behavioral disturbance; G30.9 Alzheimer's disease, unspecified; E78.5 Hyperlipidemia, unspecified; I10 Essential (primary) hypertension; E03.9 Hypothyroidism, unspecified; E86.0 Dehydration; J10.1 Influenza due to other identified influenza virus with other respiratory manifestations; E11.65 Type 2 diabetes mellitus with hyperglycemia; I25.10 Atherosclerotic heart disease of native coronary artery without angina pectoris; R47.81 Slurred speech; Z66 Do not resuscitate; Z88.0 Allergy status to penicillin; Z79.4 Long term (current) use of insulin; Z95.5 Presence of coronary angioplasty implant and graft; Z95.0 Presence of cardiac pacemaker; Z95.1 Presence of aortocoronary bypass graft; Z79.82 Long term (current) use of aspirin; Z79.02 Long term (current) use of antithrombotics/antiplatelets; Z79.890 Hormone replacement therapy; Z90.710 Acquired absence of both cervix and uterus; Z79.899 Other long term (current) drug therapy; Z20.822 Contact with and (suspected) exposure to COVID-19
CPT/HCPCS: 0240U; 36415; 51702; 70450; 71045; 71275; 80053; 81003; 81015; 82947; 83605; 83735; 83880; 84439; 84443; 84484; 85025; 85379; 85610; 85730; 87040; 87086; 87088; 93005; 94640; 96374; 99285; J1650; J1815; J1940; J2920; J2930; J3480; J3535; J7042; J7614; Q9967